=== PATIENT | male | born 1950 | race Caucasian/White ===

== ENCOUNTER → 2016-06-14 | Outpatient (CLI) | payer OTHER ==
[~2016-06-14] MED LIST: no home meds
[2016-06-14 11:06] LABS: ALT/SGPT 51 U/L (12-78); AST/SGOT 19 U/L (15-37); BLOOD UREA NITROGEN 17 mg/dl (7-18); BUN/CREATININE RATIO 18.8 (10-20); CARBON DIOXIDE 28 mmol/L (21-32); CHLORIDE 105 mmol/L (98-107); CREATININE 0.92 mg/dl (0.60-1.40); GLUCOSE 94 mg/dl (70-99); POTASSIUM 4.3 mmol/L (3.5-5.1); SODIUM 139 mmol/L (136-145)
[2016-06-14 11:11] LABS: ALKALINE PHOSPHATASE 100 U/L (45-117); CHOLESTEROL 195 mg/dl (0-200); CHOLESTEROL/HDL RATIO 4.1; HDL CHOLESTEROL 47 mg/dl; LDL CHOLESTEROL CALCULATED 113 mg/dl; PROSTATE SPECIFIC ANTIGEN 0.812 ng/ml (0.000-4.000); TRIGLYCERIDES 173 mg/dl (0-150); VERY LOW DENSITY LIPOPROT CALC 35 mg/dl
== END | disposition home or self-care (01) ==
LOC: C.LABBC 08:55
PROVIDERS: ATTEND Internal Medicine
DX: C43.9 Malignant melanoma of skin, unspecified (principal)

== ENCOUNTER → 2016-08-23 | Outpatient (CLI) | payer OTHER ==
--- NOTE | 2016-08-23 09:39 | DIAGNOSTIC IMAGING REPORT ---
Limited abdominal ultrasound ABDOMEN FOR HERNIA CLINICAL HISTORY: R10.30 Right groin [id number] hernia TECHNIQUE: Pre and post Valsalva ultrasound COMPARISON STUDY: None FINDINGS: Normal study. No evidence for hernia. IMPRESSION: Normal study Electronically signed by: Mariano Poole M.D. 08/23/2016 9:37 AM Dictated Date/Time: 08/23/2016 9:37 AM
== END | disposition home or self-care (01) ==
LOC: C.ULTR 09:10
PROVIDERS: ATTEND Internal Medicine
DX: R10.30 Lower abdominal pain, unspecified (principal)

== ENCOUNTER → 2017-06-21 | Outpatient (CLI) | payer OTHER ==
[2017-06-21 14:44] LABS: ALBUMIN 3.8 gm/dl (3.4-5.0); ALT/SGPT 36 U/L (12-78); AST/SGOT 18 U/L (15-37); BLOOD UREA NITROGEN 15 mg/dl (7-18); CALCIUM 9.1 mg/dl (8.5-10.1); CARBON DIOXIDE 27 mmol/L (21-32); CHOLESTEROL 245 mg/dl (0-200); CREATININE 0.85 mg/dl (0.60-1.40); GLUCOSE 93 mg/dl (70-99); POTASSIUM 4.5 mmol/L (3.5-5.1); SODIUM 136 mmol/L (136-145)
[2017-06-21 14:49] LABS: ALKALINE PHOSPHATASE 101 U/L (45-117); LDL CHOLESTEROL CALCULATED 154 mg/dl; TOTAL PROTEIN 7.7 gm/dl (6.4-8.2)
== END | disposition home or self-care (01) ==
LOC: C.LABBC 10:00
PROVIDERS: ATTEND Internal Medicine
DX: Z11.59 Encounter for screening for other viral diseases (principal); J44.9 Chronic obstructive pulmonary disease, unspecified; E78.5 Hyperlipidemia, unspecified; C43.9 Malignant melanoma of skin, unspecified

== ENCOUNTER → 2017-09-06 | Outpatient (CLI) | payer OTHER ==
--- NOTE | 2017-09-06 11:04 | DIAGNOSTIC IMAGING REPORT ---
CT LUNG SCREENING, LOW DOSE WITH COMPUTER-AIDED DETECTION (CAD) CLINICAL HISTORY: 67 years-old Male presenting with lung cancer screening, nicotine dependence. CT DOSE (mGy.cm): The estimated cumulative dose is 79.39 mGycm. TECHNIQUE: Multidetector CT imaging of the chest was performed without the use of intravenous contrast. IV contrast: None. A dose lowering technique was used consistent with the principles of ALARA (as low as reasonably achievable). Additional postprocessing was performed on a separate [employer] workstation by the radiologist for computer-aided detection and 3-D volumetric segmentation of pulmonary nodules. COMPARISON: None. FINDINGS: [employer] topogram: Unremarkable. On soft tissue windows, normal thyroid and thoracic inlet. No axillary, supraclavicular, or mediastinal lymphadenopathy. Evaluation of the gilberto limited without intravenous contrast. Atherosclerosis of the aorta. Top normal heart size. Moderate three-vessel coronary artery calcification. No pericardial or pleural effusion. Upper abdomen normal. On lung windows, apical predominant paraseptal and centrilobular emphysema. Mild bronchial wall thickening. A suture margin may be present in the lingula. Calcified granuloma noted in the left upper lobe. Overall respiratory motion artifact mildly degrades evaluation of lung parenchyma. On bone windows, normal osseous structures. CAD FINDINGS: Overall Lung RADS Category: 1 Lung RADS Management Recommendation: Continue annual lung cancer screening. Lung RADS Follow Up Date: 2018-09-06 Lung RADS Nodule ID: IMPRESSION: 1. No suspicious nodule or infiltrate. Continue annual lung cancer screening. 2. Emphysema. Electronically signed by: Justin Melchor M.D. 09/06/2017 11:02 AM Dictated Date/Time: 09/06/2017 10:58 AM
== END | disposition home or self-care (01) ==
LOC: C.CTS 10:12
PROVIDERS: ATTEND Physician Assistant Medical
DX: Z87.891 Personal history of nicotine dependence (principal); J43.9 Emphysema, unspecified

== ENCOUNTER 2019-06-19 10:36 | Inpatient (IN) ==
[2019-06-19] MEDS ORDERED: PROPOFOL IV EMULSION 10 MG/ML 100 ML VIAL IV ONE (10:50)
[2019-06-19] MEDS ORDERED: SUCCINYLCHOLINE CHLORIDE 20 MG/ML 10 ML VIAL IV STA (10:53)
[2019-06-19] MEDS ORDERED: KETAMINE HCL INJ 50 MG/ML 10 ML VIAL IV STA (10:53)
[2019-06-19] MEDS ORDERED: SODIUM CHLORIDE 0.9% 1000ML 1,000 ML IV SCH ×2 (11:00→11:30)
[2019-06-19] MEDS ORDERED: propofoL 1,000 MG/100 ML VIAL IV SCH (11:00)
[2019-06-19 11:06] LABS: Hematocrit (blood only) 44.5 % (42-52); Hemoglobin 15.2 g/dL (14.0-18.0); Mean Corpuscular Hemoglobin 31.7 pg (25-34); Mean Corpuscular Hgb Conc 34.2 g/dL (32-36); Mean Corpuscular Volume 92.7 fL (80-100); Mean Platelet Volume 9.8 fL (7.4-10.4); Platelet Count 248 K/uL (130-400); RDW Coefficient of Variation 13.6 % (11.5-14.5); RDW Standard Deviation 46.3 fL (36.4-46.3); White Blood Count 8.07 K/uL (4.8-10.8)
[2019-06-19 11:14] LABS: iSTAT Creatinine 0.9 mg/dl (0.6-1.3); iSTAT Ionized Calcium 1.14 mmol/l (1.12-1.32); iSTAT Potassium 3.8 mmol/L (3.3-5.0)
--- NOTE | 2019-06-19 11:14 | XRay Report ---
XR chest 1V portable CLINICAL HISTORY: Respiratory failure COMPARISON STUDY: 09/10/2015 FINDINGS: The heart is enlarged. There is an endotracheal tube 5.6 cm above the kendell. Postsurgical changes are present within the left hemithorax. There is mild left hilar fullness. There is underlyin g emphysema. There are increasing asymmetric interstitial opacities left greater than right, likely s econdary to asymmetric interstitial edema. An inflammatory processes could appear similar. Clinical a nd radiographic follow-up is recommended.[ IMPRESSION: 1. Endotracheal tube 36 mm above the kendell 2. Asymmetric interstitial opacities, likely secondary to asymmetric edema. Clinical and radiographic follow-up is recommended ACT 112: Negative or not required by law. Electronically signed by: Jose De Jesus Suttno M.D. 06/19/2019 11:12 AM
[2019-06-19 11:15] LABS: Prothrombin Time 10.5 Seconds (9.0-12.0)
[2019-06-19] MEDS ORDERED: MIDAZOLAM HCL 5 MG/ML 1 ML VIAL IV STA ×2 (11:21→11:50)
[2019-06-19] MEDS ORDERED: fentaNYL citrate 100 MCG/2 ML VIAL IV STA ×4 (11:21→12:23)
[2019-06-19 11:24] LABS: Alanine Aminotransferase 90 U/L (12-78); Albumin Level 3.8 gm/dl (3.4-5.0); Aspartate Aminotransferase 74 U/L (15-37); BUN Creatinine Ratio 9.6 (10-20); Blood Urea Nitrogen 12 mg/dl (7-18); Calcium 8.8 mg/dl (8.5-10.1); Carbon Dioxide 18 mmol/L (21-32); Chloride 106 mmol/L (98-107); Est GFR (African American) 66.1; Glucose 207 mg/dl (70-99); Magnesium 2.4 mg/dl (1.8-2.4); Potassium 3.7 mmol/L (3.5-5.1); Sodium 136 mmol/L (136-145)
[2019-06-19 11:28] LABS: Base Excess VBG -12.3 mEq/L; Oxygen Saturation VBG 99.7 %; pH VBG 7.13 (7.36-7.41)
--- NOTE | 2019-06-19 11:31 | Emergency Department Note ---
Entered by Charles Funez acting as a scribe for History of Present Illness General Chief complaint: Cardiac Arrest/CPR Stated complaint: cardiac alert Source: EMS Limitations: altered mental status History of Present Illness Onset (ago): minute(s) (40) Location: head Pain Consistency: + constant Quality: + constant Associated symptoms: + other (seizure) Treatments prior to arrival: none The patient is a 69 year old male who presents to the Emergency Room with complaints of constant altered mental status starting 40 minutes ago. EMS states the patient was cutting trees with his brother when he sat down and then fell backwards. EMS states the patient's brother notes the patient had a seizure for about 3 minutes. EMS states the patient's brother notes once the seizure stopped the brother started CPR on the patient and then called 911. EMS states the police continued performing CPR and shocked the patient once. EMS states the patient has been sticking his tongue straight out. EMS states the patient's brother stated the patient has a high cholesterol but does not note any other medical problems. HPI is limited secondary to altered mental status. Home Medications Home Medications Medication Instructions Recorded Confirmed Type atorvastatin 20 mg PO QAM 06/19/19 06/19/19 History naproxen sodium [Aleve] 220 mg PO Q12H 06/19/19 06/19/19 History Allergies Allergy/AdvReac Type Severity Reaction Status Date / Time procaine [From Novocain] Allergy Unknown Verified 06/19/19 15:36 Past Med/Surg History Medical History Hyperlipidemia Lung collapse Surgical History H/O rotator cuff surgery Left Family History Mother AAA (abdominal aortic aneurysm) Heart disease reported prior to the age of 55 Father Lung cancer Other Dyslipidemia Social History Preferred Language: Samoan Communication Ability: restless Communication Ability Comment: currently restless, agitation Manometer Technician Required: No Beliefs That Will Affect Care: None Current Living Situation: Spouse Current Living Situation Comment: [facility] Other Information That Helps Us Care for You: No Feels Safe at Home: Yes Safety Concerns: Feels Safe At This Time Smoking Status: Current every day smoker Tobacco Type: cigarettes ; Do You Dip or Chew Tobacco: No ; Second Hand Exposure: No ; Tobacco Cessation Education Requested by Patient: No Hx Alcohol Use: Yes Alcohol type: beer Alcohol Intake Frequency: Weekly Hx Substance Use: No (unknown) Review of Systems See HPI for pertinent positives & negatives. and A total of 10 systems reviewed and were otherwise negative Physical Exam Vital Signs Vital Signs - 24 hr 06/19/19 10:40 06/19/19 10:48 06/19/19 10:49 Temperature 36.5 C Temperature [Source #1] Temperature Source Oral Temperature Source [Source #1] Pulse Rate 114 H 107 H Pulse Rate from SpO2 Sensor 107 H Respiratory Rate Respiratory Effort / Characteristics Respiratory Pattern Blood Pressure 162/120 H Blood Pressure Mean 130 Blood Pressure Position [Left Arm] Pulse Oximetry 92 97 Oxygen Delivery Method Nasal Cannula Oxygen Flow Rate Fraction of Inspired Oxygen Sepsis Recent Fever Within 48 Hours No Sepsis New/Unexplained Change in Mental Status Yes Sepsis Action Taken by Nursing No Action Required End-Tidal CO2 06/19/19 10:50 06/19/19 10:52 06/19/19 11:00 Temperature Temperature [Source #1] Temperature Source Temperature Source [Source #1] Pulse Rate 119 H 118 H 120 H Pulse Rate from SpO2 Sensor 119 H 118 H 121 H Respiratory Rate 20 Respiratory Effort / Characteristics Respiratory Pattern Blood Pressure 193/131 H 200/134 H Blood Pressure Mean 144 143 Blood Pressure Position [Left Arm] Pulse Oximetry 97 97 96 Oxygen Delivery Method Ambu-Bag Ambu-Bag Mechanical Vent Oxygen Flow Rate Fraction of Inspired Oxygen 100 Sepsis Recent Fever Within 48 Hours Sepsis New/Unexplained Change in Mental Status Sepsis Action Taken by Nursing End-Tidal CO2 36 06/19/19 11:08 06/19/19 11:10 06/19/19 11:19 Temperature Temperature [Source #1] Temperature Source Temperature Source [Source #1] Pulse Rate 128 H 124 H 106 H Pulse Rate from SpO2 Sensor 128 H 124 H 105 H Respiratory Rate Respiratory Effort / Characteristics Respiratory Pattern Blood Pressure 198/143 H 189/136 H 142/90 H Blood Pressure Mean 159 152 104 Blood Pressure Position [Left Arm] Pulse Oximetry 96 96 96 Oxygen Delivery Method Mechanical Vent Mechanical Vent Mechanical Vent Oxygen Flow Rate 97 Fraction of Inspired Oxygen Sepsis Recent Fever Within 48 Hours Sepsis New/Unexplained Change in Mental Status Sepsis Action Taken by Nursing End-Tidal CO2 40 36 32 01/14/20 11:20 06/19/19 11:25 06/19/19 11:30 Temperature Temperature [Source #1] Temperature Source Temperature Source [Source #1] Pulse Rate 102 H 93 H 93 H Pulse Rate from SpO2 Sensor 99 H 93 H 93 H Respiratory Rate Respiratory Effort / Characteristics Respiratory Pattern Blood Pressure 137/91 99/70 L 106/73 Blood Pressure Mean 101 75 83 Blood Pressure Position [Left Arm] Pulse Oximetry 96 97 98 Oxygen Delivery Method Mechanical Vent Mechanical Vent Oxygen Flow Rate Fraction of Inspired Oxygen Sepsis Recent Fever Within 48 Hours Sepsis New/Unexplained Change in Mental Status Sepsis Action Taken by Nursing End-Tidal CO2 40 40 42 06/19/19 11:35 06/19/19 11:40 06/19/19 12:08 Temperature Temperature [Source #1] Temperature Source Temperature Source [Source #1] Pulse Rate 92 H 95 H 87 Pulse Rate from SpO2 Sensor 92 H 94 H 89 Respiratory Rate Respiratory Effort / Characteristics Respiratory Pattern Blood Pressure 108/73 108/73 93/61 L Blood Pressure Mean 83 83 72 Blood Pressure Position [Left Arm] Pulse Oximetry 99 99 99 Oxygen Delivery Method Oxygen Flow Rate Fraction of Inspired Oxygen Sepsis Recent Fever Within 48 Hours Sepsis New/Unexplained Change in Mental Status Sepsis Action Taken by Nursing End-Tidal CO2 41 42 37 06/19/19 12:10 06/19/19 12:15 06/19/19 12:16 Temperature Temperature [Source #1] Temperature Source Temperature Source [Source #1] Pulse Rate 89 91 H 97 H Pulse Rate from SpO2 Sensor 87 94 H Respiratory Rate 21 Respiratory Effort / Characteristics Respiratory Pattern Blood Pressure 96/69 L 124/77 Blood Pressure Mean 76 90 Blood Pressure Position [Left Arm] Pulse Oximetry 96 100 100 Oxygen Delivery Method Oxygen Flow Rate Fraction of Inspired Oxygen 50 Sepsis Recent Fever Within 48 Hours Sepsis New/Unexplained Change in Mental Status Sepsis Action Taken by Nursing End-Tidal CO2 06/19/19 12:20 06/19/19 12:25 06/19/19 12:30 Temperature Temperature [Source #1] Temperature Source Temperature Source [Source #1] Pulse Rate 89 92 H 83 Pulse Rate from SpO2 Sensor 89 90 83 Respiratory Rate Respiratory Effort / Characteristics Respiratory Pattern Blood Pressure 108/67 107/87 90/61 L Blood Pressure Mean 78 100 72 Blood Pressure Position [Left Arm] Pulse Oximetry 100 100 100 Oxygen Delivery Method Oxygen Flow Rate Fraction of Inspired Oxygen Sepsis Recent Fever Within 48 Hours Sepsis New/Unexplained Change in Mental Status Sepsis Action Taken by Nursing End-Tidal CO2 41 42 06/19/19 12:32 06/19/19 12:35 06/19/19 12:40 Temperature Temperature [Source #1] 35.2 C L Temperature Source Temperature Source [Source #1] Rectal Pulse Rate 83 92 H 83 Pulse Rate from SpO2 Sensor 85 83 Respiratory Rate 21 Respiratory Effort / Characteristics Mechanically Ventilated Respiratory Pattern Blood Pressure 94/62 L 111/75 Blood Pressure Mean 72 82 Blood Pressure Position [Left Arm] Pulse Oximetry 100 100 Oxygen Delivery Method Oxygen Flow Rate Fraction of Inspired Oxygen Sepsis Recent Fever Within 48 Hours Sepsis New/Unexplained Change in Mental Status Sepsis Action Taken by Nursing End-Tidal CO2 45 48 06/19/19 12:45 06/19/19 12:49 06/19/19 12:50 Temperature 35.2 C L Temperature [Source #1] Temperature Source Rectal Temperature Source [Source #1] Pulse Rate 80 84 Pulse Rate from SpO2 Sensor 80 83 Respiratory Rate Respiratory Effort / Characteristics Respiratory Pattern Blood Pressure 104/72 136/90 Blood Pressure Mean 80 103 Blood Pressure Position [Left Arm] Pulse Oximetry 100 100 Oxygen Delivery Method Oxygen Flow Rate Fraction of Inspired Oxygen Sepsis Recent Fever Within 48 Hours Sepsis New/Unexplained Change in Mental Status Sepsis Action Taken by Nursing End-Tidal CO2 47 48 06/19/19 12:55 06/19/19 13:00 06/19/19 13:05 Temperature Temperature [Source #1] Temperature Source Temperature Source [Source #1] Pulse Rate 82 78 Pulse Rate from SpO2 Sensor 82 81 Respiratory Rate Respiratory Effort / Characteristics Respiratory Pattern Blood Pressure 148/98 H 148/96 H 130/85 Blood Pressure Mean 111 113 95 Blood Pressure Position [Left Arm] Pulse Oximetry 100 100 100 Oxygen Delivery Method Mechanical Vent Oxygen Flow Rate Fraction of Inspired Oxygen Sepsis Recent Fever Within 48 Hours Sepsis New/Unexplained Change in Mental Status Sepsis Action Taken by Nursing End-Tidal CO2 50 06/19/19 13:08 06/19/19 13:21 06/19/19 15:00 Temperature 34.9 C L 33.7 C L Temperature [Source #1] 35.2 C L Temperature Source Rectal Core Temperature Source [Source #1] Rectal Pulse Rate 85 Pulse Rate from SpO2 Sensor Respiratory Rate 22 22 Respiratory Effort / Characteristics Non-Labored Mechanically Ventilated Respiratory Pattern Regular Blood Pressure Blood Pressure Mean Blood Pressure Position [Left Arm] Lying Pulse Oximetry 98 Oxygen Delivery Method Mechanical Vent Oxygen Flow Rate Fraction of Inspired Oxygen 50 Sepsis Recent Fever Within 48 Hours Sepsis New/Unexplained Change in Mental Status Sepsis Action Taken by Nursing End-Tidal CO2 45 06/19/19 15:13 Temperature Temperature [Source #1] Temperature Source Temperature Source [Source #1] Pulse Rate 83 Pulse Rate from SpO2 Sensor 83 Respiratory Rate Respiratory Effort / Characteristics Respiratory Pattern Blood Pressure 123/71 Blood Pressure Mean 78 Blood Pressure Position [Left Arm] Pulse Oximetry 97 Oxygen Delivery Method Oxygen Flow Rate Fraction of Inspired Oxygen Sepsis Recent Fever Within 48 Hours Sepsis New/Unexplained Change in Mental Status Sepsis Action Taken by Nursing End-Tidal CO2 GENERAL: Moving all extremities but not following commands. Slurred speech. HENT: Normocephalic, atraumatic. EYES: Normal conjunctiva. Sclera non-icteric. PERRL. NECK: Supple. No nuchal rigidity. RESPIRATORY: Clear to auscultation. Normal respiratory effort. CARDIAC: Tachycardic rate. Normal rhythm. Extremities warm and well perfused. GI: Soft, non-distended. No tenderness to palpation. LOWER EXTREMITIES: Calves are equal size bilaterally and no edema NEURO: Moving all extremities. Slurred speech. Not saying words. Not following commands. Trying to get off of bed/combative. SKIN: Warm and dry. No jaundice noted. Procedures Intubation sedative: Ketamine Mg Given: 200 paralytic: Succinylcholine Mg Given: 150 Laryngoscope: other (Glidescope) ET Tube Size: 7.5 ET Tube Uncuffed: No Tube Secured Depth (cm): 24 Tube Secured Location: lips Tube Placement Confirmation: visualized tube passing through cords, equal breath sounds bilaterally, no breath sounds over epigastrium and confirmation by capnometry Patient Tolerated Procedure: no complications Additional Comments: Performed by myself. Course Course 1040: The patient was evaluated in room B1, and a complete history and physical examination were performed. 1110: I spoke with Dr. Dye - Emergency Medicine. He will come down and see the patient. 0116: I spoke with Dr. Boyd - Cardiology. He benoit to take the patient to the drop crew laborer after the CT. 1141: I updated the patient's family. 1153: I discussed the patient's case with Dr. Da Silva - [facility]. He will evaluate the patient for further management. 1240: Dr. Dye is at bedside. 1257: The patient is going to the drop crew laborer. Administered Medications Fentanyl Citrate (Fentanyl Drip) 1,250 mcg in 250 mls @ 40 mls/hr IV .Q6H15M STA; Protocol Stop: 06/19/19 18:38 Last Titration: 06/19/19 16:41 Dose: 200 mcg/hr, 40 mls/hr Documented by: [id number] Admin: 06/19/19 12:42 Dose: 250 mcg/hr, 50 mls/hr Documented by: [id number] Cosigned by: [id number] Cisatracurium Besylate 40 mg/ (Sodium Chloride) 100 mls @ 10.95 mls/hr IV .Q9H8M STA; Protocol Stop: 06/19/19 19:09 Last Admin: 06/19/19 12:58 Dose: 1 mcg/kg/min, 11 mls/hr Documented by: [id number] Cosigned by: [id number] Midazolam HCl (Versed) 125 mg in 250 mls @ 2 mls/hr IV .Q24H FELICE; Protocol Stop: 07/19/19 15:59 Last Admin: 06/19/19 16:11 Dose: 1 mg/hr, 2 mls/hr Documented by: [id number] Cosigned by: [id number] Miscellaneous (Icu Protocol For Hyperglycemia) 1 ea N/A PRN PRN; Protocol PRN Reason: Hyperglycemia Protocol Stop: 06/21/19 15:31 Last Admin: 06/19/19 16:00 Dose: 1 ea Documented by: [id number] Discontinued Medications Aspirin (Aspirin) 300 mg FL NOW STA Stop: 06/19/19 12:46 Last Admin: 06/19/19 12:55 Dose: 300 mg Documented by: [id number] Fentanyl Citrate (Fentanyl Citrate) 100 mcg IV NOW STA Stop: 06/19/19 11:22 Last Admin: 06/19/19 11:22 Dose: 100 mcg Documented by: [id number] Fentanyl Citrate (Fentanyl Citrate) 100 mcg IV NOW STA Stop: 06/19/19 11:42 Last Admin: 06/19/19 11:41 Dose: 100 mcg Documented by: [id number] Fentanyl Citrate (Fentanyl Citrate) 100 mcg IV NOW STA Stop: 06/19/19 11:51 Last Admin: 06/19/19 13:54 Dose: Not Given Documented by: [id number] Fentanyl Citrate (Fentanyl Citrate) 100 mcg IV NOW STA Stop: 06/19/19 12:24 Last Admin: 06/19/19 12:25 Dose: 100 mcg Documented by: [id number] Heparin Sodium (Porcine) (Heparin Iv Bolus (Chair Mender Use Only)) Confirm Adminis tered Dose 10,000 units .ROUTE .STK-MED ONE Stop: 06/19/19 12:47 Last Admin: 06/19/19 14:54 Dose: 9,000 units Documented by: [id number] Heparin Sodium/Sodium Chloride (Heparin/Nss 1000 Unit/500ml Flush Bag) Confirm Administered Dose 5,000 units IV .STK-MED ONE Stop: 06/19/19 12:47 Last Admin: 06/19/19 13:41 Dose: 5,000 units Documented by: [id number] Sodium Chloride (Nss 1000ml) 1,000 mls @ 999 mls/hr IV .Q1H1M [facility] Stop: 06/19/19 12:00 Last Admin: 06/19/19 10:50 Dose: 999 mls/hr Documented by: [id number] Propofol (Diprivan) 1,000 mg in 100 mls @ 0 mls/hr IV .Q0M FELICE; Protocol Stop: 06/22/19 10:59 Last Titration: 06/19/19 12:40 Dose: 0 mcg/kg/min, 0 mls/hr Documented by: [id number] Titration: 06/19/19 11:14 Dose: 35 mcg/kg/min, 21.3 mls/hr Documented by: [id number] Admin: 06/19/19 11:10 Dose: 25 mcg/kg/min, 15.2 mls/hr Documented by: [id number] Cosigned by: [id number] Ketamine HCl (Ketalar Steri-Vial) 200 mg IV NOW STA Stop: 06/19/19 10:54 Last Admin: 06/19/19 11:01 Dose: 100 mg Documented by: [id number] Midazolam HCl (Versed) 2 mg IV NOW STA Stop: 06/19/19 11:22 Last Admin: 06/19/19 12:09 Dose: 2 mg Documented by: [id number] Midazolam HCl (Versed) 2 mg IV NOW STA Stop: 06/19/19 11:51 Last Admin: 06/19/19 11:46 Dose: 2 mg Documented by: [id number] Nicardipine HCl (Cardene) Confirm Administered Dose 25 mg .ROUTE .STK-MED ONE Stop: 06/19/19 12:47 Last Admin: 06/19/19 13:41 Dose: 25 mg Documented by: [id number] Nitroglycerin/Dextrose (Nitroglycerin/D5w 100 Mcg/Ml 20ml Syringe) Confirm Administered Dose 2,000 mcg .ROUTE .STK-MED ONE Stop: 06/19/19 12:47 Last Admin: 06/19/19 13:40 Dose: 2,000 mcg Documented by: [id number] Propofol (Diprivan) Confirm Administered Dose 1,000 mg IV .STK-MED ONE Stop: 06/19/19 10:51 Last Admin: 06/19/19 10:52 Dose: 1,000 mg Documented by: [id number] Cosigned by: [id number] Succinylcholine Chloride (Quelicin) 150 mg IV NOW STA Stop: 06/19/19 10:54 Last Admin: 06/19/19 11:02 Dose: 150 mg Documented by: [id number] Critical Care Time Critical Care Time: Yes Total Critical Care Time: 75 I have personally spent 75 minutes of critical care time in the direct management of this patient. This includes bedside care, interpretation of diagnostic studies, and testing, discussion with consultants, patient, and family members, and other required patient management activities. This 75 minutes is in excess of all separately billable procedures. Medical Decision Making Differential Diagnosis Differential diagnoses includes but is not limited to toxic, metabolic, infectious, traumatic, cardiac, neurologic, hematologic, psychiatric and inflammatory etiologies. Medical Records Attestation: I reviewed the patient's medical records. Home Medications Current Medication List: was personally reviewed by me Laboratory Data Attestation: I reviewed the patient's lab results. Result diagrams: 06/19/19 10:45 06/19/19 10:45 Lab Results 06/19/19 06/19/19 06/19/19 Range/Units 10:45 10:45 10:45 WBC 8.07 (4.8-10.8) K/uL RBC 4.80 (4.7-6.1) M/uL Hgb 15.2 (14.0-18.0) g/dL POC Hgb (14.0-18.0) g/dl Hct 44.5 (42-52) % POC Hct (42-52) % MCV 92.7 (80-100) fL MCH 31.7 (25-34) pg MCHC 34.2 (32-36) g/dL RDW Std Deviation 46.3 (36.4-46.3) fL RDW Coeff of Elena 13.6 (11.5-14.5) % Plt Count 248 (130-400) K/uL MPV 9.8 (7.4-10.4) fL Neutrophils % (Manual) 58.3 % Lymphocytes % (Manual) 21.7 % Monocytes % (Manual) 4.3 % Basophils % (Manual) 0.9 % Neutrophils # (Manual) 4.70 (1.4-6.5) K/uL Total Absolute Neuts 4.70 (1.4-6.5) K/uL Lymphocytes # (Manual) 1.75 (1.2-3.4) K/uL Total Abs Lymphocytes 2.95 (1.2-3.4) K/uL Monocytes # (Manual) 0.35 (0.11-0.59) K/uL Basophils # (Manual) 0.07 (0-0.2) K/uL Large Granular Lymphs 14.8 % # Lrg Granular Lymphs 1.19 K/uL Echinocytes 1+ PT 10.5 (9.0-12.0) Seconds INR 1.0 (0.9-1.1) VBG pH (7.36-7.41) VBG pCO2 (38-50) mmHg VBG pO2 mmHg VBG HCO3 mmol/L VBG O2 Saturation % VBG Base Excess mEq/L Barometric Pressure mm/Hg POC Sodium (135-144) mmol/L Sodium 136 (136-145) mmol/L POC Potassium (3.3-5.0) mmol/L Potassium 3.7 (3.5-5.1) mmol/L POC Chloride (101-112) mmol/L Chloride 106 (98-107) mmol/L Carbon Dioxide 18 L (21-32) mmol/L POC Total CO2 (24-31) mEq/l Anion Gap 12.0 H (3-11) POC Anion Gap (16-25) mmol/L POC BUN (7-18) mg/dl BUN 12 (7-18) mg/dl Creatinine 1.29 (0.6-1.4) mg/dl POC Creatinine (0.6-1.3) mg/dl Est Cr Clr Drug Dosing Not Reportable Est GFR ( Amer) 66.1 Est GFR (Non-Af Amer) 57.0 BUN/Creatinine Ratio 9.6 L (10-20) Glucose 207 H (70-99) mg/dl POC Glucose (other) (70-99) mg/dl Lactate (0.4-2.0) mmol/L Calcium 8.8 (8.5-10.1) mg/dl POC Ioniz Calcium Marito (1.12-1.32) mmol/l Magnesium 2.4 (1.8-2.4) mg/dl Total Bilirubin 0.6 (0.2-1) mg/dl AST 74 H (15-37) U/L ALT 90 H (12-78) U/L Alkaline Phosphatase 106 (45-117) U/L Troponin I (0-0.045) ng/ml Total Protein 7.6 (6.4-8.2) gm/dl Albumin 3.8 (3.4-5.0) gm/dl Globulin 3.8 (2.5-4.0) gm/dl Albumin/Globulin Ratio 1.0 (0.9-2) TSH 8.790 H (0.300-4.500) uIu/ml Free T4 0.82 (0.8-1.6) ng/dl Urine Color Urine Appearance (Clear) Urine pH (4.5-7.5) Ur Specific [place] (1.000-1.030) Urine Protein (Negative) Urine Glucose (UA) (Negative) Urine Ketones (Negative) Urine Blood (Negative) Urine Nitrite (Negative) Urine Bilirubin (Negative) Urine Urobilinogen (Negative) Ur Leukocyte Esterase (Negative) Urine WBC (Auto) (0-5) /hpf Urine RBC (Auto) (0-4) /hpf U Hyaline Cast (Auto) (0-5) /lpf U Epithel Cells (Auto) (0-5) /lpf Urine Bacteria (Auto) (Negative) Urine Mucus (None Prsent) Urine Opiates Screen (Neg) Ur Methadone, Qual (Neg) Urine Barbiturates (Neg) Ur Phencyclidine (PCP) (Neg) U Amphetamin/Meth Scrn (Neg) MDMA (Ecstasy) Screen (Neg) U Benzodiazepines Scrn (Neg) Ur Cocaine Metabolite (Neg) U Marijuana (THC) Screen (Neg) 06/19/19 06/19/19 06/19/19 Range/Units 10:45 10:58 11:10 WBC (4.8-10.8) K/uL RBC (4.7-6.1) M/uL Hgb (14.0-18.0) g/dL POC Hgb 15.0 (14.0-18.0) g/dl Hct (42-52) % POC Hct 44 (42-52) % MCV (80-100) fL MCH (25-34) pg MCHC (32-36) g/dL RDW Std Deviation (36.4-46.3) fL RDW Coeff of Elena (11.5-14.5) % Plt Count (130-400) K/uL MPV (7.4-10.4) fL Neutrophils % (Manual) % Lymphocytes % (Manual) % Monocytes % (Manual) % Basophils % (Manual) % Neutrophils # (Manual) (1.4-6.5) K/uL Total Absolute Neuts (1.4-6.5) K/uL Lymphocytes # (Manual) (1.2-3.4) K/uL Total Abs Lymphocytes (1.2-3.4) K/uL Monocytes # (Manual) (0.11-0.59) K/uL Basophils # (Manual) (0-0.2) K/uL Large Granular Lymphs % # Lrg Granular Lymphs K/uL Echinocytes PT (9.0-12.0) Seconds INR (0.9-1.1) VBG pH (7.36-7.41) VBG pCO2 (38-50) mmHg VBG pO2 mmHg VBG HCO3 mmol/L VBG O2 Saturation % VBG Base Excess mEq/L Barometric Pressure mm/Hg POC Sodium 136 (135-144) mmol/L Sodium (136-145) mmol/L POC Potassium 3.8 (3.3-5.0) mmol/L Potassium (3.5-5.1) mmol/L POC Chloride 106 (101-112) mmol/L Chloride (98-107) mmol/L Carbon Dioxide (21-32) mmol/L POC Total CO2 18 L (24-31) mEq/l Anion Gap (3-11) POC Anion Gap 17.0 (16-25) mmol/L POC BUN 14 (7-18) mg/dl BUN (7-18) mg/dl Creatinine (0.6-1.4) mg/dl POC Creatinine 0.9 (0.6-1.3) mg/dl Est Cr Clr Drug Dosing Est GFR ( Amer) Est GFR (Non-Af Amer) BUN/Creatinine Ratio (10-20) Glucose (70-99) mg/dl POC Glucose (other) 209 H (70-99) mg/dl Lactate 7.0 H* (0.4-2.0) mmol/L Calcium (8.5-10.1) mg/dl POC Ioniz Calcium Marito 1.14 (1.12-1.32) mmol/l Magnesium (1.8-2.4) mg/dl Total Bilirubin (0.2-1) mg/dl AST (15-37) U/L ALT (12-78) U/L Alkaline Phosphatase (45-117) U/L Troponin I < 0.015 (0-0.045) ng/ml Total Protein (6.4-8.2) gm/dl Albumin (3.4-5.0) gm/dl Globulin (2.5-4.0) gm/dl Albumin/Globulin Ratio (0.9-2) TSH (0.300-4.500) uIu/ml Free T4 (0.8-1.6) ng/dl Urine Color Urine Appearance (Clear) Urine pH (4.5-7.5) Ur Specific [place] (1.000-1.030) Urine Protein (Negative) Urine Glucose (UA) (Negative) Urine Ketones (Negative) Urine Blood (Negative) Urine Nitrite (Negative) Urine Bilirubin (Negative) Urine Urobilinogen (Negative) Ur Leukocyte Esterase (Negative) Urine WBC (Auto) (0-5) /hpf Urine RBC (Auto) (0-4) /hpf U Hyaline Cast (Auto) (0-5) /lpf U Epithel Cells (Auto) (0-5) /lpf Urine Bacteria (Auto) (Negative) Urine Mucus (None Prsent) Urine Opiates Screen (Neg) Ur Methadone, Qual (Neg) Urine Barbiturates (Neg) Ur Phencyclidine (PCP) (Neg) U Amphetamin/Meth Scrn (Neg) MDMA (Ecstasy) Screen (Neg) U Benzodiazepines Scrn (Neg) Ur Cocaine Metabolite (Neg) U Marijuana (THC) Screen (Neg) 06/19/19 06/19/19 06/19/19 Range/Units 11:10 11:30 11:30 WBC (4.8-10.8) K/uL RBC (4.7-6.1) M/uL Hgb (14.0-18.0) g/dL POC Hgb (14.0-18.0) g/dl Hct (42-52) % POC Hct (42-52) % MCV (80-100) fL MCH (25-34) pg MCHC (32-36) g/dL RDW Std Deviation (36.4-46.3) fL RDW Coeff of Elena (11.5-14.5) % Plt Count (130-400) K/uL MPV (7.4-10.4) fL Neutrophils % (Manual) % Lymphocytes % (Manual) % Monocytes % (Manual) % Basophils % (Manual) % Neutrophils # (Manual) (1.4-6.5) K/uL Total Absolute Neuts (1.4-6.5) K/uL Lymphocytes # (Manual) (1.2-3.4) K/uL Total Abs Lymphocytes (1.2-3.4) K/uL Monocytes # (Manual) (0.11-0.59) K/uL Basophils # (Manual) (0-0.2) K/uL Large Granular Lymphs % # Lrg Granular Lymphs K/uL Echinocytes PT (9.0-12.0) Seconds INR (0.9-1.1) VBG pH 7.13 L (7.36-7.41) VBG pCO2 52 H (38-50) mmHg VBG pO2 304 mmHg VBG HCO3 17 mmol/L VBG O2 Saturation 99.7 % VBG Base Excess -12.3 mEq/L Barometric Pressure 735.4 mm/Hg POC Sodium (135-144) mmol/L Sodium (136-145) mmol/L POC Potassium (3.3-5.0) mmol/L Potassium (3.5-5.1) mmol/L POC Chloride (101-112) mmol/L Chloride (98-107) mmol/L Carbon Dioxide (21-32) mmol/L POC Total CO2 (24-31) mEq/l Anion Gap (3-11) POC Anion Gap (16-25) mmol/L POC BUN (7-18) mg/dl BUN (7-18) mg/dl Creatinine (0.6-1.4) mg/dl POC Creatinine (0.6-1.3) mg/dl Est Cr Clr Drug Dosing Est GFR ( Amer) Est GFR (Non-Af Amer) BUN/Creatinine Ratio (10-20) Glucose (70-99) mg/dl POC Glucose (other) (70-99) mg/dl Lactate (0.4-2.0) mmol/L Calcium (8.5-10.1) mg/dl POC Ioniz Calcium Marito (1.12-1.32) mmol/l Magnesium (1.8-2.4) mg/dl Total Bilirubin (0.2-1) mg/dl AST (15-37) U/L ALT (12-78) U/L Alkaline Phosphatase (45-117) U/L Troponin I (0-0.045) ng/ml Total Protein (6.4-8.2) gm/dl Albumin (3.4-5.0) gm/dl Globulin (2.5-4.0) gm/dl Albumin/Globulin Ratio (0.9-2) TSH (0.300-4.500) uIu/ml Free T4 (0.8-1.6) ng/dl Urine Color Yellow Urine Appearance Cloudy A (Clear) Urine pH 5.0 (4.5-7.5) Ur Specific [place] 1.021 (1.000-1.030) Urine Protein 2+ H (Negative) Urine Glucose (UA) 2+ H (Negative) Urine Ketones Negative (Negative) Urine Blood 1+ H (Negative) Urine Nitrite Negative (Negative) Urine Bilirubin Negative (Negative) Urine Urobilinogen Negative (Negative) Ur Leukocyte Esterase Negative (Negative) Urine WBC (Auto) 5-10 H (0-5) /hpf Urine RBC (Auto) 0-4 (0-4) /hpf U Hyaline Cast (Auto) 1-5 (0-5) /lpf U Epithel Cells (Auto) 10-20 H (0-5) /lpf Urine Bacteria (Auto) 1+ H (Negative) Urine Mucus Present A (None Prsent) Urine Opiates Screen Neg (Neg) Ur Methadone, Qual Neg (Neg) Urine Barbiturates Neg (Neg) Ur Phencyclidine (PCP) Neg (Neg) U Amphetamin/Meth Scrn Neg (Neg) MDMA (Ecstasy) Screen Neg (Neg) U Benzodiazepines Scrn Neg (Neg) Ur Cocaine Metabolite Neg (Neg) U Marijuana (THC) Screen Neg (Neg) Imaging Data Radiologist's Impression: Radiology results as stated below per my review and the radiologist's interpretation: XR chest 1V portable CLINICAL HISTORY: Respiratory failure COMPARISON STUDY: 09/10/2015 FINDINGS: The heart is enlarged. There is an endotracheal tube 5.6 cm above the kendell. Postsurgical changes are present within the left hemithorax. There is m ild left hilar fullness. There is underlying emphysema. There are increasing asymmetric interstitial opacities left greater than right, likely secondary to asymmetric interstitial edema. An inflammatory processes could appear similar. Clinical and radiographic follow-up is recommended.[ IMPRESSION: 1. Endotracheal tube 36 mm above the kendell 2. Asymmetric interstitial opacities, likely secondary to asymmetric edema. Clinical and radiographic follow-up is recommended ACT 112: Negative or not required by law. Electronically signed by: Jose De Jesus Sutton M.D. 06/19/2019 11:[address] head/brain wo con CLINICAL HISTORY: post arrest, seizure COMPARISON STUDY: No previous studies for comparison. TECHNIQUE: Axial CT of the brain is performed from the vertex to the skull base. IV contrast was not administered for this examination. A dose lowering technique was utilized adhering to the principles of ALARA. CT DOSE: 887.21 mGycm FINDINGS: No intra or extra-axial mass lesions are visualized. There is no CT evidence of acute cortical infarction. There is no evidence of midline shift. There is no acute hemorrhage. No calvarial fractures are visualized. There are minor white matter hypodensities likely on a small vessel basis. There is no evidence of pathologic ventricular dilatation. There is moderate ethmoid sinus mucosal thickening. There is mild maxillary and frontal sinus mucosal thickening. IMPRESSION: No acute intracranial findings ACT 112: Negative or not required by law. Electronically signed by: Jose De Jesus Sutton M.D. 06/19/2019 12:06 PM ECG Data Attestation: I personally reviewed and interpreted this ECG as follows: Indication: + other (Cardiac Arrest) Rate (beats per minute): 118 Rhythm: + sinus tachycardia ECG ST segments: + ST depression (slight inferior st depression); no ST elevation ECG Findings: no PVCs Blood Pressure Blood Pressure Findings: Elevated blood pressure Blood Pressure Disposition: further management by hospitalist HANY Narrative Patient is a 69-year-old gentleman presenting via EMS with a history of hyperlipidemia after cardiac arrest. Patient was with his brother cutting trees and began to feel unwell sat down. EMS states there was some reports of possible seizure-like activity and the patient went unresponsive. No pulse was felt and brother started CPR. 911 was called. Please first arrived continued CPR and AED was utilized with 1 shock. Patient had return of pulses. EMS arrived. States rapid afib to sinus tach for them with no other meds given. Patient was intermittently moving some and breathing on his own and brought here for further care. Upon arrival patient was confused. Quickly became combative trying to jump off the bed moving all extremities but with slurred and noncoherent speech. No focal deficits grossly appreciated beyond speech issues and not following commands. Patient received ketamine and succinylcholine for intubation for his and staff safety with soft restraints. ET tube was slightly high and repositioned lower after CXR. CBC and i-STAT without significant findings. Lactate elevated. Initial trop negative. EKG with some slight diffuse ST depression but no evidence of STEMI. Discussed with both the ICU and interventional cardiology. Given the seizure and altered mental status a CT of the head was completed to exclude other acute intracranial pathology. This was without acute finding. Respiratory standpoint doing pretty well and lower suspicion is acute PE. No evidence again of STEMI but in light of the shockable arrest after head CT, cardiology plans for cardiac catheterization to evaluate for cardiac disease. Therapeutic hypothermia procedures were initiated. ICU evaluated in ED with hospitalist. [place] aspiring given. Impression & Plan Cardiac arrest, AMS (altered mental status), Elevated lactic acid level, Hypercapnic respiratory failure Discharge Plan Visit Data *Final* Discharge Date/Time: 06/19/19 13:09 Chief Complaint: Cardiac Arrest/CPR Stated Complaint: cardiac alert ED Provider: Jason Clarke Discharge Problem: Cardiac arrest, AMS (altered mental status), Elevated lactic acid level, Hypercapnic respiratory failure Patient Disposition: Still a Patient Discharge Instructions Interventions: ED Discharge Assessment Last Done: 06/19/19 13:09 Discharge Problem: AMS (altered mental status) Qualifiers: Altered mental status type: unspecified Qualified Code(s): R41.82 - Altered mental status, unspecified Hypercapnic respiratory failure Qualifiers: Chronicity: unspecified Qualified Code(s): J96.92 - Respiratory failure, u nspecified with hypercapnia The scribe's documentation has been prepared under my direction and personally reviewed by me in its entirety. I confirm that the note above accurately reflects all work, treatment, procedures, and medical decision making performed by me.
[2019-06-19 11:35] LABS: Alkaline Phosphatase 106 U/L (45-117); Bilirubin,Total 0.6 mg/dl (0.2-1); Globulin 3.8 gm/dl (2.5-4.0); Total Protein 7.6 gm/dl (6.4-8.2)
[2019-06-19 11:48] LABS: T4 Free Thyroxine 0.82 ng/dl (0.8-1.6)
[2019-06-19 11:52] LABS: Appearance Urine Cloudy (Clear); Bilirubin Urine Negative (Negative); Blood Urine 1+ (Negative); Color Urine Yellow; Glucose Urine UA 2+ (Negative); Ketones Urine Negative (Negative); Leukocyte Esterase Urine Negative (Negative); Nitrite Urine Negative (Negative); Protein Urine 2+ (Negative); RBC Urine Automated 0-4 /hpf (0-4); Specific Gravity Urine 1.021 (1.000-1.030); Urobilinogen Urine Negative (Negative)
--- NOTE | 2019-06-19 12:09 | Electrocardiogram Report ---
Test Reason : Blood Pressure : / mmHG Vent. Rate : 118 BPM Atrial Rate : 118 BPM P-R Int : 152 ms QRS Dur : 088 ms QT Int : 342 ms P-R-T Axes : 081 059 036 degrees QTc Int : 479 ms Sinus tachycardia Nonspecific ST abnormality Abnormal ECG When compared with ECG of 10-SEP-2015 10:36, Vent. rate has increased BY [address] now depressed in Lateral leads ST now depressed in Inferior leads Confirmed by Calos Nina ([id number]) on 06/19/2019 12:09:37 PM Referred By: Confirmed By:Calos Nina
--- NOTE | 2019-06-19 12:09 | History & Physical Report ---
Date of Service June 19, 2019 Assessment & Plan (1) Obesity: -Diet and exercise to be encouraged prior to discharge (2) Tobacco use: -We will need to address smoking use, encourage cessation, consider nicotine patch whenever the patient is awake -History of smoking 1 PPD x50 years per family (3) DVT prophylaxis: -Teds for now CODE STATUS: Full code-discussed with patient's , other family at bedside including brother who witnessed the event, son and [id number] Disposition: Patient from home, likely to remain in hospital x1 to 2 days s/p cardiac cath History of Present Illness Primary Care Provider: Justin Bob MD This is a 69 yo M with PMHx of HLD, emphysematous disease as seen on CT scan, obesity with BMI =32, cigarette smoking 1ppd x 50 years and previous heavy etoh use, who had episode of acute cardiac arrest at approximately 10:00am while chopping wood. The event was witnessed by his brother who was also helping. Brother supplies the history as patient is currently ventilated and sedated. Brother notes that he is accustomed to chopping wood, and had just loaded rosa isela ral pieces onto a trailer when he sat down on a stump and said he did not feel well, then fell to the ground. His body became very rigid and face became bright red for about 3 minutes, then pt seemed to relax. Brother attempted to do CPR and gave rescue breaths however was a unable to due to patient "being so stiff" initially, but then proceeded to perform CPR. EMS arrived within 10 to 15 minutes EMS arrived to the scene, AED gave one shock, and attained ROSC and pt started breathing on his own. Patient's family has been updated and plan was discussed with them in the ER waiting room. All their questions and concerns were answered. Here in the ER the patient was administered IV fentanyl push, Versed IV push, then propofol drip due to agitation without adequate effect, patient is now b eing transitioned to fentanyl drip. ASA 325 mg administered in the ER. EKG was reviewed and is show evolving ST wave depressions in the lateral leads since initial EKG, likely infarct of the LAD. Patient is to go to the Procedure Tech within moments. Lactate = 7.0, VBG pH = 7.13, VBG CO2 =52 mmHg, glucose = 207 Last cholesterol panel collected on 06/27/2018, total cholesterol = 170, HDL = 59, LDL = 92, triglycerides = 106 Family Hx: Mother of heart disease including AAA, CA, and congestive HF Father of lung cancer with metastasis to liver and brain Brother (who witnessed event) without any known cardiac/heart issues Sister (currently 63) had CA 15 years ago Social Hx: Previously heavy etoh user, currently drinks 3-4 beers 3x per week which is a significant reduction per his . Smokes cigarettes 1 ppd x 50 years Allergies Allergy/AdvReac Type Severity Reaction Status Date / Time procaine [From Novocain] Allergy Unknown Verified 06/29/19 14:05 Home Medications Home Medications Medication Instructions Recorded Confirmed Type atorvastatin 20 mg PO QAM 06/19/19 06/29/19 History amiodarone 200 mg tablet See Rx Instructions PO BID 06/28/19 06/29/19 History clopidogrel 75 mg tablet 75 mg PO DAILY 06/28/19 06/29/19 History famotidine 20 mg tablet 20 mg PO BID 06/28/19 06/29/19 History furosemide 40 mg tablet See Rx Instructions PO DAILY 06/28/19 06/29/19 History metoprolol tartrate 25 mg tablet 25 mg PO BID 06/28/19 06/29/19 History oxycodone 5 mg tablet 5 mg PO Q4H PRN #120 tab 06/28/19 06/29/19 Rx potassium chloride 10 mEq See Rx Instructions PO DAILY 30 06/28/19 06/29/19 Rx capsule,extended release Days #60 cap warfarin 5 mg tablet See Rx Instructions PO .COMPLEX 06/28/19 06/29/19 History Past Med/Surg History Medical History Hyperlipidemia Lung collapse Surgical History H/O rotator cuff surgery Left Family History Mother AAA (abdominal aortic aneurysm) Heart disease reported prior to the age of 55 Father Lung cancer Other Dyslipidemia Social History Preferred Language: Sami Communication Ability: restless Car Body 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 Required: No Beliefs That Will Affect Care: None Current Living Situation: Spouse Current Living Situation Comment: [facility] Feels Safe at Home: Yes Smoking Status: Current every day smoker Tobacco Type: cigarettes ; Second Hand Exposure: No ; Hx Alcohol Use: Yes Alcohol type: beer Alcohol Intake Frequency: Weekly Hx Substance Use: No (unknown) Review of Systems Review of Systems: Unobtainable due to endotracheal tube Physical Exam Physical Exam: General: awake, does not follow commands, ET tube in place, moving around on bed, being placed in soft restraints due to agitation Head: Normocephalic, atraumatic ENT: PERRL, EOMI, no pharyngeal exudate, mucous membranes moist Chest: ET tube in place, coarse breath sounds in the left base, otherwise no adventitious breath sounds Cardiac: Sinus tach, no murmur, no JVD, normal peripheral pulses, good capillary refill Abdominal: NABS x 4 quadrants, soft, nondistended, nontender to palpation, no rebound, guarding or tenderness Extremities: Normal inspection, no peripheral edema or erythema, calfs nontender to palpation Neuro: Awake, strength intact bilaterally, no gross motor deficits Skin: no rash or erythema Results & Data Vital Signs (Past 12 Hours) Vital Signs Temp Pulse BP Pulse Ox 06/19/19 11:35 92 H 108/73 99 06/19/19 11:30 93 H 106/73 98 06/19/19 11:25 93 H 99/70 L 97 06/19/19 11:20 102 H 137/91 96 06/19/19 11:19 106 H 142/90 H 96 06/19/19 11:10 124 H 189/136 H 96 06/19/19 11:08 128 H 198/143 H 96 06/19/19 11:00 121 H 200/134 H 96 06/19/19 10:52 118 H 97 06/19/19 10:50 119 H 193/131 H 97 06/19/19 10:49 107 H 162/120 H 97 06/19/19 10:48 114 H 06/19/19 10:40 36.5 C 92 Diagnostic Findings XR chest 1V portable CLINICAL HISTORY: Respiratory failure COMPARISON STUDY: 09/10/2015 FINDINGS: The heart is enlarged. There is an endotracheal tube 5.6 cm above the kendell. Postsurgical changes are present within the left hemithorax. There is mild left hilar fullness. There is underlying emphysema. There are increasing asymmetric interstitial opacities left greater than right, likely secondary to asymmetric interstitial edema. An inflammatory processes could appear similar. Clinical and radiographic follow-up is recommended.[ IMPRESSION: 1. Endotracheal tube 36 mm above the kendell 2. Asymmetric interstitial opacities, likely secondary to asymmetric edema. Clinical and radiographic follow-up is recommended ACT 112: Negative or not required by law. CT head/brain wo con CLINICAL HISTORY: post arrest, seizure COMPARISON STUDY: No previous studies for comparison. TECHNIQUE: Axial CT of the brain is performed from the vertex to the skull base. IV contrast was not administered for this examination. A dose lowering technique was utilized adhering to the principles of ALARA. CT DOSE: 887.21 mGycm FINDINGS: No intra or extra-axial mass lesions are visualized. There is no CT evidence of acute cortical infarction. There is no evidence of midline shift. There is no acute hemorrhage. No calvarial fractures are visualized. There are minor white matter hypodensities likely on a small vessel basis. There is no evidence of pathologic ventricular dilatation. There is moderate ethmoid sinus mucosal thickening. There is mild maxillary and frontal sinus mucosal thickening. IMPRESSION: No acute intracranial findings ACT 112: Negative or not required by law. Electronically signed by: Jose De Jesus Sutton M.D. 06/19/2019 12:06 PM ECG Additional Comments: 19-JUN-2019 10:52:24 [facility]-EDSTAT ROUTINE RETRIEVAL Sinus tachycardia Nonspecific ST abnormality Abnormal ECG When compared with ECG of 10-SEP-2015 10:36, Vent. rate has increased BY [address] now depressed in Lateral leads ST now depressed in Inferior leads Confirmed by Calos Nina ([id number]) on 06/19/2019 12:09:37 PM 25mm/s 10mm/mV 150Hz 9.0.9 12SL 241 VERONICA: 3 Confirmed By: Calos Nina Vent. rate 118 BPM ME interval 152 ms QRS duration 88 ms QT/QTc 342/479 ms P-R-T axes 81 59 36 Code Status & VTE Plan Code Status Full code-discussed with patient's family at bedside Supervising Physician Co-Signing Physician Notes I personally saw and examined the patient. I verified all segovia points and agree with YEIMY Franz with the following exceptions and/or additions: 69 yo male admission for s/p witnessed cardiac arrest with down time of estimated 15 minutes. 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 History confirmed with family as above. O/E Patient sedated and intubated. Coarse breath sounds b/l, RRR, no murmurs EKG ST depression in lateral leads Suspected NSTEMI - Added ASA 300mg ME to be given since this was not given on route to ER by EMS, planning for emergent cardiac cath Cardiac arrest - ICU admission following cardiac cath, discussed care with Dr Dye in ER, Code Arctic initiated. PG Care Time/CCT Total # of Minutes Spent Total Time Spent with Patient: Total time spent is greater than 50% in coordination of care (as documented) at patient's floor/unit and/or counseling patient: Coding Level of Care Code 64942 Initial Inpt Care Lvl 3 Diagnoses Obesity E66.9 Tobacco use Z72.0 DVT prophylaxis Z29.9
[2019-06-19 12:11] LABS: ALC (manual) 2.95 K/uL (1.2-3.4); Basophils # (manual) 0.07 K/uL (0-0.2); Basophils % (manual) 0.9 %; Echinocytes 1+; Large Granular Lymph # (manua 1.19 K/uL; Large Granular Lymph % (manual) 14.8 %; Lymphocytes # (manual) 1.75 K/uL (1.2-3.4); Lymphocytes % (manual) 21.7 %; Monocytes # (manual) 0.35 K/uL (0.11-0.59); Monocytes % (manual) 4.3 %; Neutrophils % (manual) 58.3 %
[2019-06-19] MEDS ORDERED: fentaNYL citrate 100 MCG/2 ML VIAL IV PRN (12:24)
[2019-06-19] MEDS ORDERED: fentaNYL DRIP 1,250 MCG/250 ML BAG IV STA (12:24)
[2019-06-19] MEDS ORDERED: CISATRACURIUM BESYLATE 40 MG in 0.9 % SODIUM CHLORIDE 80 ML IV STA (12:34)
[2019-06-19 12:37] LABS: Mucus Urine Present (None Prsent)
[2019-06-19 12:38] LABS: Bacteria Urine Automated 1+ (Negative)
[2019-06-19] MEDS ORDERED: PNEUMOCOCCAL ADMINISTRATION CHARGE ONE (12:41)
[2019-06-19] MEDS ORDERED: PNEUMOCOCCAL POLYSACCHARIDES 25 MCG/0.5 ML VIAL/SYR IM ONE (12:41)
[2019-06-19] MEDS ORDERED: ASPIRIN 300 MG SUPP PR STA (12:45)
[2019-06-19] MEDS ORDERED: NITROGLYCERIN/D5W 100MCG/ML 20ML SYR ONE (12:46)
[2019-06-19] MEDS ORDERED: HEPARIN (PORCINE) 1000 UNIT/ML 10 ML (CATH LAB USE ONLY) ONE (12:46)
[2019-06-19] MEDS ORDERED: NiCARDipine HCL INJ 2.5 MG/ML 10 ML AMP ONE (12:46)
[2019-06-19 14:50] LABS: Amphetamines+Metham, Urine Neg (Neg); Barbiturates, Urine Neg (Neg); Benzodiazepine, Urine Neg (Neg); Cocaine, Urine Neg (Neg); MDMA (Ecstacy), Urine Neg (Neg); Methadone, Urine Neg (Neg); Opiate, Urine Neg (Neg); Phencyclidine, Urine Neg (Neg)
--- NOTE | 2019-06-19 15:14 | Cardiac Catheterization ---
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 Cardiac Status Clinical evaluation leading to the procedure CAD Presenation: Non STEMI Anginal Classification: CCS IV Heart Failure: No Cardiogenic Shock within 24 Hours: No Cardiac Arrest within 24 Hours: Yes Imaging Studies Past 6 Months: No Stress Studies Past 6 Months: No Diagnostic Physicians Name: Francisco Boyd MD Status: Urgent Closure Device Recommendations: Medical Therapy and/or Counseling and CABG Intraprocedure Events Significant Disection: No Perforation: No Cardiac Cath Procedure Full Procedure Date June 19, 2019 Pre-Procedure Diagnosis Pre-Procedure Diagnosis: Cardiothoracic Symptom (Cardiac arrest) AUC Score AUC Score: 8 Post-Procedure Diagnosis Post-Procedure Diagnosis: Severe CAD and Elevated Intracardiac Pressures Procedure(s) Performed Procedure(s) Performed: Coronary Angiography, Left Heart Cath and Procedure (Cooling catheter insertion) Sagger Filler Francisco Boyd MD Brush Painter(s) Giancarlo Estimated Blood Loss Estimated Blood Loss: 15 Medication(s) Medication(s): Fentanyl, Heparin, Lidocaine 1%, Nicardipine, Nitroglycerin and Versed Summary of Findings Indication: Cardiac arrest 69-year-old man tobacco abuse, dyslipidemia, mild COPD, family history of coronary artery disease who had a bystander witnessed out of hospital cardiac arrest while chopping wood this morning. ROSC after 10 to 15minutes CPR and first advised AED shock upon arrival of EMS. Intubated/sedated for confusion/combativeness in ED. Hemodynamically stable. ECG showing anterolateral ST depressions. Access: 6 Fr slender right radial artery Catheters: Notus, EBU 3.5 guide Findings: LM -no significant disease LAD -medium caliber vessel, 100% chronic occlusion earlymid after takeoff of first diagonal. Mid LAD reconstitutes via retrograde flow through second diagonal. HA II flow in medium caliber mid to distal LAD which wraps around the apex. Hazy severe, 90+% ostial stenosis of second diagonal prior to LAD. Circumflex -large caliber vessel, mid segment luminal irregularities. Provides left to right collaterals to right PLB's. Large OM 2 with luminal irregularities provides collaterals to large second diagonal. RCA -dominant, moderate caliber, heavily calcified proximally with moderate to severe diffuse disease prior to 100% chronic occlusion at takeoff of RV branch. Distal vessel fills via [id number] collaterals. LVEDP -40 Attempted to pass wire across earlymid LAD occlusion but unable to navigate whisper, fire pilot 50 wire across chronic occlusion. Wires removed and no apparent cardiac complications. Cooling catheter placed to right common femoral vein under ultrasound guidance. Arterial Closure: TR band Summary: 1. Severe multivessel coronary artery disease -100% chronic earlymid LAD occlusion. Mid to distal LAD fills via left to left collaterals primarily via circumflex to second diagonal. Hazy, 90+% ostial second diagonal stenosis (possible acute culprit). 100% chronic mid RCA occlusion 2. Elevated intracardiac filling pressure Recommendations: Transfer to tertiary center for continued post cardiac arrest management and evaluation for CABG versus BIOSTATISTICS DIRECTOR PCI of LAD/diagonal Hemodynamics Rest Ao:: 154/78/120 Final Ao: 186/93/134 LV: 183/40 Recommendations Recommendations: Medical Therapy and/or Counseling and CABG Specimens Specimens: None Radiation Exposure (mGy) 4429 Contrast (mls) 190 Fluids (cc crystalloids) Fluids (cc crystalloids): 150 Drains Drains: none Anesthesia moderate Procedural Complication(s) None Disposition PCU I attest to the content of the Intraoperative Record and any orders documented therein. Any exceptions are noted below. [facility] Card Cath Procedure Codes Cardiac Catheterization Procedure 1: Cardiovascular Cath Procedures: 41716 Coronaries and LHC (+/-LV) Therapeutic Services & Ancillary Proc Procedure 1: Cardiovascular Tx and Anc Procedures: 25112 Ultrasonic Guidance Vascular Access Procedure 2: Cardiovascular Tx and Anc Procedures: 97146 Insertion Central Venous Catheter PG Care Time/CCT Total # of Minutes Spent Total Time Spent with Patient: Total time spent is greater than 50% in coordination of care (as documented) at patient's floor/unit and/or counseling p atient:
[2019-06-19] MEDS ORDERED: ONDANSETRON INJ 2 MG/ML 2 ML VIAL IV PRN (15:32)
[2019-06-19] MEDS ORDERED: ICU PROTOCOL FOR HYPERGLYCEMIA PRN (15:32)
[2019-06-19] MEDS ORDERED: CISATRACURIUM BESYLATE IV SOLN 2 MG/ML 10 ML VIAL IV STA (15:33)
[2019-06-19] MEDS ORDERED: MIDAZOLAM HCL 1 MG/ML 2ML VIAL IV PRN (15:44)
--- NOTE | 2019-06-19 15:44 | Cardiology Consultation ---
Date of Consultation June 19, 2019 Assessment & Plan (1) Cardiac arrest: Presentation concerning for ACS triggered arrhythmia/cardiac arrest and recommend proceeding with urgent cardiac catheterization and possible PCI. Discussed risks, benefits, alternatives of procedure with family. Plan to place cooling catheter to begin targeted temperature management. Further recommendations pending findings of coronary angiography. History of Present Illness Attending Physician: Mo Da Silva MD History of Present Illness 69-year-old man tobacco abuse, dyslipidemia, mild COPD, family history of coronary artery disease who had a bystander witnessed out of hospital cardiac arrest while chopping wood this morning. ROSC after 10 to 15 minutes CPR and first advised AED shock upon arrival of EMS. Intubated/sedated for confusion/combativeness in ED. Hemodynamically stable. ECG showing anterolateral ST depressions. Allergies Allergy/AdvReac Type Severity Reaction Status Date / Time procaine [From Novocain] Allergy Unknown Verified 06/19/19 15:36 Home Medications Home Medications Medication Instructions Recorded Confirmed Type atorvastatin 20 mg PO QAM 06/19/19 06/19/19 History naproxen sodium [Aleve] 220 mg PO Q12H 06/19/19 06/19/19 History Patient History Medical History (Updated 06/19/19 @ 13:08 by Charles Funez) Hyperlipidemia Lung collapse Surgical History (Updated 06/19/19 @ 13:05 by Lilian Franz PA-C) H/O rotator cuff surgery Left Family History (Updated 06/19/19 @ 13:05 by Lilian Franz PA-C) Mother Heart disease AAA (abdominal aortic aneurysm) Father Lung cancer Other Dyslipidemia Social History (Updated 06/19/19 @ 13:10 by Lilina Franz PA-C) Preferred Language: Ukrainian Communication Ability: restless Communication Ability Comment: currently restless, agitation 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 Required: No Beliefs That Will Affect Care: None Current Living Situation: Spouse Current Living Situation Comment: [facility] Other Information That Helps Us Care for You: No Feels Safe at Home: Yes Safety Concerns: Feels Safe At This Time Smoking Status: Current every day smoker Tobacco Type: cigarettes ; Do You Dip or Chew Tobacco: No ; Second Hand Exposure: No ; Tobacco Cessation Education Requested by Patient: No Hx Alcohol Use: Yes Alcohol type: beer Alcohol Intake Frequency: Weekly Hx Substance Use: No (unknown) Review of Systems Review of Systems: Unobtainable due to endotracheal tube Physical Exam Physical Exam: General: Intubated, sedated HEENT: Sclerae anicteric Lungs: Clear to auscultation bilaterally Cardiac: Regular rate and rhythm, no murmurs Abdomen: Soft Extremities: Warm, well perfused, no edema. 2+ radial pulses Skin: No rashes or lesions. Psych: Intubated, sedated Results & Data Vital Signs (Past 12 Hours) Vital Signs Temp Temp Pulse Resp BP Pulse Ox 06/19/19 15:20 85 22 98 06/19/19 13:21 22 06/19/19 13:08 94.8 F L 06/19/19 13:05 78 130/85 100 06/19/19 13:00 148/96 H 100 06/19/19 12:55 82 148/98 H 100 06/19/19 12:50 84 136/90 100 06/19/19 12:49 95.4 F L 06/19/19 12:45 80 104/72 100 06/19/19 12:40 83 111/75 100 06/19/19 12:35 92 H 94/62 L 100 06/19/19 12:32 95.4 F L 83 21 06/19/19 12:30 83 90/61 L 100 06/19/19 12:25 92 H 107/87 100 06/19/19 12:20 89 108/67 100 06/19/19 12:16 97 H 124/77 100 06/19/19 12:15 91 H 21 100 06/19/19 12:10 89 96/69 L 96 06/19/19 12:08 87 93/61 L 99 06/19/19 11:40 95 H 108/73 99 06/19/19 11:35 92 H 108/73 99 06/19/19 11:30 93 H 106/73 98 06/19/19 11:25 93 H 99/70 L 97 06/19/19 11:20 102 H 137/91 96 06/19/19 11:19 106 H 142/90 H 96 06/19/19 11:10 124 H 189/136 H 96 06/19/19 11:08 128 H 198/143 H 96 06/19/19 11:00 120 H 20 200/134 H 96 06/19/19 10:52 118 H 97 06/19/19 10:50 119 H 193/131 H 97 06/19/19 10:49 107 H 162/120 H 97 06/19/19 10:48 114 H 06/19/19 10:40 97.7 F 92 PG Care Time/CCT Total # of Minutes Spent Total Time Spent with Patient: Total time spent is greater than 50% in coordination of care (as documented) at patient's floor/unit and/or counseling patient:
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
[2019-06-19] MEDS ORDERED: MIDAZOLAM HCL 125 MG/250 ML BAG IV SCH (16:00)
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
[2019-06-20] MEDS ORDERED: ATORVASTATIN 20 MG TAB PO SCH (09:00)
--- NOTE | 2019-06-22 09:01 | Coding Query ---
CODING QUERY To promote full compliance with coding requirements relating to patient care, provider participation is requested in all cases of concrete buildings assembler uncertainty. Please assist us with the question(s) below: Coding Question(s): Dr. Da Silva, Dr. Francisco Boyd reported an NSTEMI in the cardiac catheterization report. As attending physician, please clarify if you agree with this diagnosis. (X) Yes, the patient had an NSTEMI - suspected on admission ( ) No, NSTEMI ruled out ( ) Other, please explain ( ) Unable to determine Physician's Response(s): Thank you for your time, ZULLY Muñoz, [facility] Principal Diagnosis: "that condition established after study, to be chiefly responsible for occasioning the admission of the patient to the hospital for care." Co-Existing Principal Diagnosis: "when two or more diagnoses equally meet the criteria for principal diagnosis as determined by the circumstances of admission, diagnostic work up, and/or therapy provided, and the Alphabetic Index, Tabular List, or another coding guideline does not provide sequencing direction, any one of the diagnoses may be sequenced first." "When the physician has documented what appears to be a current diagnosis in the body of the record, but has not included the diagnosis in the final diagnostic statement, the physician should be asked whether the diagnosis should be added." (Source Coding Clinic 2 QTR90. p3-4) GLENNY
== END 2019-06-19 18:37 | disposition short-term general hospital (02) | DRG 280 ==
LOC: ED 10:36 → CC 13:09 → 1E 15:15

== ENCOUNTER 2020-09-11 18:19 | Inpatient (IN) ==
[2020-09-11] MEDS ORDERED: FAMOTIDINE 20MG IV PUSH 20 MG/5 ML SYR IV STA (20:02)
[2020-09-11] MEDS ORDERED: PANTOprazole 40 MG TAB PO STA (20:02)
--- NOTE | 2020-09-11 20:08 | Emergency Department Note ---
Impression & Plan Acute upper gastrointestinal bleeding, Dizziness ED Provider Note NAME: MAKAYLA KING AGE: 70 SEX: M : 1950 ARRIVES VIA: Walk-In INFORMANT: Patient, ED PROVIDER(S): Kian Hinojosa DO CHIEF COMPLAINT: Dizziness HPI: The patient is a 70-year-old male who does have a cardiac history who is taking aspirin and also Plavix up until recently who started having black stool over the course of the last few days. The patient has been experiencing dizziness and lightheadedness. Initially he thought this could be secondary to his cardiac disease and he went to see his primary care physician. He has a history of atrial fibrillation. The patient was seen by his primary care physician for the symptoms and had laboratory studies drawn. When the results were returned he was called by his primary care physician and told to go to the emergency department immediately for further evaluation and possible admission. The patient himself says that his symptoms are continuing especially with any ambulation or going from sitting to standing. The patient denies having any chest pain at this time. He does have some dyspnea on exertion. He denies having any history of upper endoscopy in the past or peptic ulcer disease. The patient did not have a rectal exam at his primary care physician's office. ROS: See above HPI for pertinent positives & negatives. A total of 10 systems reviewed and were otherwise negative. PAST MEDICAL HISTORY: See Below PAST SURGICAL HISTORY: See Below FAMILY HISTORY: See Below SOCIAL HISTORY: See Below HOME MEDICATIONS: See Below ALLERGIES: See Below VITALS: See Below PHYSICAL EXAMINATION: GENERAL: The patient is awake and alert. He is comfortable appearing. EYES: The conjunctivae are clear. The pupils are round and reactive. EARS, NOSE, MOUTH AND THROAT: The nose is without any evidence of any deformity. NECK: The neck is nontender and supple. RESPIRATORY: Normal respiratory effort is noted there is no evidence of wheezing rhonchi or rales CARDIOVASCULAR: Regular rate and rhythm noted there no murmurs rubs or gallops normal S1 normal S2. GASTROINTESTINAL: The abdomen was soft and nondistended. There is mild tenderness in the right upper quadrant. Rectal exam revealed black stool which was heme positive. MUSCULOSKELETAL/EXTREMITIES: There is no evidence of gross deformity full range of motion is noted in the hips and shoulders. SKIN: There is no obvious evidence of any rash. There are no petechiae, pallor or cyanosis noted. NEUROLOGIC: Patient is awake alert and oriented x3. MEDICAL DECISION MAKING: The patient is a 70-year-old male who presented to the emergency department for an evaluation of lower GI bleeding and dizziness upon standing. The patient was having symptomatic anemia. He does have a strong cardiac history. He was taking Plavix and aspirin together. The patient started developing dark stools. He had laboratory studies done as an outpatient and was told to go to the e mergency department because of anemia. The patient was reevaluated multiple times. I discussed the patient's laboratory and radiographic studies with him. Ultimately I discussed his case with the on-call [facility] hospitalist. They have agreed to evaluate the patient in the emergency department for further management and disposition. The patient's condition remained stable head and he did not require emergent transfusion in the emergency department. He was treated with proton pump inhibitor and H2 elizabeth. Triage Nursing notes reviewed. Prior medical records reviewed Vital Signs: reviewed and remarkable for no significant abnormalities Differential diagnosis: Infection, dehydration, metabolic abnormality, hypo/hyperglycemia, electrolyte disturbance, anemia, hypoxia, cardiac sources, intracerebral event, toxicologic, neurologic, as well as other pathologies. ER treatment provided: See below Diagnostics interpreted by me: ECG: EKG was obtained in the emergency department. My interpretation is normal sinus rhythm at 66 bpm. Anterior T wave inversions were noted. There was no PVCs. This was compared to a tracing from June 192019. The anterior T wave abnormalities are new compared to the previous tracing. Cardiac Monitoring: An order was placed for continuous cardiac monitoring. The monitor shows a rate of 70 bpm with sinus rhythm. Laboratory studies: As stated above and show below. Imaging studies: See below Consultation(s): I discussed this case with Dr. Romero [facility] Past Med/Surg History Medical History COPD (chronic obstructive pulmonary disease) Coronary artery disease History of cardiac arrest Hx of pneumothorax Hypercapnic respiratory failure Hyperlipidemia Lung collapse Malignant melanoma of skin Obesity Paroxysmal atrial fibrillation Superficial thrombophlebitis of both upper extremities Tobacco use Transaminitis Surgical History H/O rotator cuff surgery Left History of colonoscopy History of coronary artery bypass graft Cardiac arrest; MVD s/p CABG x 3 ([place] to LAD; SVG to RPL and SVG to PAD on 06/22/2019; POST-OP blood loss AFIB (Amio & coumadin) poss. VTACH tx w/ lidocaine and MAG and acute cardio-pulm edema sec. volume overload 06/17: DUAL-CHAMBER PACEMAKER DEFIB History of inguinal hernia repair History of open heart surgery History of thoracotomy S/P CABG x 3 S/P ICD (internal cardiac defibrillator) procedure Family History Mother AAA (abdominal aortic aneurysm) Heart disease reported prior to the age of 55 Myocardial infarction Diabetes Kidney disease Hypertension Father , age 74 Lung cancer Diabetes Unknown No problems noted. Other Dyslipidemia Denies family history of Ovarian cancer Prostate cancer Breast cancer Colorectal cancer Social History Smoking Status: Never smoker Cigarettes Per Day: 20; Second Hand Exposure: Yes; Hx Alcohol Use: Yes Alcohol type: beer Alcohol Intake Frequency: 2-3 x/Week Hx Substance Use: No Preferred Language: Barbadian Communication Ability: restless Visual Impairment: No Limitations Hearing Ability: Normal Production Control Analyst Required: No Beliefs That Will Affect Care: None marital status: Current Living Situation: Spouse Current Living Situation Comment: Rosette King current occupational status: retired 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[employer]; [employer]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 How many Children do You have: 3 Feels Safe at Home: Yes Childhood Exposure to Second-Hand Smoke: Yes caffeine: Yes Dental Care, Regularly: Yes Physical Activity Frequency: 1-2 Times per Week Seatbelt Use: always Sunscreen Use: No Assistive Devices: Denture - Upper and Denture - Lower Allergies Allergies Allergy/AdvReac Type Severity Reaction Status Date / Time procaine [From Novocain] Allergy Unknown Verified 09/11/20 20:03 Home Meds Home Medications Medication Instructions Recorded Confirmed metoprolol tartrate 25 mg tablet 25 mg PO BID 06/28/19 09/11/20 sildenafil (pulm.hypertension) 20 20 mg PO DAILY tab 09/19/19 09/11/20 mg tablet atorvastatin 40 mg tablet 40 mg PO DAILY 10/15/19 09/11/20 aspirin 81 mg tablet,delayed 81 mg PO DAILY 04/08/20 09/11/20 release Previous Rx's Medication Instructions Recorded pantoprazole 40 mg tablet,delayed 40 mg PO DAILY #30 tab 09/11/20 release sulfamethoxazole 800 1 tab PO BID #20 tab 09/11/20 mg-trimethoprim 160 mg tablet Results & Data (ED) Vital Signs Vital Signs - 24 hr 09/11/20 18:22 09/11/20 20:14 09/11/20 20:18 Temperature 37.0 C Temperature Source Oral Pulse Rate 82 82 Pulse Rate [Apical] 67 Pulse Rate from SpO2 Sensor Pulse Rhythm Regular Pulse Rhythm [Apical] Regular Pulse Strength [Apical] Normal Respiratory Rate 18 18 18 Respiratory Effort / Characteristics Non-Labored Spontaneous Non-Labored Spontaneous Respiratory Depth Normal Normal Respiratory Pattern Regular Blood Pressure 137/83 Blood Pressure [Left Arm] 121/75 Blood Pressure Mean 101 Blood Pressure Mean [Left Arm] 90 Pulse Oximetry 100 100 100 Oxygen Delivery Method Room Air Room Air Room Air Sepsis Recent Fever Within 48 Hours No Sepsis New/Unexplained Change in Mental Status No Sepsis Action Taken by Nursing No Action Required 09/11/20 21:00 09/11/20 21:30 09/11/20 22:00 Temperature Temperature Source Pulse Rate 66 67 68 Pulse Rate [Apical] Pulse Rate from SpO2 Sensor 66 67 68 Pulse Rhythm Pulse Rhythm [Apical] Pulse Strength [Apical] Respiratory Rate 15 18 18 Respiratory Effort / Characteristics Respiratory Depth Respiratory Pattern Blood Pressure 94/64 L 123/70 115/65 Blood Pressure [Left Arm] Blood Pressure Mean 74 87 81 Blood Pressure Mean [Left Arm] Pulse Oximetry 100 100 99 Oxygen Delivery Method Sepsis Recent Fever Within 48 Hours Sepsis New/Unexplained Change in Mental Status Sepsis Action Taken by Nursing 09/11/20 22:30 09/11/20 23:00 Temperature Temperature Source Pulse Rate 66 63 Pulse Rate [Apical] Pulse Rate from SpO2 Sensor 67 63 Pulse Rhythm Pulse Rhythm [Apical] Pulse Strength [Apical] Respiratory Rate 21 19 Respiratory Effort / Characteristics Respiratory Depth Respiratory Pattern Blood Pressure 126/76 107/67 Blood Pressure [Left Arm] Blood Pressure Mean 92 80 Blood Pressure Mean [Left Arm] Pulse Oximetry 99 95 Oxygen Delivery Method Sepsis Recent Fever Within 48 Hours Sepsis New/Unexplained Change in Mental Status Sepsis Action Taken by [facility] Medications Current Medication List: was personally reviewed by me Laboratory Data Attestation: I reviewed the patient's lab results. Result diagrams: 09/11/20 20:06 09/11/20 20:06 Lab Results 09/11/20 09/11/20 09/11/20 Range/Units 20:06 20:06 20:06 WBC 5.96 (4.8-10.8) K/uL RBC 3.90 L (4.7-6.1) M/uL Hgb 10.2 L (14.0-18.0) g/dL Hct 31.6 L (42-52) % MCV 81.0 (80-100) fL MCH 26.2 (25-34) pg MCHC 32.3 (32-36) g/dL RDW Std Deviation 49.8 H (36.4-46.3) fL RDW Coeff of Elena 16.8 H (11.5-14.5) % Plt Count 270 (130-400) K/uL MPV 8.6 (7.4-10.4) fL Immature Gran % (Auto) 0.2 % Neut % (Auto) 62.0 % Lymph % (Auto) 29.9 % [place] % (Auto) 6.9 % Eos % (Auto) 0.3 % Baso % (Auto) 0.7 % Reticulocyte % (Auto) 1.7 (0.5-2.0) % Neut # (Auto) 3.70 (1.4-6.5) K/uL Lymph # (Auto) 1.78 (1.2-3.4) K/uL [place] # (Auto) 0.41 (0.11-0.59) K/uL Eos # (Auto) 0.02 (0-0.5) K/uL Baso # (Auto) 0.04 (0-0.2) K/uL Reticulocyte # 0.07 (0.02-0.10) 10^6/uL Immature Gran # (Auto) 0.01 (0.00-0.02) K/uL Ovalocytes 1+ PT 10.0 (9.0-12.0) Seconds INR 1.0 (0.9-1.1) APTT 22.4 (21.0-31.0) Seconds PTT Ratio 0.9 Sodium (136-145) mmol/L Potassium (3.5-5.1) mmol/L Chloride (98-107) mmol/L Carbon Dioxide (21-32) mmol/L Anion Gap (3-11) BUN (7-18) mg/dl Creatinine (0.6-1.4) mg/dl Est Cr Clr Drug Dosing Est GFR ( Amer) Est GFR (Non-Af Amer) BUN/Creatinine Ratio (10-20) Glucose (70-99) mg/dl Calcium (8.5-10.1) mg/dl Total Bilirubin (0.2-1) mg/dl AST (15-37) U/L ALT (12-78) U/L Alkaline Phosphatase (45-117) U/L Troponin I (0-0.045) ng/ml Total Protein (6.4-8.2) gm/dl Albumin (3.4-5.0) gm/dl Globulin (2.5-4.0) gm/dl Albumin/Globulin Ratio (0.9-2) Lipase (73-393) U/L COVID-19 Eval Order SARS-CoV-2 (PCR) (Negative) Influenza Type A (PCR) (Neg) Influenza Type B (PCR) (Neg) RSV (RT-PCR) (Neg) Blood Type A Negative Antibody Screen NEGATIVE 09/11/20 09/11/20 09/11/20 Range/Units 20:06 20:19 20:19 WBC (4.8-10.8) K/uL RBC (4.7-6.1) M/uL Hgb (14.0-18.0) g/dL Hct (42-52) % MCV (80-100) fL MCH (25-34) pg MCHC (32-36) g/dL RDW Std Deviation (36.4-46.3) fL RDW Coeff of Elena (11.5-14.5) % Plt Count (130-400) K/uL MPV (7.4-10.4) fL Immature Gran % (Auto) % Neut % (Auto) % Lymph % (Auto) % [place] % (Auto) % Eos % (Auto) % Baso % (Auto) % Reticulocyte % (Auto) (0.5-2.0) % Neut # (Auto) (1.4-6.5) K/uL Lymph # (Auto) (1.2-3.4) K/uL [place] # (Auto) (0.11-0.59) K/uL Eos # (Auto) (0-0.5) K/uL Baso # (Auto) (0-0.2) K/uL Reticulocyte # (0.02-0.10) 10^6/uL Immature Gran # (Auto) (0.00-0.02) K/uL Ovalocytes PT (9.0-12.0) Seconds INR (0.9-1.1) APTT (21.0-31.0) Seconds PTT Ratio Sodium 140 (136-145) mmol/L Potassium 3.9 (3.5-5.1) mmol/L Chloride 113 H (98-107) mmol/L Carbon Dioxide 24 (21-32) mmol/L Anion Gap 3.0 (3-11) BUN 11 (7-18) mg/dl Creatinine 0.78 (0.6-1.4) mg/dl Est Cr Clr Drug Dosing Not Reportable Est GFR ( Amer) 107.5 Est GFR (Non-Af Amer) 92.8 BUN/Creatinine Ratio 14.7 (10-20) Glucose 92 (70-99) mg/dl Calcium 8.8 (8.5-10.1) mg/dl Total Bilirubin 0.5 (0.2-1) mg/dl AST 19 (15-37) U/L ALT 35 (12-78) U/L Alkaline Phosphatase 112 (45-117) U/L Troponin I < 0.015 (0-0.045) ng/ml Total Protein 8.2 (6.4-8.2) gm/dl Albumin 3.7 (3.4-5.0) gm/dl Globulin 4.5 H (2.5-4.0) gm/dl Albumin/Globulin Ratio 0.8 L (0.9-2) Lipase 121 (73-393) U/L COVID-19 Eval Order CovFluRsv at [facility] SARS-CoV-2 (PCR) NEGATIVE (Negative) Influenza Type A (PCR) Negative (Neg) Influenza Type B (PCR) Negative (Neg) RSV (RT-PCR) Negative (Neg) Blood Type Antibody Screen Administered Medications Discontinued Medications Famotidine (Pepcid 20mg Iv Push) 20 mg in 5 mls @ 2.5 mls/min IV NOW STA Stop: 09/11/20 20:03 Last Admin: 09/11/20 20:49 Dose: 2.5 mls/min Documented by: [id number] Pantoprazole Sodium (Pantoprazole 40 Mg Tab) 40 mg PO NOW STA Stop: 09/11/20 20:03 Last Admin: 09/11/20 20:49 Dose: 40 mg Documented by: [id number] Imaging Data Radiologist's Impression: Chest X-Ray 09/11/20 19:54 XR chest 1V portable CLINICAL HISTORY: dizzy COMPARISON STUDY: 06/19/2019 FINDINGS: The heart is enlarged. There are postsurgical changes of a midline sternotomy. There is a left subclavian dual-chamber central venous pacemaker. The endotracheal tube has been removed. There is suspected underlying pulmonary emphysema. There is diffuse elevation of interstitium. Pulmonary vascular congestion is suspected. An interstitial infectious/inflammatory processes could appear similar[ IMPRESSION: 1. Cardiomegaly 2. Elevation of the interstitium. While likely representing pulmonary vascular congestion, an interstitial infectious/inflammatory process could appear similar ACT 112: Negative or not required by law. Electronically signed by: Jose De Jesus Sutton M.D. 09/11/2020 8:41 PM Discharge Plan Visit Data Chief Complaint: Abnormal Labs/Diagnostic Testing Stated Complaint: ABNORMAL LABS, LOW HEMOGLOBIN ED Provider: Kian Hinojosa Discharge Problem: Acute upper gastrointestinal bleeding, Dizziness Patient Disposition: Being Evaluated by Hospitalist Condition: Good Forms Stand Alone Forms: My [facility] Prescriptions Prescriptions: No Action metoprolol tartrate 25 mg tablet 25 mg PO BID RF: 0 sildenafil (pulm.hypertension) 20 mg tablet 20 mg PO DAILY RF: 0 atorvastatin 40 mg tablet 40 mg PO DAILY RF: 0 aspirin [Adult Low Dose Aspirin] 81 mg tablet,delayed release (DR/EC) 81 mg PO DAILY RF: 0 pantoprazole [Protonix] 40 mg tablet,delayed release (DR/EC) 40 mg PO DAILY Qty: 30 RF: 2 sulfamethoxazole-trimethoprim [Bactrim DS] 800-160 mg tablet 1 tab PO BID Qty: 20 RF: 0 Referrals Referrals: Justin Bob MD [Primary Care Provider] -
[2020-09-11 20:22] LABS: Basophils # (auto) 0.04 K/uL (0-0.2); Basophils % (auto) 0.7 %; Eosinophils # (auto) 0.02 K/uL (0-0.5); Eosinophils % (auto) 0.3 %; Hematocrit (blood only) 31.6 % (42-52); Hemoglobin 10.2 g/dL (14.0-18.0); Immature Granulocytes # (auto) 0.01 K/uL (0.00-0.02); Immature Granulocytes % (auto) 0.2 %; Lymphocytes # (auto) 1.78 K/uL (1.2-3.4); Lymphocytes % (auto) 29.9 %; Mean Corpuscular Hemoglobin 26.2 pg (25-34); Mean Corpuscular Hgb Conc 32.3 g/dL (32-36); Mean Platelet Volume 8.6 fL (7.4-10.4); Monocytes # (auto) 0.41 K/uL (0.11-0.59); Monocytes % (auto) 6.9 %; Platelet Count 270 K/uL (130-400); RDW Coefficient of Variation 16.8 % (11.5-14.5); RDW Standard Deviation 49.8 fL (36.4-46.3); Reticulocyte % 1.7 % (0.5-2.0); Reticulocytes # 0.07 10^6/uL (0.02-0.10); White Blood Count 5.96 K/uL (4.8-10.8)
[2020-09-11 20:36] LABS: Partial Thromboplastin Ratio 0.9; Partial Thromboplastin Time 22.4 Seconds (21.0-31.0)
[2020-09-11 20:40] LABS: Alanine Aminotransferase 35 U/L (12-78); Albumin Level 3.7 gm/dl (3.4-5.0); Aspartate Aminotransferase 19 U/L (15-37); BUN Creatinine Ratio 14.7 (10-20); Blood Urea Nitrogen 11 mg/dl (7-18); Calcium 8.8 mg/dl (8.5-10.1); Carbon Dioxide 24 mmol/L (21-32); Chloride 113 mmol/L (98-107); Est GFR (African American) 107.5; Est GFR (Non-African American) 92.8; Glucose 92 mg/dl (70-99); Lipase 121 U/L (73-393); Potassium 3.9 mmol/L (3.5-5.1); Sodium 140 mmol/L (136-145)
--- NOTE | 2020-09-11 20:43 | XRay Report ---
XR chest 1V portable CLINICAL HISTORY: dizzy COMPARISON STUDY: 06/19/2019 FINDINGS: The heart is enlarged. There are postsurgical changes of a midline sternotomy. There is a l eft subclavian dual-chamber central venous pacemaker. The endotracheal tube has been removed. There i s suspected underlying pulmonary emphysema. There is diffuse elevation of interstitium. Pulmonary vas cular congestion is suspected. An interstitial infectious/inflammatory processes could appear similar [ IMPRESSION: 1. Cardiomegaly 2. Elevation of the interstitium. While likely representing pulmonary vascular congestion, an interst itial infectious/inflammatory process could appear similar ACT 112: Negative or not required by law. Electronically signed by: Jose De Jesus Sutton M.D. 09/11/2020 8:41 PM
[2020-09-11 20:45] LABS: Albumin Globulin Ratio 0.8 (0.9-2); Alkaline Phosphatase 112 U/L (45-117); Bilirubin,Total 0.5 mg/dl (0.2-1); Globulin 4.5 gm/dl (2.5-4.0); Total Protein 8.2 gm/dl (6.4-8.2); Troponin I < 0.015 ng/ml (0-0.045)
[2020-09-11 20:46] LABS: Ovalocytes 1+
[2020-09-11 21:37] LABS: Influenza A virus by PCR Negative (Neg); Influenza B virus by PCR Negative (Neg); RSV by PCR Negative (Neg); SARS CoV2 RNA(COVID-19) InHosp NEGATIVE (Negative)
--- NOTE | 2020-09-11 21:45 | History & Physical Report ---
Date of Service September 11, 2020 Assessment & Plan (1) Dizziness: 70yo C male with history of CAD s/p CABG x 3V, AICD in place for history of cardiac arrest presenting with dizziness, mostly with positional changes but sometimes at rest. He reports black stools over the last several days - heme positive in ER. He is afebrile, HD stable, non-toxic in appearance. Hgb=10.2 and Hct=31.6 (from 14 and 42.5, respectively, on 04/08/20). Patient had been on ASA and Plavix since his CABG in June 2019. 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 He continues to take ASA 81mg po daily. -Admit to medical with telemetry -Check orthostatic VS -Check pacer interrogation - patient reportedly had a very brief run of atrial fibrillation in the past. Symptoms could possibly be caused by atrial arrhythmia. No AICD discharges -CBC q 12 hours -GI consultation appreciated Present on Admission?: Yes (2) GI bleed: Unknown source. HD stable -Protonix 40 BID -GI consultation appreciated -Maintain 2 large PIVs -CBC q 12 hours Present on Admission?: Yes (3) Coronary artery disease: Chronic. Stable. No EKG evidence of ischemia -Hold ASA for now in setting of possible bleed -Hold Metoprolol for now -Continue Atorvastatin Present on Admission?: Yes (4) Hyperlipidemia: Chronic. Stable -Continue Atorvastatin Present on Admission?: Yes (5) Epididymitis: Newly diagnosed by PCP today -Testicular US -Bactrim as prescribed Present on Admission?: Yes History of Present Illness Chief Complaint: dizziness Primary Care Provider: Justin Bob MD Link Sanford is a 70yo male with history of CAD s/p cardiac arrest on 06/19/19, CABG x 3V performed at [facility] with AICD placement. Patient presents with complaint of episodic dizziness over the last several days. Dizziness occurs mostly with positional changes but occasionally when patient is at rest sitting as well. He describes feeling lightheaded and near passing out on several occasions. He had an episode two days ago while in the restroom with severe lightheadedness associated with SOB, chest discomfort and feeling hot and sweaty - possible syncope or near syncope during that event - states that he crawled out of the bathroom on his hands and knees. Aside from the episode 2 days ago, patient denies chest discomfort, SOB. Denies palpitations, abdominal pain, nausea, vomiting, diarrhea or constipation. No AICD discharges. Patient has had black stools over the last several days as well. No prior history of GERD, PUD or previous GIB. He has had screening colonoscopies in the past. No prior EGD. Patient was seen by PCP today with the above complaints - had blood work performed and found to be slightly anemic with Hgb=9.4 therefore he was instructed to come to the ER. In addition he has been having pain and swelling of his right testicle. He was diagnosed with subacute epididymitis by PCP today. He was ordered a testicular ultrasound which is to be completed on Tuesday. He was also given a prescription for Bactrim which was not yet filled. ER Course: Strongly Heme + stools, Pepcid, Protonix Allergies Allergy/AdvReac Type Severity Reaction Status Date / Time procaine [From Novocain] Allergy Unknown Verified 09/11/20 20:03 Home Medications Medication Instructions Recorded Confirmed Type metoprolol tartrate 25 mg tablet 25 mg PO BID 06/28/19 09/11/20 History sildenafil (pulm.hypertension) 20 20 mg PO DAILY tab 09/19/19 09/11/20 History mg tablet atorvastatin 40 mg tablet 40 mg PO DAILY 10/15/19 09/11/20 History aspirin 81 mg tablet,delayed 81 mg PO DAILY 04/08/20 09/11/20 History release pantoprazole 40 mg tablet,delayed 40 mg PO DAILY #30 tab 09/11/20 09/11/20 Rx release sulfamethoxazole 800 1 tab PO BID #20 tab 09/11/20 09/11/20 Rx mg-trimethoprim 160 mg tablet Past Med/Surg History Medical History COPD (chronic obstructive pulmonary disease) Coronary artery disease History of cardiac arrest Hx of pneumothorax Hypercapnic respiratory failure Hyperlipidemia Lung collapse Malignant melanoma of skin Obesity Paroxysmal atrial fibrillation Superficial thrombophlebitis of both upper extremities Tobacco use Transaminitis Surgical History H/O rotator cuff surgery Left History of colonoscopy History of coronary artery bypass graft Cardiac arrest; MVD s/p CABG x 3 ([place] to LAD; SVG to RPL and SVG to PAD on 06/22/2019; POST-OP blood loss AFIB (Amio & coumadin) poss. VTACH tx w/ lidocaine and MAG and acute cardio-pulm edema sec. volume overload 06/17: DUAL-CHAMBER PACEMAKER DEFIB History of inguinal hernia repair History of open heart surgery History of thoracotomy S/P CABG x 3 S/P ICD (internal cardiac defibrillator) procedure Family History Mother AAA (abdominal aortic aneurysm) Heart disease reported prior to the age of 55 Myocardial infarction Diabetes Kidney disease Hypertension Father , age 74 Lung cancer Diabetes Unknown No problems noted. Other Dyslipidemia Denies family history of Ovarian cancer Prostate cancer Breast cancer Colorectal cancer Social History Smoking Status: Never smoker Cigarettes Per Day: 20; Second Hand Exposure: Yes; Hx Alcohol Use: Yes Alcohol type: beer Alcohol Intake Frequency: 2-3 x/Week Hx Substance Use: No Preferred Language: Ivorian Communication Ability: restless Visual Impairment: No Limitations Hearing Ability: Normal Physics Tutor Required: No Beliefs That Will Affect Care: None marital status: Current Living Situation: Spouse Current Living Situation Comment: Rosette Sanford current occupational status: retired 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[employer]; [employer]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 How many Children do You have: 3 Feels Safe at Home: Yes Childhood Exposure to Second-Hand Smoke: Yes caffeine: Yes Dental Care, Regularly: Yes Physical Activity Frequency: 1-2 Times per Week Seatbelt Use: always Sunscreen Use: No Assistive Devices: Denture - Upper and Denture - Lower Review of Systems Review of Systems: All systems reviewed & are unremarkable except as noted in HPI & below Physical Exam Physical Exam: General: patient resting comfortably, NAD, non-toxic in appearance, AA&O x 4 Skin: warm, dry, intact, no rashes or lesions HEENT: NC/AT, PERRL, EOMI, anicteric sclera, conjunctiva without injection, external ear normal to inspection and nontender, nares patent, moist mucus membranes, dentition intact, no oropharyngeal lesions, neck supple, trachea midline, no LAD, no thyromegaly, no JVD Heart: +S1/S2, regular, no m/r/g Lungs: equal air entry bilaterally, no rales/rhonchi/wheezes Abd: +BS, soft, NT/ND, no masses/organomegaly/ascites Ext: warm, 2+ pulses in UE/LE bilaterally, no clubbing/cyanosis or edema Neuro: nonfocal, patient AA&O x 4, speech intact, no facial droop, moving all extremities on command with equal strength 5/5 Results & Data Results & Data ([facility]) Vital Signs (Past 12 Hours) Vital Signs Temp Pulse Pulse Resp BP BP Pulse Ox 09/11/20 20:18 67 18 121/75 100 09/11/20 20:14 82 18 100 09/11/20 18:22 37.0 C 82 18 137/83 100 Laboratory Results Lab Results 09/11/20 09/11/20 09/11/20 Range/Units 20:06 20:06 20:06 WBC 5.96 (4.8-10.8) K/uL RBC 3.90 L (4.7-6.1) M/uL Hgb 10.2 L (14.0-18.0) g/dL Hct 31.6 L (42-52) % MCV 81.0 (80-100) fL MCH 26.2 (25-34) pg MCHC 32.3 (32-36) g/dL RDW Std Deviation 49.8 H (36.4-46.3) fL RDW Coeff of Elena 16.8 H (11.5-14.5) % Plt Count 270 (130-400) K/uL MPV 8.6 (7.4-10.4) fL Immature Gran % (Auto) 0.2 % Neut % (Auto) 62.0 % Lymph % (Auto) 29.9 % Heard % (Auto) 6.9 % Eos % (Auto) 0.3 % Baso % (Auto) 0.7 % Reticulocyte % (Auto) 1.7 (0.5-2.0) % Neut # (Auto) 3.70 (1.4-6.5) K/uL Lymph # (Auto) 1.78 (1.2-3.4) K/uL Heard # (Auto) 0.41 (0.11-0.59) K/uL Eos # (Auto) 0.02 (0-0.5) K/uL Baso # (Auto) 0.04 (0-0.2) K/uL Reticulocyte # 0.07 (0.02-0.10) 10^6/uL Immature Gran # (Auto) 0.01 (0.00-0.02) K/uL Ovalocytes 1+ PT 10.0 (9.0-12.0) Seconds INR 1.0 (0.9-1.1) APTT 22.4 (21.0-31.0) Seconds PTT Ratio 0.9 Sodium (136-145) mmol/L Potassium (3.5-5.1) mmol/L Chloride (98-107) mmol/L Carbon Dioxide (21-32) mmol/L Anion Gap (3-11) BUN (7-18) mg/dl Creatinine (0.6-1.4) mg/dl Est Cr Clr Drug Dosing Est GFR ( Amer) Est GFR (Non-Af Amer) BUN/Creatinine Ratio (10-20) Glucose (70-99) mg/dl Calcium (8.5-10.1) mg/dl Total Bilirubin (0.2-1) mg/dl AST (15-37) U/L ALT (12-78) U/L Alkaline Phosphatase (45-117) U/L Troponin I (0-0.045) ng/ml Total Protein (6.4-8.2) gm/dl Albumin (3.4-5.0) gm/dl Globulin (2.5-4.0) gm/dl Albumin/Globulin Ratio (0.9-2) Lipase (73-393) U/L COVID-19 Eval Order SARS-CoV-2 (PCR) (Negative) Influenza Type A (PCR) (Neg) Influenza Type B (PCR) (Neg) RSV (RT-PCR) (Neg) Blood Type A Negative Antibody Screen NEGATIVE 09/11/20 09/11/20 09/11/20 Range/Units 20:06 20:19 20:19 WBC (4.8-10.8) K/uL RBC (4.7-6.1) M/uL Hgb (14.0-18.0) g/dL Hct (42-52) % MCV (80-100) fL MCH (25-34) pg MCHC (32-36) g/dL RDW Std Deviation (36.4-46.3) fL RDW Coeff of Elena (11.5-14.5) % Plt Count (130-400) K/uL MPV (7.4-10.4) fL Immature Gran % (Auto) % Neut % (Auto) % Lymph % (Auto) % Heard % (Auto) % Eos % (Auto) % Baso % (Auto) % Reticulocyte % (Auto) (0.5-2.0) % Neut # (Auto) (1.4-6.5) K/uL Lymph # (Auto) (1.2-3.4) K/uL Heard # (Auto) (0.11-0.59) K/uL Eos # (Auto) (0-0.5) K/uL Baso # (Auto) (0-0.2) K/uL Reticulocyte # (0.02-0.10) 10^6/uL Immature Gran # (Auto) (0.00-0.02) K/uL Ovalocytes PT (9.0-12.0) Seconds INR (0.9-1.1) APTT (21.0-31.0) Seconds PTT Ratio Sodium 140 (136-145) mmol/L Potassium 3.9 (3.5-5.1) mmol/L Chloride 113 H (98-107) mmol/L Carbon Dioxide 24 (21-32) mmol/L Anion Gap 3.0 (3-11) BUN 11 (7-18) mg/dl Creatinine 0.78 (0.6-1.4) mg/dl Est Cr Clr Drug Dosing Not Reportable Est GFR ( Amer) 107.5 Est GFR (Non-Af Amer) 92.8 BUN/Creatinine Ratio 14.7 (10-20) Glucose 92 (70-99) mg/dl Calcium 8.8 (8.5-10.1) mg/dl Total Bilirubin 0.5 (0.2-1) mg/dl AST 19 (15-37) U/L ALT 35 (12-78) U/L Alkaline Phosphatase 112 (45-117) U/L Troponin I < 0.015 (0-0.045) ng/ml Total Protein 8.2 (6.4-8.2) gm/dl Albumin 3.7 (3.4-5.0) gm/dl Globulin 4.5 H (2.5-4.0) gm/dl Albumin/Globulin Ratio 0.8 L (0.9-2) Lipase 121 (73-393) U/L COVID-19 Eval Order CovFluRsv at [facility] SARS-CoV-2 (PCR) NEGATIVE (Negative) Influenza Type A (PCR) Negative (Neg) Influenza Type B (PCR) Negative (Neg) RSV (RT-PCR) Negative (Neg) Blood Type Antibody Screen Diagnostic Findings XR chest 1V portable CLINICAL HISTORY: dizzy COMPARISON STUDY: 06/19/2019 FINDINGS: The heart is enlarged. There are postsurgical changes of a midline sternotomy. There is a left subclavian dual-chamber central venous pacemaker. The endotracheal tube has been removed. There is suspected underlying pulmonary emphysema. There is diffuse elevation of interstitium. Pulmonary vascular congestion is suspected. An interstitial infectious/inflammatory processes could appear similar[ IMPRESSION: 1. Cardiomegaly 2. Elevation of the interstitium. While likely representing pulmonary vascular congestion, an interstitial infectious/inflammatory process could appear similar ACT 112: Negative or not required by law. Electronically signed by: Jose De Jesus Sutton M.D. 09/11/2020 8:41 PM Dictated: 09/11/202039Transcribed: 09/11/202039 ECG Additional Comments: EKG wtih NSR at 66, normal axis and intervals, no acute ischemic changes PG Care Time/CCT Total # of Minutes Spent Total Time Spent with Patient: Total time spent is greater than 50% in coordination of care (as documented) at patient's floor/unit and/or counseling patient: Coding Level of Care Code 01246 Initial Inpt Care Lvl 3 Diagnoses Dizziness R42 GI bleed K92.1 GI bleed type/associated pathology: melena Coronary artery disease I25.10 Coronary Disease-Associated Artery/Lesion type: [place] artery [place] vs. transplanted heart: [place] heart Associated angina: without angina Hyperlipidemia E78.5 Hyperlipidemia type: unspecified Epididymitis N45.1 (1) Coronary artery disease Coronary Disease-Associated Artery/Lesion type: [place] artery [place] vs. transplanted heart: [place] heart Associated angina: without angina Qualified Code(s): I25.10 - Atherosclerotic heart disease of [place] coronary artery without angina pectoris (2) Hyperlipidemia Hyperlipidemia type: unspecified Qualified Code(s): E78.5 - Hyperlipidemia, unspecified (3) GI bleed GI bleed type/associated pathology: melena Qualified Code(s): K92.1 - Melena
[2020-09-12] MEDS ORDERED: ONDANSETRON INJ 2 MG/ML 2 ML VIAL IV PRN ×2 (01:06→15:28)
[2020-09-12 01:45] LABS: Magnesium 2.3 mg/dl (1.8-2.4)
[2020-09-12 06:36] LABS: Basophils # (auto) 0.02 K/uL (0-0.2); Basophils % (auto) 0.4 %; Eosinophils # (auto) 0.03 K/uL (0-0.5); Eosinophils % (auto) 0.6 %; Hematocrit (blood only) 28.4 % (42-52); Hemoglobin 8.8 g/dL (14.0-18.0); Lymphocytes # (auto) 1.44 K/uL (1.2-3.4); Lymphocytes % (auto) 27.6 %; Mean Corpuscular Hemoglobin 25.5 pg (25-34); Mean Corpuscular Volume 82.3 fL (80-100); Mean Platelet Volume 8.6 fL (7.4-10.4); Monocytes # (auto) 0.41 K/uL (0.11-0.59); Monocytes % (auto) 7.9 %; Neutrophils # (auto) 3.31 K/uL (1.4-6.5); Neutrophils % (auto) 63.5 %; Platelet Count 226 K/uL (130-400); RDW Standard Deviation 50.8 fL (36.4-46.3); Red Blood Count 3.45 M/uL (4.7-6.1); White Blood Count 5.21 K/uL (4.8-10.8)
[2020-09-12 07:04] LABS: BUN Creatinine Ratio 13.5 (10-20); Calcium 8.5 mg/dl (8.5-10.1); Creatinine Clr Calc Pharmacy 97.5 ml/min; Est GFR (African American) 105.3; Est GFR (Non-African American) 90.9; Potassium 3.9 mmol/L (3.5-5.1)
[2020-09-12] MEDS: PANTOprazole 40 MG in SYRINGE 0 ML IV SCH ×2 (09:33→20:42)
--- NOTE | 2020-09-12 10:53 | Ultrasound Report ---
US scrotum/testicle CLINICAL HISTORY: 70 years-old Male with ?subacute epididymitis right testicle. Acute pain of the ri ght scrotum COMPARISON STUDY: Testicular ultrasound 04/26/2012 TECHNIQUE: Real-time, grayscale, and color Doppler sonography of the testes and scrotum is performed. Images are reviewed in the transverse and longitudinal planes. FINDINGS: RIGHT HEMISCROTUM: The right testis measures 4.8 x 2.7 x 3.6 cm. Testicular microlithiasis. No intrat esticular mass is seen. Normal-appearing arterial inflow is present within the right testicle. The ri ght epididymis is enlarged, hypervascular and heterogeneous. No varicocele. Small mildly complex hydr ocele. LEFT HEMISCROTUM: The left testis measures 4.8 x 2.4 x 4.1 cm. Testicular microlithiasis. No intrates ticular mass is seen. Normal-appearing arterial inflow is present within the left testicle. Cyst of t he left epididymal body, 4 mm.. There is a mildly complex hypoechoic lesion involving the tunica vagi nalis measuring 5 x 3 x 4 mm. No definite vascular flow. No varicocele. Small mildly complex hydrocel e. IMPRESSION: 1. Findings suggestive of acute right-sided epididymitis. 2. Small bilateral hydroceles. 3. Testicular microlithiasis. 4. 5 mm hypoechoic lesion of the left tunica vaginalis is suggestive of a complex cyst. ACT 112: Negative or not required by law. The above report was generated using voice recognition software. It may contain grammatical, syntax o r spelling errors. Electronically signed by: Gurvinder Wahl M.D. 09/12/2020 10:52 AM
--- NOTE | 2020-09-12 11:51 | Gastrointestinal Consultation ---
Date of Consultation September 12, 2020 Assessment & Plan (1) Dizziness: (2) GI bleed: Pt is a 70 yo male presented w dizziness, noted to be anemic and reports nausea w/o vomiting, black stools in last few days which were heme positive. He is on ASA, Plavix, for hx of CAD, CABG, Afib, also s/p AICD placement - Keep NPO - PPI gtt - EGD w Dr. Hardy today - Monitor blood ct and transfuse prn Supervising Physician Co-Signing Physician Notes I performed a history and physical examination of the patient today, including specifically on physical exam - soft abdomen. I have discussed the patient's management with the advanced practitioner. Please refer to the nurse practitioner's note for the documented findings and plan of care. EGD today History of Present Illness Reason for Consultation: GI bleed Requesting Physician: Dr. Leann Griffin Attending Physician: Dr. Osvaldo Hardy History of Present Illness Pt is a 70 y/o male w hx of CABG, Afib, s/p ICD placement, on Plavix and ASA who presented w dizziness w possible syncope/near syncope. On eval noted to be anemic w H/H of 8/24, Hgb normal on baseline. He reports nausea and also black stools in last few days which tested heme positive in ED. No vomiting. He had prior colonoscopies in 2007, 2012, 2017 w findings of adenomatous polyp, diverticulosis, hemorrhoids. Denies EGD in the past. Denies NSAIDs, tobacco, steroids. Drinks 2 beers a day Allergies Allergy/AdvReac Type Severity Reaction Status Date / Time procaine [From Novocain] Allergy Unknown Verified 09/11/20 20:03 Home Medications Medication Instructions Recorded Confirmed Type metoprolol tartrate 25 mg tablet 25 mg PO BID 06/28/19 09/11/20 History sildenafil (pulm.hypertension) 20 20 mg PO DAILY tab 09/19/19 09/11/20 History mg tablet atorvastatin 40 mg tablet 40 mg PO DAILY 10/15/19 09/11/20 History aspirin 81 mg tablet,delayed 81 mg PO DAILY 04/08/20 09/11/20 History release pantoprazole 40 mg tablet,delayed 40 mg PO DAILY #30 tab 09/11/20 09/11/20 Rx release sulfamethoxazole 800 1 tab PO BID #20 tab 09/11/20 09/11/20 Rx mg-trimethoprim 160 mg tablet Patient History Medical History COPD (chronic obstructive pulmonary disease) Coronary artery disease History of cardiac arrest Hx of pneumothorax Hypercapnic respiratory failure Hyperlipidemia Lung collapse Malignant melanoma of skin Obesity Paroxysmal atrial fibrillation Superficial thrombophlebitis of both upper extremities Tobacco use Transaminitis Surgical History H/O rotator cuff surgery Left History of colonoscopy History of coronary artery bypass graft Cardiac arrest; MVD s/p CABG x 3 ([place] to LAD; SVG to RPL and SVG to PAD on 06/22/2019; POST-OP blood loss AFIB (Amio & coumadin) poss. VTACH tx w/ lidocaine and MAG and acute cardio-pulm edema sec. volume overload 06/17: DUAL-CHAMBER PACEMAKER DEFIB History of inguinal hernia repair History of open heart surgery History of thoracotomy S/P CABG x 3 S/P ICD (internal cardiac defibrillator) procedure Family History Mother AAA (abdominal aortic aneurysm) Heart disease reported prior to the age of 55 Myocardial infarction Diabetes Kidney disease Hypertension Father , age 74 Lung cancer Diabetes Unknown No problems noted. 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[employer]; [employer]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 Children do You have: 3 Feels Safe at Home: Yes Childhood Exposure to Second-Hand Smoke: Yes caffeine: Yes Dental Care, Regularly: Yes Physical Activity Frequency: 1-2 Times per Week Seatbelt Use: always Sunscreen Use: No Assistive Devices: Denture - Upper and Denture - Lower Review of Systems Review of Systems: All systems reviewed & are unremarkable except as noted in HPI & below Physical Exam Constitutional: WD/WN, vitals as above well groomed, cooperative and comfortable Eyes: PERRL, conjunctivae normal, anicteric sclerae ENMT: external ear and nose normal, oropharynx normal Respiratory: normal respiratory effort, lungs clear to auscultation Cardiovascular: RRR, no murmur, no edema Gastrointestinal (Abdomen): normal bowel sounds, soft, nontender, no hepatosplenomegaly Skin: no rashes, warm and dry no jaundice Psychiatric: A+Ox3, euthymic affect Lymphatic: no lymphedema Results & Data ([facility]) Vital Signs (Past 12 Hours) Vital Signs Temp Pulse Pulse Pulse Resp BP BP 09/12/20 11:14 36.7 C 71 18 09/12/20 08:09 110/74 09/12/20 08:05 119/78 09/12/20 08:00 36.4 C L 60 18 108/69 09/12/20 07:36 66 09/12/20 04:41 74 09/12/20 04:05 36.9 C 82 16 131/77 09/12/20 01:06 36.4 C L 64 20 119/74 09/12/20 00:30 64 22 113/76 09/12/20 00:00 66 19 90/51 L BP Pulse Ox 09/12/20 11:14 103/59 L 96 09/12/20 08:09 09/12/20 08:05 09/12/20 08:00 97 09/12/20 07:36 09/12/20 04:41 09/12/20 04:05 96 09/12/20 01:06 98 09/12/20 00:30 95 09/12/20 00:00 95 (1) GI bleed GI bleed type/associated pathology: melena Qualified Code(s): K92.1 - Melena
[2020-09-12 11:57] LABS: Hematocrit (blood only) 28.1 % (42-52); Mean Corpuscular Hemoglobin 26.2 pg (25-34); Mean Corpuscular Volume 81.7 fL (80-100); Mean Platelet Volume 8.2 fL (7.4-10.4); Platelet Count 225 K/uL (130-400); RDW Coefficient of Variation 16.9 % (11.5-14.5); RDW Standard Deviation 50.7 fL (36.4-46.3); Red Blood Count 3.44 M/uL (4.7-6.1); White Blood Count 4.47 K/uL (4.8-10.8)
--- NOTE | 2020-09-12 12:40 | Anesthesiology Consultation ---
Date of Service September 12, 2020 Assessment & Plan Chart Review Chart Review: Acceptable Risk for Surgery and Patient NOT seen in Pre Admission Testing Consults Requested none ASA ASA4 Proposed Anesthesia Anesthesia Type: MAC Additional Comments: covid test negative History Surgery Operation Date: 09/12/20 16:00 Proposed Procedures p Esophagogastroduodenoscopy Dr Hardy - Osvaldo Hardy MD Height/Weight Height: 5 ft 10 in Weight: 90.3 kg Allergies Allergy/AdvReac Type Severity Reaction Status Date / Time procaine [From Novocain] Allergy Unknown Verified 09/11/20 20:03 Medications Home Medications Medication Instructions Recorded Confirmed Last Taken metoprolol tartrate 25 mg tablet 25 mg PO BID 06/28/19 09/11/20 Unknown sildenafil (pulm.hypertension) 20 20 mg PO DAILY tab 09/19/19 09/11/20 Unknown mg tablet atorvastatin 40 mg tablet 40 mg PO DAILY 10/15/19 09/11/20 Unknown aspirin 81 mg tablet,delayed 81 mg PO DAILY 04/08/20 09/11/20 Unknown release pantoprazole 40 mg tablet,delayed 40 mg PO DAILY #30 tab 09/11/20 09/11/20 Unknown release sulfamethoxazole 800 1 tab PO BID #20 tab 09/11/20 09/11/20 Unknown mg-trimethoprim 160 mg tablet Active Medications Generic Name Dose Route Start Last Admin Trade Name Freq PRN Reason Stop Dose Admin Pantoprazole Sodium 40 mg/ 10 mls @ 5 mls/min 09/12/20 09:00 09/12/20 09:33 Syringe IV 10/12/20 08:59 5 mls/min BID FELICE Administration Past Medical History Medical History COPD (chronic obstructive pulmonary disease) Coronary artery disease History of cardiac arrest Hx of pneumothorax Hypercapnic respiratory failure Hyperlipidemia Lung collapse Malignant melanoma of skin Obesity Paroxysmal atrial fibrillation Superficial thrombophlebitis of both upper extremities Tobacco use Transaminitis Exercise / Class Metabolic Activity III < 4 Walking/Shop/Light housework Past Family History Family History Mother AAA (abdominal aortic aneurysm) Heart disease reported prior to the age of 55 Myocardial infarction Diabetes Kidney disease Hypertension Father , age 74 Lung cancer Diabetes Unknown No problems noted. Other Dyslipidemia Denies family history of Ovarian cancer Prostate cancer Breast cancer Colorectal cancer Past Surgical History Surgical History H/O rotator cuff surgery Left History of colonoscopy History of coronary artery bypass graft Cardiac arrest; MVD s/p CABG x 3 ([place] to LAD; SVG to RPL and SVG to PAD on 06/22/2019; POST-OP blood loss AFIB (Amio & coumadin) poss. VTACH tx w/ lidocaine and MAG and acute cardio-pulm edema sec. volume overload 06/17: DUAL-CHAMBER PACEMAKER DEFIB History of inguinal hernia repair History of open heart surgery History of thoracotomy S/P CABG x 3 S/P ICD (internal cardiac defibrillator) procedure Past Anesthesia History No Hx of Anesthesia Complications and No Family Hx of Anesthesia Complications History of PONV No Hx of PONV and No Hx of Motion Sickness Social History Smoking Status: Former smoker tobacco type: cigarettes Smoking cigarettes per day: 20 Hx Alcohol Use: No Alcohol type: beer alcohol intake frequency: 0-2 drinks per day Hx Substance Use: No substance use type: does not use Physical Exam Vital Signs Last Vital Signs Temp 36.7 C 09/12/20 11:14 Pulse 71 09/12/20 11:14 Resp 18 09/12/20 11:14 BP 103/59 L 09/12/20 11:14 Pulse Ox 96 09/12/20 11:14 Testing Laboratory Results 09/12/20 11:47 09/12/20 06:20 PT 10.0 Seconds (9.0-12.0) 09/11/20 20:06 INR 1.0 (0.9-1.1) 09/11/20 20:06 APTT 22.4 Seconds (21.0-31.0) 09/11/20 20:06 Blood Type A Negative 09/11/20 20:06 Antibody Screen NEGATIVE 09/11/20 20:06 Electrocardiogram Date: 09/11/20 Findings: + NSR @ (at 68 w/ sinus arrhythmia;low voltage QRS) Chest X-Ray Date: 09/11/20 Findings: + cardiomegaly, + pulmonary vascular congestion and + other (emphysema;left subclavian AICD) Cardiac Catheterization Date: 06/19/19 Findings: + pertinent finding (severe multivessel disease; Pt. had CABG at [facility]); no normal Intervention: + none
--- NOTE | 2020-09-12 13:31 | Hospitalist Progress Note ---
Date of Service September 12, 2020 Assessment & Plan (1) Dizziness: 70yo C male with history of CAD s/p CABG x 3V, AICD in place for history of cardiac arrest presenting with dizziness, mostly with positional changes but sometimes at rest. He reports black stools over the last several days - heme positive in ER. He is afebrile, HD stable, non-toxic in appearance. On arrival Hgb=10.2 and Hct=31.6 (from 14 and 42.5, respectively, on 04/08/20). Patient had been on ASA and Plavix since his CABG in June 2019. He just stopped his daily Plavix the day before admission as directed by his Professor Of Musicology as it had been one year since his CABG. He continues to take ASA 81mg po daily. Hgb dropped further today to 8.8 but on repeat at noon, up to 9.0 No further melena since admission Likely UGI bleed -Check orthostatic VS -Check pacer interrogation - patient reportedly had a very brief run of atrial fibrillation in the past. Symptoms could possibly be caused by atrial arrhythmia. No AICD discharges. Did have 15 beats of VT here asymptomatic -cosult Cardiology although most likely presyncope from acute GI blood loss -serial CBC -GI consultation appreciated-plan for EGD today (2) GI bleed: as above, with melena, on ASA/Plavix -continue Protonix 40mg IV BID -GI consultation appreciated-for EGD today -Maintain 2 large PIVs -serial CBC (3) Acute blood loss anemia: as above (4) Coronary artery disease: With h/o cardiac arrest and CABG 06/2019 No chest pain, ECG without ischemia here Chronic. Stable. -Hold ASA for now in setting of possible bleed -consider only Plavix if turns out to have PUD -consult his Professor Of Musicology for further management given presynope, NSVT, and discussion of antiplatelet moving forward -restart Metoprolol with hold parameters given VT -Continue Atorvastatin (5) Hyperlipidemia: Chronic. Stable -Continue Atorvastatin (6) Epididymitis: Newly diagnosed by PCP the day of amdission Tenderness on exam here is improved Scrotal US confirms Right epididymitis, otherwise normal -continue Bactrim as prescribed (7) COPD (chronic obstructive pulmonary disease): mild wheezing here quit smoking 3 years ago nebs prn not hypoxic (8) Paroxysmal atrial fibrillation: h/o such after CABG, has since stopped anticoagulation and no recurrence pacer interrogation performed here as above (9) S/P ICD (internal cardiac defibrillator) procedure: as above (10) Ventricular tachycardia: as above restart beta elizabeth consult Cardiology (11) DVT prophylaxis: SCDs only Dispo-continued stay Admission and Anticipated Discharge Date Admission Date: September 11, 2020 Subjective Pt feels well, no further lightheadedness, denies CP or SOB. No abd pain, no N/V. Last BM was yesterday AM. Denies any current scrotal/testicular pain, no dysuria. Tele with NSR, rates 50-60s, had 15 beats of VT Review of Systems Review of Systems: All systems reviewed & are unremarkable except as noted in HPI & below Physical Exam Constitutional: WD/WN, vitals as above Eyes: + anicteric sclerae Neck: trachea midline, no thyromegaly Respiratory: normal respiratory effort; not tachypneic Auscultation: + wheezes (a few bilat exp wheezes); no crackles and no rhonchi Cardiovascular: Rate/Rhythm: regular rate and regular rhythm Heart Sounds: no murmur Extremities: + edema (very trace pitting edema legs bilat) Gastrointestinal (Abdomen): normal bowel sounds, soft, nontender, no hepatosplenomegaly Musculoskeletal: Extremities: extremities normal to inspection; no cyanosis and no clubbing Skin: no rashes, warm and dry Neurologic: moves all extremities and awake; no focal motor deficits Psychiatric: A+Ox3, euthymic affect Genitourinary: + testicular mass (small tender nodule right testicle); no penis abnormality and no scrotum abnormality Lymphatic: no lymphedema Results & Data Results & Data ([facility]) Vital Signs (Past 12 Hours) Vital Signs Temp Pulse Pulse Pulse Resp BP BP 09/12/20 11:14 36.7 C 71 18 103/59 L 09/12/20 08:09 110/74 09/12/20 08:05 119/78 09/12/20 08:00 36.4 C L 60 18 108/69 09/12/20 07:36 66 09/12/20 04:41 74 09/12/20 04:05 36.9 C 82 16 131/77 Pulse Ox 09/12/20 11:14 96 09/12/20 08:09 09/12/20 08:05 09/12/20 08:00 97 09/12/20 07:36 09/12/20 04:41 09/12/20 04:05 96 Laboratory Results 09/12/20 09/12/20 09/12/20 Range/Units 11:47 06:20 06:20 WBC 4.47 L 5.21 (4.8-10.8) K/uL RBC 3.44 L 3.45 L (4.7-6.1) M/uL Hgb 9.0 L 8.8 L (14.0-18.0) g/dL Hct 28.1 L 28.4 L (42-52) % MCV 81.7 82.3 (80-100) fL MCH 26.2 25.5 (25-34) pg MCHC 32.0 31.0 L (32-36) g/dL RDW Std Deviation 50.7 H 50.8 H (36.4-46.3) fL RDW Coeff of Elena 16.9 H 17.0 H (11.5-14.5) % Plt Count 225 226 (130-400) K/uL MPV 8.2 8.6 (7.4-10.4) fL Immature Gran % (Auto) 0.0 % Neut % (Auto) 63.5 % Lymph % (Auto) 27.6 % [place] % (Auto) 7.9 % Eos % (Auto) 0.6 % Baso % (Auto) 0.4 % Reticulocyte % (Auto) (0.5-2.0) % Neut # (Auto) 3.31 (1.4-6.5) K/uL Lymph # (Auto) 1.44 (1.2-3.4) K/uL [place] # (Auto) 0.41 (0.11-0.59) K/uL Eos # (Auto) 0.03 (0-0.5) K/uL Baso # (Auto) 0.02 (0-0.2) K/uL Reticulocyte # (0.02-0.10) 10^6/uL Immature Gran # (Auto) 0.00 (0.00-0.02) K/uL Ovalocytes PT (9.0-12.0) Seconds INR (0.9-1.1) APTT (21.0-31.0) Seconds PTT Ratio Sodium 140 (136-145) mmol/L Potassium 3.9 (3.5-5.1) mmol/L Chloride 113 H (98-107) mmol/L Carbon Dioxide 24 (21-32) mmol/L Anion Gap 3.0 (3-11) BUN 11 (7-18) mg/dl Creatinine 0.82 (0.6-1.4) mg/dl Est Cr Clr Drug Dosing 97.5 Est GFR ( Amer) 105.3 Est GFR (Non-Af Amer) 90.9 BUN/Creatinine Ratio 13.5 (10-20) Glucose 91 (70-99) mg/dl Calcium 8.5 (8.5-10.1) mg/dl Magnesium (1.8-2.4) mg/dl Total Bilirubin (0.2-1) mg/dl AST (15-37) U/L ALT (12-78) U/L Alkaline Phosphatase (45-117) U/L Troponin I (0-0.045) ng/ml Total Protein (6.4-8.2) gm/dl Albumin (3.4-5.0) gm/dl Globulin (2.5-4.0) gm/dl Albumin/Globulin Ratio (0.9-2) Lipase (73-393) U/L COVID-19 Eval Order SARS-CoV-2 (PCR) (Negative) Influenza Type A (PCR) (Neg) Influenza Type B (PCR) (Neg) RSV (RT-PCR) (Neg) Blood Type Antibody Screen 09/11/20 09/11/20 09/11/20 Range/Units 20:19 20:19 20:06 WBC (4.8-10.8) K/uL RBC (4.7-6.1) M/uL Hgb (14.0-18.0) g/dL Hct (42-52) % MCV (80-100) fL MCH (25-34) pg MCHC (32-36) g/dL RDW Std Deviation (36.4-46.3) fL RDW Coeff of Elena (11.5-14.5) % Plt Count (130-400) K/uL MPV (7.4-10.4) fL Immature Gran % (Auto) % Neut % (Auto) % Lymph % (Auto) % [place] % (Auto) % Eos % (Auto) % Baso % (Auto) % Reticulocyte % (Auto) (0.5-2.0) % Neut # (Auto) (1.4-6.5) K/uL Lymph # (Auto) (1.2-3.4) K/uL [place] # (Auto) (0.11-0.59) K/uL Eos # (Auto) (0-0.5) K/uL Baso # (Auto) (0-0.2) K/uL Reticulocyte # (0.02-0.10) 10^6/uL Immature Gran # (Auto) (0.00-0.02) K/uL Ovalocytes PT (9.0-12.0) Seconds INR (0.9-1.1) APTT (21.0-31.0) Seconds PTT Ratio Sodium 140 (136-145) mmol/L Potassium 3.9 (3.5-5.1) mmol/L Chloride 113 H (98-107) mmol/L Carbon Dioxide 24 (21-32) mmol/L Anion Gap 3.0 (3-11) BUN 11 (7-18) mg/dl Creatinine 0.78 (0.6-1.4) mg/dl Est Cr Clr Drug Dosing Not Reportable Est GFR ( Amer) 107.5 Est GFR (Non-Af Amer) 92.8 BUN/Creatinine Ratio 14.7 (10-20) Glucose 92 (70-99) mg/dl Calcium 8.8 (8.5-10.1) mg/dl Magnesium 2.3 (1.8-2.4) mg/dl Total Bilirubin 0.5 (0.2-1) mg/dl AST 19 (15-37) U/L ALT 35 (12-78) U/L Alkaline Phosphatase 112 (45-117) U/L Troponin I < 0.015 (0-0.045) ng/ml Total Protein 8.2 (6.4-8.2) gm/dl Albumin 3.7 (3.4-5.0) gm/dl Globulin 4.5 H (2.5-4.0) gm/dl Albumin/Globulin Ratio 0.8 L (0.9-2) Lipase 121 (73-393) U/L COVID-19 Eval Order CovFluRsv at [facility] SARS-CoV-2 (PCR) NEGATIVE (Negative) Influenza Type A (PCR) Negative (Neg) Influenza Type B (PCR) Negative (Neg) RSV (RT-PCR) Negative (Neg) Blood Type Antibody Screen 09/11/20 09/11/20 09/11/20 Range/Units 20:06 20:06 20:06 WBC 5.96 (4.8-10.8) K/uL RBC 3.90 L (4.7-6.1) M/uL Hgb 10.2 L (14.0-18.0) g/dL Hct 31.6 L (42-52) % MCV 81.0 (80-100) fL MCH 26.2 (25-34) pg MCHC 32.3 (32-36) g/dL RDW Std Deviation 49.8 H (36.4-46.3) fL RDW Coeff of Elena 16.8 H (11.5-14.5) % Plt Count 270 (130-400) K/uL MPV 8.6 (7.4-10.4) fL Immature Gran % (Auto) 0.2 % Neut % (Auto) 62.0 % Lymph % (Auto) 29.9 % [place] % (Auto) 6.9 % Eos % (Auto) 0.3 % Baso % (Auto) 0.7 % Reticulocyte % (Auto) 1.7 (0.5-2.0) % Neut # (Auto) 3.70 (1.4-6.5) K/uL Lymph # (Auto) 1.78 (1.2-3.4) K/uL [place] # (Auto) 0.41 (0.11-0.59) K/uL Eos # (Auto) 0.02 (0-0.5) K/uL Baso # (Auto) 0.04 (0-0.2) K/uL Reticulocyte # 0.07 (0.02-0.10) 10^6/uL Immature Gran # (Auto) 0.01 (0.00-0.02) K/uL Ovalocytes 1+ PT 10.0 (9.0-12.0) Seconds INR 1.0 (0.9-1.1) APTT 22.4 (21.0-31.0) Seconds PTT Ratio 0.9 Sodium (136-145) mmol/L Potassium (3.5-5.1) mmol/L Chloride (98-107) mmol/L Carbon Dioxide (21-32) mmol/L Anion Gap (3-11) BUN (7-18) mg/dl Creatinine (0.6-1.4) mg/dl Est Cr Clr Drug Dosing Est GFR ( Amer) Est GFR (Non-Af Amer) BUN/Creatinine Ratio (10-20) Glucose (70-99) mg/dl Calcium (8.5-10.1) mg/dl Magnesium (1.8-2.4) mg/dl Total Bilirubin (0.2-1) mg/dl AST (15-37) U/L ALT (12-78) U/L Alkaline Phosphatase (45-117) U/L Troponin I (0-0.045) ng/ml Total Protein (6.4-8.2) gm/dl Albumin (3.4-5.0) gm/dl Globulin (2.5-4.0) gm/dl Albumin/Globulin Ratio (0.9-2) Lipase (73-393) U/L COVID-19 Eval Order SARS-CoV-2 (PCR) (Negative) Influenza Type A (PCR) (Neg) Influenza Type B (PCR) (Neg) RSV (RT-PCR) (Neg) Blood Type A Negative Antibody Screen NEGATIVE PG Care Time/CCT Total # of Minutes Spent Total Time Spent with Patient: Total time spent is greater than 50% in coordination of care (as documented) at patient's floor/unit and/or counseling patient: Coding Level of Care Code 25353 Subseq Hosp Care Lvl 3 Diagnoses Dizziness R42 GI bleed K92.1 GI bleed type/associated pathology: melena Acute blood loss anemia D62 Coronary artery disease I25.10 Coronary Disease-Associated Artery/Lesion type: [place] artery [place] vs. transplanted heart: [place] heart Associated angina: without angina Hyperlipidemia E78.5 Hyperlipidemia type: unspecified Epididymitis N45.1 COPD (chronic obstructive pulmonary disease) J44.9 COPD type: unspecified COPD Paroxysmal atrial fibrillation I48.0 S/P ICD (internal cardiac defibrillator) procedure Z95.810 Ventricular tachycardia I47.2 DVT prophylaxis Z29.9 (1) GI bleed GI bleed type/associated pathology: melena Qualified Code(s): K92.1 - Melena (2) Coronary artery disease Coronary Disease-Associated Artery/Lesion type: [place] artery [place] vs. transplanted heart: [place] heart Associated angina: without angina Qualified Code(s): I25.10 - Atherosclerotic heart disease of [place] coronary artery without angina pectoris (3) Hyperlipidemia Hyperlipidemia type: unspecified Qualified Code(s): E78.5 - Hyperlipidemia, unspecified (4) COPD (chronic obstructive pulmonary disease) COPD type: unspecified COPD Qualified Code(s): J44.9 - Chronic obstructive pulmonary disease, unspecified
[2020-09-12] MEDS ORDERED: PROPOFOL IV EMULSION 10 MG/ML 20 ML VIAL IV ONE (14:48)
[2020-09-12] MEDS ORDERED: LIDOCAINE HCL 2% 2 ML VIAL/AMP(20MG/ML) INFIL ONE (14:48)
--- NOTE | 2020-09-12 14:53 | Electrocardiogram Report ---
Test Reason : Blood Pressure : / mmHG Vent. Rate : 066 BPM Atrial Rate : 066 BPM P-R Int : 142 ms QRS Dur : 080 ms QT Int : 398 ms P-R-T Axes : 068 048 030 degrees QTc Int : 417 ms Normal sinus rhythm with sinus arrhythmia Low voltage QRS Borderline ECG When compared with ECG of 19-JUN-2019 10:52, Vent. rate has decreased BY [address] no longer depressed in Lateral leads Nonspecific T wave abnormality now evident in Anterior leads Confirmed by Calos Nina ([id number]) on 09/12/2020 2:52:38 PM Referred By: Les Menjivar Confirmed By:Calos Nina
[2020-09-12] MEDS ORDERED: ATROPINE SULFATE 0.1 MG/ML 10ML SYR IV PRN (15:28)
[2020-09-12] MEDS ORDERED: ePHEDrine sulfate 50 MG/ML AMP IV PRN (15:28)
--- NOTE | 2020-09-12 15:32 | GI REPORT ---
Patient Name: Link Sanford Procedure Date: 09/12/2020 3:02 PM Date of : 1950 Admit Type: Inpatient Age: 70 Gender: Male Attending MD: Osvaldo Hardy MD Procedure: Upper GI endoscopy Providers: Osvaldo Hardy MD Referring MD: Les Menjivar Md Indications: Melena Medicines: Propofol per Anesthesia Complications: No immediate complications. Estimated Blood Loss: Estimated blood loss: none. Procedure: Pre-Anesthesia Assessment: - Prior to the procedure, a History and Physical was performed, and patient medications, allergies and sensitivities were reviewed. The patient's tolerance of previous anesthesia was reviewed. - The risks and benefits of the procedure and the sedation options and risks were discussed with the patient. All questions were answered and informed consent was obtained. - Patient identification and proposed procedure were verified prior to the procedure by the physician and the nurse. The procedure was verified in the procedure room. - Pre-procedure physical examination revealed no contraindications to sedation. After obtaining informed consent, the endoscope was passed under direct vision. Throughout the procedure, the patient's blood pressure, pulse, and oxygen saturations were monitored continuously. The Endoscope was introduced through the mouth, and advanced to the second part of duodenum. The upper GI endoscopy was accomplished without difficulty. The patient tolerated the procedure well. Findings: The examined esophagus was normal. One oozing linear and superficial gastric ulcer with adherent clot was found in the gastric antrum. The lesion was 10 mm in largest dimension. Area was successfully injected with 4 mL of a 1:10,000 solution of epinephrine for hemostasis. For hemostasis, three hemostatic clips were successfully placed (MR conditional). A scar was found in the gastric antrum. Localized mild inflammation characterized by erythema was found in the duodenal bulb. The second portion of the duodenum was normal. Impression: - Normal esophagus. - Oozing small gastric ulcer. Injected with Epi. Clips (MR conditional) were placed. - Scar in the gastric antrum. - Duodenitis. - Normal second portion of the duodenum. - No specimens collected. Recommendation: - [facility] to [facility] for [facility] care. - Clear liquid diet today. - Use a proton pump inhibitor IV for 2 days then PO BID. - Repeat upper endoscopy in 3 months to check healing. - Hold Plavix for at least 3 days. - Recall GI if needed. Osvaldo Hardy MD 09/12/2020 3:31:49 PM This report has been signed electronically. Note Initiated On: 09/12/2020 3:02 PM Number of Addenda: 0 I attest to the content of the Intraoperative Record and orders documented therein, exceptions below {[id number]}
--- NOTE | 2020-09-12 15:39 | Anesthesiology Progress Note ---
Date of Service September 12, 2020 Anesthesia Post Procedure Vital Signs Vital Signs: Temp Pulse Pulse Pulse Resp BP BP 09/12/20 13:58 36.7 C 64 18 126/78 09/12/20 11:14 36.7 C 71 18 09/12/20 08:09 110/74 09/12/20 08:05 119/78 09/12/20 08:00 36.4 C L 60 18 108/69 09/12/20 07:36 66 09/12/20 04:41 74 09/12/20 04:05 36.9 C 82 16 131/77 09/12/20 01:06 36.4 C L 64 20 119/74 09/12/20 00:30 64 22 113/76 09/12/20 00:00 66 19 90/51 L 09/11/20 23:30 68 17 107/63 09/11/20 23:00 63 19 107/67 09/11/20 22:30 66 21 126/76 09/11/20 22:00 68 18 115/65 09/11/20 21:30 67 18 123/70 09/11/20 21:00 66 15 94/64 L 09/11/20 20:18 67 18 121/75 09/11/20 20:14 82 18 09/11/20 18:22 37.0 C 82 18 137/83 BP Pulse Ox 09/12/20 13:58 99 09/12/20 11:14 103/59 L 96 09/12/20 08:09 09/12/20 08:05 09/12/20 08:00 97 09/12/20 07:36 09/12/20 04:41 09/12/20 04:05 96 09/12/20 01:06 98 09/12/20 00:30 95 09/12/20 00:00 95 09/11/20 23:30 97 09/11/20 23:00 95 09/11/20 22:30 99 09/11/20 22:00 99 09/11/20 21:30 100 09/11/20 21:00 100 09/11/20 20:18 100 09/11/20 20:14 100 09/11/20 18:22 100 Transfer of Care Handoff Completed per policy Notes Mental Status: alert / awake / arousable and participated in evaluation Patient Amnestic to Procedure: Yes Nausea / Vomiting: adequately controlled Pain: adequately controlled Airway Patency, RR, SpO2: stable & adequate BP & HR: stable & adequate Hydration State: stable & adequate Anesthetic Complications: no major complications apparent and Pt Satisfied with anesthetic care
[2020-09-12] MEDS ORDERED: MoRPHine SULFATE 2 MG/ML CARP IV PRN (16:04)
[2020-09-12] MEDS ORDERED: ACETAMINOPHEN 325 MG TAB PO PRN (16:04)
[2020-09-12] MEDS: ATORVASTATIN 40 MG TAB PO SCH (16:40)
[2020-09-12] MEDS: SULFAMETHOXAZOLE/TRIMETHOPRIM DS 800/160MG TAB PO SCH ×2 (16:40→20:44)
--- NOTE | 2020-09-12 17:47 | Cardiology Progress Note ---
Date of Service September 12, 2020 Assessment & Plan (1) Acute upper gastrointestinal bleeding: Status post EGD, with epinephrine injection, hemostatic clips, 09/11/2020. Had recently completed a course of dual antiplatelet therapy 09/10/2020 15 months post non-STEMI, cardiac arrest event. -Remain off of antiplatelet therapy for now. -Agree with resuming antiplatelet monotherapy, with clopidogrel, rather than aspirin, as clopidogrel has less risk of inducing additional gastric ulcers. -Agree with proton pump inhibitor therapy. (2) Dizziness: Was likely due to GI blood loss. But arrhythmia certainly consideration in a patient with past ventricular fibrillation arrest. Refer to below. (3) Ventricular tachycardia: 16 beat run of nonsustained ventricular tachycardia, 142 bpm, 09/12/2020 at 6:45 AM. Electrolytes within normal limits. He is back on his metoprolol. His ICD was interrogated. No recent arrhythmia events or therapies observed. His ventricular tachycardia observation parameters were for heart rate greater than 150, these were widened to a rate of 130 and above. If he was to have slow VT, would therefore be detected in future. Ventricular sensing settings changed to reduce risk of T wave oversensing as well. (4) Coronary artery disease: Resume clopidogrel monotherapy in 3 days. Continue metoprolol. Continue atorvastatin. Continue Bactrim for epididymitis. SCDs for DVT prophylaxis. Admission and Anticipated Discharge Date Admission Date: September 11, 2020 Subjective 7. Mr Sanford is a 70 year old male seen in cardiology consultation per the request of Dr Griffin for the evaluation of syncope and GI bleed. The patient describes that 3 days ago he was feeling well in the morning. At around noontime he felt the urge to have a bowel movement. While on the commode, he felt onset of heavy perspiration, vomited, and then felt dizzy falling forward without any manuel loss of consciousness per his recollection. He did not feel his ICD discharge. This morning while monitored on telemetry, he was observed to have a 16 beat run of monomorphic ventricular tachycardia at 6:45 AM with rate of 142 bpm. Of note, this event took place with his metoprolol having been held. On presentation to the hospital, his hemoglobin was 10.2 compared to 14 in April,. He underwent EGD today with findings of oozing linear and superficial gastric ulcer. This was injected with epinephrine and 3 hemostatic clips were placed. At the time of my visit with the patient, he was feeling well, and ready to eat his clear liquid diet for dinner. Cardiac History: 1. Witnessed cardiac arrest June 19, 2019 while chopping wood with his brother who performed bystander CPR. Received 1 shock via police AED with spontaneous return of circulation 2. Emergent cardiac catheterization performed for evolving ST depression revealed severe multivessel disease. 3. Treated with therapeutic hypothermia and transferred to [facility] 4. 06/22/2019 CABG x3 with [place] to LAD, SVG to RPL, SVG to PDA 5. Perioperative atrial fibrillation 6. 06/26/2019, implantation of dual-chamber Medtronic ICD 7. Most recent echocardiogram June,, [id number] [id number], large sized apical, septal, and inferior wall motion abnormality with hypokinesis to akinesis of the segments. Mild to moderate TR. Borderline aortic root enlargement. Estimated pulmonary systolic pressure 37 mmHg. Review of Systems Review of Systems: All systems reviewed & are unremarkable except as noted in HPI & below Physical Exam Physical Exam: Temp Pulse Resp BP Pulse Ox 36.3 C L 59 L 16 126/75 98 09/12/20 17:30 09/12/20 17:30 09/12/20 17:30 09/12/20 17:30 09/12/20 17:30 Constitutional: WD/WN, vitals as above Respiratory: normal respiratory effort, lungs clear to auscultation Cardiovascular: RRR, no murmur, no edema Chest (Breasts): Additional Comments: Well-healed midline sternotomy incision Gastrointestinal (Abdomen): normal bowel sounds, soft, nontender, no hepatosplenomegaly Neurologic: PERRL, EOMI, accommodation nl, no face palsy, no dysarthria Results & Data ([facility]) Vital Signs (Past 12 Hours) Vital Signs Temp Pulse Pulse Resp BP BP Pulse Ox 09/12/20 17:30 36.3 C L 59 L 16 126/75 98 09/12/20 17:00 36.3 C L 68 16 148/91 H 100 09/12/20 16:31 36.5 C 61 16 130/79 99 09/12/20 16:15 36.3 C L 60 16 143/78 H 99 09/12/20 15:36 60 16 129/76 98 09/12/20 15:21 78 16 122/66 98 09/12/20 13:58 36.7 C 64 18 126/78 99 09/12/20 11:14 36.7 C 71 18 103/59 L 96 09/12/20 08:09 110/74 09/12/20 08:05 119/78 09/12/20 08:00 36.4 C L 60 18 108/69 97 09/12/20 07:36 66 Laboratory Results Cardiac Enzymes 09/11/20 Range/Units 20:06 AST 19 (15-37) U/L Troponin I < 0.015 (0-0.045) ng/ml Coagulation 09/11/20 Range/Units 20:06 PT 10.0 (9.0-12.0) Seconds APTT 22.4 (21.0-31.0) Seconds CBC 09/11/20 09/12/20 09/12/20 Range/Units 20:06 06:20 11:47 WBC 5.96 5.21 4.47 L (4.8-10.8) K/uL RBC 3.90 L 3.45 L 3.44 L (4.7-6.1) M/uL Hgb 10.2 L 8.8 L 9.0 L (14.0-18.0) g/dL Hct 31.6 L 28.4 L 28.1 L (42-52) % Plt Count 270 226 225 (130-400) K/uL Neut # (Auto) 3.70 3.31 (1.4-6.5) K/uL Lymph # (Auto) 1.78 1.44 (1.2-3.4) K/uL [place] # (Auto) 0.41 0.41 (0.11-0.59) K/uL Eos # (Auto) 0.02 0.03 (0-0.5) K/uL Baso # (Auto) 0.04 0.02 (0-0.2) K/uL Comprehensive Metabolic Panel 09/11/20 09/12/20 Range/Units 20:06 06:20 Sodium 140 140 (136-145) mmol/L Potassium 3.9 3.9 (3.5-5.1) mmol/L Chloride 113 H 113 H (98-107) mmol/L Carbon Dioxide 24 24 (21-32) mmol/L BUN 11 11 (7-18) mg/dl Creatinine 0.78 0.82 (0.6-1.4) mg/dl Glucose 92 91 (70-99) mg/dl Calcium 8.8 8.5 (8.5-10.1) mg/dl AST 19 (15-37) U/L ALT 35 (12-78) U/L Alkaline Phosphatase 112 (45-117) U/L Total Protein 8.2 (6.4-8.2) gm/dl Albumin 3.7 (3.4-5.0) gm/dl Intake and Output 09/12/20 09/12/20 09/12/20 06:59 14:59 22:59 Other: Other Intake Source NPO Weight 90.3 kg 90.3 kg Weight Measurement Method Standing Scale Patient Weight 09/13/20 06:59 Weight 90.3 kg Diagnostic Findings EKG performed today 09/11/2020 reveals normal sinus rhythm at 66 bpm. Age undetermined inferior infarct pattern noted in lead III. Stable findings.. (1) Coronary artery disease Coronary Disease-Associated Artery/Lesion type: [place] artery [place] vs. transplanted heart: [place] heart Associated angina: without angina Qualified Code(s): I25.10 - Atherosclerotic heart disease of [place] coronary artery without angina pectoris
[2020-09-12] MEDS: METOPROLOL TARTRATE 25 MG TAB PO SCH (20:44)
[2020-09-13 07:04] LABS: Basophils # (auto) 0.02 K/uL (0-0.2); Basophils % (auto) 0.4 %; Eosinophils # (auto) 0.02 K/uL (0-0.5); Eosinophils % (auto) 0.4 %; Hematocrit (blood only) 26.7 % (42-52); Hemoglobin 8.4 g/dL (14.0-18.0); Lymphocytes # (auto) 1.58 K/uL (1.2-3.4); Mean Corpuscular Hemoglobin 25.6 pg (25-34); Mean Corpuscular Hgb Conc 31.5 g/dL (32-36); Mean Corpuscular Volume 81.4 fL (80-100); Monocytes # (auto) 0.31 K/uL (0.11-0.59); Monocytes % (auto) 6.7 %; Neutrophils # (auto) 2.72 K/uL (1.4-6.5); Neutrophils % (auto) 58.5 %; Platelet Count 242 K/uL (130-400); RDW Coefficient of Variation 16.9 % (11.5-14.5); RDW Standard Deviation 50.9 fL (36.4-46.3); Red Blood Count 3.28 M/uL (4.7-6.1); White Blood Count 4.65 K/uL (4.8-10.8)
[2020-09-13 07:24] LABS: BUN Creatinine Ratio 14.1 (10-20); Calcium 8.4 mg/dl (8.5-10.1); Creatinine Clr Calc Pharmacy 94.1 ml/min; Est GFR (African American) 103.8; Est GFR (Non-African American) 89.5; Magnesium 2.1 mg/dl (1.8-2.4); Potassium 3.7 mmol/L (3.5-5.1)
[2020-09-13] MEDS: PANTOprazole 40 MG in SYRINGE 0 ML IV SCH (08:09)
[2020-09-13] MEDS: ATORVASTATIN 40 MG TAB PO SCH (08:42)
[2020-09-13] MEDS: SULFAMETHOXAZOLE/TRIMETHOPRIM DS 800/160MG TAB PO SCH (08:42)
[2020-09-13] MEDS: METOPROLOL TARTRATE 25 MG TAB PO SCH (08:42)
--- NOTE | 2020-09-13 15:22 | Cardiology Progress Note ---
Date of Service September 13, 2020 Assessment & Plan (1) Acute upper gastrointestinal bleeding: Status post EGD, with epinephrine injection, hemostatic clips, 09/11/2020. Had recently completed a course of dual antiplatelet therapy 09/10/2020 15 months post non-STEMI, cardiac arrest event. Hold antiplatelet therapy today. Resume antiplatelet monotherapy with clopidogrel in 2 days. Continue proton pump inhibitor. (2) Ventricular tachycardia: 16 beat run of nonsustained ventricular tachycardia, 142 bpm, 09/12/2020 at 6:45 AM. Electrolytes within normal limits. No recurrence over the past 24 hours. Repeat electrolytes within normal limits today. ICD reprogramming with ventricular tachycardia observation parameters adjusted for heart rate greater than 130bpm. Ventricular sensing settings changed to reduce risk of T wave oversensing. (3) Coronary artery disease: Resume clopidogrel monotherapy in 2 days. Continue metoprolol and atorvastatin. (4) Left carotid bruit: Mild carotid stenosis per vascular duplex 06/17/2020. Admission and Anticipated Discharge Date Admission Date: September 11, 2020 Subjective Patient seen and examined at the bedside. Denies signs/symptoms of GI blood loss. No chest pain or unusual shortness of breath. Telemetry reveals sinus rhythm with intermittent paced rhythm. No sustained dysrhythmias. No recurrent ventricular tachycardia. ICD ventricular tachycardia monitor zone adjusted during hospitalization. Patient offers no concerns at this time. Review of Systems Review of Systems: All systems reviewed & are unremarkable except as noted in Subjective Physical Exam Constitutional: well developed and well nourished; no acute distress Respiratory: normal respiratory effort; no respiratory distress and no labored breathing Auscultation: lungs clear to auscultation bilaterally; no crackles, no rales, no rhonchi and no wheezes Cardiovascular: Rate/Rhythm: regular rate and regular rhythm Heart Sounds: normal S1, normal S2 and + murmur (2/6 low pitched mid peaking systolic ejection murmur ) Vessels: + carotid bruit (2/4 left side carotid bruit); no JVD Extremities: no edema Gastrointestinal (Abdomen): Inspection/Auscultation: normal bowel sounds; abdo men not distended Percussion/Palpation: abdomen soft; abdomen nontender, no guarding and abdomen not rigid Skin: no rashes, warm and dry Neurologic: CN's II-XI intact bilaterally and moves all extremities; no focal motor deficits Motor/Sensory: no tremor Psychiatric: A+Ox3, euthymic affect Results & Data ([facility]) Vital Signs (Past 12 Hours) Vital Signs Temp Pulse Pulse Resp BP Pulse Ox 09/13/20 11:42 36.6 C 62 20 101/64 96 09/13/20 07:08 36.4 C L 64 18 104/65 96 09/13/20 07:00 58 L 09/13/20 04:32 36.7 C 71 18 107/70 93 09/13/20 03:25 59 L (1) Coronary artery disease Associated angina: without angina Coronary Disease-Associated Artery/Lesion type: [place] artery [place] vs. transplanted heart: [place] heart Qualified Code(s): I25.10 - Atherosclerotic heart disease of [place] coronary artery without angina pectoris
--- NOTE | 2020-09-13 16:05 | Discharge Summary ---
Date of Service September 13, 2020 Admission HPI Per Admitting Provider Link Sanford is a 70yo male with history of CAD s/p cardiac arrest on 06/19/19, CABG x 3V performed at [facility] with AICD placement. Patient presents with complaint of episodic dizziness over the last several days. Dizziness occurs mostly with positional changes but occasionally when patient is at rest sitting as well. He describes feeling lightheaded and near passing out on several occasions. He had an episode two days ago while in the restroom with severe lightheadedness associated with SOB, chest discomfort and feeling hot and sweaty - possible syncope or near syncope during that event - states that he crawled out of the bathroom on his hands and knees. Aside from the episode 2 days ago, patient denies chest discomfort, SOB. Denies palpitations, abdominal pain, nausea, vomiting, diarrhea or constipation. No AICD discharges. Patient has had black stools over the last several days as well. No prior history of GERD, PUD or previous GIB. He has had screening colonoscopies in the past. No prior EGD. Patient was seen by PCP today with the above complaints - had blood work performed and found to be slightly anemic with Hgb=9.4 therefore he was instructed to come to the ER. In addition he has been having pain and swelling of his right testicle. He was diagnosed with subacute epididymitis by PCP today. He was ordered a testicular ultrasound which is to be completed on Tuesday. He was also given a prescription for Bactrim which was not yet filled. ER Course: Strongly Heme + stools, Pepcid, Protonix Principal Diagnosis Acute blood loss anemia in the setting of gastrointestinal bleeding, gastric ulcer Discharge Exam Constitutional WD/WN, vitals as above Eyes + anicteric sclerae Neck trachea midline, no thyromegaly Respiratory normal respiratory effort, lungs clear to auscultation Cardiovascular Rate/Rhythm: regular rate and regular rhythm Heart Sounds: no murmur Extremities: no calf tenderness and no edema Gastrointestinal (Abdomen) normal bowel sounds, soft, nontender, no hepatosplenomegaly Musculoskeletal Extremities: extremities normal to inspection; no cyanosis and no clubbing Skin no rashes, warm and dry Neurologic moves all extremities and awake; no focal motor deficits Psychiatric A+Ox3, euthymic affect Lymphatic no lymphedema Discharge Data Allergies Allergy/AdvReac Type Severity Reaction Status Date / Time procaine [From Novocain] Allergy Unknown Verified 09/11/20 20:03 Consultations 09/11/20 20:02 ED Decision to Admit Stat 09/12/20 01:06 Consult Gastroenterology Routine 09/12/20 11:57 Consult Cardiology Routine Procedures Performed Operation Date: 09/12/20 16:00 Actual Procedures p Esophagogastroduodenoscopy - Osvaldo Hardy MD Ordered Studies 09/12/20 01:06 US scrotum/testicle Routine Chest x-ray Hospital Course (1) Dizziness: 70yo C male with history of CAD s/p CABG x 3V, AICD in place for history of cardiac arrest presenting with dizziness, mostly with positional changes but sometimes at rest. He reports black stools over the last several days - heme positive in ER. He is afebrile, HD stable, non-toxic in appearance. On arrival Hgb=10.2 and Hct=31.6 (from 14 and 42.5, respectively, on 04/08/20). Patient had been on ASA and Plavix since his CABG in June 2019. He just stopped his daily Plavix the day before admission as directed by his Protozoology Teacher as it had been one year since his CABG. He continues to take ASA 81mg po daily. Hgb dropped down to 8.4, but he remained hemodynamically stable, orthostatics negative on the day of discharge. Most likely dizziness caused by acute blood loss on the day of admission No further melena since admission -Checked pacer interrogation -no significant abnormalities Did have 15 beats and 6 beats of VT here asymptomatic and was in the setting of missing a dose of metoprolol for mildly low blood pressure -consulted Cardiology-appreciated, agrees that presyncope was from acute GI blood loss -Made adjustments to his pacemaker to lower the threshold for therapeutic shock for V. tach as it was set too high at 150 bpm Follow-up with cardiology routinely as an outpatient. (2) GI bleed: as above, with melena, on ASA/Plavix -Received Protonix 40mg IV BID x48 hours and will transition to Protonix 40 mg p.o. twice daily x3 months -GI consultation appreciated-had EGD on 09/12 which confirmed gastric ulcer which was oozing blood-injected with epinephrine and 3 clips were placed and bleeding stopped. He also had duodenitis Hemoglobin dropped to 8.4 and remained fairly stable on the day of discharge from previous Orthostatics were negative on the day of discharge He had no further melena since admission Plan is to permanently discontinue aspirin and restart Plavix only for his history of CAD-we will start Plavix on 09/15 Follow-up CBC in 1 to 2 weeks with PCP Needs follow-up EGD in 3 months with Hortencia MUHAMMAD (3) Acute blood loss anemia: as above (4) Coronary artery disease: With h/o cardiac arrest and CABG 06/2019 No chest pain, ECG without ischemia here Chronic. Stable. -Discontinue aspirin due to PUD -Start Plavix to replace aspirin -consulted his Protozoology Teacher for further management given presynope, NSVT, and discussion of antiplatelet moving forward-appreciate consult Continue metoprolol -Continue Atorvastatin (5) Hyperlipidemia: Chronic. Stable -Continue Atorvastatin (6) Epididymitis: Newly diagnosed by PCP the day of amdission Tenderness on exam here is improved Scrotal US confirms Right epididymitis, otherwise normal -continue Bactrim as prescribed (7) COPD (chronic obstructive pulmonary disease): mild wheezing here which is now improved quit smoking 3 years ago nebs prn not hypoxic (8) Paroxysmal atrial fibrillation: h/o such after CABG, has since stopped anticoagulation and no recurrence pacer interrogation performed here as above (9) S/P ICD (internal cardiac defibrillator) procedure: as above (10) Ventricular tachycardia: as above in the setting of beta-elizabeth being held for mildly low blood pressure restarted beta elizabeth and only had 1 other 6 beat run which was asymptomatic consult Cardiology appreciated Pacemaker settings redone as above (11) DVT prophylaxis: SCDs only Dispo-stable for discharge to home Total Time Total Time Spent Total Time Spent (In Minutes): 35 minutes Total Time Includes: Examination of the Patient, Discharge Planning, Medication Reconciliation and Communication With Other Providers (Cardiology) Discharge Plan Discharge Items Patient Disposition: Home - Self-Care Reason For Visit: ?GIB Discharge Diagnosis: Gastric ulcer, acute blood loss anemia, GI bleed Condition on Discharge: Good Activity: As commented below Lifting: Gradually increase as tolerated Bathing: No limitations Exercise/Sports: Gradually increase as tolerated Weightbearing: Full weightbearing Non-emergency contact: Primary Care Provider, Protozoology Teacher and Patient Transportation Driver Call non-emergency contact if: you have any medication questions and your symptoms worsen Follow-up/Referrals: Justin Bob MD [Primary Care Provider] - (Follow-up within 1 to 2 weeks.) Osvaldo Hardy MD [Hospitalist] - (Follow-up for repeat EGD in 3 months.) Diet: Heart Healthy Addtl Attending Provider Instructions: You are admitted with gastrointestinal bleeding from an ulcer in your stomach. Please continue on the Protonix 40 mg twice a day for 3 months and the race steward is recommending a repeat EGD at that time to ensure the ulcer has healed. You are anemic from your blood loss but did not require blood transfusion. Please start taking iron tablets twice daily and follow-up with your primary care physician for repeat blood work in 1 to 2 weeks. You can gradually increase your activity as tolerated. The iron tablets as we discussed can turn your stools dark and make you constipated as well as nauseated. Please take them with food along with the stool softener. If you start having black tarry stools or feel lightheaded, this could be a sign of a recurrent GI bleed. Please come back to the hospital soon as possible if that happens. Because aspirin can cause ulcers, your aspirin was stopped permanently. You should only continue on Plavix as your blood thinner for your heart. Please wait until Tuesday, 09/15, to start this medication. Follow-up with your primary care physician in 1 to 2 weeks. Pending Studies at Discharge: No Stand-Alone Forms: My [facility] Medications and DC Order Prescriptions: New clopidogrel [Plavix] 75 mg tablet 75 mg PO DAILY Qty: 30 RF: 0 ferrous sulfate 325 mg (65 mg iron) tablet 325 mg PO BID Qty: 60 RF: 0 docusate sodium 100 mg capsule 100 mg PO BID Qty: 60 RF: 0 Continued metoprolol tartrate 25 mg tablet 25 mg PO BID RF: 0 sildenafil (pulm.hypertension) 20 mg tablet 20 mg PO DAILY RF: 0 atorvastatin 40 mg tablet 40 mg PO DAILY RF: 0 sulfamethoxazole-trimethoprim [Bactrim DS] 800-160 mg tablet 1 tab PO BID Qty: 20 RF: 0 Changed pantoprazole [Protonix] 40 mg tablet,delayed release (DR/EC) 40 mg PO BID Qty: 60 RF: 2 Discontinued aspirin [Adult Low Dose Aspirin] 81 mg tablet,delayed release (DR/EC) 81 mg PO DAILY RF: 0 Discharge Orders: Discharge Order (Routine); Ordered 09/13/20 Ordered By: Leann Manuel/Other Patient Handouts: Clopidogrel tablets Admission Data Admit Date/Time: 09/11/20 21:42 Attending Provider: Leann Griffin Admit Provider: Marielos Romero Primary Care Provider: Justin Bob Other Providers: Marielos Romero ; Alan Ramsey ; Amish Abarca Other Interventions: Discharge Summary Assessment (RN) Last Done: 09/12/20 15:51 Coding Level of Care Code D/C Day Management >30 mins Diagnoses Dizziness R42 GI bleed K92.1 GI bleed type/associated pathology: melena Acute blood loss anemia D62 Coronary artery disease I25.10 Coronary Disease-Associated Artery/Lesion type: [place] artery [place] vs. transplanted heart: [place] heart Associated angina: without angina Hyperlipidemia E78.5 Hyperlipidemia type: unspecified Epididymitis N45.1 COPD (chronic obstructive pulmonary disease) J44.9 COPD type: unspecified COPD Paroxysmal atrial fibrillation I48.0 S/P ICD (internal cardiac defibrillator) procedure Z95.810 Ventricular tachycardia I47.2 DVT prophylaxis Z29.9
== END 2020-09-13 16:37 | disposition home or self-care (01) | DRG 378 ==
LOC: ED 18:19 → SUATTDRO 21:42 → 2N 21:42

== ENCOUNTER 2023-07-04 16:21 | Observation (INO) ==
--- NOTE | 2023-07-04 16:54 | Emergency Department Note ---
Impression & Plan Nausea and vomiting ADMIT ED Provider Note HPI: History obtained from patient. The patient is a 73-year-old gentleman with history of gastric adenocarcinoma, status post partial gastrectomy on 06/[address] [facility] in [place], presents emergency department today with chief complaint of hematemesis. Patient states his symptoms began about 3 hours prior to arrival to the ED. Patient states he had 2 episodes of "black" emesis. Patient states he does also have some moderate abdominal pain near his midline incision of the abdomen. On arrival here to the ED, the patient is hemodynamically stable, he appears to be in no acute distress on my initial assessment. ROS: - Per HPI Differential Diagnosis: Perforated viscus, gastrointestinal hemorrhage from surgical site, viral gastroenteritis, postoperative ileus, gastric outlet obstruction, small bowel obstruction, amongst other potential pathologies. *Outpatient medications and allergy history reviewed. PE: General: Alert, no acute distress HEENT: Normocephalic, trachea midline Eyes: Extraocular eye movement is intact, no scleral erythema Pulmonary: Clear to auscultation bilaterally, no wheezing Cardio: Regular rate and rhythm GI: Abdomen is tender to palpation diffusely without guarding or rigidity, midline surgical wound to the abdomen shows gillian in place without surrounding erythema or purulent drainage, abdomen is nondistended : No suprapubic tenderness MSK: No evidence of trauma or malformation of the extremities, no edema Skin: No evidence of rash Neuro: Alert, no focal deficits Psychiatric: Cooperative INDEPENDENT INTERPRETATIONS: site monitor: (As interpreted by myself): - An order was placed for continuous cardiac monitoring - Patient was noted to be in sinus rhythm with a rate of 72 Interventions provided in ED: -IV fluid bolus, IV morphine, IV Zofran Medical Decision Making: IV was established and lab work obtained, patient was placed on quality assurance monitor. Patient was given IV fluids as well as IV morphine and IV Zofran for his symptoms. Lab work shows no leukocytosis, hemoglobin is 10.7, platelet count is within normal limits, CMP shows a mild metabolic acidosis with serum bicarbonate level at 19, there is a nonspecific transaminitis with AST of 71, ALT of 64, alk phos of 205, bilirubin is normal. Patient does not have any focal tenderness in the right upper quadrant on my exam. Lipase is low at 4. CT imaging of the abdomen pelvis was obtained that shows evidence of distended proximal stomach that extends to the suture line from the patient's previous gastrectomy per the interpreting radiologist. Correlation for partial gastric obstruction is recommended per the interpreting radiologist. On my reassessment the patient states he is feeling improved following IV fluids and IV pain medication as well as IV antiemetics. I discussed the patient's presentation with on-call general surgery at [facility] in [place], Dr. Yadav, who stated that the patient could be admitted at this facility and did not feel that the patient needed to be emergently transferred to [facility] in [place]. The patient has not had any episodes of hematemesis since being here in the ED, he has had some hypotension in the 90s systolic however responded well to IV fluids with blood pressure improving over 100 on my reassessment. Type and screen was sent. Given stability of hemoglobin we will hold off on any potential transfusion as the patient has not had any episodes of hematemesis while here in the ED and no occult testing was performed. Dr. Yadav recommended admission for symptom control and repeat hemoglobin in the morning and to readdress with [facility] general surgery in [place] if the patient has any acute change in his clinical status. He does note that the patient's discharge hemoglobin on Tuesday was 11.7. I discussed the option of admission here at this facility with the patient and he is in agreement. Family at the bedside is also in agreement. Case was discussed with the on-call hospitalist, Dr. Romero, and the patient was accepted for inpatient management. Consultants/Discussions held with other healthcare providers: -General Surgery, Dr. Yadav ([facility]) -Hospitalist, Dr. Romero Disposition discussion held by myself with: -Patient Diagnosis: 1. Postoperative nausea and vomiting, acute 2. Anemia, acute, postoperative 3. Transaminitis, acute, nonspecific, postoperative Disposition: Admission Victorino Covington DO Emergency Medicine Past Med/Surg History Medical History (Updated 07/04/23 @ 21:54 by Emory Marlow PA-C) Pacemaker IMPLANTED 2019>GETS CHECKED EVERY 90 DAY (FOLLOWED BY DR. PATRICIO) History of bleeding ulcers History of COVID-19 2020>RESOLVED History of melanoma left forearm On anticoagulant therapy plavix daily Coronary artery disease Malignant melanoma of skin COPD (chronic obstructive pulmonary disease) Paroxysmal atrial fibrillation hx of, reason for ICD, not in now History of cardiac arrest (~06/22/19) Cardiac arrest; MVD s/p CABG x 3 (GOLDSTEIN to LAD; SVG to RPL and SVG to PAD on 06/22/2019; POST-OP blood loss AFIB (Amio & coumadin) poss. VTACH tx w/ lidocaine and MAG and acute cardio-pulm edema sec. volume overload 06/17: DUAL-CHAMBER PACEMAKER DEFIB Hx of pneumothorax (~1973) REQUIRED CHEST TUBE Tobacco use Obesity Hyperlipidemia Surgical History (Updated 07/04/23 @ 20:50 by Emory Marlow PA-C) S/P partial gastrectomy Hx of vasectomy History of esophagogastroduodenoscopy (EGD) History of melanoma excision History of tooth extraction all teeth History of coronary artery bypass graft Cardiac arrest; MVD s/p CABG x 3 (GOLDSTEIN to LAD; SVG to RPL and SVG to PAD on 06/22/2019; POST-OP blood loss AFIB (Amio & coumadin) poss. VTACH tx w/ lidocaine and MAG and acute cardio-pulm edema sec. volume overload 06/17: DUAL-CHAMBER PACEMAKER DEFIB History of thoracotomy "SCRAPED LUNG AND REMOVED PART OF IT" 1974 History of inguinal hernia repair (~1973) History of colonoscopy S/P ICD (internal cardiac defibrillator) procedure MEDTRONIC DEVICE>IMPLANTED 2019 (ROCIO/VICTORINO PATRICIO) H/O rotator cuff surgery right Family History Mother Diabetes AAA (abdominal aortic aneurysm) Heart disease Kidney disease Myocardial infarction Hypertension Father Diabetes Lung cancer Unknown No problems noted. Other Dyslipidemia No family history of adverse response to anesthesia Denies family history of Ovarian cancer Prostate cancer Breast cancer Colorectal cancer Social History (Updated 05/10/23 @ 09:20 by Marcie Sarkar LPN) Smoking Status: Never smoker Tobacco Type: Cigars Cigarettes Per Day: 1 CIGAR DAILY/QUIT SMOKING CIG 3-4 YEARS AGO (ADVISED); Second Hand Exposure: No; Do You Dip or Chew Tobacco: No; Hx Alcohol Use: No Hx Substance Use: No Preferred Language: Kazakh Communication Ability: Effective Communication Ability Comment: currently restless, agitation Visual Impairment: Diminished Hearing Ability: Normal Cruise Director Required: No Beliefs That Will Affect Care: None marital status: Current Living Situation: Spouse Current Living Situation Comment: Rosette Sanford current occupational status: retired 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hypertension) 20 20 mg PO DAILY PRN Sexual Activity 10/08/20 07/04/23 mg tablet rosuvastatin 40 mg tablet 40 mg PO QAM 10/12/22 07/04/23 metoprolol succinate 50 mg 50 mg PO QAM 10/25/22 07/04/23 tablet,extended release 24 hr ondansetron HCl 8 mg tablet 8 mg PO Q8H PRN Nausea 05/10/23 07/04/23 prochlorperazine maleate 10 mg 10 mg PO Q6 PRN Nausea 05/10/23 07/04/23 tablet acetaminophen 325 mg tablet 975 mg PO Q6 PRN mild or mod 07/04/23 07/04/23 incisional pain docusate sodium 100 mg capsule 100 mg PO BID 07/04/23 07/04/23 enoxaparin 40 mg/0.4 mL 40 mg subcut QAM 07/04/23 07/04/23 subcutaneous syringe oxycodone 5 mg tablet 5 mg PO Q6H PRN severe incisional 07/04/23 07/04/23 pain sennosides 8.6 mg tablet (senna) 17.2 mg PO DAILY PRN Constipation 07/04/23 07/04/23 Previous Rx's Medication Instructions Recorded clopidogrel 75 mg tablet (Plavix) 75 mg PO QAM #90 tabs 10/12/21 pantoprazole 40 mg tablet,delayed 40 mg PO QAM #90 tabs 06/17/22 release (Protonix) Results & Data (ED) Vital Signs Vital Signs - 24 hr 07/04/23 16:25 07/04/23 16:25 07/04/23 17:07 Temperature 36.4 C L Temperature Source Axillary Pulse Rate 77 72 76 Pulse Rate [Apical] Pulse Rate from SpO2 Sensor Pulse Rhythm Regular Pulse Rhythm [Apical] Pulse Strength [Apical] Respiratory Rate 20 Respiratory Effort / Characteristics Respiratory Depth Respiratory Pattern Blood Pressure 98/75 L Blood Pressure [Right Arm] Blood Pressure Mean 82 Blood Pressure Mean [Right Arm] Blood Pressure Position [Right Arm] Pulse Oximetry 95 95 Oxygen Delivery Method Room Air Room Air Sepsis Recent Fever Within 48 Hours No Sepsis New/Unexplained Change in Mental Status No Sepsis Action Taken by Nursing No Action Required 07/04/23 18:42 07/04/23 19:25 07/04/23 20:30 Temperature Temperature Source Pulse Rate 73 Pulse Rate [Apical] 78 79 Pulse Rate from SpO2 Sensor 73 Pulse Rhythm Pulse Rhythm [Apical] Regular Pulse Strength [Apical] Normal Respiratory Rate 18 18 13 Respiratory Effort / Characteristics Non-Labored Spontaneous Respiratory Depth Normal Respiratory Pattern Regular Blood Pressure 88/61 L Blood Pressure [Right Arm] 102/70 90/64 L Blood Pressure Mean 70 Blood Pressure Mean [Right Arm] 80 72 Blood Pressure Position [Right Arm] Lying Pulse Oximetry 96 94 95 Oxygen Delivery Method Room Air Room Air Sepsis Recent Fever Within 48 Hours Sepsis New/Unexplained Change in Mental Status Sepsis Action Taken by Nursing 07/04/23 20:34 07/04/23 21:00 Temperature Temperature Source Pulse Rate 75 65 Pulse Rate [Apical] Pulse Rate from SpO2 Sensor 74 Pulse Rhythm Pulse Rhythm [Apical] Pulse Strength [Apical] Respiratory Rate 16 17 Respiratory Effort / Characteristics Respiratory Depth Respiratory Pattern Blood Pressure 93/63 L 105/61 Blood Pressure [Right Arm] Blood Pressure Mean 73 75 Blood Pressure Mean [Right Arm] Blood Pressure Position [Right Arm] Pulse Oximetry 93 94 Oxygen Delivery Method Room Air Room Air Sepsis Recent Fever Within 48 Hours Sepsis New/Unexplained Change in Mental Status Sepsis Action Taken by Nursing Laboratory Data 07/04/23 16:50 07/04/23 16:50 Lab Results 07/04/23 07/04/23 Range/Units 16:50 17:20 WBC 6.24 (4.8-10.8) K/ul RBC 3.48 L (4.70-6.10) M/uL Hgb 10.7 L (14.0-18.0) g/dl Hct 32.7 L (42.0-52.0) % MCV 94.0 (80.0-100.0) fL MCH 30.7 (25.0-34.0) pg MCHC 32.7 (32.0-36.0) g/dL RDW Std Deviation 54.1 H (36.4-46.3) fL RDW Coeff of Elena 15.7 H (11.5-14.5) % Plt Count 186 (130-400) K/uL MPV 9.7 (9.4-12.4) fL Immature Gran % (Auto) 0.3 % Neut % (Auto) 71.3 % Lymph % (Auto) 21.0 % Mobile % (Auto) 6.4 % Eos % (Auto) 0.5 % Baso % (Auto) 0.5 % Neut # (Auto) 4.45 (1.40-6.50) K/uL Lymph # (Auto) 1.31 (1.20-3.40) K/uL Mobile # (Auto) 0.40 (0.11-0.59) K/uL Eos # (Auto) 0.03 (0.00-0.50) K/uL Baso # (Auto) 0.03 (0.00-0.20) K/uL Immature Gran # (Auto) 0.02 (0.01-0.20) K/uL PT 11.9 (9.0-12.0) Seconds INR 1.1 (0.9-1.1) Sodium 140 (136-145) mmol/L Potassium 4.0 (3.5-5.1) mmol/L Chloride 111 H (98-107) mmol/L Carbon Dioxide 19 L (21-32) mmol/L Anion Gap 10 (3-11) BUN 21 (6-23) mg/dl Creatinine 0.75 (0.6-1.4) mg/dl Est Cr Clr Drug Dosing 103.9 ml/min Est GFR ( Amer) 107.0 ml/min Est GFR (Non-Af Amer) 92.3 ml/min BUN/Creatinine Ratio 28.0 H (10-20) Glucose 105 H (70-99(Fasting)) mg/dl Calcium 8.5 L (8.6-10.3) mg/dl Total Bilirubin 0.5 (0.2-1.0) mg/dl AST 71 H (13-39) U/L ALT 64 H (7-52) U/L Alkaline Phosphatase 205 H (34-104) U/L Total Protein 6.4 (6.0-8.3) gm/dl Albumin 3.4 (3.4-5.0) gm/dl Globulin 3.0 (2.5-4.0) gm/dl Albumin/Globulin Ratio 1.1 (0.9-2) Lipase 4 L (11-82) U/L Blood Type A Negative Antibody Screen NEGATIVE Administered Medications Pantoprazole Sodium 40 mg/ (Syringe) 10 mls @ 5 mls/min IV BID FELICE Stop: 08/03/23 21:29 Last Admin: 07/04/23 21:50 Dose: 5 mls/min Documented By: KRISSY Discontinued Medications Sodium Chloride (Nss) 1,000 mls @ 999 mls/hr IV .Q1H1M ONE Stop: 07/04/23 17:52 Last Infusion: 07/04/23 18:00 Dose: Infused Documented By: Admin: 07/04/23 17:03 Dose: 999 mls/hr Documented By: NGA Sodium Chloride (Nss) 1,000 mls @ 999 mls/hr IV .Q1H1M ONE Stop: 07/04/23 21:33 Last Infusion: 07/04/23 21:45 Dose: Infused Documented By: Admin: 07/04/23 20:39 Dose: 999 mls/hr Documented By: SAMMI Ioversol (Optiray 320 500ml) 89 ml IV ONCE ONE Stop: 07/04/23 18:54 Last Admin: 07/04/23 18:54 Dose: 89 ml Documented By: AN Morphine Sulfate (Morphine Sulfate 4 Mg/Ml 1 Ml Carp\\Vial) 4 mg IV NOW STA Stop: 07/04/23 16:54 Last Admin: 07/04/23 17:02 Dose: 4 mg Documented By: GNA Ondansetron HCl (Ondansetron Inj 2 Mg/Ml 2 Ml Vial) 4 mg IV NOW STA Stop: 07/04/23 16:54 Last Admin: 07/04/23 17:02 Dose: 4 mg Documented By: NGA Imaging Data Radiologist's Impression: Abdomen/Pelvis CT 07/04/23 16:52 Exam(s): CT ABDOMEN + PELVIS With Contrast IV Amt: 89ml optiray 320 EXAM: CT Abdomen and Pelvis With Intravenous Contrast CLINICAL HISTORY: Reason for exam: Hematemesis, recent partial gastrectomy. TECHNIQUE: Axial computed tomography images of the abdomen and pelvis with intravenous contrast. CTDI is 24.79 mGy and DLP is 1246.96 mGy-cm. Automated exposure control was utilized for the study. A dose lowering technique was utilized adhering to the principles of ALARA. CONTRAST: Patient received 89ml optiray 320 of IV contrast COMPARISON: No relevant prior studies available. FINDINGS: Lung bases: Unremarkable. No mass. No consolidation. ABDOMEN: Liver: Hepatic low-attenuation lesion measures up to 8 mm, too small to characterize. Gallbladder and bile ducts: Unremarkable. No calcified stones. No ductal dilation. Pancreas: Unremarkable. No mass. No ductal dilation. Spleen: Unremarkable. No splenomegaly. Adrenals: Unremarkable. No mass. Kidneys and ureters: Renal cysts. No hydronephrosis. Stomach and bowel: Recent partial gastrectomy. Distended proximal stomach, which extends to the suture line. Correlate for partial gastric obstruction. Diverticulosis, without acute diverticulitis. No small bowel obstruction. No free intraperitoneal air. PELVIS: Appendix: No findings to suggest acute appendicitis. Bladder: Unremarkable. No mass. Reproductive: Unremarkable as visualized. ABDOMEN and PELVIS: Intraperitoneal space: Unremarkable. No free air. No significant fluid collection. Bones/joints: Degenerative changes of the spine. No acute fracture. No dislocation. Soft tissues: Unremarkable. Vasculature: Atherosclerotic changes of the aorta. No abdominal aortic aneurysm. Lymph nodes: Unremarkable. No enlarged lymph nodes. Tubes, lines and devices: Pacemaker leads. Other findings: Midline laparotomy. IMPRESSION: 1. Recent partial gastrectomy. Distended proximal stomach, which extends to the suture line. Correlate for partial gastric obstruction. 2. Diverticulosis, without acute diverticulitis. No small bowel obstruction. No free intraperitoneal air. Electronically signed by: Jerome Brasher MD 07/04/23 19:53 PM Discharge Plan Visit Data Chief Complaint: Vomiting Stated Complaint: S/P STOMACH SURGERY - NOW COFFEE GROUND EMESIS ED Provider: Victorino Covington Discharge Problem: Nausea and vomiting Forms Stand Alone Forms: [employer] Prescriptions Prescriptions: No Action clopidogrel [Plavix] 75 mg tablet 75 mg PO QAM Qty: 90 3RF pantoprazole [Protonix] 40 mg tablet,delayed release (DR/EC) 40 mg PO QAM Qty: 90 3RF prochlorperazine maleate 10 mg tablet 10 mg PO Q6 PRN (Reason: Nausea) ondansetron HCl 8 mg tablet 8 mg PO Q8H PRN (Reason: Nausea) rosuvastatin 40 mg tablet 40 mg PO QAM sildenafil (pulm.hypertension) 20 mg tablet 20 mg PO DAILY PRN (Reason: Sexual Activity) metoprolol succinate 50 mg Tablet Extended Release 24 Hr 50 mg PO QAM enoxaparin 40 mg/0.4 mL Syringe 40 mg SUBCUT QAM Rx Instructions: start 07/02/23 am take for 24 days docusate sodium 100 mg Capsule 100 mg PO BID acetaminophen 325 mg Tablet 975 mg PO Q6 PRN (Reason: mild or mod incisional pain) oxycodone 5 mg Tablet 5 mg PO Q6H PRN (Reason: severe incisional pain) sennosides [senna] 8.6 mg Tablet 17.2 mg PO DAILY PRN (Reason: Constipation) Referrals Referrals: Sebastian Do DO [Primary Care Provider] -
[2023-07-04] MEDS: MoRPHine SULFATE 4 MG/ML 1 ML CARP\\VIAL IV STA (17:02)
[2023-07-04] MEDS: ONDANSETRON INJ 2 MG/ML 2 ML VIAL IV STA (17:02)
[2023-07-04] MEDS: SODIUM CHLORIDE 0.9% 1,000 ML IV ONE ×2 (17:03→20:39)
[2023-07-04 17:15] LABS: Basophils # (auto) 0.03 K/uL (0.00-0.20); Basophils % (auto) 0.5 %; Eosinophils # (auto) 0.03 K/uL (0.00-0.50); Eosinophils % (auto) 0.5 %; Hematocrit (blood only) 32.7 % (42.0-52.0); Hemoglobin 10.7 g/dl (14.0-18.0); Immature Granulocytes # (auto) 0.02 K/uL (0.01-0.20); Immature Granulocytes % (auto) 0.3 %; Lymphocytes # (auto) 1.31 K/uL (1.20-3.40); Mean Corpuscular Hemoglobin 30.7 pg (25.0-34.0); Mean Corpuscular Hgb Conc 32.7 g/dL (32.0-36.0); Mean Platelet Volume 9.7 fL (9.4-12.4); Monocytes % (auto) 6.4 %; Neutrophils # (auto) 4.45 K/uL (1.40-6.50); Neutrophils % (auto) 71.3 %; Platelet Count 186 K/uL (130-400); RDW Coefficient of Variation 15.7 % (11.5-14.5); RDW Standard Deviation 54.1 fL (36.4-46.3); Red Blood Count 3.48 M/uL (4.70-6.10); White Blood Count 6.24 K/ul (4.8-10.8)
[2023-07-04 17:32] LABS: Albumin Globulin Ratio 1.1 (0.9-2); Albumin Level 3.4 gm/dl (3.4-5.0); Bilirubin,Total 0.5 mg/dl (0.2-1.0); Calcium 8.5 mg/dl (8.6-10.3); Creatinine Clr Calc Pharmacy 103.9 ml/min; Est GFR (Non-African American) 92.3 ml/min; Total Protein 6.4 gm/dl (6.0-8.3)
[2023-07-04 17:41] LABS: INR 1.1 (0.9-1.1); Prothrombin Time 11.9 Seconds (9.0-12.0)
[2023-07-04] MEDS: OPTIRAY 320 500ml IV ONE (18:54)
--- NOTE | 2023-07-04 19:54 | CT Scan Report ---
Exam(s): CT ABDOMEN + PELVIS With Contrast IV Amt: 89ml optiray 320 EXAM: CT Abdomen and Pelvis With Intravenous Contrast CLINICAL HISTORY: Reason for exam: Hematemesis, recent partial gastrectomy. TECHNIQUE: Axial computed tomography images of the abdomen and pelvis with intravenous contrast. CTDI is 24.79 mGy and DLP is 1246.96 mGy-cm. Automated exposure control was utilized for the study. A dose lowering technique was utilized adhering to the principles of ALARA. CONTRAST: Patient received 89ml optiray 320 of IV contrast COMPARISON: No relevant prior studies available. FINDINGS: Lung bases: Unremarkable. No mass. No consolidation. ABDOMEN: Liver: Hepatic low-attenuation lesion measures up to 8 mm, too small to characterize. Gallbladder and bile ducts: Unremarkable. No calcified stones. No ductal dilation. Pancreas: Unremarkable. No mass. No ductal dilation. Spleen: Unremarkable. No splenomegaly. Adrenals: Unremarkable. No mass. Kidneys and ureters: Renal cysts. No hydronephrosis. Stomach and bowel: Recent partial gastrectomy. Distended proximal stomach, which extends to the suture line. Correlate for partial gastric obstruction. Diverticulosis, without acute diverticulitis. No small bowel obstruction. No free intraperitoneal air. PELVIS: Appendix: No findings to suggest acute appendicitis. Bladder: Unremarkable. No mass. Reproductive: Unremarkable as visualized. ABDOMEN and PELVIS: Intraperitoneal space: Unremarkable. No free air. No significant fluid collection. Bones/joints: Degenerative changes of the spine. No acute fracture. No dislocation. Soft tissues: Unremarkable. Vasculature: Atherosclerotic changes of the aorta. No abdominal aortic aneurysm. Lymph nodes: Unremarkable. No enlarged lymph nodes. Tubes, lines and devices: Pacemaker leads. Other findings: Midline laparotomy. IMPRESSION: 1. Recent partial gastrectomy. Distended proximal stomach, which extends to the suture line. Correlate for partial gastric obstruction. 2. Diverticulosis, without acute diverticulitis. No small bowel obstruction. No free intraperitoneal air. Electronically signed by: Jerome Brasher MD 07/04/23 19:53 PM
--- NOTE | 2023-07-04 20:48 | History & Physical Report ---
Date of Service July 04, 2023 Assessment & Plan (1) Hematemesis: Plan: 2 episodes of coffee-ground hematemesis on 07/04 In the setting of recent partial gastrectomy for gastric adenocarcinoma on 06/27 Hgb 10.7 and HCT 32.7 PT/INR WNL BUN/Cr elevated at 28.0 Abdomen/pelvic CT revealed no SBO, or free intra-peritoneal air; recent partial gastrectomy noted; distended proximal stomach, which may correlate with partial gastric obstruction Unclear etiology; ?Postop ileus Hemoglobin was noted as 11.2 and HCT 13.4 on discharge from [facility] on 07/01 H&H q8h x 1 Keep n.p.o. for now; p.o. meds converted to IV Blood consent form obtained if needed Protonix 40 mg IV BID Zofran as needed for nausea/vomiting; QTc 415 Reglan 5 mg IV TID to promote gastric emptying in the setting of partial gastric obstruction Hold acetaminophen pending repeat LFTs/acetaminophen level Dilaudid 0.5 mg IV q4h as needed for incision site pain 4-6 Dilaudid 1.0 mg IV q4h as needed for incision site pain 7-10 A.m. CBC, BMP, LFTs (2) S/P partial gastrectomy: Plan: At [facility] on 06/27 for gastric adenocarcinoma Patient discharged on 07/01 Patient has been taking Lovenox 40 mg SQ QAM to prevent blood clot formation since discharge (3) Hypotension: Plan: Hypotensive in the ED on arrival; 92/63 at time of admission Hold metoprolol for now (4) Paroxysmal atrial fibrillation: Plan: EKG on arrival revealed NSR at 75 bpm; QTc 415 S/p ICD placement; rate controlled Hold metoprolol (as above) (5) S/P CABG x 3: Plan: Hold Plavix for now (6) Elevated transaminase level: Plan: AST 71, ALT 64, alk phos 205 on arrival On 06/22: AST 27, ALT 24, alk phos 120 May be secondary to recent acetaminophen use; patient reports he was taking acetaminophen 925 mg p.o. tablets x 3 BID Acetaminophen level ordered, pending Recheck a.m. LFTs Plan Disposition: Obs - Admit to PCU telemetry Full code Keep n.p.o. for now and advance diet as tolerated VTE PPx: SCDs (hold chemical DVT PPx in setting of hematemesis) History of Present Illness Chief Complaint: Hematemesis Primary Care Provider: Sebastian Do DO Maza is a 73-year-old male with PMH of HLD, paroxysmal A-fib, COPD, CAD, s/p ICD, s/p CABG x 3, peptic ulcer disease, and gastric adenocarcinoma. Patient presented for 2 episodes of coffee-ground emesis with acute onset around 1530 on 07/04. Of note, patient had partial gastrectomy on 06/27/2023 at [facility] and was discharged on 07/01. He reports that he has not had anything to eat today. He did not feel good upon waking on 07/04, and was having nausea and pain at his abdominal incision site. Last BM was yesterday on 07/03. Patient took all of his regular morning medications, including Plavix and Lovenox 40 mg SQ, which she has been taking to prevent blood clots following his surgery. He reports no recent changes in medication. No sick contacts. No prior history of appendectomy or cholecystectomy. Patient endorses smoking 1 cigar daily; no other tobacco or alcohol use. No at home supplemental oxygen use. Patient endorses mild incision site pain with movement; he rates this 2/10 at present; no radiation. Patient has been hypotensive in the ED at 90/64 at time of admission. 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 Patient denies fever, chills, sweating, headache, rashes, cough, chest pain, SOB, pleuritic CP, abdominal pain, diarrhea, abdominal cramping, dysuria, blood in urine/stool, or burning with urination. Allergies Allergy/AdvReac Type Severity Reaction Status Date / Time procaine [From Novocain] Allergy Intermediate light Verified 05/10/23 09:12 headed and dizzy Home Medications Medication Instructions Recorded Confirmed Type sildenafil (pulm.hypertension) 20 20 mg PO DAILY PRN Sexual Activity 10/08/20 07/04/23 History mg tablet clopidogrel 75 mg tablet (Plavix) 75 mg PO QAM #90 tabs 10/12/21 07/04/23 Rx pantoprazole 40 mg tablet,delayed 40 mg PO QAM #90 tabs 06/17/22 07/04/23 Rx release (Protonix) rosuvastatin 40 mg tablet 40 mg PO QAM 10/12/22 07/04/23 History metoprolol succinate 50 mg 50 mg PO QAM 10/25/22 07/04/23 History tablet,extended release 24 hr ondansetron HCl 8 mg tablet 8 mg PO Q8H PRN Nausea 05/10/23 07/04/23 History prochlorperazine maleate 10 mg 10 mg PO Q6 PRN Nausea 05/10/23 07/04/23 History tablet acetaminophen 325 mg tablet 975 mg PO Q6 PRN mild or mod 07/04/23 07/04/23 History incisional pain docusate sodium 100 mg capsule 100 mg PO BID 07/04/23 07/04/23 History enoxaparin 40 mg/0.4 mL 40 mg subcut QAM 07/04/23 07/04/23 History subcutaneous syringe oxycodone 5 mg tablet 5 mg PO Q6H PRN severe incisional 07/04/23 07/04/23 History pain sennosides 8.6 mg tablet (senna) 17.2 mg PO DAILY PRN Constipation 07/04/23 07/04/23 History Past Med/Surg History Medical History (Updated 07/04/23 @ 21:54 by Emory Marlow PA-C) Pacemaker IMPLANTED 2019>GETS CHECKED EVERY 90 DAY (FOLLOWED BY DR. PATRICIO) History of bleeding ulcers History of COVID-19 2020>RESOLVED History of melanoma left forearm On anticoagulant therapy plavix daily Coronary artery disease Malignant melanoma of skin COPD (chronic obstructive pulmonary disease) Paroxysmal atrial fibrillation hx of, reason for ICD, not in now History of cardiac arrest (~06/22/19) Cardiac arrest; MVD s/p CABG x 3 (GOLDSTEIN to LAD; SVG to RPL and SVG to PAD on 06/22/2019; POST-OP blood loss AFIB (Amio & coumadin) poss. VTACH tx w/ lidocaine and MAG and acute cardio-pulm edema sec. volume overload 06/17: DUAL-CHAMBER PACEMAKER DEFIB Hx of pneumothorax (~1973) REQUIRED CHEST TUBE Tobacco use Obesity Hyperlipidemia Surgical History (Updated 01/29/24 @ 20:50 by Emory Marlow PA-C) S/P partial gastrectomy Hx of vasectomy History of esophagogastroduodenoscopy (EGD) History of melanoma excision History of tooth extraction all teeth History of coronary artery bypass graft Cardiac arrest; MVD s/p CABG x 3 (GOLDSTEIN to LAD; SVG to RPL and SVG to PAD on 06/22/2019; POST-OP blood loss AFIB (Amio & coumadin) poss. VTACH tx w/ lidocaine and MAG and acute cardio-pulm edema sec. volume overload 06/17: DUAL-CH[employer]BER PACEMAKER DEFIB History of thoracotomy "SCRAPED LUNG AND REMOVED PART OF IT" 1973 History of inguinal hernia repair (~1973) History of colonoscopy S/P ICD (internal cardiac defibrillator) procedure [employer]TR[employer] DEVICE>IMPLANTED 2019 (ROCIO/VICTORINO PATRICIO) H/O rotator cuff surgery right Family History Mother Diabetes AAA (abdominal aortic aneurysm) Heart disease Kidney disease Myocardial infarction Hypertension Father Diabetes Lung cancer Unknown No problems noted. Other Dyslipidemia No family history of adverse response to anesthesia Denies family history of Ovarian cancer Prostate cancer Breast cancer Colorectal cancer Social History (Updated 05/10/23 @ 09:20 by Marcie Sarkar LPN) Smoking Status: Never smoker Tobacco Type: Cigars Cigarettes Per Day: 1 CIGAR DAILY/QUIT SMOKING CIG 3-4 YEARS AGO (ADVISED); Second Hand Exposure: No; Do You Dip or Chew Tobacco: No; Hx Alcohol Use: No Hx Substance Use: No Preferred Language: Cypriot Communication Ability: Effective Communication Ability Comment: currently restless, agitation Visual Impairment: Diminished Hearing Ability: Normal [employer] Supervisor Required: No Beliefs That Will Affect Care: None marital status: Current Living Situation: Spouse Current Living Situation Comment: Rosette Sanford current occupational status: retired 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; [employer]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 How many Children do You have: 3 Feels Safe at Home: Yes Childhood Exposure to Second-Hand Smoke: Yes Diet: regular caffeine: Yes Dental Care, Regularly: Yes Physical Activity Frequency: 1-2 Times per Week Seatbelt Use: always Sunscreen Use: No Assistive Devices: Denture - Upper, Denture - Lower and Glasses Review of Systems Review of Systems: See HPI above Physical Exam Physical Exam: General: no acute distress; non-toxic appearing; well-nourished; cooperative HEENT: normocephalic, atraumatic; no scleral icterus; PERRLA w/ EOMs intact; moist mucus membrane; vision and hearing grossly intact Neck: supple; no JVD; no lymphadenopathy; trachea midline Skin: warm, dry without signs of tenting; no cyanosis; no rashes, bruising, lesions, or erythema noted CV: chest wall NTP; RRR; S1/S2 normal; no murmurs/rubs/gallops; pulses intact and symmetric at radial, DP, and PT Lungs: no acute respiratory distress; symmetrical chest wall expansion; dimin ished breath sounds across all lung stephen with mild wheezing on the left lower lung field ABD: Soft, NTP; BS present; surgical incision site on without signs of infection, drainage, or erythema; no rebound/guarding; no ascites; no distention; negative CVA tenderness MSK: no tics or fasciculations; no edema noted in the LEs b/l, nonerythematous Neuro: A&Ox3; normal mood and affect; fluent speech; no focal deficits; sensation grossly intact in the LEs b/l Results & Data Results & Data Vital Signs (Past 12 Hours) Vital Signs Temp Pulse Pulse Resp BP BP Pulse Ox 07/04/23 19:25 79 18 90/64 L 94 07/04/23 18:42 78 18 102/70 96 07/04/23 17:07 76 95 07/04/23 16:25 72 07/04/23 16:25 36.4 C L 77 20 98/75 L 95 O2 Del Method 07/04/23 19:25 Room Air 07/04/23 18:42 07/04/23 17:07 Room Air 07/04/23 16:25 07/04/23 16:25 Room Air Laboratory Results Abnormal lab results 07/04/23 Range/Units 16:50 RBC 3.48 L (4.70-6.10) M/uL Hgb 10.7 L (14.0-18.0) g/dl Hct 32.7 L (42.0-52.0) % RDW Std Deviation 54.1 H (36.4-46.3) fL RDW Coeff of Elena 15.7 H (11.5-14.5) % Chloride 111 H (98-107) mmol/L Carbon Dioxide 19 L (21-32) mmol/L BUN/Creatinine Ratio 28.0 H (10-20) Glucose 105 H (70-99(Fasting)) mg/dl Calcium 8.5 L (8.6-10.3) mg/dl AST 71 H (13-39) U/L ALT 64 H (7-52) U/L Alkaline Phosphatase 205 H (34-104) U/L Lipase 4 L (11-82) U/L Diagnostic Findings Abdomen/Pelvis CT 07/04/23 16:52 Exam(s): CT ABDOMEN + PELVIS With Contrast IV Amt: 89ml optiray 320 EXAM: CT Abdomen and Pelvis With Intravenous Contrast CLINICAL HISTORY: Reason for exam: Hematemesis, recent partial gastrectomy. TECHNIQUE: Axial computed tomography images of the abdomen and pelvis with intravenous contrast. CTDI is 24.79 mGy and DLP is 1246.96 mGy-cm. Automated exposure control was utilized for the study. A dose lowering technique was utilized adhering to the principles of ALARA. CONTRAST: Patient received 89ml optiray 320 of IV contrast COMPARISON: No relevant prior studies available. FINDINGS: Lung bases: Unremarkable. No mass. No consolidation. ABDOMEN: Liver: Hepatic low-attenuation lesion measures up to 8 mm, too small to characterize. Gallbladder and bile ducts: Unremarkable. No calcified stones. No ductal dilation. Pancreas: Unremarkable. No mass. No ductal dilation. Spleen: Unremarkable. No splenomegaly. Adrenals: Unremarkable. No mass. Kidneys and ureters: Renal cysts. No hydronephrosis. Stomach and bowel: Recent partial gastrectomy. Distended proximal stomach, which extends to the suture line. Correlate for partial gastric obstruction. Diverticulosis, without acute diverticulitis. No small bowel obstruction. No free intraperitoneal air. PELVIS: Appendix: No findings to suggest acute appendicitis. Bladder: Unremarkable. No mass. Reproductive: Unremarkable as visualized. ABDOMEN and PELVIS: Intraperitoneal space: Unremarkable. No free air. No significant fluid collection. Bones/joints: Degenerative changes of the spine. No acute fracture. No dislocation. Soft tissues: Unremarkable. Vasculature: Atherosclerotic changes of the aorta. No abdominal aortic aneurysm. Lymph nodes: Unremarkable. No enlarged lymph nodes. Tubes, lines and devices: Pacemaker leads. Other findings: Midline laparotomy. IMPRESSION: 1. Recent partial gastrectomy. Distended proximal stomach, which extends to the suture line. Correlate for partial gastric obstruction. 2. Diverticulosis, without acute diverticulitis. No small bowel obstruction. No free intraperitoneal air. Electronically signed by: Jerome Brasher MD 07/04/23 19:53 PM Code Status & VTE Plan Code Status Full code VTE Prophylaxis Plan VTE Prophylaxis will be ordered: Yes Supervising Physician Co-Signing Physician Notes Patient seen and examined, chart reviewed, case discussed with MICHEAL Marlow and I agree with the assessment and plan as above. In brief, patient is a 73yo male with history of gastric adenocarcinoma s/p partial gastrectomy performed at [facility] on 06/27/23. Patient presents today with two episodes of coffee ground emesis and incisional pain. On exam he is afebrile, borderline low BP - stable, NAD Skin- midline abdominal incision with gillian in place, no bleeding/drainage/erythema HEENT - NC/AT, PERRL, MMM Heart - +S1/S2, regular Lungs - CTA Abd - +BS, soft, NT/ND Ext -warm, well perfused Labs and images reviewed. CT Abdomen with distended proximal stomach which extends to the suture line -concern for partial gastric obstruction ER Course: Morphine, Zofran NSS x 2L Assessment/Plan 73yo male with gastric adenocarcinoma s/p partial gastrectomy performed at [facility] on 06/27/23 presenting with abdominal pain, two episodes concerning for coffee ground emesis. Concern for possible post-operative bleed, possible partial gastric obstruction vs ileus Case was discussed with [facility] Surgery team hospital admissions officer - recommend monitoring patient overnight, repeat CBC to assess for bleed. They do not recommend transfer to [facility] now. -Observation to PCU -Monitor CBC - transfuse for bleed, symptomatic anemia or Hgb < 7 -Protonix 40mg IV BID -Reglan for pro-motility -Consider General Surgery consultation -Remainder as above PG Care Time/CCT Total # of Minutes Spent Total Time Spent with Patient: Total time spent is greater than 50% in coordination of care (as documented) at patient's floor/unit and/or counseling patient: [place] [address] INT INP/OBS CARE 2/55MIN Patient Type Established Medical Decision Making Moderate Complexity Diagnoses Hematemesis K92.0 S/P partial gastrectomy Z90.3 Hypotension I95.9 Paroxysmal atrial fibrillation I48.0 S/P CABG x 3 Z95.1 Elevated transaminase level R74.01
[2023-07-04] MEDS: PANTOprazole 40 MG in SYRINGE 0 ML IV SCH (21:50)
[2023-07-05] MEDS ORDERED: HYDROmorphone INJ 1 MG/ML SYRINGE IV PRN (00:20)
[2023-07-05] MEDS: METOCLOPRAMIDE HCL INJ 5 MG/ML 2 ML VIAL IV SCH (00:52)
[2023-07-05 00:58] LABS: Hematocrit (blood only) 26.6 % (42.0-52.0); Hemoglobin 8.3 g/dl (14.0-18.0)
--- OUTSIDE RECORDS SUMMARY | 2023-07-05 03:08 | External Medical Summary | Summary of Care ---
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 0 Active Iron-Vitamin C 65-125 MG Oral Tablet Take 1 Tablet by mouth at bedtime. 0 Active Rosuvastatin Calcium 40 MG Oral Tablet (Crestor)Indications :Dyslipidemia, goal LDL below 70 Take 1 Tablet by mouth in the morning. 90 Tablet 4 09/06/2022 Active Clopidogrel Bisulfate 75 MG Oral Tablet (pLAVix)Indications: NSTEMI (non-ST elevation myocardial infarction) (HCC) Take 1 Tablet by mouth in the morning. 90 Tablet 4 09/06/2022 Active Metoprolol Succinate ER 50 MG Oral Tablet Extended Release 24 Hour (Toprol XL)Indications:Parox ysmal atrial fibrillation (HCC),ASCVD (arteriosclerotic cardiovascular disease) Take 1 Tablet by mouth in the morning. 90 Tablet 4 09/06/2022 Active Ezetimibe 10 MG Oral Tablet (Zetia) Take 1 Tablet by mouth in the morning. 0 Active Ondansetron HCl 8 MG Oral TabletIndications:Ma lignant 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) Take 1 Tablet by mouth every 8 hours as needed for Nausea. 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 90 Tablet 0 06/08/2023 Active Acetaminophen 325 MG Oral Tablet (Tylenol) Take 3 Tablets by mouth every 6 hours as needed for mild or moderate pain (incisional pain). 60 Tablet 0 07/01/2023 Active oxyCODONE HCl 10 MG Oral Tablet (Roxicodone) Take 1 Tablet by mouth every 6 hours as needed for severe incisional pain 20 Tablet 0 07/01/2023 Active Docusate Sodium 100 MG Oral Capsule (Colace) Take 1 Capsule by mouth 2 times a day (morning and before bedtime). 60 Capsule 0 07/01/2023 Active Sennosides 8.6 MG Oral Tablet (Senokot) Take 2 Tablets by mouth daily as needed for Constipation for up to 28 days. 56 Tablet 0 07/01/2023 Active Enoxaparin Sodium 40 MG/0.4ML Injection Solution Prefilled Syringe (Lovenox) Inject 40 mg (one full syringe) under the skin in the morning for 24 days. 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 Dehydration 02/11/2023 Diarrhea 02/11/2023 Encounter for antineoplastic chemotherapy 2022 Malignant neoplasm of overlapping sites of stoma ch 11/22/2022 Paroxysmal atrial fibrillation 06/26/2019 S/P CABG x 3 06/22/2019 NSTEMI (non-ST elevated myocardial infarction) 0 06/19/2019 Cardiac arrest 06/19/2019 Other hyperlipidemia 06/19/2019 Bradycardia 06/19/2019 History of malignant melanoma of skin 12/11/2013 Overview: Hx MM date Jun 2013, Depth 0.85mm 8 mitoses/mm2, Location left distal forearm SLN negative 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 Neoplasm of uncertain behavior of skin 4 Inflamed seborrheic keratosis 06/11/2013 Other seborrheic keratosis 06/11/2013 Benign neoplasm of colon 07/19/2007 Overview: adenomatous repeat colonoscopy in 5 yrs Chronic pharyngitis 01/10/2006 Overview: Hypertrophy of nasal turbinates 01/10/2006 Overview: Deviated nasal septum 01/10/2006 Overview: Dyspnea and respiratory abnormality 01/10/2006 Overview: ICD-10 update of inactive term Other diseases of respirator y system, not elsewhere classified 01/10/2006 Overview: documented as of this encounter (statuses as of 07/04/2023) Resolved Problems Problem Noted Date Diagnosed Date Resolved Date Impacted cerumen 01/10/2006 06/19/2019 Overview: documented as of this encounter (statuses as of 07/04/2023) Immunizations Name Administration Dates Next Due Season Influenza, Quad, PF, Adjuvanted, 65+ Yrs, IM (FLUAD) 04/20/2020 Seasonal Influenza Virus Vac cine, Unspecified Formulation 06/27/2018 Seasonal Influenza, Quadrivalent Hd (Fluzone Hd) 02/09/2023,04/20/2022 documented as of this encounter Social History Tobacco Use Types Packs/Day Years Used Date Smoking Tobacco: Light Smoker Cigars Smokeless Tobacco: Never Comments:Cigar on occasion Alcohol Use Standard Drinks/Week Comments Not Currently 0 (1 standard drink = 0.6 oz pur e alcohol) Sex and Gender Information Value Date Recorded Sex Assigned at Male 06/21/2023 7:36 PM EST Gender Identity Not on file Sexual Orientation Not on file Job Start Date Occupation Industry Not on file Not on file Not on file documented as of this encounter Functional Status Functional Status Response Date of Assess ment Are you deaf or do you have serious difficulty h earing? No 06/27/2023 Are you blind or do you have serious difficulty seeing, even when wearing glasses? No 06/27/2023 Do you have serious difficul ty walking or climbing stairs? (5 years old or older) No 06/27/2023 Do you have difficulty dress ing or bathing? (5 years old or older) No 06/27/2023 Because of a physical, menta l, or emotional condition, do you have difficulty doing errands alone such as visiting a doctor s office or shopping? (15 years old or older) No 06/27/19 24 Cognitive Status Response Date of Assessm ent Because of a physical, menta l, or emotional condition, do you have serious difficulty concentrating, remembering, or making decisions? (5 years old or older) No 06/27/2023 documented as of this encounter Miscellaneous Notes * Addendum Note - Josi Sanabria RN - 07/04/2023 11:47 AM ESTAddended by: JOSI SANABRIA on: 07/04/2023 11:47 AM Modules accepted: Orders * Addendum Note - Josi Sanabria RN - 07/04/2023 10:25 AM ESTAddended by: JOSI SANABRIA on: 07/04/2023 10:25 AM Modules accepted: Orders documented in this encounter Plan of Treatment Upcoming Encounters Date Type Department Care Team (Late st Contact Info) Description 07/15/2023 1:20 PM EST Office Visit General Surgery, [place] [address] [place] [address] Hector Jean MD [address] [place] [address] 07/25/2023 10:15 AM EST Office Visit Hematology/Oncology [facility] [address] [place] [address] Venessa Marie MD [address] [place] [address] 11/28/2023 10:00 AM EDT Cardiac Studies Cardiology, [facility] [address] [place] [address] [facility] [address] [place] [address] 04/16/2024 9:45 AM EST Office Visit Dermatology [facility] [address] [place] [address] Magnus Nettles MD 200 [facility] [place] [address] Scheduled Procedures Name Priority Associated Diagnoses Date/Ti me COLONOSCOPY FLEXIBLE PROXIMA L DIAGNOSTIC Recall History of colonic polyps Health Maintenance Due Date Last Done Comments DISCUSS TOBACCO CESSATION (REFER TO SMARTSET #7256) 1950 Pneumococcal Vaccine: 65+ Years (1 - PCV) 1958 Depression Screening 1964 Hepatitis C Screening 1970 DTaP,Tdap,and Td Vaccines (1 - Tdap) 1971 Zoster Vaccines (1 of 2) 2002 AAA Screening 2017 COVID-19 Vaccine (4 - season) 2023 05/06/2021, 08/25/2020, 08/04/2020 Lipid Panel 09/07/2027 09/06/2022, 02/06, 08/17/2021, Additional history exists COLONOSCOPY-EVERY 5 YRS AGES 18-100 11/04/2027 11/03/2022, 09/02/2017, 09/02/2017, Additional history exists Influenza Vaccine (FLU shot) Completed 11/2022, 04/20/2022, 05/06/2021, Additional history exists GARDASIL-HPV IMMUNIZATION SERIES Aged Out No longer eligible based on patient's age to complete this topic Hepatitis B Aged Out No longer eligi ble based on patient's age to complete this topic MENINGOCOCCAL (MENACTRA/MENVEO) Aged Out No longer eligible based on patient's age to complete this topic documented as of this encounter Medical Devices Implanted Type Area Deck Worker Device Identifier Shelf Expiration Date Model / Serial / Lot Kit Distal Bicep Repair Ar-22 - [id number] Implanted:Qty : 1 on 09/22/2015 by Daniel Melgar DO at OR [facility] Right: Shoulder [employer] 08/03/2020 AR-2260 / / [id number] Suture Steel 6 B&S19 M654g - Sm654 - [id number] Implanted:Qty : 4 on 06/22/2019 by Corbin Mock MD at [place] [facility] [place] N/A: Sternum JNJ : [employer] 02/04/2024 M654G / [id number] / [id number] Port Implant W/8f Poly Cath - [id number] Implanted:Qty : 1 on 12/23/2022 by Mariano Hong DO at OR 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 Question Answer Comments Discussion of Advance Directives occurred with: Patient Full Code 11/09/2022 1:18 PM 11/09/2022 6:37 PM This or heidi reflects the patients wishes and were consensually agreed upon. Question Answer Comments Discussion of Advance Directives occurred with: Not Discussed due to patient's condition Full Code 11/09/2022 11:44 AM 11/09/2022 1:18 PM This o rder reflects the patients wishes and were consensually agreed upon. Question Answer Comments Discussion of Advance Directives occurred with: Not Discussed due to patient's condition Full Code 06/22/2019 1:01 PM 06/27/2019 3:23 PM This order reflects the patients wishes and were consensually agreed upon. Care Teams Irish Moss Gatherer Relationship Specialty Start Date End Date Sebastian Do DO [address] [facility] [place] [address] PCP - General Family Medicine 05/24/23 documented as of this encounter
--- OUTSIDE RECORDS SUMMARY | 2023-07-05 03:08 | External Medical Summary | Summary of Care ---
Author Name Unknown Organization [facility] Address [address] [place] [address] Phone [phone] Care Team Providers Care Treater Name Role Phone ErnestinaSebastian Primary Care Provider [phone] Encounter Details Date Type Department Care Team (Late st Contact Info) Description 07/04/2023 Orders Only Hematology/Oncology Treatment, [place] [address] [place] [address] Venessa Marie MD [address] [place] [address] Encounter for antineoplastic chemotherapy*; Malignant neoplasm of [...] (15 years old or older) No 06/27/19 Cognitive Status Response Date of Assessm ent [...] 1:20 PM EST Office Visit General Surgery, [place] [address] [place] [address] Hector Jean MD [address] [place] [address] 07/25/2023 10:15 AM EST Office Visit Hematology/Oncology [facility] [address] [place], [place] [address] Venessa Marie MD 200 [facility] [place] [address] 11/28/2023 10:00 AM EDT Cardiac Studies Cardiology, [facility] [address] [place] [address] [place], Pacer [facility] 132 [place] [address] 04/16/2024 9:45 AM EST Office Visit Dermatology [facility] [address] [place] [address] Magnus Nettles MD [address] [facility] [place] [address] Scheduled Procedures Name Priority Associated Diagnoses Date/Ti me COLONOSCOPY FLEXIBLE PROXIMA L DIAGNOSTIC Recall History of colonic polyps Health Maintenance Due Date Last Done Comments DISCUSS TOBACCO CESSATION (REFER TO SMARTSET #3682) 1950 Pneumococcal Vaccine: 65+ Years (1 - PCV) 1958 Depression Screening 1964 Hepatitis C Screening 1970 DTaP,Tdap,and Td Vaccines (1 - Tdap) 1971 Zoster Vaccines (1 of 2) 2002 AAA Screening 2017 COVID-19 Vaccine (4 - 2022- season) 2023 05/06/2021, 08/25/2020, 08/04/2020 Lipid Panel [...] this encounter Medical Devices Implanted Type Area Children'S Book Author Device Identifier Shelf Expiration Date Model / Serial / Lot Kit Distal Bicep Repair Ar-22 - [id number] Implanted:Qty : 1 on 09/22/2015 by Daniel Melgar DO at OR [facility] Right: Shoulder [employer] 08/03/2020 AR-2260 / / [id number] Suture Steel 6 B&S19 M654g - Sm654 - [id number] Implanted:Qty : 4 on 06/22/2019 by Corbin Mock MD at [place] [facility] N/A: Sternum JNJ : [employer] 02/04/2024 M654G / [id number] / [id number] Port Implant W/8f Poly Cath - [id number] Implanted:Qty : 1 on 12/23/2022 by Mariano Hong DO at OR [facility] Right: Chest CR BARD : PERIPHERAL VASCULAR [id number] 02/04/2024 [id number] / / [id number] documented as of this encounter Visit Diagnoses [...] and were consensually agreed upon. Care Teams Treater Relationship Specialty Start Date End Date Sebastian Do DO [address] [facility] [place] [address] PCP - General Family Medicine 05/24/23 documented as of this encounter
--- OUTSIDE RECORDS SUMMARY | 2023-07-05 03:08 | External Medical Summary | Summary of Care ---
Author Name Unknown Organization [facility] Address [address] [place] [address] Phone [phone] Care Team Providers Care Proposal Consultant Name Role Phone Sebastian Do DO Primary Care Provider [phone] Reason for Visit * Reason Onset Date Comments Advice 07/04/2023 Encounter Details Date Type Department Care Team (Late st Contact Info) Description 07/04/2023 Telephone General Surgery, [place] [address] [place], [place] [phone] Mis Orozco RN [address] [place], [place] [phone] Advice Allergies No known active allergiesdocumented as of [...] and before bedtime). 60 Capsule 0 07/01/2023 4 Active Sennosides 8.6 MG Oral Tablet (Senokot) Take 2 Tablets by mouth daily as needed for Constipation for up to 28 days. 56 Tablet 0 07/01/2023 4 Active Enoxaparin Sodium 40 MG/0.4ML Injection Solution [...] as of this encounter Miscellaneous Notes * Telephone Encounter - Mis Orozco RN - 07/04/2023 3:08 PM EST Rosette phoned. iLnk has developed vomiting coffee ground material. Started approximately 30 minutes ago. He is also lightheaded. Advised to go to nearest ED for evaluation. They will call the ambulance. Aware I will contact Dr. Jean with findings. documented in this encounter Plan of Treatment Upcoming Encounters Date Type Department Care Team (Late st Contact Info) Description 07/15/2023 1:20 PM EST [facility] [address] [place] [address] Hector Jean MD [address] [place] [address] 07/25/2023 10:15 AM EST Office Visit Hematology/Oncology [facility] [address] [facility] [place] [address] Venessa Marie MD [address] [facility] [place] [address] 11/28/2023 10:00 AM EDT Cardiac Studies Cardiology, [facility] [address] [place] [address] [place], Pacer Clinic [facility] [address] [place] [address] 04/16/2024 9:45 AM EST Office Visit Dermatology [facility] [address] [facility] [place] [address] Magnus Nettles MD [address] [facility] [place] [address] Scheduled Procedures Name Priority Associated Diagnoses Date/Ti me COLONOSCOPY FLEXIBLE PROXIMA L DIAGNOSTIC Recall History of colonic polyps Health Maintenance Due Date Last Done Comments DISCUSS TOBACCO CESSATION (REFER TO SMARTSET #4560) 1950 Pneumococcal Vaccine: 65+ Years (1 - PCV) 1958 Depression Screening 1964 Hepatitis C Screening 1970 DTaP,Tdap,and Td Vaccines (1 - Tdap) 1971 Zoster Vaccines (1 of 2) 2002 AAA Screening 2017 COVID-19 Vaccine ( - 2022-24 season) 2023 05/06/2021, 08/25/2020, 08/04/2020 Lipid Panel [...] this encounter Medical Devices Implanted Type Area Animal Keeper Device Identifier Shelf Expiration Date Model / Serial / Lot Kit Distal Bicep Repair Ar-22 - [id number] Implanted:Qty : 1 on 09/22/2015 by Daniel Melgar DO at OR [facility] Right: Shoulder [employer] 08/03/2020 AR-2260 / / [id number] Suture Steel 6 B&S19 M654g - Sm654 - [id number] Implanted:Qty : 4 on 06/22/2019 by Corbin Mock MD at [place] [facility] [place] N/A: Sternum JNJ : [employer] 02/04/2024 M654G / M654 / [id number] Port Implant W/8f Poly Cath - [id number] Implanted:Qty : 1 on 12/23/2022 by Mariano Hong DO at OR [facility] Right: Chest CR BARD : PERIPHERAL VASCULAR [id number] 02/04/2024 [id number] / / [id number] documented as of this encounter Advance Directives Latest Code Status [...] and were consensually agreed upon. Care Teams Proposal Consultant Relationship Specialty Start Date End Date Sebastian Do DO [address] [place] [address] PCP - General Family Medicine 05/24/23 documented as of this encounter
--- OUTSIDE RECORDS SUMMARY | 2023-07-05 03:08 | External Medical Summary | Summary of Care ---
Author Name Unknown Organization [facility] Address [address] [place] [address] Phone [phone] Care Team Providers Care Mortgage Protection Sales Name Role Phone Sebastian Do DO Primary Care Provider [phone] Reason for Visit * Reason Onset Date Comments Advice 07/04/2023 Encounter Details Date Type Department Care Team (Late st Contact Info) Description 07/04/2023 Telephone General Surgery, [place] [address] [place], [place] [phone] Mis Orozco RN [address] [place], [place] [phone] Advice Allergies No known active allergiesdocumented as [...] - 07/04/2023 3:08 PM EST Rosette phoned. Link has developed vomiting coffee ground material. Started approximately 30 minutes ago, and has had 2 episodes. He is also lightheaded. Advised to go to nearest ED for evaluation. They will call the ambulance. Aware I will contact Dr. Jean with findings. documented in this encounter Plan of Treatment Upcoming Encounters Date Type Department Care Team (Late st Contact Info) Description 07/15/2023 1:20 PM EST Office Visit General Surgery, [place] [address] [place] [address] Hector Jean MD [address] [place] [address] 07/25/2023 10:15 AM EST Office Visit Hematology/Oncology [facility] [address] [place] [address] Venessa Marie MD [address] [facility] [place] [address] 11/28/2023 10:00 AM EDT Cardiac Studies Cardiology, [facility] 132 [place] [address] [place] 132 [place] [address] 04/16/2024 9:45 AM EST Office Visit Dermatology [facility] [address] [place] [address] Magnus Nettles MD [address] [facility] [place] [address] Scheduled Procedures Name Priority Associated Diagnoses Date/Ti me COLONOSCOPY FLEXIBLE PROXIMA L DIAGNOSTIC Recall History of colonic polyps Health Maintenance Due Date Last Done Comments DISCUSS TOBACCO CESSATION (REFER TO SMARTSET #8359) 1950 Pneumococcal Vaccine: 65+ Years (1 - PCV) 1958 Depression Screening 1964 Hepatitis C Screening 1970 DTaP,Tdap,and Td Vaccines (1 - Tdap) 1971 Zoster Vaccines (1 of 2) 2002 AAA Screening 2017 COVID-19 Vaccine ( - season) 2023 05/06/2021, 08/25/2020, 08/04/2020 Lipid [...] this encounter Medical Devices Implanted Type Area Tai Chi Instructor Device Identifier Shelf Expiration Date Model / Serial / Lot Kit Distal Bicep Repair Ar-22 - [id number] Implanted:Qty : 1 on 09/22/2015 by Daniel Melgar DO at OR [facility] Right: Shoulder [employer] 08/03/2020 AR-2260 / / [id number] Suture Steel 6 B&S19 M654g - Sm654 - [id number] Implanted:Qty : 4 on 06/22/2019 by Corbin Mock MD at OR [facility] [place] N/A: Sternum JNJ : [employer] 02/04/2024 M654G / M654 / [id number] Port Implant W/8f Poly Cath - [id number] Implanted:Qty : 1 on 12/23/2022 by Mariano Hong DO at OR [facility] Right: Chest CR BARD : PERIPHERAL VASCULAR [id number] 02/04/2024 [id number] / / [id number] documented as of this encounter Advance Directives [...] and were consensually agreed upon. Care Teams Mortgage Protection Sales Relationship Specialty Start Date End Date Sebastian Do DO [address] [facility] [place] [address] PCP - General Family Medicine 05/24/23 documented as of this encounter
--- OUTSIDE RECORDS SUMMARY | 2023-07-05 03:08 | External Medical Summary | Summary of Care ---
Author Name Unknown Organization [facility] Address [address] [place] [address] Phone [phone] Care Team Providers Care News Reporter Name Role Phone Sebastian Do Primary Care Provider [phone] Reason for Visit * Reason Comments Procedure Port flush Encounter Details Date Type Department Care Team (Late st Contact Info) Description 07/04/2023 10:00 AM EST Nurse Only Hematology/Oncology Treatment, [place] [address] [facility] [place] [address] Nurse, Med [address] [place] [address] Procedure (Port flush) Allergies No known active allergiesdocumented as of [...] No 06/27/2023 documented as of this encounter Nursing Notes * Gela Lacy RN - 07/04/2023 11:18 AM EST Chair 7. Pt presents to clinic for port flush s/p gastrectomy; discharged 07/01/23. Pt is experiencing pain from surgery, but states he has been hesitant to use prescribed Oxycodone. Pt is currently only using Tylenol prn to address pain. Reviewed use of prn pain medications and encouraged pt to useOxy IR as ordered for moderate to severe pain. Pt verbalized understanding. VAD (Venous Access Device) accessed with #20G 3/4" without difficulty. VAD flushed with 10 ml NSS and Heparin 5 ml (100 units/ml). Chatterjee needle removed intact. Pt discharged in stable condition. documented in this encounter Plan of Treatment Upcoming Encounters Date Type Department Care Team (Late st Contact Info) Description 07/15/2023 1:20 PM EST Office Visit General Surgery, [place] [address] [place] [address] Hector Jean MD [address] [place] [address] 07/25/2023 10:15 AM EST Office Visit Hematology/Oncology [facility] [place] [address] [facility] [place] [address] Venessa Marie MD [address] [facility] [place] [address] 11/28/2023 10:00 AM EDT Cardiac Studies Cardiology, [facility] [address] [place] [address] [facility] [address] [place] [address] 04/16/2024 9:45 AM EST Office Visit Dermatology [facility] [address] [place] [address] Magnus Nettles MD [address] [facility] [place] [address] Scheduled Procedures Name Priority Associated Diagnoses Date/Ti me COLONOSCOPY FLEXIBLE PROXIMA L DIAGNOSTIC Recall History of colonic polyps Health Maintenance Due Date Last Done Comments DISCUSS TOBACCO CESSATION (REFER TO SMARTSET #6985) 1950 Pneumococcal Vaccine: 65+ Years (1 - PCV) 1958 Depression Screening 1964 Hepatitis C Screening 1970 DTaP,Tdap,and Td Vaccines (1 - Tdap) 1971 Zoster Vaccines (1 of 2) 2002 AAA Screening 2017 COVID-19 Vaccine ( season) 2023 05/06/2021, 08/25/2020, 08/04/2020 Lipid Panel 09/07/2027 09/06/2022, 09, 08/17/2021, Additional history exists COLONOSCOPY-EVERY 5 YRS [...] this encounter Medical Devices Implanted Type Area Insurance Marketing Rep Device Identifier Shelf Expiration Date Model / Serial / Lot Kit Distal Bicep Repair Ar-22 - [id number] Implanted:Qty : 1 on 09/22/2015 by Daniel Melgar DO at OR [facility] Right: Shoulder [employer] 08/03/2020 AR-2260 / / [id number] Suture Steel 6 B&S19 M654g - Sm654 - [id number] Implanted:Qty : 4 on 06/22/2019 by Corbin Mock MD at OR [facility] N/A: Sternum JNJ : [employer] 02/04/2024 M654G / [id number] / [id number] Port Implant W/8f Poly Cath - [id number] Implanted:Qty : 1 on 12/23/2022 by Mariano Hong DO at OR [facility] Right: Chest CR BARD : PERIPHERAL VASCULAR [id number] 02/04/2024 [id number] / / [id number] documented as of this encounter Visit Diagnoses Diagnosis Encounter for adjustment and management of vascular access device- Primary 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 Given 07/04/2023 10:13 AM EST 500 Units sodium chloride 0.9 % flush central line 10 mL 10 mL, IV Push, PRN Other, IV Flush, Starting on Tue07/04/23 at 1405, Until Tue07/05/23 at 1404, For 24 hours, Do not flush if lock, PICC, or central line not in place; IV infusing or unable to flush. Given 07/04/2023 10:13 AM EST 10 mL documented in this encounter Advance Directives Latest [...] and were consensually agreed upon. Care Teams News Reporter Relationship Specialty Start Date End Date Sebastian Do DO [address] [facility], [place] [address] PCP - General Family Medicine 05/24/23 documented as of this encounter
--- OUTSIDE RECORDS SUMMARY | 2023-07-05 03:08 | External Medical Summary | Summary of Care ---
Author Name Unknown Organization [facility] Address [address] [place] [address] Phone [phone] Care Team Providers Care Football Pad Repairer Name Role Phone ErnestinaSebastian Primary Care Provider [phone] Encounter Details Date Type Department Care Team (Late st Contact Info) Description 07/04/2023 Orders Only Hematology/Oncology Treatment, [place] [address] [place] [address] Venessa Marie MD [address] [place] [address] Encounter for antineoplastic chemotherapy*; Malignant neoplasm of [...] 1:20 PM EST Office Visit General Surgery, [place] [address] [place] [address] Hector Jean MD [address] [place] [address] 07/25/2023 10:15 AM EST Office Visit Hematology/Oncology [facility] [address] [place], [place] [address] Venessa Marie MD [address] [facility] [place] [address] 11/28/2023 10:00 AM EDT Cardiac Studies Cardiology, [facility] [address] [place] [address] [place], Pacer [facility] [address] [place] [address] 04/16/2024 9:45 AM EST Office Visit Dermatology [facility] [address] [place] [address] Magnus Nettles MD [address] [facility] [place] [address] Scheduled Procedures Name Priority Associated Diagnoses Date/Ti me COLONOSCOPY FLEXIBLE PROXIMA L DIAGNOSTIC Recall History of colonic polyps Health Maintenance Due Date Last Done Comments DISCUSS TOBACCO CESSATION (REFER TO SMARTSET #1665) 1950 Pneumococcal Vaccine: 65+ Years (1 - [...] this encounter Medical Devices Implanted Type Area Court Bailiff Or Sheriff Device Identifier Shelf Expiration Date Model / Serial / Lot Kit Distal Bicep Repair Ar-22 - [id number] Implanted:Qty : 1 on 09/22/2015 by Daniel Melgar DO at OR [facility] Right: Shoulder [employer] 08/03/2020 AR-2260 / / [id number] Suture Steel 6 B&S19 M654g - Sm654 - [id number] Implanted:Qty : 4 on 06/22/2019 by Corbin Mock MD at [place] [facility] N/A: Sternum JNJ : [employer] 02/04/2024 M654G / M654 / [id number] Port Implant W/8f Poly Cath - [id number] Implanted:Qty : 1 on 12/23/2022 by Mariano Hong DO at OR [facility] Right: Chest CR BARD : PERIPHERAL VASCULAR [id number] 02/04/2024 [id number] / / [id number] documented as of this encounter Visit Diagnoses [...] and were consensually agreed upon. Care Teams Football Pad Repairer Relationship Specialty Start Date End Date Sebastian Do DO [address] [facility] [place] [address] PCP - General Family Medicine 05/24/23 documented as of this encounter
--- OUTSIDE RECORDS SUMMARY | 2023-07-05 03:09 | External Medical Summary ---
Author Name Unknown Address Unknown Organization [id number]:LABORATORY [facility] [place] - [address] [place] [address] Laboratory Report Ordering Provider Test Date Status HOLLIE KUMAR 06/28/2023 07:48:00 Final Observation Date Value Abnormality Reference (Units ) Status BUN 06/28/2023 07:48:00 13 6-20 (mg/dL) Final Creatinine 06/28/2023 07:48:00 0.8 0.6-1.2 (mg/dL) Final Glomerular filtration rate/1.73 sq M.predicted [Volume Rate/Area] in Serum, Plasma or Blood by Creatinine-based formula (CKD-EPI) 06/28/2023 07:48:00 >90 >=60 (mL/min) Final eGFR is calculated based on the CKD-EPI 2020 equation SODIUM 06/28/2023 07:48:00 138 135-146 (m mol/L) Final Potassium 06/28/2023 07:48:00 4.5 3.5-5.1 (m mol/L) Final Cl 06/28/2023 07:48:00 106 98-107 (mm ol/L) Final CO2 06/28/2023 07:48:00 23 22-32 (mmo l/L) Final Anion gap 06/28/2023 07:48:00 9 7-15 (mmol /L) Final Glucose 06/28/2023 07:48:00 97 70-120 (mg /dL) Final Calcium 06/28/2023 07:48:00 8.8 8.4-10.2 ( mg/dL) Final Performing Location LABORATORY [facility] [place] - [address] [place] [address]
--- OUTSIDE RECORDS SUMMARY | 2023-07-05 03:09 | External Medical Summary ---
Author Name Unknown Address Unknown Organization [id number]:[facility]ATORY [facility] [place] - [address] [facility] [address] [facility] [address] Laboratory Report Ordering Provider Test Date Status SUHAS DOMINGUEZ 06/27/2023 13:20:15 Final SCREENING Observation Date Value Abnormality Reference (Units ) Status SARS Coronavirus 2 06/27/2023 13:20:15 Negative N egative Final 2019 Novel Coronavirus not d etected.

This express test was developed and its performance characteristics determined by [employer] It has not been cleared or approved by the U.S. Food and Drug Administration (FDA). FDA does not require this test to go thru premarket FDA review. This test is used for clinical purposes. It should not be regarded as investigational or for research. This laboratory is certified under the Clinical Laboratory Improvement Amendments (CLIA) as qualified to perform high complexity clinical laboratory testing.

This test is a nucleic acid amplification test (NAAT), a reverse transcriptase polymerase chain reaction (RT-PCR) test, or a Centers for Disease Control-acceptable equivalent. The test is performed in a high complexity Clinical Laboratory Improvement Amendments-(CLIA) certified laboratory. The test is acceptable for SARS-CoV-2 diagnosis, surveillance, and travel within the [place] and to most countries. Please check with local testing authorities about requirements before travel.

The validation of bronchial specimens, tracheal aspirates, and sputum for this assay was developed and performance characteristics determined by [employer] The validation of alternate specimen types has not been cleared or approved by the U.S. Food and Drug Administration (FDA). It has been determined that such clearance is not necessary. Performing Location [facility]ORY [facility] [place] - [facility] [address] [facility] [address]
--- OUTSIDE RECORDS SUMMARY | 2023-07-05 03:09 | External Medical Summary | Summary of Care ---
Author Name Unknown Organization [facility] Address [address] [place] [address] Phone [phone] Care Team Providers Care [employer] Director Name Role Phone Sebastian Do DO Primary Care Provider [phone] Reason for Visit * Auth/Cert Specialty Diagnoses / Procedures Referred By Harmeet t Referred To Contact Diagnoses Gastric adenocarcinoma (HCC) Gastric adenocarcinoma (HCC) [C16.9] Procedures REMOVE STOMACH, TOTAL EGD, FLEXIBLE, DIAGNOSTIC GASTRECTOMY TOTAL WITH ESOPHAGOENTEROSTOMY ESOPHAGOGASTRODUODENOSCOPY (EGD), FLEXIBLE, TRANSORAL, DIAGNOSTIC Referral ID Status Reason Start Date Expiration Date Visits Re quested Visits Authorized [id number] Encounter Details Date Type Department Care Team (Latest Contact Info) Description 06/27/2023 7:49 AM EST - 07/01/2023 11:45 AM EST [id number] [address] [place] [address] Hector Jean MD [address] [place] [address] Various: EKG,KRAVS Discharge Disposition: Home - Self Care Allergies No known active allergiesdocumented as of this encounter (statuses as of 07/01/2023) Medications Medication Sig Dispensed Refills Start Date End Date Status Sildenafil Citrate 20 MG Oral Tablet (Revatio) Take 2 Tablets by mouth daily as needed for Erectile Dysfunction. 0 Active Iron-Vitamin C 65-125 MG Oral Tablet Take 1 Tablet by mouth at bedtime. 0 Active Rosuvastatin Calcium 40 MG Oral Tablet (Crestor)Indicatio ns:Dyslipidemia, goal LDL below 70 Take 1 Tablet by mouth in the morning. 90 Tablet 4 3 Active Clopidogrel Bisulfate 75 MG Oral Tablet (pLAVix)Indication s:NSTEMI (non-ST elevation myocardial infarction) (HCC) Take 1 Tablet by mouth in the morning. 90 Tablet 4 3 Active Metoprolol Succinate ER 50 MG Oral Tablet Extended Release 24 Hour (Toprol XL)Indications:Par oxysmal atrial fibrillation (HCC),ASCVD (arteriosclerotic cardiovascular disease) Take 1 Tablet by mouth in the morning. 90 Tablet 4 3 Active Ezetimibe 10 MG Oral Tablet (Zetia) Take 1 Tablet by mouth in the morning. 0 Active Ondansetron HCl 8 MG Oral TabletIndications: 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) Take 1 Tablet by mouth every 8 hours as needed for Nausea. 30 Tablet 0 3 Active Prochlorperazine Maleate 10 MG Oral Tablet (Compazine)Indicat ions: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) Take 1 Tablet by mouth every 6 hours as needed for Nausea. 30 Tablet 0 3 Active Pantoprazole Sodium 40 MG Oral Tablet Delayed Release (Protonix)Indicati ons: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) Take 1 Tablet by mouth in the morning. 90 Tablet 0 4 Active Acetaminophen 325 MG Oral Tablet (Tylenol) Take 3 Tablets by mouth every 6 hours as needed for mild or moderate pain (incisional pain). 60 Tablet 0 4 Active oxyCODONE HCl 10 MG Oral Tablet (Roxicodone) Take 1 Tablet by mouth every 6 hours as needed for severe incisional pain 20 Tablet 0 4 Active Docusate Sodium 100 MG Oral Capsule (Colace) Take 1 Capsule by mouth 2 times a day (morning and before bedtime). 60 Capsule 0 4 07/31/19 24 Active Sennosides 8.6 MG Oral Tablet (Senokot) Take 2 Tablets by mouth daily as needed for Constipation for up to 28 days. 56 Tablet 0 4 07/29/19 24 Active Enoxaparin Sodium 40 MG/0.4ML Injection Solution Prefilled Syringe (Lovenox) Inject 40 mg (one full syringe) under the skin in the morning for 24 days. 9.6 mL 0 4 07/26/19 24 Active oxyCODONE-Acetamin ophen 5-325 MG Oral Tablet (Percocet)Indicati ons: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) Take 1 Tablet by mouth every 6 hours as needed for Pain, Moderate for up to 14 days. 60 Tablet 0 3 07/01/19 24 Discontinued Clotrimazole 10 MG Mouth/Throat Israel (Mycelex Israel)Indications :Thrush Take 1 Lozenge by mouth 5 times a day. 70 Lozenge 0 3 07/01/19 24 Discontinued documented as of this encounter (statuses as of 07/01/2023) Active Problems Problem Noted Date Diagnosed Date [...] as of this encounter (statuses as of 07/01/2023) Resolved Problems Problem Noted Date Diagnosed Date Resolved Date Impacted cerumen 01/10/2006 06/19/2019 Overview: documented as of this encounter (statuses as of 07/01/2023) Immunizations Name Administration Dates Next Due Season [...] on file documented as of this encounter Last Filed Vital Signs Vital Sign Reading Time Taken Comments Blood Pressure 108/62 07/01/2023 8:47 AM EST Pulse 63 07/01/2023 8:47 AM EST Temperature 36.7 C (98 F) 07/01/2023 7:00 AM EST Respiratory Rate 18 07/01/2023 7:00 AM EST Oxygen Saturation 94% 07/01/2023 7:00 AM EST Inhaled Oxygen Concentration - - Weight 88.9 kg (195 lb 14.4 oz) 07/01/2023 4:29 AM EST Height 181.6 cm (5' 11.5") 06/27/2023 7:57 AM ES T Body Mass Index 26.94 06/27/2023 7:57 AM EST documented in this encounter Functional Status Functional Status Response [...] No 06/27/2023 documented as of this encounter Discharge Instructions * Discharge Instr - AVS* Radhika Moeller CRNP - 06/27/2023 7:53 AM EST Discharge Date: 07/01/2023 Check your Patient Education Brochure for further information. You may call Dr. Jean of the department of Surgical Oncology at [phone] during business hours for any questions or test results. For after- hours emergencies, call [phone] and have theprovider carbon paper interleafer paged. The information below provides you with the instructions and the list of medications you need to betaking following discharge from the hospital. If you have any questions, please ask before leaving.Please carry this letter with you when you see your doctor in the clinic. If you have questions, you can reach us at the numbers above. Brief summary of your inpatient care: You were admitted to [facility] on 06/27/2023 for surgery. You tolerated the operation well, had adequate pain control, and tolerated a diet before discharge. Your primary diagnosis at discharge was gastric cancer. PleasePlease follow these instructions carefully: Activity: As tolerated. No lifting greater than 10 pounds for 6 weeks. Getting up and walking after surgery aids recovery in many ways. Much of the pain after major surgery is from muscle spasm. Getting out of bed, sitting and walking help you loosen up and actually reduce your pain. This also helps your breathing and quickens the recovery of your bowel function. Walking and using the stairs is permitted. You should try to get lots of rest. No deep bending and stretching. You should avoid full activity and vigorous exercise for about six to eight weeks after surgery. You may climb stairs. No driving until seen for follow-up appointment or while taking prescription pain medication. Diet: Continue a normal diet as tolerated Pain Control: Take medication as prescribed. Incisions: Wound care: if there is drainage, cover wound with dry gauze, change daily and as needed if saturated. If there is no drainage, you may leave wound open to air. Wash incisions with soap and water and keep dry. You may shower but avoid tub bathing/swimming until cleared by your surgeon Constipation: It is normal not to have a bowel movement for up to 3 days after surgery due to anesthesia. Continue taking a stool softener daily while taking any opioids such as Oxycodone. To prevent constipation, drink plenty of liquids and eat plenty of fiber which includes fruits & vegetables. After surgery, Continue Senna tablets or start taking Milk of Magnesia (over the counter) 2 tablespoons at bedtime followed by a full glass of liquid. Once you have a bowel movement, stop taking the Senna or Milk of Magnesia. Follow Up Appointment: Follow up with Dr Jean on 07/15/2023 Call the surgeon with any of the following symptoms: Fever higher than 101 degrees Fahrenheit. Severe pain not relieved by pain medication. Inability to void. Excessive bleeding, swelling, redness, or drainage from any of the incisions. Additional instruction: - You are being discharged with Lovenox for deep vein thrombosis prophylaxis. 1) Tell dentists, surgeons, and other healthcare providers that you use this drug. 2) You may bleed more easily. Avoid injury. Use soft toothbrush, electric razor. 3) Call General Surgery or your primary care physician right away if you have unusual bruising or bleeding 4) The pharmacist at [facility] will follow up with you 5) Start Lovenox tomorrow. Last dose of Lovenox is on 07/25/2023. Date you may return to work or school: Based on further instruction reviewed by surgeon after follow up visit. Inpatient test results pending: None Operations & Procedures: partial gastrectomy Complications: none Advance Directive Documented: Advance Directive Does the Patient have an Advance Directive? No documented in this encounter H&P Notes * Evelyn Orona MD - 06/27/2023 8:45 AM EST HISTORY & PHYSICAL INTERVAL NOTE - General Surgery [facility]-[address] [address] History and Physical Update: Name: Makayla King Location: OR [facility]/PR Date: 06/27/2023 Time: 8:45 AM DATE OF HISTORY AND PHYSICAL: 06/14/2022 BP: 93 mmHg/63 mmHg (06/27/23829) Pulse: 64 (06/27/23829) Temp: 36.11 C (06/27/23829) Resp: 21 (06/27/23829) SpO2: 97 % (06/27/23829) Does patient take a beta elizabeth? Yes - medication: metoprolol; date and time of last dose: 06/27/23at 5:30 AM Did patient stop anticoagulants: Aspirin, Plavix Heart Exam: regular rate and rhythm Lung Exam: clear to auscultation bilaterally Other Pertinent Physical Exam: none I have reviewed the H&P previously performed and examined the patient today. There are no new findings noted. * Josie Barber DO - 06/14/2023 11:20 AM EST SURGICAL ONCOLOGY FOLLOW UP VISIT CLINIC VISIT 06/14/2023 1120 Reason for visit: Evaluation for gastrectomy status post neoadjuvant chemotherapy HPI: Makayla King is a 72 year old male who presents for evaluation of gastrectomy status post neoadjuvant chemotherapy for gastric adenocarcinoma. He has a history significant for coronary artery disease, sudden cardiac arrest, ICD placement, COPD, melanoma resected from the left arm. 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 Follow up EUS (6/6/23) and CT, demonstrated a [id number] lesion, and subsequently started on FOLFOX chemotherapy. 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 He last had a dose of chemo 3 weeks ago, and states that he has had 9/12 cycles. He has been seeing his gluer who is aware of the upcoming potential surgery, and have evaluated him preoperatively. Past Medical History Past Medical History: Diagnosis Date Benign neoplasm of colon 07/19/07 adenomatous repeat colonoscopy in 5 yrs Benign neoplasm of colon 07/07/12 adenomatous polyp Chronic pharyngitis 01/10/06 Deviated nasal septum 01/10/06 Hypertrophy of nasal turbinates 01/10/06 Impacted cerumen 01/10/06 Melanoma (HCC) NON ALLERGIC RHINITIS 01/10/06 Other diseases of respiratory system, not elsewhere classified 01/10/06 Other dyspnea and respiratory abnormality 01/10/06 Past Surgical History Past Surgical History: Procedure Laterality Date ARTHO,SHOUL,W/ROTATOR CUFF 09/22/2015 ARTHROSCOPY SHOULDER ROTATOR CUFF performed by Daniel Melgar DO at OR [facility] CABG, ARTERIAL, SINGLE N/A 06/22/2019 CORONARY ARTERY BYPASS GRAFT USING ARTERY 1 GRAFT performed by Corbin Mock MD at [facility] CABG, ARTERY-VEIN, TWO 06/22/2019 CORONARY ARTERY BYPASS GRAFT ARTERIAL AND VENOUS 2 GRAFTS performed by Corbin Mock MD at OR [facility] COLONOSCOPY W/ LESION REMOVAL, SNARE 07/19/2007 polyp x 3 adenomatous repeat in 5 yrs COLONOSCOPY, DIAGNOSTIC (RECTUM) 07/07/2012 COLONOSCOPY FLEXIBLE PROXIMAL DIAGNOSTIC performed by Alan Ramsey MD at [facility]-adenomatous repeat in 5 years COLONOSCOPY, DIAGNOSTIC (RECTUM) 09/02/2017 diverticulosis, repeat 5 yrs/COLONOSCOPY FLEXIBLE PROXIMAL DIAGNOSTIC performed by Alan Ramsey MD at ENDOSCOPY [facility] COLONOSCOPY, DIAGNOSTIC (RECTUM) N/A 11/03/2022 moderate diverticulosis/hemorrhoids/biopsies show adenomatous polyps/recall 5 years/Colonoscopy/IA EGD, FLEXIBLE, DIAGNOSTIC 09/12/2020 Oozing small gastric ulcer, duodenitis, repeat 3 mo / INPT [facility] EGD, FLEXIBLE, DIAGNOSTIC 01/01/2021 normal / [facility] EGD, FLEXIBLE, DIAGNOSTIC N/A 11/03/2022 diffuse gastritis/non-obstructing non-bleeding gastric ulcer/repeat 3 months/EGD/IA EGD, W/ENDOSCOPIC US N/A 11/09/2022 mass incisura of stomach, adenocarcinoma/ESOPHAGOGASTRODUODENOSCOPY (EGD), FLEXIBLE, TRANSORAL, ENDOSCOPIC ULTRASOUND performed by Karthik Burks DO at OR [facility] ENDO,VIDEO ASSIST HARVEST ZEHRA N/A 06/22/2019 ENDOSCOPY VIDEO ASSISTED HARVEST VEIN performed by Corbin Mock MD at OR [facility] INFORMATION 06/11/2013 06/11/2013 - shave bx of left distal forarm - invasive malignat melanoma, extending to a dept of approximately 0.85mm - [facility] - Dr. Chris Correia MD. INSER TUNN ACC DEV;5 YRS/OLDER N/A 12/23/2022 INSERT TUNNELED CENTRAL VENOUS ACCESS WITH SUBQ PORT performed by Mariano Hong DO at OR [facility] INSERT/REPLACE DEFIBRILLATOR W/TRANSVERSE LEAD(S) Left 06/26/2019 NON-THORACIC INTERNAL CARDIAC DEFIBRILLATOR LEADS AND GENERATOR IMPLANT performed by Nithin Verdin MD at [facility] PLEURODESIS FOR PNEUMOTHORAX 1974 for left pneumothorax RMV MALG LSN TRK/ARM/LG 2.1-3C 06/21/2013 Wide local excision left forearm melanoma with rotational flap closure of circular defect left forearm, [place] lymph node biopsy of left axilla 06/21/13 Dr. Martínez at [facility] SHOULDER ARTHROSCOPY/DEBRIDEMENT 09/22/2015 ARTHROSCOPY SHOULDER DEBRIDEMENT LIMITED performed by Daniel Melgar DO at OR [facility] Family History Problem Relation Age of Onset Cancer Father Lung Diabetes Father Eye Problems None Thyroid Disorder None Stroke None Hypertension None Diabetes Mother Heart Disorder Mother Heart attack Social History Socioeconomic History Marital status: Significant Other Spouse name: Not on file Number of children: Not on file Years of education: Not on file Highest education level: Not on file Occupational History Not on file Tobacco Use Smoking status: Light Smoker Types: Cigars Smokeless tobacco: Never Tobacco comments: Cigar on occasion Vaping Use Vaping Use: Never used Substance and Sexual Activity Alcohol use: Not Currently Drug use: No Sexual activity: Not on file Other Topics Concern Not on file Social History Narrative Not on file Social Determinants of Health Financial Resource Strain: Not on file Food Insecurity: Not on file Transportation Needs: Not on file Physical Activity: Not on file Stress: Not on file Social Connections: Not on file Intimate Partner Violence: Not on file Housing Stability: Not on file Current Medications Current Outpatient Medications Medication Sig Dispense Refill Sildenafil Citrate 20 MG Oral Tablet (Revatio) Take 2 Tablets by mouth daily as needed for ErectileDysfunction. Iron-Vitamin C 65-125 MG Oral Tablet Take 1 Tablet by mouth at bedtime. Rosuvastatin Calcium 40 MG Oral Tablet (Crestor) Take 1 Tablet by mouth in the morning. 90 Tablet 4 Clopidogrel Bisulfate 75 MG Oral Tablet (pLAVix) Take 1 Tablet by mouth in the morning. 90 Tablet 4 Metoprolol Succinate ER 50 MG Oral Tablet Extended Release 24 Hour (Toprol XL) Take 1 Tablet by mouth in the morning. 90 Tablet 4 Ezetimibe 10 MG Oral Tablet (Zetia) Take 1 Tablet by mouth in the morning. Ondansetron HCl 8 MG Oral Tablet Take 1 Tablet by mouth every 8 hours as needed for Nausea. 30 Tablet 0 Prochlorperazine Maleate 10 MG Oral Tablet (Compazine) Take 1 Tablet by mouth every 6 hours as needed for Nausea. 30 Tablet 0 Clotrimazole 10 MG Mouth/Throat Israel (Mycelex [place]) Take 1 Lozenge by mouth 5 times a day. 70 Lozenge 0 Pantoprazole Sodium 40 MG Oral Tablet Delayed Release (Protonix) Take 1 Tablet by mouth in the morning. 90 Tablet 0 No current facility-administered medications for this visit. Allergies Review of patient's allergies indicates: No Known Allergies Review of Systems: All systems negative except as outlined in HPI. Physical Exam: There were no vitals filed for this visit. General: no acute distress, answering questions appropriately, well nourished HEENT: Normocephalic, atraumatic, EOMI, sclera and conjunctiva normal Neck: supple, normal range of motion Cardiac: regular rate, and rhythm, sternotomy incision well healed Respiratory: normal respiratory effort with equal and symmetric rise of the chest Abdominal: soft, nontender, nondistended Musculoskeletal: moves all, no deformities or lower extremity edema Neurologic: alert and oriented Integumentary: warm, dry and intact without jaundice Psychiatric: normal mood and affect Labs: Results for orders placed or performed in visit on 06/07/23 COMPREHENSIVE METABOLIC PANEL Result Value Ref Range BUN 10 6 - 20 mg/dL Creatinine 0.9 0.6 - 1.2 mg/dL Estimated Glomerular Filtration Rate >90 >=60 mL/min Sodium 140 135 - 146 mmol/L Potassium 4.5 3.5 - 5.1 mmol/L Chloride 108 (H) 98 - 107 mmol/L CO2 23 22 - 32 mmol/L Anion Gap 9 7 - 15 mmol/L Glucose 103 70 - 120 mg/dL Albumin 4.0 3.8 - 5.0 g/dL AST 33 10 - 50 U/L Alkaline Phosphatase 140 (H) 35 - 130 U/L Bilirubin, Total 0.5 <=1.2 mg/dL Calcium 9.7 8.4 - 10.2 mg/dL Protein 7.1 6.0 - 8.3 g/dL ALT 36 10 - 50 U/L Results for orders placed or performed in visit on 06/07/23 CBC Result Value Ref Range WBC 4.02 4.00 - 10.80 K/uL RBC 3.94 4.50 - 5.25 M/uL HGB 12.3 (L) 14.0 - 16.8 g/dL HCT 38.1 (L) 40.0 - 48.4 % MCV 96.7 82.0 - 99.5 fL MCH 31.2 27.0 - 34.0 pg MCHC 32.3 32.0 - 36.0 g/dL RDW 17.0 11.5 - 15.5 % PLT 91 (L) 140 - 400 K/uL MPV 9.3 6.6 - 11.1 fL Results for orders placed or performed in visit on 06/07/23 DIFFERENTIAL, AUTOMATED Result Value Ref Range WBC 4.02 4.00 - 10.80 K/uL Neutrophils % 51.4 40.0 - 75.0 % Lymphocytes % 37.1 18.0 - 42.0 % Monocytes % 9.5 1.0 - 11.0 % Eosinophils % 1.5 0.0 - 6.0 % Basophils % 0.5 0.0 - 2.0 % Absolute Neutrophils 2.07 1.80 - 7.70 K/uL Absolute Lymphocytes 1.49 1.00 - 4.80 K/ul Absolute Monocytes 0.38 0.00 - 1.10 K/uL Absolute Eosinophils 0.06 0.00 - 0.70 K/uL Absolute Basophils 0.02 0.00 - 0.20 K/uL CBC Result Value Ref Range WBC 4.02 4.00 - 10.80 K/uL RBC 3.94 4.50 - 5.25 M/uL HGB 12.3 (L) 14.0 - 16.8 g/dL HCT 38.1 (L) 40.0 - 48.4 % MCV 96.7 82.0 - 99.5 fL MCH 31.2 27.0 - 34.0 pg MCHC 32.3 32.0 - 36.0 g/dL RDW 17.0 11.5 - 15.5 % PLT 91 (L) 140 - 400 K/uL MPV 9.3 6.6 - 11.1 fL DIFFERENTIAL, TECHNOLOGIST REVIEW Result Value Ref Range nRBCs Acanthocytes Moderate (A) None Seen Results for orders placed or performed during the hospital encounter of 06/19/19 CBC/DIFF Result Value Ref Range WBC 6.19 4.00 - 10.80 K/uL RBC 3.25 (L) 4.50 - 5.25 M/uL HGB 10.0 (L) 14.0 - 16.8 g/dL HCT 31.0 (L) 40.0 - 48.4 % MCV 95.4 82.0 - 99.5 fL MCH 30.8 27.0 - 34.0 pg MCHC 32.3 32.0 - 36.0 g/dL RDW 13.5 11.5 - 15.5 % PLT 199 140 - 400 K/uL MPV 9.7 6.6 - 11.1 fL NRBC'S 0 0 /100 WBCs Neutrophils % 63.4 40 - 75 % Lymphocytes % 23.7 18 - 42 % Monocytes % 10.0 1 - 11 % Eosinophils % 1.9 0 - 6 % Basophils % 0.5 0 - 2 % IMMATURE GRANULOCYTE 0.5 0 - 2 % Absolute Neutrophils 3.92 1.8 - 7.7 K/uL Absolute Lymphocytes 1.47 1.0 - 4.8 K/uL Absolute Monocytes 0.62 0.0 - 1.1 K/uL Absolute Eosinophils 0.12 0.0 - 0.7 K/uL Absolute Basophils 0.03 0.0 - 0.2 K/uL Absolute Immature Granulocytes 0.03 0.0 - 0.2 K/uL Imaging: Reviewed Impression: 73-year-old male with pP5N5T3 gastric adenocarcinoma status post neoadjuvant FOLFOX chemotherapy w/good response Plan: Schedule for gastrectomy and lymphadenectomy with Dr Jean. Hold Plavix 8 days prior to scheduled date. I have discussed the patient's management with the medical trainee and agree with the note. Please refer to the documented findings and plan of care. This patient's visit today consisted of an evaluation. I was present and confirmed the findings of the history and exam. Plan for gastrectomy- possible distal gastrectomy with the tumor site Hector Jean MD mechanical inspector Section Head, Surgical Oncology and Endocrine Surgery [facility] [address] [place] [address] Office: [phone] [email or web address] documented in this encounter Procedure Notes * Martina Young RN - 06/27/2023 1:36 PM EST Parameter Changes: All defibrillation pathways reprogrammed to B>AX and are set at 35J. Medtronic ICD pacemaker interrogation s/p surgery demonstrates appropriate function. Martina THOMPSON RN 06/27/2023 1:36 PM * Kenneth Meade DO - 06/27/2023 8:28 AM ESTAssociated Order(s): EKG REASON FOR STUDY: PRE OP CONCLUSIONS: Normal sinus rhythm Normal ECG When compared with ECG of 30-JUL-2019 11:38, Nonspecific T wave abnormality no longer evident in Lateral leads Ventricular Rate: 63 Atrial Rate: 63 FL Interval: 152 QRS Duration: 72 QT/QTc: 412/421 ms P-R-T [place]: 14 : 46 : 39 degrees documented in this encounter Consult Notes * Paola Rudolph [facility] - 06/29/2023 2:55 PM ESTAssociated Order(s): ANTI- COAGULATION CONSULT IP PHARMACY MEDICATION TEACHING CONSULT ENOXAPARIN [address] [address] Name: Makayla King Location: [facility] B839/[id number] Date: 06/29/2023 Time: 2:55 PM Requesting Service: Surgery Blue Reason for Enoxaparin Consult: Venous Thromboembolism Prophylaxis (VTE) Patient Active Problem List Diagnosis Code Benign neoplasm of colon D12.6 Chronic pharyngitis J31.2 Hypertrophy of nasal turbinates J34.3 Deviated nasal septum J34.2 Dyspnea and respiratory abnormality R06.00, R06.89 Other diseases of respiratory system, not elsewhere classified J98.8 Neoplasm of uncertain behavior of skin D48.5 Inflamed seborrheic keratosis L82.0 Other seborrheic keratosis L82.1 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 Teaching points covered with patient and/or family: Route, Dosage Form and Schedule (Including importance of taking medication as instructed),, Medication Intended Use/Action, Injection technique,, Precautions to be Observed while using this Medication,, Commonly Encountered Adverse Effects (Including risk of bleeding and potential signs and symptoms),, Methods for Self-monitoring,, Potential Drug Interactions (Including medications that potentially affect bleeding, alcohol and olpq-wln-ygocqdtabldksxgxmc such as NSAIDs),, Therapeutic Contraindications,, Designated Handout(s) Provided,, Follow-up Monitoring (Including review of plans for post-discharge monitoring and follow-up),, Prescription Refill Information,, and Action for a Missed Dose, Written documentation regarding all of the teaching points was provided to the patient and/or family members present. Patient accepted patient education handout. Assessment of teaching effectiveness: Patient expressed understanding of above teaching points and had no questions. Patient has expressed potential cost/home health concerns and Care Management has been made aware: No Plan if patient encounters questions later: Contact Physician/Provider. Length of teaching: Brief (less than 15 minutes) Teaching completed according to pharmacy teaching standard 508 documented in this encounter Nursing Notes * Shaneka Jones RN - 06/27/2023 4:14 PM EST Dual Licensed Skin Assessment completed by CARLYN Paulino and CARLYN Cook. The patient is/has a N/A Skin Breakdown (includes non blanchable erythema): No * Rekha Dunn NA - 06/27/2023 3:55 PM EST Post Anesthesia Care Unit Transport Note [facility] [address] [facility] [address] Dept. Makayla King Transported from [facility] to : [facility] Time: 1544 Care of patient transferred to: [facility] Transported via: Bed Belongings with Patient: YES Pulse : 62 Temp : 96.9 BP : 114/63 Respirations : 16 Pulse Ox : 99 O2 : 5L SCDS: On but not activated/no machine * Nadiya Larkin RN - 06/27/2023 3:29 PM EST Post Anesthesia Care Unit Discharge Note [facility] [address] [facility] [address] Dept. Makayla King Vital Signs Stable Discharged from PACU as per discharge criteria (see discharge criteria sheet). Time: 1530 Reported to: Abiola Jones RN Taken to Inpatient Room B839A, accompanied by NA. Transported via: [place] Belongings with Patient: YES Prescriptions on Chart: N/A Patient meets criteria to be transferred or discharged * Nadiya Larkin RN - 06/27/2023 3:15 PM EST Dual Licensed Skin Assessment completed by Nadiya ALCOCER and Nita ALCOCER. The patient is/has a N/A Skin Breakdown (includes non blanchable erythema): no * Migue Mcintosh RN - 06/27/2023 8:22 AM EST Dual Licensed Skin Assessment completed by Donal Mcintosh RN and Josie Chacko. The patient is/has a N/A Skin Breakdown (includes non blanchable erythema): No * Kaleb Mercedes RN - 06/24/2023 9:04 AM EST NO ANESTHESIA EVAL REQUESTED PER CASE DOCUMENTATION. PREOP PATIENT INFORMATION AND EDUCATION: MEDICATION INSTRUCTIONS: The day of surgery/procedure, you may TAKE the following medications with a sip of water up to 2 hours prior to your arrival time: Pantoprazole Ondansetron if needed Prochlorperazine If needed Ezetimibe Metoprolol Rosuvastatin Percocet if needed AVOID/ DO NOT TAKE any medications the morning of surgery/procedure that are not listed above. STOP taking the following medications the noted number of days prior to surgery/procedure unless otherwise specified by your surgeon: Per surgeon note from 06/14/23 Please Hold Plavix 8 days prior to scheduled date Please follow surgeon's instructions regarding use of Aspirin, Coumadin, Plavix, Eliquis, and any other blood thinner including NSAIDs (non-steroidal anti- inflammatory drugs, eg, Advil, Ibuprofen, Motrin, Aleve, Naproxen); if you have any questions regarding your anticoagulation therapy please contact your surgeon's clinic. Please verify any proposed stoppage of your anticoagulation therapy with the agent's prescribing provider. 10 days prior to surgery/procedure Stop all Herbal supplements, Green Tea, Turmeric, Melatonin, CBD, THC, etc. Stop all Vitamins (including Vitamin E) 24 hours prior to surgery/procedure DO NOT consume any alcohol. DO NOT use medical marijuana. DO NOT smoke or use tobacco products of any kind after midnight prior to surgery. *Using any of these products may increase your risks of procedural complications. IF IT IS LESS THAN RECOMMENDED STOPPAGE TIME PLEASE STOP AT TIME OF NOTIFICATION. FASTING RECOMMENDATIONS: To reduce risk, it is important for all elective surgery patients to follow the specific fasting guidelines listed below. If you have received more stringent guidelines, please follow the MOST RESTRICTIVE guidelines that you have been provided. Please follow any prep instructions given by your surgeon. DO NOT EAT after midnight on the night prior to your surgery date. You are allowed to drink clear liquids up to two hours prior to arrival time to the hospital or surgery center. Examples of clear liquids include water, clear fruit juice without pulp, clear carbonated beverages, clear tea, and black coffee. Any drinks given by your surgical service take as directed. /pediatric patients who currently drink breast milk, infant formula, and non-human milk must not eat after midnight. These patients are allowed to drink only the liquids listed below up to two hours prior to arrival time to the hospital or surgery center: Ingested Material Minimum Fasting Time Clear liquid After midnight up to 2 hours prior to arrival time Breast milk Up to 4 hours prior to arrival time Infant formula Up to 6 hours prior to arrival time Non-human milk Up to 6 hours prior to arrival time THE DAY BEFORE YOUR SURGERY: -Drink plenty of fluid the day before your surgery. Contact your surgeon's office if you develop any of the following within 2 weeks of surgery: A cold Infection Fever Shingles Chicken pox or exposure to chicken pox Open areas such as scrapes, cuts, lees or other skin conditions Rashes GENERAL INSTRUCTIONS FOR PREPARING FOR SURGERY: BATHING INSTRUCTIONS: Bathe the evening prior to and the morning of surgery/procedure. Cleanse your body using ONLY anti-bacterial soap (eg, Dial, Safeguard) or any specific soap/cleansers and instructions provided by your surgeon (eg, Chlorhexidine). -You should brush your teeth the morning of surgery. Do NOT apply any lotions, powders, sprays, creams, oils, make-up, or deodorants after bathing. No hairspray, or nail albanian on fingers or toes. Day of surgery/procedure do not use tampons. If you wear contacts wear your eyeglasses if available otherwise bring your contact supplies with you to remove them prior to your surgery/procedure. If you wear glasses or dentures, please bring cases in which you can store them during your surgery. Please remove all piercings and jewelry and leave them at home. Wear comfortable and loose clothing. -Please leave all valuables at home. -If you use a CPAP and are staying overnight, please bring your mask and tubing with you to the hospital. -If you use an assistive mobility device (walker, cane, etc), please label it with your name and bring to hospital. -An escort flatbed driver is required if you are being discharged the same day of the surgery. You should have a responsible adult over the age of 18 [address] drive you home. This person should be present with youin the hospital at the time of discharge and for the first 24 hours after the surgery to support your needs. If you are taking a taxi home, you must have your responsible libertarian accompany you in the taxi ride home at the time of discharge. OR times subject to change. Please check voicemail messages the day/evening before your surgery forany updates. PRE-OP: You will be taken to the pre-op area where your vital signs (blood pressure, pulse and temperature)will be taken. Any preparations that need to be done will be done there. When it is time for your surgery, you will be taken to the operating room. PARENTS OF PEDIATRIC PATIENTS WILL BE ALLOWED TO STAY WITH THEIR CHILDREN UNTIL THEY ARE ESCORTED TO THE OPERATING ROOM OUTPATIENT SURGERY PATIENTS: After your surgery you will be taken to the Same Day Surgery Unit when you are awake and will go home from there. You will get instructions about your home care before you leave. Arrange to have someone drive you home from the hospital. You may not drive for 24 hours after anesthesia. You must havean adult stay with you at home for 24 hours after your operation. This is very important. If you are not able to comply with these guidelines, your Short Stay surgery cannot be done. ADMISSION PATIENTS: After your stay in the recovery area, you will be taken to your room. Your family may visit you in your room based on current visitation policy. If a next day discharge is expected, it is important to make arrangements for a flatbed driver to take you home. Please be aware our visitation policies are subject to change Professionals, attendants, caregivers or family members are allowable visitors for patients with intellectual, developmental or cognitive disabilities, communication barriers or behavioral concerns. Because patients' and families' needs vary, they will be taken into account when applying visitation restrictions. [facility]: Contact # [phone] Directions to Surgical Suite in from the [place] Entrance The Surgical Waiting Room can be found in the Lobby of [facility]. Enter through Main Lobby Entrance and the Waiting Room is directly in front of you. Proceed to check in and give them your name. Directions to Surgical Suite from the East Entrance Enter the East entrance and follow the hallway to the J elevator. Take the J elevator up to Level 1. Continue down the long hallway to the main [facility] Lobby. The Surgical Waiting Room will be on your Right. Proceed to check in and give them your Name. Directions to Surgical Suite from the Parking Garage Enter the [facility] lobby and proceed down the wolf to the left. At the end of the wolf, turn right. Continue down the long hallway to the main [facility] Lobby. The Surgical Waiting Room will be on your Right. Proceed to check in and give them your Name. THANK YOU FOR CHOOSING [employer]! Pre-operative chart review completed-instructions provided based on current medication list in EPIC Presurgery instructions sent to patient via Rattle message. documented in this encounter OR Notes * OR Surgeon - Hector Jean MD - 06/27/2023 12:14 PM EST OPERATIVE REPORT [facility] [address] [facility] [address] Name: Makayla King Date: 06/27/2023 Time: 12:14 PM Location: [facility] Service: Surgical Oncology Date of Operation: 06/27/2023 Pre-op Diagnosis: gastric cancer Post-op Diagnosis: same Surgeon: Hector Jean MD Assistants: Evelyn Orona MD Anesthesia: General endotracheal anesthesia Operation: Partial gastrectomy Findings: mass along the greater curvature of the stomach Specimens/Disposition: Tissue to Pathology Estimated Blood Loss: 50 ml IV fluids: 850 ml of crystalloid 0 ml of colloid 0 units of blood 0 units of plasma Urine Output: 0 ml. Drains: none Apparent Intraoperative Complications: NONE Disposition: PACU - hemodynamically stable. Indications and History: MAKAYLA KING [id number] is a 73 year old male with gastric cancer. The proposed procedure was discussedin detail with the patient and family. All feasible options were reviewed with the appropriate indications and expected outcomes. While the usual outcome of elective surgery is an uncomplicated procedure, surgery is not without risk to the patient. Emergent surgical procedures, or surgery in the face of co-morbidities elevates the level of perioperative risk. No surgical procedure is without somebaseline risk, and I ensured that the patient understood that surgical practice necessitates the acceptance of risk to the patient in return for clinical benefit. The option to not operate was discussed, but often this a not a realistic management plan. This was explained to the patient and/or family to their satisfaction. The general risks to any surgical procedure were discussed. The risk of surgical procedures includes, but is not limited to: bleeding, perioperative infection, cardiopulmonary problems, wound healingproblems, venous thromboembolism, inadvertent but unavoidable damage to nearby structures, persistent or recurrent disease processes, necessity for secondary procedures, reaction to medications, prolonged hospitalization, or even a slight risk of . I have explained the serious nature gastric surgery and the well-described morbidity rate in excess of 25% and mortality rate of up to 8% in [facility]. Non-operative options were offered to the patient and family. They understand that gastrectomy is associated with potentially prolonged hospitalization and after-hospital care. The inability to maintain regular diet for extended periods of time, requiring feeding tube placement wasoutlined. Well-described risks of gastrectomy, regardless of technique include, but are not limitedto: anastomotic leak or conduit necrosis and the need for secondary procedures; stricture and inability to tolerate po intake; respiratory failure requiring prolonged ventilatory support; cardiovascular complications including arrhythmia and/or ischemia; wound complications; feeding tube complications; intra-abdominal organ damage including spleen or colon; recurrence or persistence of the process (non-therapeutic procedure); chronic pain syndromes; and a small but definite risk of . Afterthorough consideration of the above, the patient and/or the appropriate legal field support representative gave written and verbal informed consent to the procedure. Description of Operation: The patient was seen in the Holding Room and the site of surgery properly noted/marked. The patientwas taken to the operating room, identified as MAKAYLA KING, [id number] and the procedure verified. A Time Out was held and the above information confirmed. Prior to the induction of anesthesia and skin incision, antibiotic prophylaxis and thromboprophylaxis was utilized. The positioning was supine. All pressure points were comfortably padded and inspected by myself and the anesthesia team. After the induction of anesthesia, the abdomen and chest wall were prepped widely as a sterile field. The patient seemed to tolerate general anesthesia and was hemodynamically stable throughout the case. A midline incision was made and the peritoneal cavity inspected for evidence of tumor. There was none. The stomach was intubated with an NG tube and decompressed. The duodenum was kocherized and the right gastric artery was ligated. The stomach was completely mobilized by dissection of the lesser and greater curvatures. The omentum was taken off of the colon and kept with the gastric specimen. All vessels were double-ligated in continuity to devascularize the stomach. The duodenum was divided just distal to the pylorus. Proximally, the stomach was divided and the left gastric vessels were left intact since the tumor was distal in the stomach. A lymph node dissection encompassing the 1-6 alexandra stations (francis-gastric), left gastric, hepatic, peripancreatic and splenic artery alexandra stations was performed (D2 dissection). Intestinal continuity was restored with a Tere-en-Y gastro-jejunostomy by dividing the proximal jejunum just distal to the ligament of Treitz and dividing the mesentery of the small bowel down to theSMA. The mesenteric defect was closed and the blood supply to the tere was seen to be excellent. The limb passed up to the esophageal hiatus in a retrocolic manner without difficulty and was seen to lay in a tension free manner. A gastro-jejunostomy was created with 2 layer hand sewn fashion. The mesocolic defect was closed with interrupted silk. Biliary continuity was re-established by anastomosing the proximal jejunum to the tere limb about 50 cm downstream from the intestinal anastomosis. This was a side to side anastomosis. The sponge, needle and instrument count was then reported to me as being correct by the perioperative staff. The wound was thoroughly irrigated and the incision was then closed with absorbable suture, taking meticulous 2 cm bites of healthy fascia throughout the length of the wound; the skin was then closed with leia and a sterile dressing was applied. The patient was then awakened from anesthesia, extubated and taken to the recovery room in a stable condition, having suffered no apparent untoward event. Attestation: I was present and scrubbed for the entire procedure Hector Jean MD Attending Surgeon Surgical Oncology and Endocrine Surgery [address] [address] Office: [phone] [email or web address] documented in this encounter Miscellaneous Notes * Ancillary Progress Note - Lazaro Starr RN - 07/01/2023 11:45 AM EST CARE MANAGEMENT - ADULT DISCHARGE NOTE [facility] [address] Name: Makayla King Location: [facility] B839/A Date: 07/01/2023 Time: 12:20 PM The following coordination of care and discharge plan has been coordinated with the care team, patient, family and/or caregiver according to the patients needs and preferences. Discharge Discharge Second Notice Important Message from Medicare delivered: Yes (07/01/231218) Date Delivered: 06/30/23 (07/01/231218) Was Caregiver/Family/Facility contacted regarding discharge: Yes (07/01/231218) Discharge Transportation: Family/Friends drive (07/01/231218) Final Discharge Plan (Complete only at time of Discharge): Home - Self Care (07/01/231218) Destination - Discharged on 07/01/2023 Admission date: 06/27/2023 - Discharge disposition: Home - Self Care No services have been selected for the patient. Narrative: Pt to be discharged home with no further needs. Pt's family transporting pt home at discharge. Pt declined need for HH services at this time. I have conducted the discharge appointment with the patient (ph: provider-Dr. Trevor Jean/Carl Moeller), Care Management, nursing, and provider on 07/01/2023 at 0900 . This discussion occurred phone and other IDTs . Meds to beds offered: yes. The following post care is planned: PCP follow up. I encouraged the patient and/or family to call the hospital with any questions or concerns about the hospital admission. * Progress Notes - Non-Billable - Radhika Moeller CRNP - 07/01/2023 6:48 AM EST PROGRESS NOTE - General Surgery Discharge Transition [facility] [address] Name: Makayla King Location: [facility] B839/A Date: 07/01/2023 Time: 6:48 AM Admitting Diagnosis: Gastric cancer PROCEDURE: Partial gastrectomy Estimated Discharge Date: 07/01/2023 Subjective: Makayla was resting in bed comfortably. Tolerating diet, has tolerated a regular diet- denied nausea/vomiting. Incisional pain controlled with current therapy. Ambulating without any difficulty. Voiding without difficulty. (+) flatus. No BM. Had Lovenox instruction by the pharmacist. He will be transported home by his family. Wants new scripts sent to [facility]. Review of Systems: Constitutional: (+) fatigue and (-) fever, chills, sweats Abdominal/GI: (-) dysphagia, (-) heartburn, (-) nausea, and (-) vomiting Male : unremarkable Most Recent Vital Signs: BP: 108 mmHg/67 mmHg (07/01/23428) Pulse: 69 (07/01/23428) Temp: 36.56 C (07/01/23428) Resp: 18 (07/01/23428) SpO2: 93 % (07/01/23428) Constitutional: no acute distress Abdomen: soft, minimal palpable tenderness along his incision Extremities: no edema, normal ROM Surgical site: Surgical incisions c/d/I without significant erythema or ecchymosis or drainage Leia intact Lab and Radiology: Pending results: No results pending Discharge Preparation: Consultation: No pending consultations to be completed Discharge Medication Plans: Pain Management: Acetaminophen and Oxycodone DVT Needs: Lovenox, Lovenox Bridge to Warfarin No GI: Zofran Antibiotics: None Stool Softener: Colace and Senna Anticipated Diet at Discharge: Regular Disposition / Needs Post Discharge: Home Return Appointments Planned: Dr. Jean on 07/15/2023. Reviewed d/c instructions with patient and answered all patient questions. Patient verbalized understanding and agreed to call if there is any concern. * Progress Notes - Post-Op Global - Evelyn Orona MD - 06/30/2023 8:53 AM EST PROGRESS NOTE - Surgical Oncology [facility] [address] Name: Makayla King Location: [facility] B839/A Date: 06/30/2023 Time: 8:53 AM DIAGNOSIS: gastric cancer PROCEDURE: Partial gastrectomy DATE OF SURGERY: 06/27/2023 POST OP DAY: 3 SUBJECTIVE: No acute issues overnight. Continues to have pain but controlled when taking pain medication. Tolerating CLD without N/V. No bowel function yet. Ambulating the halls. OBJECTIVE: Most Recent Vital Signs: BP: 101 mmHg/57 mmHg (06/30/23615) Pulse: 70 (06/30/23615) Temp: 36.67 C (06/30/23615) Resp: 18 (06/30/23615) SpO2: 92 % (06/30/23615) Vital Signs Last 24 Hours: Systolic BP: Most Recent Systolic BP Av.6 mmHg Min: 96 mmHg Max: 111 mmHg Temperature: Most Recent Temperature Av.8 C Min: 36.61 C Max: 37 C Pulse: Pulse Av.1 Min: 56 Max: 72 Respirations: Resp Av.3 Min: 16 Max: 18 SpO2: SpO2 Av % Min: 90 % Max: 94 % Intake/Output Summary (Last 24 hours) at 06/30/2023 0853 Last data filed at 06/30/2023 0800 Gross per 24 hour Intake 1280 ml Output 750 ml Net 530 ml Physical Exam: Constitutional: no acute distress HEENT: normocephalic, atraumatic Eyes: sclera and conjunctiva normal CV: normal rate Chest: normal respiratory effort Abdomen: soft, nondistended, aTTP Extremities: no clubbing, cyanosis, or edema, otherwise grossly normal, warm, and dry Surgical site: midline incision c/d/I with leia Skin: warm, dry Neuro: alert, oriented LABS: Labs reviewed as indicated below: AM labs pending IMAGING: No new imaging post-op IMPRESSION: Principal Problem: Gastric adenocarcinoma (HCC) Active Problems: Cardiac arrest (HCC) Other hyperlipidemia Paroxysmal atrial fibrillation (HCC) Resolved Problems: * No resolved hospital problems. * Makayla King is a 73 y/o male s/p partial gastrectomy for gastric adenocarcinoma. Doing well post-op. AROBF PLAN: -Pain: Tylenol, oxycodone prn, dilaudid prn, tramadol ATC -Fluids: none -Electrolytes: Replete as needed -Nutrition: advance to regular diet -GI: Zofran, protonix -Abx: none -Drains/Devices: none -DVT ppx: SCDs, Lovenox -Resp: I/Os, IS -Ambulation: OOB -PT/OT: consulted, eval pending -Home meds: ezetimide, metoprolol, rosuvastatin, plavix - holding: sildenafil -Dispo: med surg, possible d/c 07/01 The patient will be discussed with Dr. Jean. Evelyn Orona MD 06/30/2023 8:59 AM Associated attestation - Hector Jean MD - 06/30/2023 1:24 PM EST I did not see the patient, but I have reviewed the trainee documentation and was readily available on date of service. * Ancillary Progress Note - Deihl, Lazaro L, RN - 06/29/2023 11:31 AM EST CARE MANAGEMENT - ADULT TRANSITION NOTE [facility] [address] Name: Makayla King Location: [facility] B9 Date: 06/29/2023 Time: 11:32 AM Risk Stratification Risk Stratification Psycho Social / Medical Concerns Identified: Applying for disability;New serious diagnosis;MultipleComorbidities (06/28/23918) Accessed CHARMS [facility] to connect patients to social care resources: No (06/28/23918) OBRA or OPTIONS needed for placement: No (06/28/23918) Readmission Risk Score: 11.55 (06/29/23 0800) AM-PAC Score With Stairs : 24 (06/29/23 1025) Caregiver Information Patient Contacts Name Relation Home Work Mobile BABAK KING Adult Child [phone] Rosette King Significant Other [phone] Transition of Care Checklist Transition of Care Checklist (aka Readmission Risk Score) Discharge Disposition: Home (06/28/23920) Home or Home w/Home Health: (readmission score-11%) (06/28/23920) Narrative: Patient discussed in IDT's today. Tentative discharge home tomorrow with no needs. CM will continue to follow pt to assess discharge needs. Encouraged pt to contact CM with any questions/concerns. Anticipated Transportation at Discharge: family Patient/Family Expectations: Pt to be discharged when medically stable. Transition Planning Transition Planning Transition Plan/Considerations: Needs uncertain at this time - Continue monitoring for needs (06/28/23920) CMS Quality Rating provided to patient: No (06/28/23920) Repisodic Choice provided to patient: No (06/28/23920) Transition plan discussed with - Enter name and phone #: spoke to patient at bedside (06/28/23920) Insurance Considerations: Other - Comment (06/28/23920) Additional Considerations: Care Management will continue to monitor and assist with discharge planning needs * Pt Handout (on AVS) - Paola Rudolph, [facility] - 06/29/2023 10:28 AM EST Images from the original note were not included. [id number] Enoxaparin Prefilled Syringe Brands: Lovenox Uses This medicine is used for the following purposes: heart attack prevent blood clots treatment of blood clots Instructions This medicine is injected into the skin. Ask your doctor, nurse, or pharmacist where on your body this medicine can be injected and how to inject it. Do not mix this medicine with other solutions. Always inspect the medicine before using. The liquid should be clear or light yellow. Check the medicine before each use. If the liquid medicine has any particles in it, appears discolored, or if the vial appears damaged, do not use it. Keep medicine at room temperature. Protect from light. Never use any medicine that has . Change the location of the injection each time. Choose a location at least 1 inch from the last injection. Drug interactions can change how medicines work or increase risk for side effects. Tell your healthcare providers about all medicines taken. Include prescription and ozqv-mwy-twvqrth medicines, vitamins, and herbal medicines. Speak with your doctor or pharmacist before starting or stopping any medicine. Talk to your doctor before taking other medicines, including aspirins and ibuprofen containing products. Speak to your doctor about which medicines are safe to use while you are on this medicine. It is very important that you follow your doctor's instructions for all blood tests. Cautions This medicine may cause serious bleeding from the stomach or bowels. Stop this medicine and call your doctor immediately if you see any signs of bleeding. Bleeding can cause pain in the stomach, vomiting up liquid that looks like coffee grounds, and red or dark tarry stools. There is an increased risk of bleeding while on this medicine, please tell your doctor or nurse if you notice any excessive bleeding or bruising. Do not use the medication any more than instructed. Tell the doctor or pharmacist if you are , planning to be , or . Ask your pharmacist how to properly throw away used needles or syringes. Do not share this medicine with anyone who has not been prescribed this medicine. Side Effects The following is a list of some common side effects from this medicine. Please speak with your doctor about what you should do if you experience these or other side effects. unusual bruising or discoloration on skin swelling of the legs, feet, and hands fever pain, redness, swelling near injection nausea red, burning, or itchy skin Call your doctor or get medical help right away if you notice any of these more serious side effects: confusion nosebleeds bloody or dark, tarry stools A few people may have an allergic reaction to this medicine. Symptoms can include difficulty breathing, skin rash, itching, swelling, or severe dizziness. If you notice any of these symptoms, seek medical help quickly. Extra Please speak with your doctor, nurse, or pharmacist if you have any questions about this medicine. [email or web address] IMPORTANT NOTE: This document tells you briefly how to take your medicine, but it does not tell youall there is to know about it. Your doctor or pharmacist may give you other documents about your medicine. Please talk to them if you have any questions. Always follow their advice. There is a more complete description of this medicine available in Bahamian. Scan this code on your smartphone or tablet or use the web address below. You can also ask your pharmacist for a printout. If you have any questions, please ask your pharmacist. The display and use of this drug information is subject to Terms of Use. Copyright(c) 2022 [employer]. 6044-5704 [employer]. All rights reserved. This information is not intended as a substitute for professional medical care. Always follow your healthcare professional's instructions. * Pt Handout (on AVS) - Paola Rudolph RPh - 06/29/2023 9:49 AM EST Images from the original note were not included. Enoxaparin: How to Inject a Dose Subcutaneously with the Prefilled Syringe - Video Let's take a minute to talk about how to inject a dose of enoxaparin. This medicine comes in a prefilled syringe with a very small needle. You will inject the dose into the natural layer of fat just under the skin. To view the video go to this web address: [email or web address] Or, scan this QR code with your smart phone 2022 [employer]. All Rights Reserved. * Pt Handout (on AVS) - Paola Rudolph RPh - 06/29/2023 9:49 AM EST Images from the original note were not included. [id number] Enoxaparin Injectable Solution Brands: Lovenox Uses This medicine is used for the following purposes: heart attack prevent blood clots treatment of blood clots Instructions This medicine is injected into the skin. Ask your doctor, nurse, or pharmacist where on your body this medicine can be injected and how to inject it. Do not mix this medicine with other solutions. Always inspect the medicine before using. The liquid should be clear or light yellow. Check the medicine before each use. If the liquid medicine has any particles in it, appears discolored, or if the vial appears damaged, do not use it. Keep medicine at room temperature. Protect from light. After first use, discard vial with any unused medicine after 28 days. Never use any medicine that has . Change the location of the injection each time. Choose a location at least 1 inch from the last injection. Drug interactions can change how medicines work or increase risk for side effects. Tell your healthcare providers about all medicines taken. Include prescription and odde-lnl-dxtflmi medicines, vitamins, and herbal medicines. Speak with your doctor or pharmacist before starting or stopping any medicine. Talk to your doctor before taking other medicines, including aspirins and ibuprofen containing products. Speak to your doctor about which medicines are safe to use while you are on this medicine. It is very important that you follow your doctor's instructions for all blood tests. Cautions This medicine may cause serious bleeding from the stomach or bowels. Stop this medicine and call your doctor immediately if you see any signs of bleeding. Bleeding can cause pain in the stomach, vomiting up liquid that looks like coffee grounds, and red or dark tarry stools. There is an increased risk of bleeding while on this medicine, please tell your doctor or nurse if you notice any excessive bleeding or bruising. Do not use the medication any more than instructed. Tell the doctor or pharmacist if you are , planning to be , or . Ask your pharmacist how to properly throw away used needles or syringes. Do not share this medicine with anyone who has not been prescribed this medicine. Side Effects The following is a list of some common side effects from this medicine. Please speak with your doctor about what you should do if you experience these or other side effects. unusual bruising or discoloration on skin swelling of the legs, feet, and hands fever pain, redness, swelling near injection nausea red, burning, or itchy skin Call your doctor or get medical help right away if you notice any of these more serious side effects: confusion nosebleeds bloody or dark, tarry stools A few people may have an allergic reaction to this medicine. Symptoms can include difficulty breathing, skin rash, itching, swelling, or severe dizziness. If you notice any of these symptoms, seek medical help quickly. Extra Please speak with your doctor, nurse, or pharmacist if you have any questions about this medicine. [email or web address] IMPORTANT NOTE: This document tells you briefly how to take your medicine, but it does not tell youall there is to know about it. Your doctor or pharmacist may give you other documents about your medicine. Please talk to them if you have any questions. Always follow their advice. There is a more complete description of this medicine available in Bahamian. Scan this code on your smartphone or tablet or use the web address below. You can also ask your pharmacist for a printout. If you have any questions, please ask your pharmacist. The display and use of this drug information is subject to Terms of Use. Copyright(c) 2022 [employer] 2983-8151 [employer]. All rights reserved. This information is not intended as a substitute for professional medical care. Always follow your healthcare professional's instructions. * Pt Handout (on AVS) - Paola Rudolph RPh - 06/29/2023 9:49 AM EST Images from the original note were not included. [id number] Enoxaparin Prefilled Syringe Brands: Lovenox Uses This medicine is used for the following purposes: heart attack prevent blood clots treatment of blood clots Instructions This medicine is injected into the skin. Ask your doctor, nurse, or pharmacist where on your body this medicine can be injected and how to inject it. Do not mix this medicine with other solutions. Always inspect the medicine before using. The liquid should be clear or light yellow. Check the medicine before each use. If the liquid medicine has any particles in it, appears discolored, or if the vial appears damaged, do not use it. Keep medicine at room temperature. Protect from light. Never use any medicine that has . Change the location of the injection each time. Choose a location at least 1 inch from the last injection. Drug interactions can change how medicines work or increase risk for side effects. Tell your healthcare providers about all medicines taken. Include prescription and begc-dti-hpmkmla medicines, vitamins, and herbal medicines. Speak with your doctor or pharmacist before starting or stopping any medicine. Talk to your doctor before taking other medicines, including aspirins and ibuprofen containing products. Speak to your doctor about which medicines are safe to use while you are on this medicine. It is very important that you follow your doctor's instructions for all blood tests. Cautions This medicine may cause serious bleeding from the stomach or bowels. Stop this medicine and call your doctor immediately if you see any signs of bleeding. Bleeding can cause pain in the stomach, vomiting up liquid that looks like coffee grounds, and red or dark tarry stools. There is an increased risk of bleeding while on this medicine, please tell your doctor or nurse if you notice any excessive bleeding or bruising. Do not use the medication any more than instructed. Tell the doctor or pharmacist if you are , planning to be , or . Ask your pharmacist how to properly throw away used needles or syringes. Do not share this medicine with anyone who has not been prescribed this medicine. Side Effects The following is a list of some common side effects from this medicine. Please speak with your doctor about what you should do if you experience these or other side effects. unusual bruising or discoloration on skin swelling of the legs, feet, and hands fever pain, redness, swelling near injection nausea red, burning, or itchy skin Call your doctor or get medical help right away if you notice any of these more serious side effects: confusion nosebleeds bloody or dark, tarry stools A few people may have an allergic reaction to this medicine. Symptoms can include difficulty breathing, skin rash, itching, swelling, or severe dizziness. If you notice any of these symptoms, seek medical help quickly. Extra Please speak with your doctor, nurse, or pharmacist if you have any questions about this medicine. [email or web address] IMPORTANT NOTE: This document tells you briefly how to take your medicine, but it does not tell youall there is to know about it. Your doctor or pharmacist may give you other documents about your medicine. Please talk to them if you have any questions. Always follow their advice. There is a more complete description of this medicine available in Bahamian. Scan this code on your smartphone or tablet or use the web address below. You can also ask your pharmacist for a printout. If you have any questions, please ask your pharmacist. The display and use of this drug information is subject to Terms of Use. Copyright(c) 2022 [employer]. 3085-8682 [employer]. All rights reserved. This information is not intended as a substitute for professional medical care. Always follow your healthcare professional's instructions. * Pt Handout (on AVS) - Paola Rudolph RPh - 06/29/2023 9:49 AM EST Images from the original note were not included. Enoxaparin - Video Let's take a minute to talk about your medication. This is enoxaparin. It's given as an injection. To view the video go to this web address: https://bit.ly/389bwGq Or, scan this QR code with your smart phone 2022 [employer]. All Rights Reserved. * Progress Notes - Non-Billable - Radhika Moeller CRNP - 06/29/2023 9:43 AM EST PROGRESS NOTE - General Surgery Discharge Transition [facility] [address] Name: Makayla King Location: [facility] B839/A Date: 06/29/2023 Time: 9:43 AM Admitting Diagnosis: Gastric Cancer PROCEDURE: Partial gastrectomy Estimated Discharge Date: 06/30 Subjective: Makayla was resting in bed comfortably. Tolerating diet, has tolerated clear liquids- denied nausea/vomiting. Incisional pain controlled with current therapy. Ambulating without any difficulty- just ambulated in the hallway with nursing resident.. Voiding without difficulty. No flatus. No BM. He will have Lovenox instruction by pharmacy He will be transported home by his or son Wants new scripts sent to [facility]. Review of Systems: Constitutional: (-) fever, chills, sweats Abdominal/GI: (-) dysphagia, (-) heartburn, (-) nausea, and (-) vomiting Male : unremarkable Most Recent Vital Signs: BP: 102 mmHg/53 mmHg (06/29/23 0856) Pulse: 56 (06/29/23 0856) Temp: 36.44 C (06/29/23 0355) Resp: 18 (06/29/23 0355) SpO2: 91 % (06/29/23 0355) Constitutional: no acute distress Abdomen: soft, slight palpable tenderness noted- tells me his pain is significantly improved today Extremities: no edema, normal ROM Surgical site: Surgical incisions c/d/I without significant erythema or ecchymosis or drainage Leia intact Lab and Radiology: Pending results: Pending Lab: daily labs Discharge Preparation: Consultation: Pending consult: Lovenox instruction Discharge Medication Plans: Pain Management: Acetaminophen and Oxycodone DVT Needs: Lovenox, Lovenox Bridge to Warfarin No GI: Zofran Antibiotics: None Stool Softener: None Anticipated Diet at Discharge: Regular Disposition / Needs Post Discharge: Home Return Appointments Planned: Surgeon in 2 weeks Reviewed d/c instructions with patient and answered all patient questions. Patient verbalized understanding and agreed to call if there is any concern. * Progress Notes - Post-Op Global - Evelyn Orona MD - 06/29/2023 6:25 AM EST PROGRESS NOTE - Surgical Oncology [facility] [address] Name: Makayla King Location: [place] [id number] Date: 06/29/2023 Time: 6:25 AM DIAGNOSIS: gastric cancer PROCEDURE: Partial gastrectomy DATE OF SURGERY: 06/27/2023 POST OP DAY: 2 SUBJECTIVE: No acute issues overnight. Had a lot of pain overnight but much better this morning. Mostly occurs when OOB. Reamins NPO. Denies any nausea or emesis. Some burping but not a lot. Ambulating the hallways. Afebrile OBJECTIVE: Most Recent Vital Signs: BP: 101 mmHg/59 mmHg (06/29/23354) Pulse: 68 (06/29/23354) Temp: 36.44 C (06/29/23354) Resp: 18 (06/29/23354) SpO2: 91 % (06/29/23354) Vital Signs Last 24 Hours: Systolic BP: Most Recent Systolic BP Av.8 mmHg Min: 101 mmHg Max: 126 mmHg Temperature: Most Recent Temperature Av.8 C Min: 36.44 C Max: 37.11 C Pulse: Pulse Av Min: 56 Max: 68 Respirations: Resp Av.8 Min: 16 Max: 18 SpO2: SpO2 Av.5 % Min: 91 % Max: 96 % Intake/Output Summary (Last 24 hours) at 06/29/2023 0625 Last data filed at 06/29/2023 0300 Gross per 24 hour Intake 2100 ml Output 980 ml Net 1120 ml Physical Exam: Constitutional: no acute distress HEENT: normocephalic, atraumatic Eyes: sclera and conjunctiva normal CV: normal rate Chest: normal respiratory effort Abdomen: soft, nondistended, aTTP Extremities: no clubbing, cyanosis, or edema, otherwise grossly normal, warm, and dry Surgical site: midline incision c/d/I with leia Skin: warm, dry Neuro: alert, oriented LABS: Labs reviewed as indicated below: AM labs pending IMAGING: No new imaging post-op IMPRESSION: Principal Problem: Gastric adenocarcinoma (HCC) Active Problems: Cardiac arrest (HCC) Other hyperlipidemia Paroxysmal atrial fibrillation (HCC) Resolved Problems: * No resolved hospital problems. * Makayla King is a 73 y/o male s/p partial gastrectomy for gastric adenocarcinoma. Doing well post-op. AROBF PLAN: -Pain: Tylenol, oxycodone prn, dilaudid prn -Fluids: isolyte @ 100ml/hr, set to -Electrolytes: Replete as needed -Nutrition: advance to [facility]D -GI: Zofran, protonix -Abx: none -Drains/Devices: none -DVT ppx: SCDs, Lovenox -Resp: I/Os, IS -Ambulation: OOB night of surgery -PT/OT: consulted, eval pending -Home meds: ezetimide, metoprolol, rosuvastatin, resume plavix pending CBC - holding: clopidgrel, sildenafil -Dispo: med surg Associated attestation - Hector Jean MD - 06/29/2023 11:26 AM EST I saw and evaluated the patient today. I have reviewed the trainee note and agree. Clears * Care Plan - Jessica Christine RN - 06/28/2023 7:29 PM EST Clinical Goal(s): pt will walk in wolf tid (06/28/23 0900) Possible barriers to meeting goal(s)/advancing plan of care: none Stability of the patient: Moderately stable - low risk of patient condition declining or worsening Summary regarding today's goal(s): Met: Patient ambulated in wolf TID today during shift. Recommendations: Continue plan of care. * Ancillary Progress Note - Lazaro Starr RN - 06/28/2023 9:21 AM EST CARE MANAGEMENT - ADULT INITIAL SCREENING [address] [address] Name: Makayla King Location: [facility] B839/A Date: 06/28/2023 Time: 9:22 AM Discussed patient with the interdisciplinary care team. This [employer] Charcoal Burner performed a chart review and met with patient at bedside to complete admission screen and assessed needs for transition planning. The gericare aide role and services were explained and emotional support was provided. Chief Complaint: No chief complaint on file. Prior Living Arrangements What was your living situation prior to admission/observation?: Independently;With Spouse ([phone]) Living Quarters: House (06/28/23918) Number of steps to enter living quarters:: CAROLINE-1, steps to go upstairs-13 (06/28/23918) Do you have serious difficulty walking or climbing stairs? (5 years old or older): No (06/27/231551) History of falling: No (06/27/231999) Prior Level of Functioning Describe the patient's ability prior to admission/observation to perform ADLs: Performs independently (06/28/23918) Describe the patient's mobility status prior to admission: Patient ambulates independently (06/28/23918) Patient uses assistive device: No (06/28/23918) Caregiver Information Patient Contacts Name Relation Home Work BABAK Torres Adult Child [phone] Rosette King Significant Other [phone] Risk Stratification/Psychosocial/Care Gaps Risk Stratification Psycho Social / Medical Concerns Identified: Applying for disability;New serious diagnosis;MultipleComorbidities (06/28/23918) Accessed [place] [facility] to connect patients to social care resources: No (06/28/23918) OBRA or OPTIONS needed for placement: No (06/28/23918) Readmission Risk Score: 10.56 (06/28/23800) AM-PAC Score With Stairs : 19 (06/27/232010) Prior to Admission Services Services Prior to Admission [place] Dept[employer] of Aging (PDA) Waiver Program: N/A (06/28/23918) WOOD [employer]ER Transportation (Services received within the last 30 days): Family/Friends Personal Vehicle;Patient drives self (06/28/23918) Outpatient [employer]er: No care sub assembly team worker to display Patient/Family Expectations: CM met with pt. CM role/services explained. Pt admitted with gastric adenocarcinoma, s/p Partial gastrectomy 06/27/23. Pt lives with /Rosette-supportive/assists pt at home. No pt home needs assessed at this time. CM will continue to follow pt to assess discharge needs. Encouraged pt to contact CM with any concerns/questions. Pt denies inpatient rehab stays for ETOH,drugs related within the last 2 years. For further screening information, please refer to the Care Management flow document. * Progress Notes - Post-Op Global - Evelyn Orona MD - 06/28/2023 6:08 AM EST PROGRESS NOTE - Surgical Oncology [facility] [address] Name: Makayla King Location: [facility] B839/A Date: 06/28/2023 Time: 6:08 AM DIAGNOSIS: gastric cancer PROCEDURE: Partial gastrectomy DATE OF SURGERY: 06/27/2023 POST OP DAY: 1 SUBJECTIVE: No acute issues overnight. Pain well controlled. Remains NPO. Denies N/V. Passing some flatus. Ambulating in the hallways overnight. Afebrile, OBJECTIVE: Most Recent Vital Signs: BP: 109 mmHg/57 mmHg (06/28/23256) Pulse: 58 (06/28/23256) Temp: 36.28 C (06/28/23256) Resp: 16 (06/28/23256) SpO2: 93 % (06/28/23256) Vital Signs Last 24 Hours: Systolic BP: Most Recent Systolic BP Av.2 mmHg Min: 78 mmHg Max: 114 mmHg Temperature: Most Recent Temperature Av.3 C Min: 36.06 C Max: 36.78 C Pulse: Pulse Av.1 Min: 56 Max: 64 Respirations: Resp Av.5 Min: 11 Max: 24 SpO2: SpO2 Av.5 % Min: 92 % Max: 100 % Intake/Output Summary (Last 24 hours) at 06/28/2023 0608 Last data filed at 06/28/2023 0500 Gross per 24 hour Intake 2169 ml Output 1600 ml Net 569 ml Physical Exam: Constitutional: no acute distress HEENT: normocephalic, atraumatic Eyes: sclera and conjunctiva normal CV: normal rate Chest: normal respiratory effort Abdomen: soft, nondistended, aTTP Extremities: no clubbing, cyanosis, or edema, otherwise grossly normal, warm, and dry Surgical site: midline incision c/d/I with dressing overlying Skin: warm, dry Neuro: alert, oriented LABS: Labs reviewed as indicated below: AM labs pending IMAGING: No new imaging post-op IMPRESSION: Principal Problem: Gastric adenocarcinoma (HCC) Active Problems: Cardiac arrest (HCC) Other hyperlipidemia Paroxysmal atrial fibrillation (HCC) Resolved Problems: * No resolved hospital problems. * Makayla King is a 73 y/o male s/p partial gastrectomy for gastric adenocarcinoma. Doing well post-op. AROBF PLAN: -Pain: Tylenol, oxycodone prn, dilaudid prn -Fluids: isolyte @ 100ml/hr -Electrolytes: Replete as needed -Nutrition: NPO except meds -GI: Zofran, protonix -Abx: none -Drains/Devices: none -DVT ppx: SCDs, Lovenox -Resp: I/Os, IS -Ambulation: OOB night of surgery -PT/OT: consulted, eval pending -Home meds: ezetimide, metoprolol, rosuvastatin - holding: clopidgrel, sildenafil -Dispo: med surg Associated attestation - Hector Jean MD - 06/28/2023 9:46 AM EST I did not see the patient, but I have reviewed the trainee documentation and was readily available on date of service. * Care Plan - Jessica Christine RN - 06/27/2023 7:41 PM EST Clinical Goal(s): pt will report pain above comfort level (06/27/23 1600) Possible barriers to meeting goal(s)/advancing plan of care: none Stability of the patient: Moderately stable - low risk of patient condition declining or worsening Summary regarding today's goal(s): Met: Patient communicated appropriately with nursing staff and reported changes in pain. Recommendations: Continue plan of care. Administer pain medications as needed. * Ancillary Progress Note - Hannah Solis CATALOGUE COMPILER - 06/27/2023 7:22 PM EST PATIENT DRIVEN PROTOCOL - Respiratory Care Services [facility] [address] Name: Makyala King Location: [facility] B839/A Date: 06/27/2023 Time: 7:22 PM Patient Driven Protocol Summary: Initial evaluation performed. This Treatment Plan and medications will be reviewed by the Primary Care Team for any contraindications. Respiratory Care Treatment Plan Pulmonary Volume Expansion Therapy: Incentive Spirometry PRN to prevent or treat alveolar consolidation and atelectasis. . The patient will be re-evaluated: No re-evaluation needed. Indications for treatment met. The Triage Level is: (Assessment Score = 0 - 5) Level 5. Triage Level Definitions: Level 1 Severe Respiratory/Airway Compromise Level 2 Moderate Respiratory/Airway Compromise or high risk for pulmonary complications Level 3 Mild Respiratory/Airway Compromise or moderate risk for pulmonary complications Level 4 Episodic Respiratory/Airway Compromise or low risk for pulmonary complications Level 5 No Respiratory/Airway Compromise Triage 1 Triage 2 Triage 3 Triage 4 Triage 5 greater than 20 16 - 20 11 - 15 6 - 10 0 - 5 Medical Record Assessment Clinical Findings Pulmonary Status: 0 - No History Surgical Status: 1 - General Surgery Chest X-Ray: 1 - Chronic Changes or CHF Assessment Score: 2 Patient Assessment Clinical Findings Respiratory Pattern: 0 - RR 12 - 20; Patient only gets breathless with strenuous exercise. Breath Sounds: 0 - Clear to auscultation Cough Effectiveness: 0 - Strong non-productive Sputum Production: 0 - No sputum production Level of Activity: 0 - Ambulatory O2 needed to keep SpO2 greater than or equal to 92%: 0 - Room Air Assessment Score: 0 Total Assessment Score: 2 Breath Sounds: Inspiratory and expiratory clear bilaterally.. Cough and Sputum: An effective cough produced no sputum... CXR: FINDINGS Median sternotomy wires. Cardiomegaly. Pacemaker. COPD. Trace bilateral pleural effusions. IMPRESSION IMPRESSION No pneumothorax. Trace bilateral pleural effusions. Vital Signs: Resp: 16 (06/27/231538) Pulse: 62 (06/27/231538) Temp: 36.1 C (96.9 F) (06/27/231538) BP: 114/63 (06/27/231538) SpO2: 95 % (06/27/23 1753) PFT: Inspiratory capacity: 3.0L. Primary Service: Surgery Blue. Admitting Diagnosis: Gastric adenocarcinoma (HCC) [C16.9] Pulmonary Diagnosis: None . Prescriptions/Home Medications/Durable Medical Equipment: none. * Progress Notes - Non-Billable - Evelyn Orona MD - 06/27/2023 5:39 PM EST PROGRESS NOTE - Surgical Oncology [facility]-[address] [id number] Name: Makayla King Location: [facility] [id number]/A Date: 06/27/2023 Time: 5:55 PM DIAGNOSIS: gastric cancer PROCEDURE: Partial gastrectomy DATE OF SURGERY: 06/27/2023 POST OP DAY: 0 SUBJECTIVE: Seen and examined post-op. Complainig of incsional pain. Remians NPO. Denies N/V. Has not ambulated or voided. Afebrile. OBJECTIVE: Most Recent Vital Signs: BP: 114 mmHg/63 mmHg (06/27/231538) Pulse: 62 (06/27/231538) Temp: 36.06 C (06/27/231538) Resp: 16 (06/27/231538) SpO2: 95 % (06/27/23 1753) Vital Signs Last 24 Hours: Systolic BP: Most Recent Systolic BP Av.3 mmHg Min: 78 mmHg Max: 114 mmHg Temperature: Most Recent Temperature Av.1 C Min: 36.06 C Max: 36.11 C Pulse: Pulse Av.9 Min: 56 Max: 64 Respirations: Resp Av.5 Min: 11 Max: 24 SpO2: SpO2 Av.5 % Min: 94 % Max: 100 % Intake/Output Summary (Last 24 hours) at 06/27/2023 1756 Last data filed at 06/27/2023 1600 Gross per 24 hour Intake 850 ml Output 50 ml Net 800 ml Physical Exam: Constitutional: no acute distress HEENT: normocephalic, atraumatic Eyes: sclera and conjunctiva normal CV: normal rate Chest: normal respiratory effort Abdomen: soft, nondistended, aTTP Extremities: no clubbing, cyanosis, or edema, otherwise grossly normal, warm, and dry Surgical site: midline incision c/d/I with dressing overlying Skin: warm, dry Neuro: alert, oriented LABS: Labs reviewed as indicated below: AM labs pending IMAGING: No new imaging post-op IMPRESSION: Principal Problem: Gastric adenocarcinoma (HCC) Active Problems: Cardiac arrest (HCC) Other hyperlipidemia Paroxysmal atrial fibrillation (HCC) Resolved Problems: * No resolved hospital problems. * Makayla King is a 73 y/o male s/p partial gastrectomy for gastric adenocarcinoma. Doing well post-op. PLAN: -Pain: Tylenol, oxycodone prn, dilaudid prn -Fluids: isolyte @ 100ml/hr -Electrolytes: Replete as needed -Nutrition: NPO except meds -GI: Zofran, protonix -Abx: none -Drains/Devices: none -DVT ppx: SCDs, Lovenox -Resp: I/Os, IS -Ambulation: OOB night of surgery -PT/OT: consulted, eval pending -Home meds: ezetimide, metoprolol, rosuvastatin - holding: clopidgrel, sildenafil -Dispo: med surg documented in this encounter Plan of Treatment Upcoming Encounters Date Type Department Care Team (Late st Contact Info) Description 07/04/2023 10:00 AM EST Nurse Only Hematology/Oncology Treatment, [place] [address] [place] [address] [facility] [address] 07/15/2023 1:20 PM EST Office Visit General Surgery, [place] [address] [place] [address] Hector Jean MD [address] [place] [address] 07/25/2023 10:15 AM EST Office Visit Hematology/Oncology [facility] [address] [place] [address] Venessa Marie MD [address] [place] [address] 11/28/2023 10:00 AM EDT Cardiac Studies Cardiology, [facility] [address] [place] [address] [facility] [address] [place] [address] 04/16/2024 9:45 AM EST Office Visit Dermatology [facility] [address] [place] [address] Magnus Nettles MD [address] [place] [address] Scheduled Procedures Name Priority Associated Diagnoses Date/Ti me COLONOSCOPY FLEXIBLE PROXIMA L DIAGNOSTIC Recall History of colonic polyps Health Maintenance Due Date Last Done Comments DISCUSS TOBACCO CESSATION (REFER TO SMARTSET #5075) 1950 Pneumococcal Vaccine: 65+ Years (1 - [...] this encounter Medical Devices Implanted Type Area Head Of Operation And Logistics Device Identifier Shelf Expiration Date Model / Serial / Lot Kit Distal Bicep Repair Ar-22 - [id number] Implanted:Qty : 1 on 09/22/2015 by Daniel Melgar DO at OR [facility] Right: Shoulder [employer] 08/03/2020 [id number]-2260 / / [id number] Suture Steel 6 B&S19 M654g - [id number] - [id number] Implanted:Qty : 4 on 06/22/2019 by Corbin Mock MD at OR [facility] N/A: Sternum JNJ : [employer] 02/04/2024 M654G / [id number] / [id number] Port Implant W/8f Poly Cath - [id number] Implanted:Qty : 1 on 12/23/2022 by Mariano Hong DO at OR [facility] Right: Chest CR BARD : PERIPHERAL VASCULAR [id number] 02/04/2024 [id number] / / [id number] documented as of this encounter Procedures Procedure Name Priority Date/Time Associated Diagnosis Comments BASIC METABOLIC PANEL Routine 07/01/2023 7:56 AM EST CBC Routine 07/01/2023 7:56 AM EST BASIC METABOLIC PANEL Routine 06/30/2023 7:16 AM EST CBC Routine 06/30/2023 7:16 AM EST BASIC METABOLIC PANEL Routine 06/29/2023 7:16 AM EST CBC Routine 06/29/2023 7:16 AM EST BASIC METABOLIC PANEL Routine 06/28/2023 7:48 AM EST CBC Routine 06/28/2023 7:48 AM EST SARS-COV-2 (COVID-19), NAAT STAT 06/27/2023 1:20 PM EST SURGICAL PATHOLOGY Routine 06/27/2023 10:23 AM EST Gastric adenocarcinoma (HCC) REMOVE STOMACH, TOTAL 06/27/2023 9:20 AM EST Gastric adenocarcinoma (HCC) GLUCOSE METER, POINT OF CARE GAMA 06/27/2023 8:55 AM EST TYPE AND SCREEN Pre-operative 06/27/2023 8:53 AM EST HC ECG TRACING ONLY STAT 06/27/2023 8:28 AM EST Preop testing documented in this encounter Results * (ABNORMAL) CBC (07/01/2023 7:56 AM EST) WBC 5.04 4.00 - 10.80 K/uL 07/01/2023 8:14 AM EST [facility] RBC 3.70 4.50 - 5.25 M/uL 07/01/2023 8:14 AM EST [facility] HGB 11.7(L) 14.0 - 16.8 g/dL 07/01/2023 8:14 AM EST [facility] HCT 35.8(L) 40.0 - 48.4 % 07/01/2023 8:14 AM EST [facility] MCV 96.8 82.0 - 99.5 fL 07/01/2023 8:14 AM EST [facility] MCH 31.6 27.0 - 34.0 pg 07/01/2023 8:14 AM EST [facility] MCHC 32.7 32.0 - 36.0 g/dL 07/01/2023 8:14 AM EST [facility] RDW 15.8 11.5 - 15.5 % 07/01/2023 8:14 AM EST [facility] PLT 143 140 - 400 K/uL 07/01/2023 8:14 AM EST [facility] MPV 9.2 6.6 - 11.1 fL 07/01/2023 8:14 AM EST [facility] nRBCs 0 <=0 /100 WBCs 07/01/2023 8:14 AM EST [facility] Blood Venous blood specimen / Unknown Venipuncture / Unknown 07/01/2023 7:56 AM EST 07/01/2023 8:02 AM EST Evelyn Orona MD LAB BLOOD OR DERABLES [facility] [address] [place] [address] * BASIC METABOLIC PANEL (07/01/2023 7:56 AM EST) BUN 11 6 - 20 mg/dL 07/01/2023 8:29 AM EST [facility] Creatinine 0.8 0.6 - 1.2 mg/dL 07/01/2023 8:29 AM EST [facility] Estimated Glomerular Filtration Rate >90 >=60 mL/min 07/01/2023 8:29 AM EST [facility] Comment:eGFR is calculated b ased on the CKD-EPI 2020 equation Sodium 138 135 - 146 mmol/L 07/01/2023 8:29 AM EST [facility] Potassium 3.8 3.5 - 5.1 mmol/L 07/01/2023 8:29 AM EST [facility] Chloride 105 98 - 107 mmol/L 07/01/2023 8:29 AM EST [facility] CO2 24 22 - 32 mmol/L 07/01/2023 8:29 AM EST [facility] Anion Gap 9 7 - 15 mmol/L 07/01/2023 8:29 AM EST [facility] Glucose 106 70 - 120 mg/dL 07/01/2023 8:29 AM EST [facility] Calcium 9.0 8.4 - 10.2 mg/dL 07/01/2023 8:29 AM EST [facility] Blood Venous blood specimen / Unknown Venipuncture / Unknown 07/01/2023 7:56 AM EST 07/01/2023 8:02 AM EST Evelyn Orona MD LAB BLOOD OR DERABLES [facility] [address] [place] [address] * (ABNORMAL) CBC (06/30/2023 7:16 AM EST) WBC 6.15 4.00 - 10.80 K/uL 06/30/2023 7:53 AM EST [facility] RBC 3.66 4.50 - 5.25 M/uL 06/30/2023 7:53 AM EST [facility] HGB 11.2(L) 14.0 - 16.8 g/dL 06/30/2023 7:53 AM EST [facility] HCT 35.6(L) 40.0 - 48.4 % 06/30/2023 7:53 AM EST [facility] MCV 97.3 82.0 - 99.5 fL 06/30/2023 7:53 AM EST [facility] MCH 30.6 27.0 - 34.0 pg 06/30/2023 7:53 AM EST [facility] MCHC 31.5 32.0 - 36.0 g/dL 06/30/2023 7:53 AM EST [facility] RDW 16.0 11.5 - 15.5 % 06/30/2023 7:53 AM EST [facility] PLT 139(L) 140 - 400 K/uL 06/30/2023 7:53 AM EST [facility] MPV 9.6 6.6 - 11.1 fL 06/30/2023 7:53 AM EST [facility] nRBCs 0 <=0 /100 WBCs 06/30/2023 7:53 AM EST [facility] Blood Venous blood specimen / Unknown Venipuncture / Unknown 06/30/2023 7:16 AM EST 06/30/2023 7:33 AM EST Evelyn Orona MD LAB BLOOD OR DERABLES LABORATORY [facility] [address] [place] [address] * BASIC METABOLIC PANEL (06/30/2023 7:16 AM EST) BUN 10 6 - 20 mg/dL 06/30/2023 8:13 AM EST [facility] Creatinine 0.8 0.6 - 1.2 mg/dL 06/30/2023 8:13 AM EST [facility] Estimated Glomerular Filtration Rate >90 >=60 mL/min 06/30/2023 8:13 AM EST [facility] Comment:eGFR is calculated b ased on the CKD-EPI 2020 equation Sodium 137 135 - 146 mmol/L 06/30/2023 8:13 AM EST [facility] Potassium 3.6 3.5 - 5.1 mmol/L 06/30/2023 8:13 AM EST [facility] Chloride 104 98 - 107 mmol/L 06/30/2023 8:13 AM EST [facility] CO2 23 22 - 32 mmol/L 06/30/2023 8:13 AM EST [facility] Anion Gap 10 7 - 15 mmol/L 06/30/2023 8:13 AM EST [facility] Glucose 105 70 - 120 mg/dL 06/30/2023 8:13 AM EST [facility] Calcium 8.8 8.4 - 10.2 mg/dL 06/30/2023 8:13 AM EST LABORATORY C Blood Venous blood specimen / Unknown Venipuncture / Unknown 06/30/2023 7:16 AM EST 06/30/2023 7:33 AM EST Evelyn Orona MD LAB BLOOD OR DERABLES LABORATORY [facility] [address] [place], [place] [id number] * (ABNORMAL) CBC (06/29/2023 7:16 AM EST) WBC 6.05 4.00 - 10.80 K/uL 06/29/2023 7:58 AM EST [facility] RBC 3.40 4.50 - 5.25 M/uL 06/29/2023 7:58 AM EST [facility] HGB 10.6(L) 14.0 - 16.8 g/dL 06/29/2023 7:58 AM EST [facility] HCT 33.0(L) 40.0 - 48.4 % 06/29/2023 7:58 AM EST [facility] MCV 97.1 82.0 - 99.5 fL 06/29/2023 7:58 AM EST [facility] MCH 31.2 27.0 - 34.0 pg 06/29/2023 7:58 AM EST [facility] MCHC 32.1 32.0 - 36.0 g/dL 06/29/2023 7:58 AM EST [facility] RDW 16.2 11.5 - 15.5 % 06/29/2023 7:58 AM EST [facility] PLT 131(L) 140 - 400 K/uL 06/29/2023 7:58 AM EST [facility] MPV 9.7 6.6 - 11.1 fL 06/29/2023 7:58 AM EST [facility] nRBCs 0 <=0 /100 WBCs 06/29/2023 7:58 AM EST [facility] Blood Venous blood specimen / Unknown Venipuncture / Unknown 06/29/2023 7:16 AM EST 06/29/2023 7:47 AM EST Evelyn Orona MD LAB BLOOD OR DERABLES Performing Organization Address City/State/[facility] Co de Phone Number [facility] [address] [place] [address] * BASIC METABOLIC PANEL (06/29/2023 7:16 AM EST) BUN 12 6 - 20 mg/dL 06/29/2023 8:15 AM EST [facility] Creatinine 0.8 0.6 - 1.2 mg/dL 06/29/2023 8:15 AM EST [facility] Estimated Glomerular Filtration Rate >90 >=60 mL/min 06/29/2023 8:15 AM EST [facility] Comment:eGFR is calculated b ased on the CKD-EPI 2020 equation Sodium 140 135 - 146 mmol/L 06/29/2023 8:15 AM EST [facility] Potassium 4.0 3.5 - 5.1 mmol/L 06/29/2023 8:15 AM EST [facility] Chloride 107 98 - 107 mmol/L 06/29/2023 8:15 AM EST [facility] CO2 24 22 - 32 mmol/L 06/29/2023 8:15 AM EST [facility] Anion Gap 9 7 - 15 mmol/L 06/29/2023 8:15 AM EST [facility] Glucose 82 70 - 120 mg/dL 06/29/2023 8:15 AM EST [facility] Calcium 8.4 8.4 - 10.2 mg/dL 06/29/2023 8:15 AM EST [facility] Blood Venous blood specimen / Unknown Venipuncture / Unknown 06/29/2023 7:16 AM EST 06/29/2023 7:47 AM EST Evelyn Orona MD LAB BLOOD OR DERABLES [facility] [address] [place] [address] * (ABNORMAL) CBC (06/28/2023 7:48 AM EST) WBC 7.63 4.00 - 10.80 K/uL 06/28/2023 8:16 AM EST [facility] RBC 3.57 4.50 - 5.25 M/uL 06/28/2023 8:16 AM EST [facility] HGB 11.2(L) 14.0 - 16.8 g/dL 06/28/2023 8:16 AM EST [facility] HCT 34.8(L) 40.0 - 48.4 % 06/28/2023 8:16 AM EST [facility] MCV 97.5 82.0 - 99.5 fL 06/28/2023 8:16 AM EST [facility] MCH 31.4 27.0 - 34.0 pg 06/28/2023 8:16 AM EST [facility] MCHC 32.2 32.0 - 36.0 g/dL 06/28/2023 8:16 AM EST [facility] RDW 15.9 11.5 - 15.5 % 06/28/2023 8:16 AM EST [facility] PLT 127(L) 140 - 400 K/uL 06/28/2023 8:16 AM EST [facility] MPV 9.2 6.6 - 11.1 fL 06/28/2023 8:16 AM EST [facility] nRBCs 0 <=0 /100 WBCs 06/28/2023 8:16 AM EST [facility] Blood Venous blood specimen / Unknown Venipuncture / Unknown 06/28/2023 7:48 AM EST 06/28/2023 8:05 AM EST Evelyn Orona MD LAB BLOOD OR DERABLES [facility] [address] [place] [address] * BASIC METABOLIC PANEL (06/28/2023 7:48 AM EST) BUN 13 6 - 20 mg/dL 06/28/2023 8:35 AM EST [facility] Creatinine 0.8 0.6 - 1.2 mg/dL 06/28/2023 8:35 AM EST [facility] Estimated Glomerular Filtration Rate >90 >=60 mL/min 06/28/2023 8:35 AM EST [facility] Comment:eGFR is calculated b ased on the CKD-EPI 2020 equation Sodium 138 135 - 146 mmol/L 06/28/2023 8:35 AM EST [facility] Potassium 4.5 3.5 - 5.1 mmol/L 06/28/2023 8:35 AM EST [facility] Chloride 106 98 - 107 mmol/L 06/28/2023 8:35 AM EST [facility] CO2 23 22 - 32 mmol/L 06/28/2023 8:35 AM EST [facility] Anion Gap 9 7 - 15 mmol/L 06/28/2023 8:35 AM EST [facility] Glucose 97 70 - 120 mg/dL 06/28/2023 8:35 AM EST [facility] Calcium 8.8 8.4 - 10.2 mg/dL 06/28/2023 8:35 AM EST [facility] Blood Venous blood specimen / Unknown Venipuncture / Unknown 06/28/2023 7:48 AM EST 06/28/2023 8:05 AM EST Evelyn Orona MD LAB BLOOD OR DERABLES LABORATORY [facility] [address] [place] [address] * SARS-COV-2 (COVID-19), NAAT (06/27/2023 1:20 PM EST) SARS-CoV-2 (COVID-19) Result Negative Negative 06/27/2023 2:23 PM EST [facility]ORY [facility] Comment: 2019 Novel Coronavirus not detected. This express test was developed and its performance characteristics determined by [employer]. It has not been cleared or approved [...] (RT-PCR) test, or a Centers for Disease Control- acceptable equivalent. The test is performed in a high complexity Clinical Laboratory Improvement Amendments-(CLIA) certified laboratory. The test is acceptable for SARS-CoV-2 diagnosis, surveillance, and travel within the [place] and to most countries. Please check with local testing authorities about requirements before travel. The validation of bronchial specimens, tracheal aspirates, and sputum for this assay was developed and performance characteristics determined by [employer]. The validation of alternate specimen types has not been cleared or approved by the U.S. Food and Drug Administration (FDA). It has been determined that such clearance is not necessary. Upper Respiratory Mid-turbinate nasal swab / Unknown Non-blood Collection / Unknown 06/27/2023 1:20 PM EST 06/27/2023 1:32 PM EST Josie Maranda Unrue DO LAB MICRO - GENERAL ORDERABLES LABORAT[facility] [address] [place] [address] * SURGICAL PATHOLOGY (06/27/2023 10:23 AM EST) Final Diagnosis A. Stomach, distal gastrectomy: Residual poorly-differentia beth adenocarcinoma,1.2 cm in greatest dimension, invading into submucosa, S/P neoadjuvant chemotherapy. Two of total thirteen lymph nodes positive for metastatic carcinoma (2/13). All resection margins, negative for carcinoma. See Diagnostic comment and synoptic data for more information. B. Abdomen, hepatic arterial lymph nodes, biopsy: One lymph node, negative for metastatic carcinoma (0/1). 07/01/2023 2:03 PM EST LAB[facility] Final Diagnosis Comment A. The adenocarcinoma is poorly-differentia beth composed of mostly poorly cohesive tumor cells with occasional signet ring cell features and focal a few small glands. Immunostains for AE1/AE3 and Cam5.2 support the above diagnosis. B. Immunostains for AE1/AE3 and Cam5.2 are negative, supporting the above diagnosis. 07/01/2023 2:03 PM EST [facility] Synoptic Report STOMACH STOMACH - A, B 8th Edition - Protocol posted: 08/25/2022 SPECIMEN Procedure: Partial gastrectomy, distal TUMOR Tumor Site: Body : Greater curvature Histologic Type: Adenocarcinoma Adenocarcinoma Classification (based on WHO): Poorly cohesive carcinoma (includes signet-ring cell carcinoma and other variants) Histologic Grade: G3, poorly differentiated, undifferentiated Tumor Size: Greatest Dimension (Centimeters): 1.2 cm Tumor Extent: Invades submucosa Treatment Effect: Absent, with extensive residual cancer and no evident tumor regression (poor or no response, score 3) Lymphatic and / or Vascular Invasion: Present Perineural Invasion: Present MARGINS Margin Status for Invasive Carcinoma: All margins negative for invasive carcinoma Closest Margin(s) to Invasive Carcinoma: Distal Distance from Invasive Carcinoma to Closest Margin: 3.8 cm Margin Status for Dysplasia: All margins negative for dysplasia REGIONAL LYMPH NODES Regional Lymph Node Status: : Tumor present in regional lymph node(s) Number of Lymph Nodes with Tumor: 2 Number of Lymph Nodes Examined: 14 pTNM CLASSIFICATION (AJCC 8th Edition) Reporting of pT, pN, and (when applicable) pM categories is based on information available to the pathologist at the time the report is issued. As per the AJCC (Chapter 1, 8th Ed.) it is the managing physician s responsibility to establish the final pathologic stage based upon all pertinent information, including but potentially not limited to this pathology report. Modified Classification: y pT Category: pT1b pN Category: pN1 07/01/2023 2:03 PM EST LAB[facility] Order Comments distal gastrectomy 2:03 PM EST [facility] Gross Description A. Abdomen. Received fresh with a container labeled with "Makayla Long", "[id number]", "1950" and " distal gastrectomy". Received is an unopened portion stomach that is stapled at both margins and measures 12.9 cm in length and up to 7.3 cm in diameter. The serosal surface of the specimen is mckinney-pink, smooth and dusky with a moderate amount of attached mckinney-yellow lobulated adipose tissue. The specimen is opened to reveal a mckinney-pink to white roughened, ulcerated and focally hemorrhagic mass along the greater curvature that measures 2.5 x 2.0 cm and is 3.8 cm to the distal margin and 5.3 cm to the proximal margin. The serosal surface overlying the mass is inked blue and the mass is serially sectioned to reveal mckinney-pink to white, smooth glistening, and indurated cut surfaces. An area of mckinney-white and thickened possible residual tumor is identified that measures 1.2 x 1.1 x 0.5 cm with no gross invasion into the gastric wall. Also identified is a mckinney-pink mucosal polyps that measure 0.4 x 0 3 cm and is 0.5 cm to the proximal margin and 3.9 cm to the ulcerated mass. The remaining mucosal surfaces throughout the entire specimen are mckinney-pink, smooth glistening. No additional lesions or masses are grossly identified.Eleven possible lymph nodes are grossly identified that range from 0.2 up to 0.7 cm in greatest dimension. The largest possible lymph nodes are bisected to reveal mckinney-pink smooth and uniform surfaces. Gross photographs are taken. Pantographer sections are submitted in A1- A22. Summary of sections: A1-A3 proximal margin, A4-A5 distal margin, A6-A11 entire mass A12 entire intact mucosal polyps, A13 field support representative sections of uninvolved mucosa, A14-A15 one possible lymph node bisected in each cassette, A16 five intact possible lymph nodes, A17 four intact possible lymph nodes, A18-A22 additional field support representative sections of adipose tissue Gross By: RICHY Ledezma. Abdomen. Received fresh with a container labeled with "Makayla King", "[id number]", "1950" and " hepatic arterial lymph nodes". Received is a portion of mckinney-yellow lobulated adipose tissue with possible lymphoid tissue that measures 2.7 x 1.4 x 1.0 cm. One possible lymph node is identified that measures 1.5 x 1.2 x 0.5 cm. The possible lymph node is serially sectioned to reveal mckinney-white to pink, smooth and uniform cut surfaces. The possible lymph node is submitted entirely in B1-B3. Gross By: RICHY 07/01/2023 2:03 PM EST LAB[facility] Sign Out Location Pathologist [place] [address]. 07/01/2023 2:03 PM EST [facility] Photographic images and diagrams represent [employer] findings in this case; they are not intended to replace a complete review of the final diagnostic report. The following statement applies to Flow Cytometry, Histology, In situ Hybridization Assays and Molecular Genetics. This test was developed and performed at [facility] and its performance characteristics determined by [facility]. It has not been cleared or approved by the U.S. Food and Drug Administration. The FDA has determined that such clearance or approval is not necessary. This test is used for clinical purposes. It should not be regarded as investigational or for research. Special stains, including histochemical stains, and studies using immunologic and EL methodology (where applicable) are performed with appropriate positive and negative control reactions. 07/01/2023 2:03 PM EST [facility] Tissue Entire abdomen / Unknown 06/27/2023 10:23 AM EST 06/27/2023 1:28 PM EST Comment:distal gastrectomy Specimen from wound (specimen) Entire abdomen / Unknown 06/27/2023 10:43 AM EST 06/27/2023 1:28 PM EST Comment:hepatic arterial lym ph nodes Hcetor Jean MD LAB PATHOLOGY ORD ERABLES LABORATORY [facility] [address] [place] [address] * GLUCOSE METER, POINT OF CARE (06/27/2023 8:55 AM EST) Glucose Meter 86 70 - 120 mg/dL 06/27/2023 8:59 AM EST [facility] Blood Whole blood specimen / Unknown 06/27/2023 8:55 AM EST 06/27/2023 8:59 AM EST Hector Jean MD LAB POINT OF CARE TEST DOCKED DEVICE UNSOLICITED RESULTS Performing Organization Address City/[facility] Co de Phone Number [facility] [address] [place] [address] * TYPE AND SCREEN (06/27/2023 8:53 AM EST) ABO A 06/27/2023 9:56 AM EST [facility] BLOOD BANK Rh Negative 06/27/2023 9:56 AM EST [facility] BLOOD BANK Red Blood Cell Antibody Screen Negative 06/27/2023 9:56 AM EST [facility] BLOOD BANK Specimen Expiration Date 06/30/2023 23:59 06/27/2023 9:56 AM EST [facility] BLOOD BANK Blood Venous blood specimen / Unknown Venipuncture / Unknown 06/27/2023 8:53 AM EST 06/27/2023 9:02 AM EST Bay Joshi MD LAB BLOOD BANK TEST ORDERABLES [facility] [address] [place] [address] * EKG (06/27/2023 8:28 AM EST) 06/27/2023 8:28 AM EST Narrative Procedure Note Kenneth Meade DO - 06/27/2023 8:28 AM EST REASON FOR STUDY: PRE OP CONCLUSIONS: Normal sinus rhythm Normal ECG When compared with ECG of 30-JUL-2019 11:38, Nonspecific T wave abnormality no longer evident in Lateral leads Ventricular Rate: 63 Atrial Rate: 63 FL Interval: 152 QRS Duration: 72 QT/QTc: 412/421 ms P-R-T [place]: 14 : 46 : 39 degrees Hector Jean MD EKG [facility] documented in this encounter Visit Diagnoses Diagnosis Gastric adenocarcinoma (HCC)- Primary Malignant neoplasm of stomach, unspecified site Gastric adenocarcinoma (HCC) Malignant neoplasm of stomach, unspecified site Preop testing Preoperative examination, unspecified Other hyperlipidemia Paroxysmal atrial fibrillation (HCC) Atrial fibrillation Cardiac arrest (HCC) Cardiac arrest documented in this encounter Administered Medications Inactive Administered Medications - up to 3 most recent administrations Medication Order MAR Action Action Date Dose Rate Site Acetaminophen (Tylenol) tab 975 mg 975 mg, Oral, PREOP, First dose on Tue06/27/23 at 0900, Last dose on Tue06/27/23 at 0900, For 1 dose, Maximum 4 g acetaminophen/day. Avoid in patients with severe hepatic impairment or severe active liver disease. Administer 60 minutes prior to OR., Pre-Op Given 06/27/2023 8:45 AM EST 975 mg Acetaminophen (Tylenol) tab 975 mg 975 mg, Oral, Q6H, First dose on Tue06/27/23 at 1800, Last dose on Tue07/02/23 at 1200, For 5 days, Maximum 4 g acetaminophen/day. Avoid in patients with severe hepatic impairment or severe active liver disease. Use for 5 days., Post-op Given 07/01/2023 5:38 AM EST 975 mg Given 07/01/2023 12:00 AM EST 975 mg Given 06/30/2023 5:36 PM EST 975 mg Carisoprodol (Soma) tab 175 mg 175 mg, Oral, Q6H PRN Muscle spasms, Starting on Tue06/29/23 at 0625, Until Pamela 06/30/23 at 0811 Given 06/29/2023 8:58 AM EST 175 mg Carisoprodol (Soma) tab 350 mg 350 mg, Oral, Q6H PRN Muscle spasms, Starting on Tue06/30/23 at 0811, Until Tue07/01/23 at 1545 clopidogrel (pLAVix) tab 75 mg 75 mg, Oral, Daily(AM), First dose on Tue06/29/23 at 1130, Until Discontinued Given 07/01/2023 8:47 AM EST 75 mg Given 06/30/2023 7:51 AM EST 75 mg Given 06/29/2023 11:50 AM EST 75 mg Docusate Sodium (Colace) cap 100 mg 100 mg, Oral, BID (.AM/PM), First dose on Tue06/30/23 at 0900, Until Discontinued, For oral administration ONLY, if route of administration is other than oral and alternative product must be ordered. Given 07/01/2023 8:47 AM EST 100 mg Given 06/30/2023 9:48 PM EST 100 mg Given 06/30/2023 7:50 AM EST 100 mg Enoxaparin (Lovenox) inj 40 mg 40 mg, Subcutaneous, Daily(AM), First dose on Tue06/28/23 at 0900, Until Discontinued, If patient is on warfarin, inform provider if daily INR value is 2 or greater!, Post-op Given 07/01/2023 8:45 AM EST 40 mg Abdomen Left Lower Given 06/30/2023 7:53 AM EST 40 mg Ab domen Right Lower Given 06/29/2023 8:57 AM EST 40 mg Ab domen Left Lower Ezetimibe (Zetia) tab 10 mg 10 mg, Oral, Daily(AM), First dose on Tue06/28/23 at 0900, Until Discontinued Given 07/01/2023 8:47 AM EST 10 mg Given 06/29/2023 8:57 AM EST 10 mg hEParin inj 5,000 Units 5,000 Units, Subcutaneous, PREOP, First dose on Tue06/27/23 at 0900, Last dose on Tue06/27/23 at 0900, For 1 dose, Pre-Op Given 06/27/2023 8:45 AM EST 5,000 Units Abdomen Left Upper HYDROmorphone (Dilaudid) inj 0.2 mg 0.2 mg, IV Push, Q15 MIN PRN Pain, Severe, Starting on Tue06/27/23 at 1032, Until Tue06/27/23 at 1539, Administer only postop in PACU. Hold for respiratory rate less than 12. Administer up to a total of 1 mg., PACU Given 06/27/2023 1:23 PM EST 0.2 mg Given 06/27/2023 1:02 PM EST 0.2 mg Given 06/27/2023 12:32 PM EST 0.2 mg HYDROmorphone (Dilaudid) inj 0.5 mg 0.5 mg, IV Push, Q4H PRN Pain, Breakthrough, Starting on Tue06/27/23 at 1728, Until Tue07/01/23 at 1545 Given 06/30/2023 2:02 AM EST 0.5 mg Given 06/29/2023 5:44 PM EST 0.5 mg Given 06/29/2023 12:04 AM EST 0.5 mg isolyte-S pH 7.4 infusion Intravenous, at 100 mL/hr, Plasma-LYTE 148, isolyte-S, and isolyte-S pH 7.4 are considered equivalent - including for MAR barcode scanning., CONTINUOUS, Starting on Tue06/27/23 at 1245, Until Tue06/29/23 at 0625, Post-op New Bag 06/28/2023 10:07 PM EST 1 00 mL/hr New Bag 06/28/2023 12:09 PM EST 100 mL/hr New Bag 06/28/2023 1:44 AM EST 100 mL/hr isolyte-S pH 7.4 infusion Intravenous, at 100 mL/hr, Plasma-LYTE 148, isolyte-S, and isolyte-S pH 7.4 are considered equivalent - including for MAR barcode scanning., CONTINUOUS, Starting on Tue06/29/23 at 0700, Until Tue06/29/23 at 1259, Post-op New Bag 06/29/2023 7:00 AM EST 100 mL/hr melatonin tab 3 mg 3 mg, Oral, HS PRN Sleep, Starting on Tue06/27/23 at 1209, Until Tue07/01/23 at 1545, Post-op metoprolol succinate XL (toPROL XL) tab 50 mg 50 mg, Oral, Daily(AM), First dose on Tue06/28/23 at 0900, Until Discontinued, Hold for HR less than 60 or SBP below 100 and notify service if dose is held This med should NOT be Crushed or Chewed. Given 07/01/2023 8:47 AM EST 50 mg Given 06/30/2023 7:50 AM EST 50 mg Given 06/28/2023 9:22 AM EST 50 mg milk of magnesia (Mom) oral susp 30 mL 30 mL, Oral, ONCE, On Pamela 06/30/23 at 0845, For 1 dose Given 06/30/2023 9:29 AM EST 30 mL ondansetron (Zofran) inj 4 mg 4 mg, IV Push, Q6H PRN Other, May use for nausea or vomiting if patient unable to take oral ondansetron, Starting on Tue06/27/23 at 1209, Until Tue07/01/23 at 1545, Post-op ondansetron ODT (Zofran) tab 4 mg 4 mg, On Tongue, Q6H PRN Nausea, Vomiting, Starting on Tue06/27/23 at 1209, Until Tue07/01/23 at 1545, Post-op Given 06/28/2023 10:56 AM EST 4 mg oxyCODONE (Oxy IR) tab 10 mg 10 mg, Oral, Q4H PRN Pain, Severe, Starting on Tue06/27/23 at 1210, Until Pamela 06/30/23 at 0855, Hold for somnolence or respiratory rate less than 10, Post-op Given 06/29/2023 5:25 AM EST 10 mg Given 06/28/2023 11:16 PM EST 10 mg Given 06/28/2023 6:15 PM EST 10 mg oxyCODONE (Oxy IR) tab 10 mg 10 mg, Oral, Q6H PRN Pain, Severe, Starting on Tue06/30/23 at 0900, Until Tue07/01/23 at 1545, Hold for somnolence or respiratory rate less than 10, Post-op Given 06/30/2023 3:55 PM EST 10 mg oxyCODONE (Oxy IR) tab 5 mg 5 mg, Oral, Q4H PRN Pain, Moderate, Starting on Tue06/27/23 at 1209, Until Pamela 06/30/23 at 0855, Hold for somnolence or respiratory rate less than 10, Post-op Given 06/30/2023 8:01 AM EST 5 mg Given 06/29/2023 4:28 PM EST 5 mg oxyCODONE (Oxy IR) tab 5 mg 5 mg, Oral, Q6H PRN Pain, Moderate, Starting on Tue06/30/23 at 0900, Until Tue07/01/23 at 1545, Hold for somnolence or respiratory rate less than 10, Post-op oxygen GAS Inhalation, OXYGEN, First dose on Tue06/27/23 at 1115, Until Discontinued, Device/Managed by: Low Flow Device, Goal SPO2 (%): 91-95, Starting Device: Nasal Cannula, Initial Flow Rate (LPM): 2, Lowest Support: Nasal Cannula: Flow 0-6 LPM. Titrate up/down by 1 LPM., Higher Support: Non-Rebreather (NRB) Mask: Minimum of 10 LPM. Titrate to maintain bag inflation., Titration Interval: Q2 minutes and as needed., Notify Provider: Other, Notify Provider [other]: If SpO2 less than 88% or NOT maintaining SpO2 greater than 92% notify physician immediately., Until awake OR SpO2 greater than 95% for 15 minutes, then Titrate O2 flow rate down to maintain SpO2 greater than 92% If SpO2 is less than 88% place patient on NRB mask at 10 LPM Oxygen On 06/27/2023 3:50 PM EST 3 L/min(Oxygen) pantoprazole (Protonix) tab 40 mg 40 mg, Oral, Daily(AM), First dose on Tue06/28/23 at 0900, Until Discontinued, This med should NOT be Crushed or Chewed Given 07/01/2023 8:47 AM EST 40 mg Given 06/30/2023 7:51 AM EST 40 mg Given 06/29/2023 8:57 AM EST 40 mg rosuvastatin (Crestor) tab 40 mg 40 mg, Oral, Daily(AM), First dose on Tue06/28/23 at 0900, Until Discontinued Given 07/01/2023 8:47 AM EST 40 mg Given 06/30/2023 7:51 AM EST 40 mg Given 06/29/2023 8:55 AM EST 40 mg senna (Senokot) 2 Tablet 2 Tablet, Oral, BID (.AM/PM), First dose on Tue06/30/23 at 0900, Until Discontinued Given 07/01/2023 8:46 A M EST 2 Tablets Given 06/30/2023 9:48 PM EST 2 Tablets Given 06/30/2023 7:50 AM EST 2 Tablets traMADol (Ultram) tab 50 mg 50 mg, Oral, Q6H, First dose on Tue06/30/23 at 1200, Last dose on Tue07/02/23 at 0600, For 2 days Given 07/01/2023 11:33 AM EST 50 mg Given 07/01/2023 5:38 AM EST 50 mg Given 07/01/2023 12:00 AM EST 50 mg documented in this encounter Active and Recently Administered Medications Times are shown in EST. Scheduled Medication Order 06/29/2023 06/30/2023 07/01/2023 Acetaminophen (Tylenol) tab 975 mg 975 mg, Oral, Q6H, First dose on Tue06/27/23 at 1800, Last dose on Tue07/02/23 at 1200, For 5 days, Maximum 4 g acetaminophen/day. Avoid in patients with severe hepatic impairment or severe active liver disease. Use for 5 days., Post-op 0526 (Given - Provider: Jessica Christine RN)1150 (Given - Provider: SN Christine)1738 (Given - Provider: Diana Greenberg RN) 0152 (Given - Provider: Roxana Miller RN)0606 (Given - Provider: Roxana Miller RN)1232 (Given - Provider: Diana Greenberg RN)1736 (Given - Provider: Diana Greenberg RN) 0000 (Given - Provider: Magnus Francois LPN)0538 (Given - Provider: Magnus Francois LPN) clopidogrel (pLAVix) tab 75 mg 75 mg, Oral, Daily(AM), First dose on Tue06/29/23 at 1130, Until Discontinued 1150 (Given - Provider: SN Christine) 0751 (Given - Provider: Diana Greenberg RN) 0847 (Given - Provider: SN Jose D) Docusate Sodium (Colace) cap 100 mg 100 mg, Oral, BID (.AM/PM), First dose on Tue06/30/23 at 0900, Until Discontinued, For oral administration ONLY, if route of administration is other than oral and alternative product must be ordered. 0750 (Given - Provider: Diana Greenberg RN)214 (Given - Provider: Magnus Francois LPN) 0847 (Given - Provider: SN Jose D) Enoxaparin (Lovenox) inj 40 mg 40 mg, Subcutaneous, Daily(AM), First dose on Tue06/28/23 at 0900, Until Discontinued, If patient is on warfarin, inform provider if daily INR value is 2 or greater!, Post-op 0857 (Given - Provider: SN Christine) 0753 (Given - Provider: Diana Greenberg RN) 0845 (Given - Provider: SN Jose D) Ezetimibe (Zetia) tab 10 mg 10 mg, Oral, Daily(AM), First dose on Tue06/28/23 at 0900, Until Discontinued 0857 (Given - Provider: SN Christine) 0751 (Not Given - Provider: Diana Greenberg RN - Reason: Refused-Notify Provider - Comment: refused causes nausea per pt) 0847 (Given - Provider: SN Jose D) metoprolol succinate XL (toPROL XL) tab 50 mg 50 mg, Oral, Daily(AM), First dose on Tue06/28/23 at 0900, Until Discontinued, Hold for HR less than 60 or SBP below 100 and notify service if dose is held This med should NOT be Crushed or Chewed. 0856 (Dose Held (per order) - Provider: Nandini Ortega RN - Comment: HR 56, primary nurse made aware. Dr. Joshi made aware) 0750 (Given - Provider: Diana Greenberg RN) 0847 (Given - Provider: SN Jose D) milk of magnesia (Mom) oral susp 30 mL (COMPLETED) 30 mL, Oral, ONCE, On Tue06/30/23 at 0845, For 1 dose 0929 (Given - Provider: Diana Greenberg RN) pantoprazole (Protonix) tab 40 mg 40 mg, Oral, Daily(AM), First dose on Tue06/28/23 at 0900, Until Discontinued, This med should NOT be Crushed or Chewed 0857 (Given - Provider: SN Christine) 0751 (Given - Provider: Diana Greenberg RN) 0847 (Given - Provider: SN Jose D) rosuvastatin (Crestor) tab 40 mg 40 mg, Oral, Daily(AM), First dose on Tue06/28/23 at 0900, Until Discontinued 0855 (Given - Provider: SN Christine) 0751 (Given - Provider: Diana Greenberg RN) 0847 (Given - Provider: SN Jose D) senna (Senokot) 2 Tablet 2 Tablet, Oral, BID (.AM/PM), First dose on Tue06/30/23 at 0900, Until Discontinued 0750 (Given - Provider: Diana Greenberg RN)2148 (Given - Provider: Magnus Francois LPN) 0846 (Given - Provider: SN Jose D) traMADol (Ultram) tab 50 mg 50 mg, Oral, Q6H, First dose on Tue06/30/23 at 1200, Last dose on Tue07/02/23 at 0600, For 2 days 1232 (Given - Provider: Diana Greenberg RN)1736 (Given - Provider: Diana Greenberg RN) 0000 (Given - Provider: Magnus Francois LPN)0538 (Given - Provider: Magnus Francois LPN)1133 (Given - Provider: SN Jose D) Continuous Medication Order 06/29/2023 06/30/2023 07/01/2023 isolyte-S pH 7.4 infusion () Intravenous, at 100 mL/hr, Plasma-LYTE 148, isolyte-S, and isolyte-S pH 7.4 are considered equivalent - including for MAR barcode scanning., CONTINUOUS, Starting on Tue06/29/23 at 0700, Until Tue06/29/23 at 1259, Post-op 0700 (New Bag - Provider: Jessica Christine, CARLYN)1300 (Stopped - Provider: Nandini Ortega RN) PRN Medication Order 06/29/2023 06/30/2023 07/01/2023 Carisoprodol (Soma) tab 175 mg (CANCELED) 175 mg, Oral, Q6H PRN Muscle spasms, Starting on Tue06/29/23 at 0625, Until Tue06/30/23 at 0811 0858 (Given - Provider: SN Christine) Carisoprodol (Soma) tab 350 mg 350 mg, Oral, Q6H PRN Muscle spasms, Starting on Tue06/30/23 at 0811, Until Tue07/01/23 at 1545 HYDROmorphone (Dilaudid) inj 0.5 mg 0.5 mg, IV Push, Q4H PRN Pain, Breakthrough, Starting on Tue06/27/23 at 1728, Until Tue07/01/23 at 1545 0004 (Given - Provider: Jessica Christine, CARLYN)1744 (Given - Provider: Diana Greenberg RN) 0202 (Given - Provider: Roxana Miller, CARLYN) melatonin tab 3 mg 3 mg, Oral, HS PRN Sleep, Starting on Tue06/27/23 at 1209, Until Tue07/01/23 at 1545, Post-op ondansetron (Zofran) inj 4 mg(Linked Group 1) 4 mg, IV Push, Q6H PRN Other, May use for nausea or vomiting if patient unable to take oral ondansetron, Starting on Tue06/27/23 at 1209, Until Tue07/01/23 at 1545, Post-op ondansetron ODT (Zofran) tab 4 mg(Linked Group 1) 4 mg, On Tongue, Q6H PRN Nausea, Vomiting, Starting on Tue06/27/23 at 1209, Until Tue07/01/23 at 1545, Post-op oxyCODONE (Oxy IR) tab 10 mg (CANCELED) 10 mg, Oral, Q4H PRN Pain, Severe, Starting on Tue06/27/23 at 1210, Until Tue06/30/23 at 0855, Hold for somnolence or respiratory rate less than 10, Post-op 0525 (Given - Provider: Jessica Christine, CARLYN) oxyCODONE (Oxy IR) tab 10 mg 10 mg, Oral, Q6H PRN Pain, Severe, Starting on Pamela 06/30/23 at 0900, Until Tue07/01/23 at 1545, Hold for somnolence or respiratory rate less than 10, Post-op 1555 (Given - Provider: Diana Greenberg, CARLYN) oxyCODONE (Oxy IR) tab 5 mg (CANCELED) 5 mg, Oral, Q4H PRN Pain, Moderate, Starting on 06/27/23 at 1209, Until Pamela 06/30/23 at 0855, Hold for somnolence or respiratory rate less than 10, Post-op 1628 (Given - Provider: Diana Greenberg, RN) 0801 (Given - Provider: Diana Greenberg RN) oxyCODONE (Oxy IR) tab 5 mg 5 mg, Oral, Q6H PRN Pain, Moderate, Starting on Pamela 06/30/23 at 0900, Until Tue07/01/23 at 1545, Hold for somnolence or respiratory rate less than 10, Post-op Linked Groups Order Group 1: ondansetron ODT (Zofran) tab 4 mgJump to med 4 mg, On Tongue, Q6H PRN Nausea, Vomiting, Starting on 06/27/23 at 1209, Until Tue07/01/23 at 1545, Post-op Or ondansetron (Zofran) inj 4 mgJump to med 4 mg, IV Push, Q6H PRN Other, May use for nausea or vomiting if patient unable to take oral ondansetron, Starting on Tue06/27/23 at 1209, Until Tue07/01/23 at 1545, Post-op documented in this encounter Advance Directives Latest [...] and were consensually agreed upon. Care Teams High School Director Relationship Specialty Start Date End Date Sebastian Do DO [address] [facility] [place] [address] PCP - General Family Medicine 05/24/23 documented as of this encounter
--- OUTSIDE RECORDS SUMMARY | 2023-07-05 03:09 | External Medical Summary | Summary of Care ---
Author Name Unknown Organization [facility] Address [address] [place] [address] Phone [phone] Care Team Providers Care Maintenance And Utilities Supervisor Name Role Phone Sebastian Do DO Primary Care Provider [phone] Reason for Visit * Reason Onset Date Comments Surgery 06/15/2023 Encounter Details Date Type Department Care Team (Late st Contact Info) Description 06/15/2023 Telephone General Surgery, [facility] [address], [place] [id number] Hector Jean MD [address], [place] [id number] Surgery Allergies No known active allergiesdocumented as of this encounter (statuses as of 06/29/2023) Medications Medication Sig Dispensed Refills Start Date End Date Status Sildenafil Citrate 20 MG Oral Tablet (Revatio) Take 2 Tablets by mouth daily as needed for Erectile Dysfunction. 0 Suspended Iron-Vitamin C 65-125 MG Oral Tablet Take 1 Tablet by mouth at bedtime. 0 Suspended Rosuvastatin Calcium 40 MG Oral Tablet (Crestor)Indication s:Dyslipidemia, goal LDL below 70 Take 1 Tablet by mouth in the morning. 90 Tablet 4 09/06/2022 Suspended Additional Information Clopidogrel Bisulfate 75 MG Oral Tablet (pLAVix)Indications :NSTEMI (non-ST elevation myocardial infarction) (HCC) Take 1 Tablet by mouth in the morning. 90 Tablet 4 09/06/2022 Suspended Additional Information Metoprolol Succinate ER 50 MG Oral Tablet Extended Release 24 Hour (Toprol XL)Indications:Paro xysmal atrial fibrillation (HCC),ASCVD (arteriosclerotic cardiovascular disease) Take 1 Tablet by mouth in the morning. 90 Tablet 4 09/06/2022 Suspended Additional Information Ezetimibe 10 MG Oral Tablet (Zetia) Take 1 Tablet by mouth in the morning. 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 30 Tablet 0 12/13/2022 Suspended Additional Information Clotrimazole 10 MG Mouth/Throat [place] (Mycelex [place])Indications: Thrush Take 1 Lozenge by mouth 5 times a day. 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 90 Tablet 0 06/08/2023 Suspended Additional Information documented as of this encounter (statuses as of 06/29/2023) Active Problems Problem Noted Date Diagnosed Date [...] as of this encounter (statuses as of 06/29/2023) Resolved Problems Problem Noted Date Diagnosed Date Resolved Date Impacted cerumen 01/10/2006 06/19/2019 Overview: documented as of this encounter (statuses as of 06/29/2023) Immunizations Name Administration Dates Next Due Season [...] Functional Status Response Date of Assess ment Do you have serious difficul ty walking or climbing stairs? (5 years old or older) No 06/25/2019 documented as of this encounter Miscellaneous Notes * Telephone Encounter - Gita Mueller RN - 06/16/2023 12:[address] Jean would like to have him off the plavix for 8 days but we can put him on ASA 81mg. Call to patient. Updated to stop Plavix as initially instructed and to begin taking aspirin 81 mg daily. Verbalized understanding. * Telephone Encounter - Mariano Brennan PA-C - 06/16/2023 10:08 AM EST See 03/23/2023 Office Visit by the undersigned. From a cardiac standpoint, it would be best to continue some form of anti- platelet therapy perioperatively. If unable to continue clopidogrel, can the patient be switched to Aspirin 81 mg/day perioperatively? If the risk of bleeding is thought to be very high (greater than the benefit of preventing a myocardial infarction) and antiplatelet therapy must be held, recommend holding clopidogrel 5-7 days (or aspirin 3-5 days). Resume antiplatelet therapy as soon as determined to be safe. Continue metoprolol perioperatively. If unable to take PO, utilize IV metoprolol Standard pacemaker defibrillator precautions. I hope this helps. Thanks, Mariano Brennan PA-C Department of Cardiology * Telephone Encounter - Mariano Brennan PA-C - 06/16/2023 10:08 AM EST ----- Message from Gita Mueller RN sent at 06/15/2023 1:52 PM EST ----- Regarding: Surgery planned for 06/27/23 Marcos Quintana, Patient is being scheduled for gastrectomy surgery with Dr Jean on 06/27/23. Dr Jean asked patient to stop his Clopidogrel 8 days prior to surgery. Patient was worried about this time so I said I would message you to make sure you were aware. Thanks, Lindsey * Telephone Encounter - Gita Mueller RN - 06/15/2023 1:50 PM EST Call to patient. Confirmed surgery date of 06/27/23. Instructions reviewed yesterday at clinic appointment. No questions. Patient has my contact information. documented in this encounter Plan of Treatment Upcoming Encounters Date Type Department Care Team (Late st Contact Info) Description 07/25/2023 10:15 AM EST Office Visit Hematology/Oncology [facility] [address] [place] [address] Venessa Marie MD [address] [place] [address] 11/28/2023 10:00 AM EDT Cardiac Studies Cardiology, [facility] [address] [place] [address] [facility] [address] [place] [address] 04/16/2024 9:45 AM EST Office Visit Dermatology [facility] [address] [place] [address] Magnus Nettles MD [address] [place] [address] Scheduled Orders Name Type Priority Associated Diagnoses Orde r Schedule TYPE AND SCREEN Lab Routine Preoperative testing Expected: 06/27/2023 (Approximate), Expires: 07/16/2024 Scheduled Procedures Name Priority Associated Diagnoses Date/Ti me COLONOSCOPY FLEXIBLE PROXIMA L DIAGNOSTIC Recall History of colonic polyps Health Maintenance Due Date Last Done Comments DISCUSS TOBACCO CESSATION (REFER TO SMARTSET #[id number]) 1950 Pneumococcal Vaccine: 65+ Years (1 - [...] this encounter Medical Devices Implanted Type Area Machine Cementer And Folder Device Identifier Shelf Expiration Date Model / Serial / Lot Kit Distal Bicep Repair Ar-22 - [id number] Implanted:Qty : 1 on 09/22/2015 by Daniel Melgar DO at OR [facility] Right: Shoulder [employer] 08/03/2020 AR-2260 / / [id number] Suture Steel 6 B&S19 M654g - Sm654 - [id number] Implanted:Qty : 4 on 06/22/2019 by Corbin Mock MD [place] [facility] [place]: Sternum JNJ : [employer] 02/04/2024 M654G / [id number] / [id number] Port Implant W/8f Poly Cath - [id number] Implanted:Qty : 1 on 12/23/2022 by Mariano Hong DO at OR [facility] Right: Chest CR BARD : PERIPHERAL VASCULAR [id number] 02/04/2024 [id number] / / [id number] documented as of this encounter Visit Diagnoses Diagnosis Preoperative testing- Primary Preoperative examination, unspecified documented in this encounter Advance Directives Latest Code Status on File Code Status Date Activated Date Inactivated Comments Full Code 06/27/2023 12:10 PM Question Answer Comments Discussion of Advance [...] and were consensually agreed upon. Care Teams Maintenance And Utilities Supervisor Relationship Specialty Start Date End Date Sebastian Do DO [address] [place] [address] PCP - General Family Medicine 05/24/23 documented as of this encounter
--- OUTSIDE RECORDS SUMMARY | 2023-07-05 03:09 | External Medical Summary ---
Author Name Unknown Address Unknown Organization K01:[facility] - [address] [place] [address] Laboratory Report Ordering Provider Test Date Status HOLLIE KUMAR 06/28/2023 07:48:00 Final Observation Date Value Abnormality Reference (Units ) Status WBC, Total 06/28/2023 07:48:00 7.63 4.00-10.80 (K/uL) Final RBC 06/28/2023 07:48:00 3.57 4.50-5.25 (M/uL) Final Hemoglobin 06/28/2023 07:48:00 11.2 Below low normal 14.0-16.8 (g/dL) Final HCT 06/28/2023 07:48:00 34.8 Below low normal 40.0-48.4 (%) Final MCV 06/28/2023 07:48:00 97.5 82.0-99.5 (fL) Final MCH 06/28/2023 07:48:00 31.4 27.0-34.0 (pg) Final MCHC 06/28/2023 07:48:00 32.2 32.0-36.0 (g/dL) Final RDW 06/28/2023 07:48:00 15.9 11.5-15.5 (%) Final Platelets 06/28/2023 07:48:00 127 Below low normal 140-400 (K/uL) Final MPV 06/28/2023 07:48:00 9.2 6.6-11.1 (fL) Final Nucleated erythrocytes/100 leukocytes [Ratio] in Blood by Automated count 06/28/2023 07:48:00 0 <=0 (/100 WBCs) Final Performing Location [facility] - [address] [place] [address]
--- OUTSIDE RECORDS SUMMARY | 2023-07-05 03:09 | External Medical Summary ---
Author Name Unknown Address Unknown Organization [id number]:[facility] [place] - [address] [place] [address] Laboratory Report Ordering Provider Test Date Status HOLLIE KUMAR 07/01/2023 07:56:00 Final Observation Date Value Abnormality Reference (Units ) Status BUN 07/01/2023 07:56:00 11 6-20 (mg/dL) Final Creatinine 07/01/2023 07:56:00 0.8 0.6-1.2 (mg/dL) Final Glomerular filtration rate/1.73 sq M.predicted [Volume Rate/Area] in Serum, Plasma or Blood by Creatinine-based formula (CKD-EPI) 07/01/2023 07:56:00 >90 >=60 (mL/min) Final eGFR is calculated based on the CKD-EPI 2020 equation SODIUM 07/01/2023 07:56:00 138 135-146 (m mol/L) Final Potassium 07/01/2023 07:56:00 3.8 3.5-5.1 (m mol/L) Final Cl 07/01/2023 07:56:00 105 98-107 (mm ol/L) Final CO2 07/01/2023 07:56:00 24 22-32 (mmo l/L) Final Anion gap 07/01/2023 07:56:00 9 7-15 (mmol /L) Final Glucose 07/01/2023 07:56:00 106 70-120 (mg /dL) Final Calcium 07/01/2023 07:56:00 9.0 8.4-10.2 ( mg/dL) Final Performing Location [facility] [place] - [address] [place] [address]
--- OUTSIDE RECORDS SUMMARY | 2023-07-05 03:09 | External Medical Summary ---
Author Name Unknown Address Unknown Organization [id number]:LABORATORY [facility] [place] - [address] [place] [address] Laboratory Report Ordering Provider Test Date Status HOLLIE KUMAR 06/30/2023 07:16:00 Final Observation Date Value Abnormality Reference (Units ) Status BUN 06/30/2023 07:16:00 10 6-20 (mg/dL) Final Creatinine 06/30/2023 07:16:00 0.8 0.6-1.2 (mg/dL) Final Glomerular filtration rate/1.73 sq M.predicted [Volume Rate/Area] in Serum, Plasma or Blood by Creatinine-based formula (CKD-EPI) 06/30/2023 07:16:00 >90 >=60 (mL/min) Final eGFR is calculated based on the CKD-EPI 2020 equation SODIUM 06/30/2023 07:16:00 137 135-146 (m mol/L) Final Potassium 06/30/2023 07:16:00 3.6 3.5-5.1 (m mol/L) Final Cl 06/30/2023 07:16:00 104 98-107 (mm ol/L) Final CO2 06/30/2023 07:16:00 23 22-32 (mmo l/L) Final Anion gap 06/30/2023 07:16:00 10 7-15 (mmol /L) Final Glucose 06/30/2023 07:16:00 105 70-120 (mg /dL) Final Calcium 06/30/2023 07:16:00 8.8 8.4-10.2 ( mg/dL) Final Performing Location LAB[facility]ATORY [facility] [place] - [address] [place] [address]
--- OUTSIDE RECORDS SUMMARY | 2023-07-05 03:09 | External Medical Summary | Summary of Care ---
Author Name Unknown Organization [facility] Address [address] [place] [address] Phone [phone] Care Team Providers Care Casino Accountant Name Role Phone Sebastian Do DO Primary Care Provider [phone] Encounter Details Date Type Department Care Team (Late st Contact Info) Description 06/28/2023 Result Scan Unspecified Department Bari Landeros DO [address] [place] [address] <No scans attached> Allergies No known active allergiesdocumented as of this encounter (statuses as of 06/28/2023) Medications Medication Sig Dispensed Refills Start Date [...] as of this encounter (statuses as of 06/28/2023) Active Problems Problem Noted Date Diagnosed Date [...] as of this encounter (statuses as of 06/28/2023) Resolved Problems Problem Noted Date Diagnosed Date Resolved Date Impacted cerumen 01/10/2006 06/19/2019 Overview: documented as of this encounter (statuses as of 06/28/2023) Immunizations Name Administration Dates Next Due Season [...] No 06/27/2023 documented as of this encounter Plan of Treatment Upcoming Encounters Date Type Department Care Team (Late st Contact Info) Description 07/25/2023 10:15 AM EST Office Visit Hematology/Oncology [facility] [address] [place] [address] Venessa Marie MD [address] [facility] [place] [address] 11/28/2023 10:00 AM EDT Cardiac Studies Cardiology, [facility] [address] [place] [address] [place], [facility] [address] [place] [address] 04/16/2024 9:45 AM EST Office Visit Dermatology [facility] [address] [place] [address] Magnus Nettles MD [address] [facility] [place] [address] Scheduled Procedures Name Priority Associated Diagnoses Date/Ti me COLONOSCOPY FLEXIBLE PROXIMA L DIAGNOSTIC Recall History of colonic polyps Health Maintenance Due Date Last Done Comments DISCUSS TOBACCO CESSATION (REFER TO SMARTSET #3076) 1950 Pneumococcal Vaccine: 65+ Years (1 - [...] this encounter Medical Devices Implanted Type Area Stud Driver Device Identifier Shelf Expiration Date Model / Serial / Lot Kit Distal Bicep Repair Ar-22 - [id number] Implanted:Qty : 1 on 09/22/2015 by Daniel Melgar DO at OR [facility] Right: Shoulder [employer] 08/03/2020 AR-2260 / / [id number] Suture Steel 6 B&S19 M654g - Sm654 - [id number] Implanted:Qty : 4 on 06/22/2019 by Corbin Mock MD at [place] [facility] [place] N/A: Sternum JNJ : [employer] 02/04/2024 M654G / [id number] / [id number] Port Implant W/8f Poly Cath - [id number] Implanted:Qty : 1 on 12/23/2022 by Mariano Hong DO at OR [facility] Right: Chest CR BARD : PERIPHERAL VASCULAR [id number] 02/04/2024 [id number] / / [id number] documented as of this encounter Procedures Procedure Name Priority Date/Time Associated Diagnosis Comments CARDIOLOGY SCANNED RESULT 06/28/2023 documented in this encounter Results * CARDIOLOGY SCANNED RESULT (06/28/2023) 06/28/2023 Bari Landeros DO OTHER documented in this encounter Advance Directives Latest [...] and were consensually agreed upon. Care Teams Casino Accountant Relationship Specialty Start Date End Date Sebastian Do DO [address] [place] [address] PCP - General Family Medicine 05/24/23 documented as of this encounter
--- OUTSIDE RECORDS SUMMARY | 2023-07-05 03:09 | External Medical Summary ---
Author Name Unknown Address Unknown Organization K01:[facility] [place] [address] [address] Laboratory Report Ordering Provider Test Date Status HOLLIE KUMAR 06/30/2023 07:16:00 Final Observation Date Value Abnormality Reference (Units ) Status WBC, Total 06/30/2023 07:16:00 6.15 4.00-10.80 (K/uL) Final RBC 06/30/2023 07:16:00 3.66 4.50-5.25 (M/uL) Final Hemoglobin 06/30/2023 07:16:00 11.2 Below low normal 14.0-16.8 (g/dL) Final HCT 06/30/2023 07:16:00 35.6 Below low normal 40.0-48.4 (%) Final MCV 06/30/2023 07:16:00 97.3 82.0-99.5 (fL) Final MCH 06/30/2023 07:16:00 30.6 27.0-34.0 (pg) Final MCHC 06/30/2023 07:16:00 31.5 32.0-36.0 (g/dL) Final RDW 06/30/2023 07:16:00 16.0 11.5-15.5 (%) Final Platelets 06/30/2023 07:16:00 139 Below low normal 140-400 (K/uL) Final MPV 06/30/2023 07:16:00 9.6 6.6-11.1 (fL) Final Nucleated erythrocytes/100 leukocytes [Ratio] in Blood by Automated count 06/30/2023 07:16:00 0 <=0 (/100 WBCs) Final Performing Location [facility] [place] [address] [place] [address]
--- OUTSIDE RECORDS SUMMARY | 2023-07-05 03:09 | External Medical Summary ---
Author Name Unknown Address Unknown Organization K01:[facility] [place] [facility] [address] [place] [address] Laboratory Report Ordering Provider Test Date Status HOLLIE KUMAR 07/01/2023 07:56:00 Final Observation Date Value Abnormality Reference (Units ) Status WBC, Total 07/01/2023 07:56:00 5.04 4.00-10.80 (K/uL) Final RBC 07/01/2023 07:56:00 3.70 4.50-5.25 (M/uL) Final Hemoglobin 07/01/2023 07:56:00 11.7 Below low normal 14.0-16.8 (g/dL) Final HCT 07/01/2023 07:56:00 35.8 Below low normal 40.0-48.4 (%) Final MCV 07/01/2023 07:56:00 96.8 82.0-99.5 (fL) Final MCH 07/01/2023 07:56:00 31.6 27.0-34.0 (pg) Final MCHC 07/01/2023 07:56:00 32.7 32.0-36.0 (g/dL) Final RDW 07/01/2023 07:56:00 15.8 11.5-15.5 (%) Final Platelets 07/01/2023 07:56:00 143 140-400 (K/uL) Final MPV 07/01/2023 07:56:00 9.2 6.6-11.1 (fL) Final Nucleated erythrocytes/100 leukocytes [Ratio] in Blood by Automated count 07/01/2023 07:56:00 0 <=0 (/100 WBCs) Final Performing Location [facility] [place] [address] [place] [address]
--- OUTSIDE RECORDS SUMMARY | 2023-07-05 03:09 | External Medical Summary ---
Author Name Unknown Address Unknown Organization K01:[facility] [place] [address] [place] [address] Laboratory Report Ordering Provider Test Date Status HOLLIE KUMAR 06/29/2023 07:16:00 Final Observation Date Value Abnormality Reference (Units ) Status BUN 06/29/2023 07:16:00 12 6-20 (mg/dL) Final Creatinine 06/29/2023 07:16:00 0.8 0.6-1.2 (mg/dL) Final Glomerular filtration rate/1.73 sq M.predicted [Volume Rate/Area] in Serum, Plasma or Blood by Creatinine-based formula (CKD-EPI) 06/29/2023 07:16:00 >90 >=60 (mL/min) Final eGFR is calculated based on the CKD-EPI 2020 equation SODIUM 06/29/2023 07:16:00 140 135-146 (m mol/L) Final Potassium 06/29/2023 07:16:00 4.0 3.5-5.1 (m mol/L) Final Cl 06/29/2023 07:16:00 107 98-107 (mm ol/L) Final CO2 06/29/2023 07:16:00 24 22-32 (mmo l/L) Final Anion gap 06/29/2023 07:16:00 9 7-15 (mmol /L) Final Glucose 06/29/2023 07:16:00 82 70-120 (mg /dL) Final Calcium 06/29/2023 07:16:00 8.4 8.4-10.2 ( mg/dL) Final Performing Location [facility] [place] [address] [place] [address]
--- OUTSIDE RECORDS SUMMARY | 2023-07-05 03:09 | External Medical Summary ---
Author Name Unknown Address Unknown Organization K01:[facility] [place] - [address] [place] [address] Laboratory Report Ordering Provider Test Date Status HOLLIE KUMAR 06/29/2023 07:16:00 Final Observation Date Value Abnormality Reference (Units ) Status WBC, Total 06/29/2023 07:16:00 6.05 4.00-10.80 (K/uL) Final RBC 06/29/2023 07:16:00 3.40 4.50-5.25 (M/uL) Final Hemoglobin 06/29/2023 07:16:00 10.6 Below low normal 14.0-16.8 (g/dL) Final HCT 06/29/2023 07:16:00 33.0 Below low normal 40.0-48.4 (%) Final MCV 06/29/2023 07:16:00 97.1 82.0-99.5 (fL) Final MCH 06/29/2023 07:16:00 31.2 27.0-34.0 (pg) Final MCHC 06/29/2023 07:16:00 32.1 32.0-36.0 (g/dL) Final RDW 06/29/2023 07:16:00 16.2 11.5-15.5 (%) Final Platelets 06/29/2023 07:16:00 131 Below low normal 140-400 (K/uL) Final MPV 06/29/2023 07:16:00 9.7 6.6-11.1 (fL) Final Nucleated erythrocytes/100 leukocytes [Ratio] in Blood by Automated count 06/29/2023 07:16:00 0 <=0 (/100 WBCs) Final Performing Location [facility]ORY [facility] [place] - [address] [place] [address]
--- OUTSIDE RECORDS SUMMARY | 2023-07-05 03:10 | External Medical Summary | Summary of Care ---
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 0 Active Pantoprazole Sodium 40 MG Oral Tablet Delayed Release (Protonix) Take 1 Tablet by mouth in the morning. 0 Active Iron-Vitamin C 65-125 MG Oral Tablet Take 1 Tablet by mouth at bedtime. 0 Active Rosuvastatin Calcium 40 MG Oral Tablet (Crestor)Indications:D yslipidemia, goal LDL below 70 Take 1 Tablet by mouth in the morning. 90 Tablet 4 09/06/2022 Active Clopidogrel Bisulfate 75 MG Oral Tablet (pLAVix)Indications:NS URIEL (non-ST elevation myocardial infarction) (HCC) Take 1 Tablet by mouth in the morning. 90 Tablet 4 09/06/2022 Active Metoprolol Succinate ER 50 MG Oral Tablet Extended Release 24 Hour (Toprol XL)Indications:Paroxys mal atrial fibrillation (HCC),ASCVD (arteriosclerotic cardiovascular disease) Take 1 Tablet by mouth in the morning. 90 Tablet 4 09/06/2022 Active Ezetimibe 10 MG Oral Tablet (Zetia) Take 1 Tablet by mouth in the morning. 0 Active Ondansetron HCl 8 MG Oral TabletIndications:Roshni gnant 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) Take 1 Tablet by mouth every 8 hours as needed for Nausea. 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 30 Tablet 0 12/13/2022 Active Clotrimazole 10 MG Mouth/Throat Israel (Mycelex Israel)Indications:Thr ush Take 1 Lozenge by mouth 5 times a day. 70 Lozenge 0 04/01/2023 Active documented as of this encounter (statuses as of 06/07/2023) Active Problems Problem Noted Date Diagnosed Date Dehydration 02/11/2023 Diarrhea 02/11/2023 Encounter for antineoplastic [...] as of this encounter (statuses as of 06/07/2023) Resolved Problems Problem Noted Date Diagnosed Date Resolved Date Impacted cerumen 01/10/2006 06/19/2019 Overview: documented as of this encounter (statuses as of 06/07/2023) Immunizations Name Administration Dates Next Due Season [...] Information Value Date Recorded Sex Assigned at Not on file Gender Identity Not on file Sexual Orientation Not on file Job Start Date Occupation Industry Not on file Not on file Not on file documented as of this encounter Functional Status Functional Status Response Date of Assess ment Do you have serious difficul ty walking or climbing stairs? (5 years old or older) No 06/25/2019 documented as of this encounter Plan of Treatment Upcoming Encounters Date Type Department Care Team (Late st Contact Info) Description 06/08/2023 10:15 AM EST Office Visit Hematology/Oncology [facility] [address] [place] [address] Venessa Marie MD [address] [place] [address] 06/08/2023 10:45 AM EST Hem/Onc Treatment Hematology/Oncology Treatment, [place] [address] [place] [address] [place], Chair 7 Hem Onc [facility] [address] [facility] [place], [place] [address] 06/13/2023 11:00 AM EST Office Visit General Surgery, [place] [address] [place] [address] Hector Jean MD [address] [place], [place] [id number] 11/28/2023 10:00 AM EDT Cardiac Studies Cardiology, [facility] [address] [place] [address] [facility] [address] [place] [address] 04/16/2024 9:45 AM EST Office Visit Dermatology [facility] [address] [facility] [place], [place] [address] Magnus Nettles MD [address] [facility] [place], [place] [address] Pending Results Name Type Priority Associated Diagnoses Date /Time CBC WITH WBC DIFFERENTIAL Lab STAT 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) 06/07/2023 9:59 AM EST COMPREHENSIVE METABOLIC PANEL Lab STAT 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) 06/07/2023 9:59 AM EST CBC Lab STAT 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) 06/07/2023 9:59 AM EST DIFFERENTIAL, AUTOMATED Lab STAT 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) 06/07/2023 9:59 AM EST Scheduled Procedures Name Priority Associated Diagnoses Date/Ti me COLONOSCOPY FLEXIBLE PROXIMA L DIAGNOSTIC Recall History of colonic polyps Health Maintenance Due Date Last Done Comments DISCUSS TOBACCO CESSATION (REFER TO SMARTSET #8194) 1950 Pneumococcal Vaccine: 65+ Years (1 - PCV) 1958 Depression Screening 1964 Hepatitis C Screening 1970 DTaP,Tdap,and Td Vaccines (1 - Tdap) 1971 Zoster Vaccines (1 of 2) 2002 AAA Screening 2017 COVID-19 Vaccine (4 - 2022-24 season) 2023 05/06/2021, 08/25/2020, 08/04/2020 [...] this encounter Medical Devices Implanted Type Area Publishing Agent Device Identifier Shelf Expiration Date Model / Serial / Lot Kit Distal Bicep Repair Ar-22 - [id number] Implanted:Qty : 1 on 09/22/2015 by Daniel Melgar DO at OR [facility] Right: Shoulder [employer] 08/03/2020 AR-2260 / / [id number] Suture Steel 6 B&S19 M654g - Sm654 - [id number] Implanted:Qty : 4 on 06/22/2019 by Corbin Mock MD [place] [facility] [place] N/A: Sternum JNJ : [employer] 02/04/2024 M654G / M654 / [id number] Port Implant W/8f Poly Cath - [id number] Implanted:Qty : 1 on 12/23/2022 by Mariano Hong DO at OR [facility] Right: Chest CR BARD : PERIPHERAL VASCULAR [id number] 02/04/2024 [id number] / / [id number] documented as of this encounter Visit Diagnoses Diagnosis 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 Question Answer Comments Discussion of Advance Directives occurred with: Not Discussed due to patient's condition Code Status History Code Status Date Activated Date Inactivated Comments Full Code 11/09/2022 11:44 AM 11/09/2022 1:18 PM This o rder reflects the patients wishes and were consensually agreed upon. Question Answer Comments Discussion of Advance Directives occurred with: Not Discussed due to patient's condition Full Code 06/22/2019 1:01 PM 06/27/2019 3:23 PM This order reflects the patients wishes and were consensually agreed upon. Full Code 06/19/2019 11:46 PM 06/22/2019 6:33 AM This order reflects the patients wishes and were consensually agreed upon. Care Teams Package Clerk Relationship Specialty Start Date End Date Sebastian Do DO [address] [place] [address] PCP - General Family Medicine 05/24/23 documented as of this encounter
--- OUTSIDE RECORDS SUMMARY | 2023-07-05 03:10 | External Medical Summary ---
Author Name Unknown Address Unknown Organization K09:LAB[facility]ATORY [place] [facility] [address] [place] [address] Laboratory Report Ordering Provider Test Date Status VERONICA FARRIS 06/22/2023 10:58:09 Final Observation Date Value Abnormality Reference (Units ) Status BUN 06/22/2023 10:58:09 12 6-20 (mg/dL) Final Creatinine 06/22/2023 10:58:09 0.8 0.6-1.2 (mg/dL) Final Glomerular filtration rate/1.73 sq M.predicted [Volume Rate/Area] in Serum, Plasma or Blood by Creatinine-based formula (CKD-EPI) 06/22/2023 10:58:09 >90 >=60 (mL/min) Final eGFR is calculated based on the CKD-EPI 2020 equation SODIUM 06/22/2023 10:58:09 139 135-146 (m mol/L) Final Potassium 06/22/2023 10:58:09 4.6 3.5-5.1 (m mol/L) Final Cl 06/22/2023 10:58:09 109 Above high normal 98 -107 (mmol/L) Final CO2 06/22/2023 10:58:09 23 22-32 (mmo l/L) Final Anion gap 06/22/2023 10:58:09 7 7-15 (mmol /L) Final Glucose 06/22/2023 10:58:09 118 70-120 (mg /dL) Final Albumin 06/22/2023 10:58:09 3.9 3.8-5.0 (g /dL) Final AST (Aspartate aminotransferase) 06/22/2023 10:58:09 27 10-50 (U/L) Fin al Alk Phos 06/22/2023 10:58:09 128 35-130 (U/ L) Final Bilirubin, Total 06/22/2023 10:58:09 0.3 <=1 .2 (mg/dL) Final Calcium 06/22/2023 10:58:09 9.6 8.4-10.2 ( mg/dL) Final Protein 06/22/2023 10:58:09 7.3 6.0-8.3 (g /dL) Final ALT (Alanine aminotransferase) 06/22/2023 10:58:09 24 10-50 (U/L) Arian dodge Performing Location [facility] [place] [facility] [address] [place] [address]
--- OUTSIDE RECORDS SUMMARY | 2023-07-05 03:10 | External Medical Summary ---
Author Name Unknown Address Unknown Organization K09:[facility]ATORY [place] [address] Laboratory Report Ordering Provider Test Date Status VERONICA FARRIS 06/07/2023 09:59:02 Final Observation Date Value Abnormality Reference (Units ) Status Nucleated erythrocytes/100 leukocytes [Ratio] in Blood by Automated count 06/07/2023 09:59:02 Final Acanthocytes [Presence] in Blood by Light microscopy 06/07/2023 09:59:02 Moderate Abnormal None Seen Final Performing Location [facility]ORY [place] [address]
--- OUTSIDE RECORDS SUMMARY | 2023-07-05 03:10 | External Medical Summary | Summary of Care ---
Author Name Unknown Organization [facility] Address [address] [place] [address] Phone [phone] Care Team Providers Care Signs And Displays Sales Representative Name Role Phone Sebastian Do DO Primary Care Provider [phone] Reason for Visit * Reason Comments Chemotherapy Chemo/recheck Encounter Details Date Type Department Care Team (Late st Contact Info) Description 06/08/2023 10:15 AM EST Office Visit Hematology/Oncology [facility] [place] [address] [facility] [place] [address] Venessa Marie MD [address] [facility] [place] [address] 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)* Allergies No known active allergiesdocumented as of this encounter (statuses as of 06/08/2023) Medications Medication Sig Dispensed Refills Start Date [...] Active Clotrimazole 10 MG Mouth/Throat Israel (Mycelex Israel)Indications:T hrush Take 1 Lozenge by mouth 5 times a day. 70 Lozenge 0 04/01/2023 Active Pantoprazole Sodium 40 MG Oral Tablet Delayed Release (Protonix)Indication s: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) Take 1 Tablet by mouth in the morning. 90 Tablet 0 06/08/2023 Active Pantoprazole Sodium 40 MG Oral Tablet Delayed Release (Protonix) Take 1 Tablet by mouth in the morning. 0 4 Discontinue d(Refill) documented as of this encounter (statuses as of 06/08/2023) Active Problems Problem Noted Date Diagnosed Date [...] as of this encounter (statuses as of 06/08/2023) Resolved Problems Problem Noted Date Diagnosed Date Resolved Date Impacted cerumen 01/10/2006 06/19/2019 Overview: documented as of this encounter (statuses as of 06/08/2023) Immunizations Name Administration Dates Next Due Season Influenza, Quad, PF, Adjuvanted, 65+ Yrs, IM (FLUAD) 04/20/2020 Seasonal Influenza Virus Vac cine, Unspecified Formulation 06/27/2018 Seasonal Influenza, Quadrivalent Hd (Fluzone Hd) 02/09/2023,04/20/2022 documented as of this encounter Social History Tobacco Use Types Packs/Day Years Used Date Smoking Tobacco: Light Smoker Cigars Smokeless Tobacco: Never Tobacco Cessation:Ready to Q uit: Not Asked; Counseling Given: Not Answered Comments:Cigar on occasion Alcohol Use Standard Drinks/Week [...] Sign Reading Time Taken Comments Blood Pressure 105/70 06/08/2023 10:13 AM EST Pulse 76 06/08/2023 10:13 AM EST Temperature 36.7 C (98.1 F) 06/08/2023 10:[address] Respiratory Rate 16 06/08/2023 10:13 AM EST Oxygen Saturation 97% 06/08/2023 10:13 AM EST Inhaled Oxygen Concentration - - Weight 89.6 kg (197 lb 8 oz) 06/08/2023 10:13 AM EST Height 180.3 cm (5' 10.98") 06/08/2023 10:13 AM EST Body Mass Index 27.56 06/08/2023 10:13 AM EST documented in this encounter Functional Status Functional Status Response Date of Assess ment Do you have serious difficul ty walking or climbing stairs? (5 years old or older) No 06/25/2019 documented as of this encounter Progress Notes * Venessa Marie MD - 06/08/2023 10:38 AM EST Outpatient Consult Note Data Source: Patient, [facility] record. Data Source: Patient, [facility] record. 06/08/2023 10:38 AM [facility] [place] [id number] 73 year old Patient Encounter: HEMATOLOGY/ONCOLOGY [facility] Cancer Diagnosis: Gastric adenocarcinoma Current Treatment: On FOLFOX Previous Treatment: None Oncologic History : 73-year-old male with past medical history significant for coronary artery disease, sudden cardiac arrest, ICD placement. History of nonsustained VT, history of hyperlipidemia, COPD, melanoma resected from the left arm, history of GI bleeding gastric ulcer was referred with the above diagnosis. Patient had upper endoscopy done on 11/03/2022 which showed non-obstructing non- bleeding superficial gastric ulcer with no stigmata of bleeding was found on the greater curvature of the gastric antrum. The lesion was 15 mm in largest dimension. Biopsies from the ulcer is positive for poorly differentiated adenocarcinoma, HER2 negative and PDL1 expression less than 1%. EBV negative and MSI intact. FINAL DIAGNOSIS A. Duodenum, biopsy: - No diagnostic abnormality. B. Stomach, antrum, ulcer, biopsy: - Poorly differentiated adenocarcinoma. - Helicobacter pylori immunohistochemistry stain: Negative. - See microscopic description and comment. C. Stomach, body, biopsy: - Chronic gastritis with moderate activity. - Helicobacter pylori immunohistochemistry stain: Negative. D. Colon, descending, polypectomy: - Tubular adenoma. Comment: The adenocarcinoma has a mixed morphology with signet ring cell and more solid appearing components. [employer] PD-L1 LDT: Not detected Total PD-L1 Expression: < 1 Summary of HER2 FISH: Results: Negative Immunohistochemistry: MLH1 Protein: Intact. PMS2 Protein: Intact. MSH2 Protein: Intact. MSH6 Protein: Intact. Interpretation: Intact expression of all four proteins (MLH1, MSH2, MSH6 and PMS2) is present. The immunohistochemistry findings are not consistent with microsatellite instability. Patient had endoscopic ultrasound done on 11/09/2022 which revealed mass in the incisura of the stomach, stage is T2 based on invasion and N0 M0. Patient is scheduled for CT scan of chest abdomen pelvis tomorrow and appointment with Dr. Jean on 12/06/2022. Clinically he is doing well without any new symptoms of complain. Denies any headache, dizziness, blurred vision, chest pain, shortness breath palpitation, difficulty swallowing, abdominal pain or distention, change in the bowel habits, nausea, vomiting, fever, night sweats, weight loss. He smokes cigar and drinks at least 3 beers on every other day basis. He is working in the home. Family history significant for father was diagnosed of lung cancer and he was smoker. Sister was diagnosed of breast cancer Patient has CT scan of chest abdomen pelvis done which revealed enlarged right hilar lymph node measuring 1.8 x 1.1 cm and multiple additional smaller mediastinal and bilateral hilar lymph nodes, nonspecific. In the abdomen there was a gastrohepatic lymph node measuring 1.5 x 1.4 cm again this is nonspecific and several additional smaller gastrohepatic lymph nodes, bilateral adrenal nodules. Patient was seen by Dr. Jean. He recommend chemotherapy and depend on response will evaluate him for surgery. He had a PET scan done on 12/22/2022 which shows focal thickening and increased metabolic activity along the greater curvature of the gastric antrum, compatible with biopsy proven adenocarcinoma. Otherwise, no additional evidence of FDG avid disease Interval History: He is complaining of generalized weakness and fatigue. He has appointment with Dr. Jean on 06/13/2023. LABS/IMAGING: Results for orders placed or performed in [...] g/dL ALT 36 10 - 50 U/L CBC Result Value Ref Range WBC 4.02 [...] MPV 9.3 6.6 - 11.1 fL DIFFERENTIAL, AUTOMATED Result Value Ref Range WBC [...] Absolute Basophils 0.02 0.00 - 0.20 K/uL DIFFERENTIAL, TECHNOLOGIST REVIEW Result Value Ref Range nRBCs Acanthocytes Moderate (A) None Seen REVIEW OF SYSTEMS: General: No Fever, chills, night sweats, or weight loss. HEENT: No change in visual acuity, blurred or double vision. No epistaxis, facial pain, nasal discharge or change in hearing. Denies dysphagia, no muscosal ulceration, or sores noted. Cardiovascular: No chest pain, MORAN, or palpitations Respiratory: No shortness of breath, cough, hemoptysis, or pleuritic chest pain Gastrointestinal: No abdominal pain, nausea, vomiting, diarrhea, rectal pain or bleeding Genitourinary: Denies Hematuria or dysuria Musculoskeletal: No bone pain Skin: No skin rash or lesions noted Neurologic: c/o numbness, Noweakness, No neuropathic pain or change in cognitive function Psychiatric: No vegetative signs of depression Endocrine: No symptoms of hypothyroidism or hyperglycemia Hematologic: No bleeding or lymph nodes noted As mentioned above, all of the systems were reviewed in full and are unremarkable. Past Medical History: Diagnosis Date Benign neoplasm of colon 07/19/07 adenomatous repeat colonoscopy in 5 yrs Benign neoplasm of colon 07/07/12 adenomatous polyp Chronic pharyngitis 01/10/06 Deviated nasal septum 01/10/06 Hypertrophy of nasal turbinates 01/10/06 Impacted cerumen 01/10/06 Melanoma (HCC) NON ALLERGIC RHINITIS 01/10/06 Other diseases of respiratory system, not elsewhere classified 01/10/06 Other dyspnea and respiratory abnormality 01/10/06 Current Outpatient Medications Medication Sig Dispense Refill Pantoprazole Sodium 40 MG Oral Tablet Delayed Release (Protonix) Take 1 Tablet by mouth in the morning. 90 Tablet 0 Sildenafil Citrate 20 MG Oral Tablet (Revatio) [...] 5 times a day. 70 Lozenge 0 No current facility-administered medications for this visit. Facility-Administered Medications Ordered in Other Visits Medication Dose Route Frequency Provider Last Rate Last Admin Fluorouracil (5-Fu) 5,250 mg for Home Infusion 2,400 mg/m2 (Treatment Plan Recorded) Intravenous Once Venessa Marie MD Social History Tobacco Use Smoking status: Light Smoker Types: Cigars Smokeless tobacco: Never Tobacco comments: Cigar on occasion Vaping Use Vaping Use: Never used Substance Use Topics Alcohol use: Not Currently Drug use: No Review of patient's allergies indicates: No Known Allergies PHYSICAL EXAMINATION: General Appearance: Healthy appearing patient in no acute distress BP 105/70 (BP Site: Left Arm, BP Position: Sitting, BP Cuff Size: Regular) | Pulse 76 | Temp 36.7 C (98.1 F) (Tympanic) | Resp 16 | Ht 1.803 m (5' 10.98") | Wt 89.6 kg (197 lb 8 oz) | SpO2 97% | BMI 27.56 kg/m | BSA 2.12 m Vitals reviewed. HEENT: No oral or pharyngeal masses, ulceration or thrush noted, no sinus tenderness. Neck is supple with no thyromegaly or JVD noted. Lymph Nodes: No lymphadenopathy noted in the occipital, pre and post auricular, cervical, supra andinfraclavicular, axillary, epitrochlear, inguinal, and popliteal region. Lungs/Thorax: Clear to auscultation, no accessory muscles of respiration being used. Heart: Regular rate and rhythm, normal S1, S2 Abdomen: Soft, nontender, bowel sounds present, no appreciable hepatosplenomegaly, no palpable masses Extremeties: Good pulses bilaterally, no peripheral edema. ASSESSMENT: 73-year-old male with history of multiple medical problems including coronary artery disease statuspost CABG, hyperlipidemia, iron deficiency anemia, peptic ulcer disease had upper endoscopy done which shows mass lesion in the stomach. Biopsies consistent with poorly differentiated adenocarcinoma,HER2/bharti and EBV and PDL1 negative and MSI intact. Patient has stage T2 N0 M0 based on the endoscopic ultrasound findings. He had CT scan of chest abdomen pelvis done which shows enlarged hilar lymph node and gastrohepaticlymph node. Patient was seen by Dr. Jean who recommend upfront chemotherapy. He also had PET scan done which shows a focal thickening and activity in the greater curvature of the gastric antrumwith no evidence of metastatic disease. Currently patient is receiving FOLFOX chemotherapy with overall good tolerance. Only toxicity is generalized weakness and fatigue and neuropathy. Oxaliplatin dose was reduced. Follow-up PET scan showed complete remission. He is scheduled to see Dr. Jean on 06/13/2023. He will be seen by Dr. Jean next week. I will hold his chemotherapy in case if there is any plan for surgical intervention. Discussed with the patient about the diagnosis reviewed all the available blood tests and PET scan finding with them. PLAN: Hold the chemotherapy. He will return to clinic for follow-up in 3 weeks with CBC and CMP. Further management will depend on the recommendation of Dr. Jean. The patient voiced understanding of all of the above. All questions and concerns were addressed in an apparently satisfactory manner. Venessa Marie MD (This note was completed using the dictation program Fluency Direct. As such, there may be misspellings, word substitutions, or other variations that should not change the essence of the clinical content of this encounter note. If there is need for further clarification, please direct questions to me.) documented in this encounter Nursing Notes * lAyson Box, [facility] - 06/08/2023 10:14 AM EST Patient identifed by name and birthdate Do you have any concerns about pain management for today's visit? No Living Will or Advance Directive for Health Care as noted on the problem list. [facility] is a way you can talk to your provider on line through e-mail. Would you like to sign up? I can activate it for you? ALREADY ACTIVE Filed Vitals: 06/08/23 1013 BP: 105/70 Pulse: 76 Resp: 16 Temp: 36.7 C (98.1 F) TempSrc: Tympanic SpO2: 97% Weight: 89.6 kg (197 lb 8 oz) Height: 1.803 m (5' 10.98") Patient was instructed to not get up on the exam table/exam chair until directed and assisted by their provider; patient is to remain seated in the chair/ wheelchair/ exam table/ exam chair for fall prevention and safety reasons. Patient is aware to have assistance to step down off exam table/exam chair with personnel. Patient voiced full comprehension of instructions. documented in this encounter Plan of Treatment Upcoming Encounters Date Type Department Care Team (Late st Contact Info) Description 06/13/2023 11:00 AM EST Office Visit General Surgery, [place] [address] [place] [address] Hector Jean MD [address], [place] [id number] 06/27/2023 10:15 AM EST Office Visit Hematology/Oncology [facility] [address] [facility] [place] [address] Venessa Marie MD [address] [facility] [place] [address] 11/28/2023 10:00 AM EDT Cardiac Studies Cardiology, [facility] [address] [place] [address] [place], Pacer Clinic [facility] [address] [place] [address] 04/16/2024 9:45 AM EST Office Visit Dermatology [facility] [address] [facility] [place] [address] Magnus Nettles MD [address] [facility] [place] [address] Scheduled Orders Name Type Priority Associated Diagnoses Orde r Schedule CBC WITH WBC DIFFERENTIAL Lab Routine 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) Expected: 06/28/2023, Expires: 08/23/2023 COMPREHENSIVE METABOLIC PANEL Lab Routine 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) Expected: 06/28/2023, Expires: 08/23/2023 Scheduled Procedures Name Priority Associated Diagnoses Date/Ti me COLONOSCOPY FLEXIBLE PROXIMA L DIAGNOSTIC Recall History of colonic polyps Health Maintenance Due Date Last Done Comments DISCUSS TOBACCO CESSATION (REFER TO SMARTSET #7135) 1952 Pneumococcal Vaccine: 65+ Years (1 - PCV) 1958 Depression Screening 1964 Hepatitis C Screening 1970 DTaP,Tdap,and Td Vaccines (1 - Tdap) 1971 Zoster Vaccines (1 of 2) 1971 AAA Screening 2017 COVID-19 Vaccine (4 - [...] this encounter Medical Devices Implanted Type Area Distribution Center Administrator Device Identifier Shelf Expiration Date Model / Serial / Lot Kit Distal Bicep Repair Ar-22 - [id number] Implanted:Qty : 1 on 09/22/2015 by Daniel Melgar DO at OR [facility] Right: Shoulder [employer] 08/03/2020 AR-2260 / / [id number] Suture Steel 6 B&S19 M654g - [id number] - [id number] Implanted:Qty : 4 on 06/22/2019 by Corbin Mock MD [place] [facility]: Sternum JNJ : [employer] 02/04/2024 M654G / [id number] / [id number] Port Implant W/8f Poly Cath - [id number] Implanted:Qty : 1 on 12/23/2022 by Mariano Hong DO at OR [facility] Right: Chest CR BARD : PERIPHERAL VASCULAR [id number] 02/04/2024 [id number] / / [id number] documented as of this encounter Visit Diagnoses Diagnosis 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)- Primary Malignant neoplasm of other specified sites of [...] and were consensually agreed upon. Care Teams Signs And Displays Sales Representative Relationship Specialty Start Date End Date Sebastian Do DO [address] [place] [address] PCP - General Family Medicine 05/24/23 documented as of this encounter
--- OUTSIDE RECORDS SUMMARY | 2023-07-05 03:10 | External Medical Summary ---
Author Name Unknown Address Unknown Organization K09[facility] [place] [address] Laboratory Report Ordering Provider Test Date Status VERONICA FARRIS 06/07/2023 09:59:02 Final Observation Date Value Abnormality Reference (Units ) Status SYNC LEUKOCYTES IN BLOOD BY AUTOMATED COUNT 06/07/2023 09:59:02 4.02 4.00-10.80 (K/uL) Final Segs 06/07/2023 09:59:02 51.4 40.0-75.0 (%) Final Lymphs % 06/07/2023 09:59:02 37.1 18.0-42.0 (%) Final Monos 06/07/2023 09:59:02 9.5 1.0-11.0 (%) Final Eosinophils 06/07/2023 09:59:02 1.5 0.0-6.0 (%) Final Basos 06/07/2023 09:59:02 0.5 0.0-2.0 (%) Final Absolute Segs 06/07/2023 09:59:02 2.07 1.80-7.70 (K/uL) Final Lymphs, absolute 06/07/2023 09:59:02 1.49 1.00-4.80 (K/ul) Final Monos, Abs 06/07/2023 09:59:02 0.38 0.00-1.10 (K/uL) Final Eos, Abs 06/07/2023 09:59:02 0.06 0.00-0.70 (K/uL) Final Basos, Abs 06/07/2023 09:59:02 0.02 0.00-0.20 (K/uL) Final Performing Location [facility] [place] [address]
--- OUTSIDE RECORDS SUMMARY | 2023-07-05 03:10 | External Medical Summary ---
Author Name Unknown Address Unknown Organization K09:[facility] [address] Laboratory Report Ordering Provider Test Date Status VERONICA FARRIS 06/22/2023 10:58:09 Final Observation Date Value Abnormality Reference (Units ) Status SYNC LEUKOCYTES IN BLOOD BY AUTOMATED COUNT 06/22/2023 10:58:09 5.58 4.00-10.80 (K/uL) Final Segs 06/22/2023 10:58:09 58.7 40.0-75.0 (%) Final Lymphs % 06/22/2023 10:58:09 32.4 18.0-42.0 (%) Final Monos 06/22/2023 10:58:09 8.1 1.0-11.0 (%) Final Eosinophils 06/22/2023 10:58:09 0.4 0.0-6.0 (%) Final Basos 06/22/2023 10:58:09 0.4 0.0-2.0 (%) Final Absolute Segs 06/22/2023 10:58:09 3.28 1.80-7.70 (K/uL) Final Lymphs, absolute 06/22/2023 10:58:09 1.81 1.00-4.80 (K/ul) Final Monos, Abs 06/22/2023 10:58:09 0.45 0.00-1.10 (K/uL) Final Eos, Abs 06/22/2023 10:58:09 0.02 0.00-0.70 (K/uL) Final Basos, Abs 06/22/2023 10:58:09 0.02 0.00-0.20 (K/uL) Final Performing Location [facility] [place] [address]
--- OUTSIDE RECORDS SUMMARY | 2023-07-05 03:10 | External Medical Summary | Summary of Care ---
Author Name Unknown Organization [facility] Address [address] [place] [address] Phone [phone] Care Team Providers Care White Sugar Pan Tank Operator Name Role Phone ErnestinaSebastian mccarthy DO Primary Care Provider [phone] Encounter Details Date Type Department Care Team (Late st Contact Info) Description 06/21/2023 Orders Only PATIENT PORTAL DO NOT DELETE THIS DEPT USED BY [place] [id number] Allergies No known active allergiesdocumented as of this encounter (statuses as of 06/21/2023) Medications Medication Sig Dispensed Refills Start Date [...] a day. 70 Lozenge 0 04/01/2023 Active Additional Information Patient not taking.Reported on 06/14/2023 Pantoprazole Sodium 40 MG Oral Tablet Delayed Release (Protonix)Indication s: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) Take 1 Tablet by mouth in the morning. 90 Tablet 0 06/08/2023 Active documented as of this encounter (statuses as of 06/21/2023) Active Problems Problem Noted Date Diagnosed Date [...] as of this encounter (statuses as of 06/21/2023) Resolved Problems Problem Noted Date Diagnosed Date Resolved Date Impacted cerumen 01/10/2006 06/19/2019 Overview: documented as of this encounter (statuses as of 06/21/2023) Immunizations Name Administration Dates Next Due Season [...] Upcoming Encounters Date Type Department Care Team (Latest Contact Info) Description 06/27/2023 3:36 PM EST Hospital Encounter [facility] [place] [address] [place] [address] Hector Jean MD [address] [place] [address] 06/27/2023 3:36 PM EST - 06/27/2023 5:57 PM EST Surgery [facility], OPERATING ROOM [facility] [place] [place] [address] [place] [address] Hector Jean MD [address] [place] [address] GASTRECTOMY TOTAL WITH ESOPHAGOENTEROSTOMY 07/25/2023 10:15 AM EST Office Visit Hematology/Oncolo gy [facility] [address] [place] [address] Venessa Marie MD [address] [place] [address] 11/28/2023 10:00 AM EDT Cardiac Studies Cardiology, [facility] [address] [place] [address] [place], Pacer Clinic [facility] [address] [place] [address] 04/16/2024 9:45 AM EST Office Visit Dermatology [facility] [place] [address] [place] [address] Magnus Nettles MD [address] [place] [address] Scheduled Procedures Name Priority Associated Diagnoses Date/Ti me GASTRECTOMY TOTAL WITH ESOPHAGOENTEROSTOMY Gastric adenocarcinoma (HCC) 06/27/2023 3:36 PM EST COLONOSCOPY FLEXIBLE PROXIMA L DIAGNOSTIC Recall History of colonic polyps Health Maintenance Due Date Last Done Comments DISCUSS TOBACCO CESSATION (REFER TO SMARTSET #4952) 1950 Pneumococcal Vaccine: 65+ Years (1 - [...] this encounter Medical Devices Implanted Type Area Engineering Systems Analyst Device Identifier Shelf Expiration Date Model / Serial / Lot Kit Distal Bicep Repair Ar-22 - [id number] Implanted:Qty : 1 on 09/22/2015 by Daniel Melgar DO at OR [facility] Right: Shoulder [employer] 08/03/2020 AR-2260 / / [id number] Suture Steel 6 B&S19 M654g - [id number] - [id number] Implanted:Qty : 4 on 06/22/2019 by Corbin Mock MD at OR [facility] [place] N/A: Sternum JNJ : [employer] 02/04/2024 M654G / [id number] / [id number] Port Implant W/8f Poly Cath - [id number] Implanted:Qty : 1 on 12/23/2022 by Mariano Hong DO at OR [facility] Right: Chest CR BARD : PERIPHERAL VASCULAR [id number] 02/04/2024 [id number] / / [id number] documented as of this encounter Advance Directives [...] and were consensually agreed upon. Care Teams White Sugar Pan Tank Operator Relationship Specialty Start Date End Date Sebastian Do DO [address] [place] [address] PCP - General Family Medicine 05/24/23 documented as of this encounter
--- OUTSIDE RECORDS SUMMARY | 2023-07-05 03:10 | External Medical Summary | Summary of Care ---
Author Name Unknown Organization [facility] Address [address] [place] [address] Phone [phone] Care Team Providers Care Traffic Workforce Representative Name Role Phone Sebastian Do DO Primary Care Provider [phone] Encounter Details Date Type Department Care Team (Late st Contact Info) Description 06/06/2023 Orders Only Hematology/Oncology, [address] [address] Venessa Marie MD [address] [place] [address] Allergies No known active allergiesdocumented as of [...] 11:00 AM EST Office Visit General Surgery, [place] [address] [facility] [place] [address] Hector Jean MD [address] [place] [address] 06/27/2023 10:15 AM EST Office Visit Hematology/Oncology [facility] [address] [place] [address] Venessa Marie MD 200 [facility] [place] [address] 11/28/2023 10:00 AM EDT Cardiac Studies Cardiology, [facility] [address] [place] [address] [facility] 132 [place] [address] 04/16/2024 9:45 AM EST Office Visit Dermatology [facility] 200 [facility] [place] [address] Magnus Nettles MD 200 [facility] [place] [address] Scheduled Procedures Name Priority Associated Diagnoses Date/Ti me COLONOSCOPY FLEXIBLE PROXIMA L DIAGNOSTIC Recall History of colonic polyps Health Maintenance Due Date Last Done Comments DISCUSS TOBACCO CESSATION (REFER TO SMARTSET #7057) 1950 Pneumococcal Vaccine: 65+ Years (1 - PCV) 1958 Depression Screening 1964 Hepatitis C Screening 1970 DTaP,Tdap,and Td Vaccines (1 - Tdap) 1971 Zoster Vaccines (1 of 2) 1971 AAA Screening 2017 COVID-19 Vaccine ( - [...] this encounter Medical Devices Implanted Type Area Diplomatic Courier Device Identifier Shelf Expiration Date Model / Serial / Lot Kit Distal Bicep Repair Ar-22 - [id number] Implanted:Qty : 1 on 09/22/2015 by Daniel Melgar DO at OR [facility] Right: Shoulder [employer] 08/03/2020 AR-2260 / / [id number] Suture Steel 6 B&S19 M654g - [id number] - [id number] Implanted:Qty : 4 on 06/22/2019 by Corbin Mock MD at OR [facility] N/A: Sternum JNJ : [employer] 02/04/2024 M654G / [id number] / [id number] Port Implant W/8f Poly Cath - [id number] Implanted:Qty : 1 on 12/23/2022 by Mariano Hong DO at OR [facility] Right: Chest CR BARD : PERIPHERAL VASCULAR [id number] 02/04/2024 [id number] / / [id number] documented as of this encounter Advance Directives [...] and were consensually agreed upon. Care Teams Traffic Workforce Representative Relationship Specialty Start Date End Date Sebastian Do DO [address] [place] [address] PCP - General Family Medicine 05/24/23 documented as of this encounter
--- OUTSIDE RECORDS SUMMARY | 2023-07-05 03:10 | External Medical Summary | Summary of Care ---
Author Name Unknown Organization [facility] Address [address] [place] [address] Phone [phone] Care Team Providers Care Wash Barrel Leader Name Role Phone ErnestinaSebastian mccarthy Primary Care Provider [phone] Reason for Visit * Reason Comments Chemotherapy HOLD C10D1 Folfox Encounter Details Date Type Department Care Team (Latest Contact Info) Description 06/08/2023 10:45 AM EST Hem/Onc Treatment Hematology/Oncolog y Treatment, [place] [address] [place] [address] [place], Chair 7 Hem Onc Scenery [address] [place] [address] Hypertrophy of nasal turbinates*; Encounter for antineoplastic chemotherapy; 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 [...] No 06/25/2019 documented as of this encounter Nursing Notes * Precious Manrique RN - 06/08/2023 10:59 AM EST Pt was seen by Dr Marie today, see office notes. Plan is to hold chemo today, pt will see surgeon next week and then f/u with Cynthia in 3 weeks to determine further treatment plan. Pharmacy made aware. * Paola Sequeira RN - 06/07/2023 10:47 AM EST [address]. Per Dr Marie, ok to proceed with treatment. documented in this encounter Plan of Treatment Upcoming Encounters Date Type Department Care Team (Late st Contact Info) Description 06/13/2023 11:00 AM EST Office Visit General Surgery, [place] [address] [place] [address] Hector Jean MD [address] [place] [address] 06/27/2023 10:15 AM EST Office Visit Hematology/Oncology [facility] 200 [facility] [place] [address] Venessa Marie MD 200 [facility] [place] [address] 11/28/2023 10:00 AM EDT Cardiac Studies Cardiology, [facility] 132 [place] [address] [place], Pacer Clinic [facility] 132 [place] [address] 04/16/2024 9:45 AM EST Office Visit Dermatology [facility] 200 [facility] [place] [address] Magnus Nettles MD 200 [facility] [place] [address] Scheduled Procedures Name Priority Associated Diagnoses Date/Ti me COLONOSCOPY FLEXIBLE PROXIMA L DIAGNOSTIC Recall History of colonic polyps Health Maintenance Due Date Last Done Comments DISCUSS TOBACCO CESSATION (REFER TO SMARTSET #7883) 1950 Pneumococcal Vaccine: 65+ Years (1 - [...] this encounter Medical Devices Implanted Type Area Cellar Packer Device Identifier Shelf Expiration Date Model / Serial / Lot Kit Distal Bicep Repair Ar-22 - [id number] Implanted:Qty : 1 on 09/22/2015 by Daniel Melgar DO at OR [facility] Right: Shoulder [employer] 08/03/2020 AR-2260 / / [id number] Suture Steel 6 B&S19 M654g - Sm654 - [id number] Implanted:Qty : 4 on 06/22/2019 by Corbin Mock MD [place] [facility] N/A: Sternum JNJ : [employer] 02/04/2024 M654G / [id number] / [id number] Port Implant W/8f Poly Cath - [id number] Implanted:Qty : 1 on 12/23/2022 by Mariano Hong DO at OR [facility] Right: Chest CR BARD : PERIPHERAL VASCULAR [id number] 02/04/2024 [id number] / / [id number] documented as of this encounter Visit Diagnoses Diagnosis Hypertrophy of nasal turbinates- Primary Encounter for antineoplastic chemotherapy 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) Malignant neoplasm of other specified sites of stomach documented in this encounter Administered Medications Active Administered Medications - up to 3 most recent administrations Medication Order MAR Action Action Date Dose Rate Site Fluorouracil (5-Fu) 5,250 mg for Home Infusion 5,250 mg (rounded from 5,256 mg = 2,400 mg/m2 2.19 m2 Treatment Plan BSA from Recorded weight), Intravenous, Administer over 46 Hours, Home Infusion Pharmacy to specify base solution and volume., ONCE, 1 dose, On Tue06/08/23 at 1315 documented in this encounter Advance Directives Latest [...] and were consensually agreed upon. Care Teams Wash Barrel Leader Relationship Specialty Start Date End Date Sebastian Do DO [address] [facility] [place] [address] PCP - General Family Medicine 05/24/23 documented as of this encounter
--- OUTSIDE RECORDS SUMMARY | 2023-07-05 03:10 | External Medical Summary ---
Author Name Unknown Address Unknown Organization [facility] [address] [place] [address] Laboratory Report Ordering Provider Test Date Status VERONICA FARRIS 06/07/2023 09:59:02 Final Observation Date Value Abnormality Reference (Units ) Status BUN 06/07/2023 09:59:02 10 6-20 (mg/dL) Final Creatinine 06/07/2023 09:59:02 0.9 0.6-1.2 (mg/dL) Final Glomerular filtration rate/1.73 sq M.predicted [Volume Rate/Area] in Serum, Plasma or Blood by Creatinine-based formula (CKD-EPI) 06/07/2023 09:59:02 >90 >=60 (mL/min) Final eGFR is calculated based on the CKD-EPI 2020 equation SODIUM 06/07/2023 09:59:02 140 135-146 (m mol/L) Final Potassium 06/07/2023 09:59:02 4.5 3.5-5.1 (m mol/L) Final Cl 06/07/2023 09:59:02 108 Above high normal 98 -107 (mmol/L) Final CO2 06/07/2023 09:59:02 23 22-32 (mmo l/L) Final Anion gap 06/07/2023 09:59:02 9 7-15 (mmol /L) Final Glucose 06/07/2023 09:59:02 103 70-120 (mg /dL) Final Albumin 06/07/2023 09:59:02 4.0 3.8-5.0 (g /dL) Final AST (Aspartate aminotransferase) 06/07/2023 09:59:02 33 10-50 (U/L) Fin al Alk Phos 06/07/2023 09:59:02 140 Above high normal 35 -130 (U/L) Final Bilirubin, Total 06/07/2023 09:59:02 0.5 <=1 .2 (mg/dL) Final Calcium 06/07/2023 09:59:02 9.7 8.4-10.2 ( mg/dL) Final Protein 06/07/2023 09:59:02 7.1 6.0-8.3 (g /dL) Final ALT (Alanine aminotransferase) 06/07/2023 09:59:02 36 10-50 (U/L) Arian dodge Performing Location [facility] [address] [place] [address]
--- OUTSIDE RECORDS SUMMARY | 2023-07-05 03:10 | External Medical Summary ---
Author Name Unknown Address Unknown Organization : Laboratory Report Ordering Provider Test Date Status JASMEET LUO 06/27/2023 08:55:57 Final Observation Date Value Abnormality Reference (Units ) Status Glucose Point of Care 06/27/2023 08:55:57 86 70-120 (mg/dL) Final Performing Location
--- OUTSIDE RECORDS SUMMARY | 2023-07-05 03:10 | External Medical Summary ---
Author Name Unknown Address Unknown Organization [facility] [address] [address] Laboratory Report Ordering Provider Test Date Status VERONICA FARRIS 06/22/2023 10:58:09 Final Observation Date Value Abnormality Reference (Units ) Status WBC, Total 06/22/2023 10:58:09 5.58 4.00-10.8 0 (K/uL) Final RBC 06/22/2023 10:58:09 4.18 4.50-5.25 (M/uL) Final Hemoglobin 06/22/2023 10:58:09 13.0 Below low normal 14 .0-16.8 (g/dL) Final HCT 06/22/2023 10:58:09 40.9 40.0-48.4 (%) Final MCV 06/22/2023 10:58:09 97.8 82.0-99.5 (fL) Final MCH 06/22/2023 10:58:09 31.1 27.0-34.0 (pg) Final MCHC 06/22/2023 10:58:09 31.8 32.0-36.0 (g/dL) Final RDW 06/22/2023 10:58:09 16.9 11.5-15.5 (%) Final Platelets 06/22/2023 10:58:09 174 140-400 (K /uL) Final MPV 06/22/2023 10:58:09 9.0 6.6-11.1 ( fL) Final Performing Location [facility] [place] [address]
--- OUTSIDE RECORDS SUMMARY | 2023-07-05 03:10 | External Medical Summary | Summary of Care ---
Author Name Unknown Organization [facility] Address [address] [place] [address] Phone [phone] Care Team Providers Care Operations Planner Name Role Phone Sebastian Do DO Primary Care Provider [phone] Reason for Visit * Reason Comments Follow Up Encounter Details Date Type Department Care Team (Late st Contact Info) Description 06/14/2023 11:20 AM EST Office Visit General Surgery, [place] [address] [place], [place] [id number] Hector Jean MD [address] [place], [place] [address] Pre-operative examination* Allergies No known active allergiesdocumented as of this encounter (statuses as of 06/16/2023) Medications Medication Sig Dispensed Refills Start Date [...] as of this encounter (statuses as of 06/16/2023) Active Problems Problem Noted Date Diagnosed Date [...] as of this encounter (statuses as of 06/16/2023) Resolved Problems Problem Noted Date Diagnosed Date Resolved Date Impacted cerumen 01/10/2006 06/19/2019 Overview: documented as of this encounter (statuses as of 06/16/2023) Immunizations Name Administration Dates Next Due Season [...] Sign Reading Time Taken Comments Blood Pressure 123/80 06/14/2023 11:03 AM EST Pulse 86 06/14/2023 11:03 AM EST Temperature - - Respiratory Rate - - Oxygen Saturation 99% 06/14/2023 11: 03 AM EST Inhaled Oxygen Concentration - - Weight 90.1 kg (198 lb 11.2 oz) 024 11:03 AM EST Height 180.1 cm (5' 10.9") 06/14/2023 1 1:03 AM EST Body Mass Index 27.79 06/14/2023 11:03 AM EST documented in this encounter Functional Status Functional Status Response Date of Assess ment Do you have serious difficul ty walking or climbing stairs? (5 years old or older) No 06/25/2019 documented as of this encounter Patient Instructions * Patient Instructions* Gita Mueller RN - 06/14/2023 12:11 PM EST Link Sanford You are scheduled for stomach removal surgery on TBD with Dr. Hector Jean at [place] [address] Please feel free to call me with any questions. Lindsey [phone] I will call with a definitive surgery date. Testing needed prior to surgery Type and screen Type and screen to be done day of surgery MEDICATIONS 10 days prior to surgery/procedure Stop all Herbal supplements, Green Tea, Turmeric, Melatonin, CBD, THC, etc. Stop all Vitamins (including Vitamin E) 7 days prior to surgery hold NSAIDs (like ibuprofen, naproxen, naprosyn, aspirin) 24 hours prior to surgery/procedure DO NOT consume any alcohol. DO NOT use medical marijuana. DO NOT smoke or use tobacco products of any kind after midnight prior to surgery. *Using any of these products may increase your risks of procedural complications Patient is taking a blood thinning medication Plavix and was instructed to stop taking this medication 8 days prior to surgery - will message cardiology for recommendations if not agreeable to that time frame. IF IT IS LESS THAN RECOMMENDED STOPPAGE TIME PLEASE STOP AT TIME OF NOTIFICATION. When the pre-surgery nurse contacts you, he/she will review what medications to take the morning ofthe surgery. BATHING INSTRUCTIONS: Bathe the evening prior to and the morning of surgery/procedure. Cleanse your body using ONLY anti-bacterial soap (eg, Dial, Safeguard) or any specific soap/cleansers and instructions provided by your surgeon (eg, Chlorhexidine). You should brush your teeth the morning of surgery. Do NOT apply any lotions, powders, sprays, creams, oils, make-up, or deodorants after bathing. No hairspray, or nail khmer on fingers or toes. Day of surgery/procedure do not use tampons. GENERAL INSTRUCTIONS OUTPATIENT SURGERY PATIENTS: After your surgery you [...] your Short Stay surgery cannot be done. An escort straddle truck driver is required if you are being discharged the same day of the surgery. You should have a responsible adult over the age of 18 [address] you home. This person should be present with you in the hospital at the time of discharge and for the first 24 hours after the surgery to support your needs. If you are taking a taxi home, you must have your responsible republican accompany you in the taxi ride home at the time of discharge. ADMISSION PATIENTS: After your stay in the recovery area, you will be taken to your room. Your family may visit you in your room based on current visitation policy. If a next day discharge is expected, it is important to make arrangements for a straddle truck driver to take you home. Please be aware our visitation policies are subject to change Professionals, attendants, caregivers or family members are allowable visitors for patients with intellectual, developmental or cognitive disabilities, communication barriers or behavioral concerns. Because patients' and families' needs vary, they will be taken into account when applying visitation restrictions. OR times subject to change. Please check voicemail messages the day/evening before your surgery forany updates. If you wear contacts wear your eyeglasses if available otherwise bring your contact supplies with you to remove them prior to your surgery/procedure. If you wear glasses or dentures, please bring cases in which you can store them during your surgery. Please remove all piercings and jewelry and leave them at home. Wear comfortable and loose clothing If you use a CPAP and are staying overnight, please bring your mask and tubing with you to the hospital. If you use an assistive mobility device (walker, cane, etc), please label it with your name and bring to hospital. Contact your surgeon's office [phone] if you develop any of the following within 2 weeks of surgery: A cold Infection Fever Shingles Chicken pox or exposure to chicken pox Open areas such as scrapes, cuts, lees or other skin conditions Rashes After hours, weekends, and holidays, call the main hospital coat operator at [phone] and ask for the wet char conveyor tender resident. The surgery clinic will call you with the time to be here the day of surgery. This call will occur the business day prior to your surgery between 1 pm and 7 pm. FASTING RECOMMENDATIONS: To reduce risk, it is important for all elective surgery patients to follow the specific fasting guidelines listed below. DO NOT EAT after midnight on the night prior to your surgery date. You are allowed to drink clear liquids up to two hours prior to arrival time to the hospital or surgery center. Examples of clear liquids include water, clear fruit juice without pulp, clear carbonated beverages, clear tea, and black coffee. THE DAY BEFORE YOUR SURGERY: Drink plenty of fluid the day before your surgery. documented in this encounter Progress Notes * Burton Costello DO - 06/14/2023 11:20 AM EST SURGICAL ONCOLOGY FOLLOW UP VISIT Reason for visit: Evaluation for gastrectomy status post neoadjuvant chemotherapy HPI: Link Sanford is a 72 year old male who [...] a poorly differentiated adenocardinoma. Follow up EUS (11/09/22) and CT, demonstrated a [id number] lesion, and subsequently started on FOLFOX chemotherapy. 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 He last had a dose of chemo 3 weeks ago, and states that he has had 9/12 cycles. He has been seeing his ceo who is aware of the upcoming potential surgery, and have evaluated him preoperatively. Past Medical History: Diagnosis Date Benign neoplasm of colon 07/19/07 adenomatous repeat colonoscopy in 5 yrs Benign neoplasm of colon 07/07/12 adenomatous polyp Chronic pharyngitis 01/10/06 Deviated nasal septum 01/10/06 Hypertrophy of nasal turbinates 01/10/06 Impacted cerumen 01/10/06 Melanoma (HCC) NON ALLERGIC RHINITIS 01/10/06 Other diseases of respiratory system, not elsewhere classified 01/10/06 Other dyspnea and respiratory abnormality 01/10/06 Past Surgical History: Procedure Laterality Date ARTHO,SHOUL,W/ROTATOR CUFF 09/22/2015 ARTHROSCOPY SHOULDER ROTATOR CUFF performed by Daniel Melgar DO at OR [facility] CABG, ARTERIAL, SINGLE N/A 06/22/2019 CORONARY ARTERY BYPASS GRAFT USING ARTERY 1 GRAFT performed by Corbin Mock MD at OR [facility] CABG, ARTERY-VEIN, TWO 06/22/2019 CORONARY ARTERY BYPASS GRAFT ARTERIAL AND VENOUS 2 GRAFTS performed by Corbin Mock MD at OR [facility] COLONOSCOPY W/ LESION REMOVAL, SNARE 07/19/2007 polyp x 3 adenomatous repeat in 5 yrs COLONOSCOPY, DIAGNOSTIC (RECTUM) 07/07/2012 COLONOSCOPY FLEXIBLE PROXIMAL DIAGNOSTIC performed by Alan Ramsey MD at ENDOSCOPY [facility]-adenomatous repeat in 5 years COLONOSCOPY, DIAGNOSTIC (RECTUM) 09/02/2017 diverticulosis, repeat 5 yrs/COLONOSCOPY FLEXIBLE PROXIMAL DIAGNOSTIC performed by Alan Ramsey MD at ENDOSCOPY [facility] COLONOSCOPY, DIAGNOSTIC (RECTUM) N/A 11/03/2022 moderate diverticulosis/hemorrhoids/biopsies show adenomatous polyps/recall 5 years/Colonoscopy/[facility] EGD, FLEXIBLE, DIAGNOSTIC 09/12/2020 Oozing small gastric ulcer, duodenitis, repeat 3 mo / INPT [facility] EGD, FLEXIBLE, DIAGNOSTIC 01/01/2021 normal / [facility] EGD, FLEXIBLE, DIAGNOSTIC N/A 11/03/2022 diffuse gastritis/non-obstructing non-bleeding gastric ulcer/repeat 3 months/EGD/[facility] EGD, W/ENDOSCOPIC US N/A 11/09/2022 mass incisura of stomach, adenocarcinoma/ESOPHAGOGASTRODUODENOSCOPY (EGD), FLEXIBLE, TRANSORAL, ENDOSCOPIC ULTRASOUND performed by Karthik Burks DO at OR [facility] ENDO,VIDEO ASSIST HARVEST ZEHRA N/A 06/22/2019 ENDOSCOPY VIDEO ASSISTED HARVEST VEIN performed by Corbin Mock MD at OR [facility] INFORMATION 06/11/2013 06/11/2013 - shave bx of left distal forarm - invasive malignat melanoma, extending to a dept of approximately 0.85mm - [facility] - Dr. Chris Correia MD. INSER TUNN ACC DEV;5 YRS/OLDER N/A 12/23/2022 INSERT TUNNELED CENTRAL VENOUS ACCESS WITH SUBQ PORT performed by Mariano Hong DO at OR [facility] INSERT/REPLACE DEFIBRILLATOR W/TRANSVERSE LEAD(S) Left 06/26/2019 NON-THORACIC INTERNAL CARDIAC DEFIBRILLATOR LEADS AND GENERATOR IMPLANT performed by Nithin Verdin MD at CARDIAC LABS [facility] PLEURODESIS FOR PNEUMOTHORAX 1974 for left pneumothorax RMV MALG LSN TRK/ARM/LG 2.1-3C 06/21/2013 Wide local excision left forearm melanoma with rotational flap closure of circular defect left forearm, [place] lymph node biopsy of left axilla 06/21/13 Dr. Martínez at [facility] SHOULDER ARTHROSCOPY/DEBRIDEMENT 09/22/2015 ARTHROSCOPY SHOULDER DEBRIDEMENT LIMITED performed by Daniel Melgar DO at OR [facility] Family History Problem Relation Age of [...] file Housing Stability: Not on file Current Outpatient Medications Medication Sig Dispense Refill [...] No current facility-administered medications for this visit. Review of patient's allergies indicates: No Known [...] K/uL Imaging: Reviewed Impression: 73-year-old male with [id number] gastric adenocarcinoma status post neoadjuvant FOLFOX chemotherapy [...] with the tumor site Hector Jean MD electrician second Section Head, Surgical Oncology and Endocrine Surgery [facility] [address] [place] [address] Office: [phone] [email or web address] documented in this encounter Plan of Treatment Upcoming Encounters Date Type Department Care Team (Latest Contact Info) Description 06/27/2023 5:11 PM EST Hospital Encounter OR [facility], OPERATING ROOM [facility] [address] [place] [address] Hector Jean MD [address] [place] [address] 06/27/2023 5:11 PM EST - 06/27/2023 7:32 PM EST Surgery OR [facility], OPERATING ROOM [facility] [address] [place] [address] Hector Jean MD [address] [place] [address] GASTRECTOMY TOTAL WITH ESOPHAGOENTEROSTOMY 11/28/2023 10:00 AM EDT Cardiac Studies Cardiology, [facility] [address] [place] [address] [facility] [address] [place] [address] 04/16/2024 9:45 AM EST Office Visit Dermatology [facility] [place] [address] [place] [address] Magnus Nettles MD [address] [facility] [place] [address] Scheduled Procedures Name Priority Associated Diagnoses Date/Ti me GASTRECTOMY TOTAL WITH ESOPHAGOENTEROSTOMY Gastric adenocarcinoma (HCC) 06/27/2023 5:11 PM EST COLONOSCOPY FLEXIBLE PROXIMA L DIAGNOSTIC Recall History of colonic polyps Health Maintenance Due Date Last Done Comments DISCUSS TOBACCO CESSATION (REFER TO SMARTSET #3291) 1950 Pneumococcal Vaccine: 65+ Years (1 - [...] this encounter Medical Devices Implanted Type Area Relationship Advisor Device Identifier Shelf Expiration Date Model / Serial / Lot Kit Distal Bicep Repair Ar-22 - [id number] Implanted:Qty : 1 on 09/22/2015 by Daniel Melgar DO at OR [facility] Right: Shoulder [employer] 08/03/2020 AR-2260 / / [id number] Suture Steel 6 B&S19 M654g - Sm654 - [id number] Implanted:Qty : 4 on 06/22/2019 by Corbin Mock MD at OR [facility] N/A: Sternum JNJ : [employer] 02/04/2024 M654G / [id number] / [id number] Port Implant W/8f Poly Cath - [id number] Implanted:Qty : 1 on 12/23/2022 by Mariano Hong DO at OR [facility] Right: Chest CR BARD : PERIPHERAL VASCULAR [id number] 02/04/2024 [id number] / / [id number] documented as of this encounter Visit Diagnoses Diagnosis Pre-operative examination- Primary Preoperative examination, unspecified Gastric adenocarcinoma (HCC) Malignant neoplasm of stomach, unspecified site documented in this encounter Advance Directives Latest [...] and were consensually agreed upon. Care Teams Operations Planner Relationship Specialty Start Date End Date Sebastian Do DO [address] [facility], [place] [address] PCP - General Family Medicine 05/24/23 documented as of this encounter
--- OUTSIDE RECORDS SUMMARY | 2023-07-05 03:10 | External Medical Summary | Summary of Care ---
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) Allergies No known active allergiesdocumented as of this encounter (statuses as of 06/22/2023) Medications Medication Sig Dispensed Refills Start Date [...] as of this encounter (statuses as of 06/22/2023) Active Problems Problem Noted Date Diagnosed Date [...] as of this encounter (statuses as of 06/22/2023) Resolved Problems Problem Noted Date Diagnosed Date Resolved Date Impacted cerumen 01/10/2006 06/19/2019 Overview: documented as of this encounter (statuses as of 06/22/2023) Immunizations Name Administration Dates Next Due Season [...] 06/27/2023 3:36 PM EST Hospital Encounter OR [facility], OPERATING ROOM [facility] [address] [place] [address] Hector Jean MD [address] [place] [address] 06/27/2023 3:36 PM EST - 06/27/2023 5:57 PM EST Surgery OR [facility], OPERATING ROOM [facility] [address] [place] [address] Hectro Jean MD [address] [place] [address] GASTRECTOMY TOTAL WITH ESOPHAGOENTEROSTOMY 07/25/2023 10:15 AM EST Office Visit Hematology/Oncolo gy [facility] [address] [place] [address] Venessa Marie MD [address] [place] [address] 11/28/2023 10:00 AM EDT Cardiac Studies Cardiology, [facility] [address] [place] [address] [facility] [address] [place] [address] 04/16/2024 9:45 AM EST Office Visit Dermatology [facility] [place] [address] [place] [address] Magnus Nettles MD [address] [place] [address] Pending Results Name Type Priority Associated Diagnoses Date /Time COMPREHENSIVE METABOLIC PANEL Lab STAT 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) 06/22/2023 10:58 AM EST Scheduled Procedures Name Priority Associated Diagnoses Date/Ti me GASTRECTOMY TOTAL WITH ESOPHAGOENTEROSTOMY Gastric adenocarcinoma (HCC) 06/27/2023 3:36 PM EST COLONOSCOPY FLEXIBLE PROXIMA L DIAGNOSTIC Recall History of colonic polyps Health Maintenance Due Date Last Done Comments DISCUSS TOBACCO CESSATION (REFER TO SMARTSET #5262) 1950 Pneumococcal Vaccine: 65+ Years (1 - [...] this encounter Medical Devices Implanted Type Area Heavy Threader Device Identifier Shelf Expiration Date Model / Serial / Lot Kit Distal Bicep Repair Ar-22 - [id number] Implanted:Qty : 1 on 09/22/2015 by Daniel Melgar DO at OR [facility] Right: Shoulder [employer] 08/03/2020 AR-2260 / / [id number] Suture Steel 6 B&S19 M654g - Sm654 - [id number] Implanted:Qty : 4 on 06/22/2019 by Corbin Mokc MD at OR [facility] N/A: Sternum JNJ : [employer] 02/04/2024 M654G / [id number] / [id number] Port Implant W/8f Poly Cath - [id number] Implanted:Qty : 1 on 12/23/2022 by Mariano Hong DO at OR [facility] Right: Chest CR BARD : PERIPHERAL VASCULAR [id number] 02/04/2024 [id number] / / [id number] documented as of this encounter Procedures Procedure Name Priority Date/Time Associated Diagnosis Comments DIFFERENTIAL, AUTOMATED STAT 06/22/2023 10:58 AM EST 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) CBC STAT 06/22/2023 10:58 AM EST 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) CBC STAT 06/22/2023 10:58 AM EST 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) documented in this encounter Results * DIFFERENTIAL, AUTOMATED (06/22/2023 10:58 AM EST) WBC 5.58 4.00 - 10.80 K/uL 06/22/2023 11:05 AM EST [facility] 56-02 Neutrophils % 58.7 40.0 - 75.0 % 06/22/2023 11:05 AM EST [facility] 56-02 Lymphocytes % 32.4 18.0 - 42.0 % 06/22/2023 11:05 AM EST [facility] 56-02 Monocytes % 8.1 1.0 - 11.0 % 06/22/2023 11:05 AM EST [facility] 56-02 Eosinophils % 0.4 0.0 - 6.0 % 06/22/2023 11:05 AM EST [facility] 56-02 Basophils % 0.4 0.0 - 2.0 % 06/22/2023 11:05 AM EST [facility] 56-02 Absolute Neutrophils 3.28 1.80 - 7.70 K/uL 06/22/2023 11:05 AM EST [facility] 56-02 Absolute Lymphocytes 1.81 1.00 - 4.80 K/ul 06/22/2023 11:05 AM EST [facility] 56-02 Absolute Monocytes 0.45 0.00 - 1.10 K/uL 06/22/2023 11:05 AM EST [facility] 56-02 Absolute Eosinophils 0.02 0.00 - 0.70 K/uL 06/22/2023 11:05 AM EST [facility] 56-02 Absolute Basophils 0.02 0.00 - 0.20 K/uL 06/22/2023 11:05 AM [facility] 5602 Blood Venous blood specimen / Unknown Venipuncture / Unknown 06/22/2023 10:58 AM EST 06/22/2023 10:58 AM EST Venessa Marie MD LAB BLOOD [facility] [address] [place], [place] [id number] * (ABNORMAL) CBC (06/22/2023 10:58 AM EST) WBC 5.58 4.00 - 10.80 K/uL 06/22/2023 11:[address] RBC 4.18 4.50 - 5.25 M/uL 06/22/2023 11:05 AM [place] [address] HGB 13.0(L) 14.0 - 16.8 g/dL 06/22/2023 11:05 AM [place] [address] HCT 40.9 40.0 - 48.4 % 06/22/2023 11:[address] MCV 97.8 82.0 - 99.5 fL 06/22/2023 11:[address] MCH 31.1 27.0 - 34.0 pg 06/22/2023 11:05 [address] MCHC 31.8 32.0 - 36.0 g/dL 06/22/2023 11:[address] RDW 16.9 11.5 - 15.5 % 06/22/2023 11:05 AM [facility] 5602 PLT 174 140 - 400 K/uL 06/22/2023 11:05 AM [facility] 5602 MPV 9.0 6.6 - 11.1 fL 06/22/2023 11:05 AM [facility] 5602 Blood Venous blood specimen / Unknown Venipuncture / Unknown 06/22/2023 10:58 AM EST 06/22/2023 10:58 AM EST Cliffordharsh Marie MD LAB BLOOD ORDER[facility] [address] [place] [address] documented in this encounter Visit Diagnoses Diagnosis 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 Care Teams Pain Management Nurse Practitioner Relationship Specialty Start Date End Date Sebastian Do [facility] [address] [facility] [address] PCP - General Family Medicine 05/24/23 documented as of this encounter
--- OUTSIDE RECORDS SUMMARY | 2023-07-05 03:10 | External Medical Summary | Summary of Care ---
Author Name Unknown Organization [facility] Address [address] [place] [address] Phone [phone] Care Team Providers Care Pattern Chart Writer Name Role Phone Sebastian Do Primary Care Provider Reason for Visit * Reason Onset Date Comments Appointment 06/20/2023 Encounter Details Date Type Department Care Team (Late st Contact Info) Description 06/20/2023 Telephone Hematology/Oncology [facility] [place] [address] [facility] [place] [address] Venessa Marie MD [address] [facility] [place] [address] Appointment Allergies No known active allergiesdocumented as of this encounter (statuses as of 06/20/2023) Medications Medication Sig Dispensed Refills Start Date [...] as of this encounter (statuses as of 06/20/2023) Active Problems Problem Noted Date Diagnosed Date [...] as of this encounter (statuses as of 06/20/2023) Resolved Problems Problem Noted Date Diagnosed Date Resolved Date Impacted cerumen 01/10/2006 06/19/2019 Overview: documented as of this encounter (statuses as of 06/20/2023) Immunizations Name Administration Dates Next Due Season [...] encounter Miscellaneous Notes * Telephone Encounter - Martina Green OSA - 06/20/2023 9:31 AM EST Per states 2-3 weeks after surgery Called and spoke to patient and he is scheduled to see on 07/25/23. documented in this encounter Plan of Treatment Upcoming Encounters Date Type Department Care Team (Latest Contact Info) Description 06/27/2023 3:36 PM EST Hospital Encounter OR [facility], OPERATING ROOM [facility] [address] [place] [address] Hector Jean MD [address] [place], [place] [address] 06/27/2023 3:36 PM EST - 06/27/2023 5:57 PM EST Surgery OR [facility], OPERATING ROOM [facility] [address] [place] [address] Hector Jean MD [address] [place] [address] GASTRECTOMY TOTAL WITH ESOPHAGOENTEROSTOMY 07/25/2023 10:15 AM EST Office Visit Hematology/Oncolo gy [facility] [address] [place] [address] Venessa Marie MD [address] [place] [address] 11/28/2023 10:00 AM EDT Cardiac Studies Cardiology, [facility] [address] [place] [facility] [address] [facility] 132 [facility] [place] [address] 04/16/2024 9:45 AM EST Office Visit Dermatology [facility] [place] [address] [place] [address] Magnus Nettles MD [address] [place] [address] Scheduled Procedures Name Priority Associated Diagnoses Date/Ti me GASTRECTOMY TOTAL WITH ESOPHAGOENTEROSTOMY Gastric adenocarcinoma (HCC) 06/27/2023 3:36 PM EST COLONOSCOPY FLEXIBLE PROXIMA L DIAGNOSTIC Recall History of colonic polyps Health Maintenance Due Date Last Done Comments DISCUSS TOBACCO CESSATION (REFER TO SMARTSET #4047) 1950 Pneumococcal Vaccine: 65+ Years (1 - [...] this encounter Medical Devices Implanted Type Area Bonding Equipment Operator Device Identifier Shelf Expiration Date Model / Serial / Lot Kit Distal Bicep Repair Ar-22 - [id number] Implanted:Qty : 1 on 09/22/2015 by Daniel Melgar DO at OR [facility] Right: Shoulder [employer] 08/03/2020 AR-2260 / / [id number] Suture Steel 6 B&S19 M654g - Sm654 - [id number] Implanted:Qty : 4 on 06/22/2019 by Corbin Mock MD at OR [facility] N/A: Sternum JNJ : [employer] 02/04/2024 M654G / M654 / [id number] Port Implant W/8f Poly Cath - [id number] Implanted:Qty : 1 on 12/23/2022 by Mariano Hong DO at OR [facility] Right: Chest CR BARD : PERIPHERAL VASCULAR [id number] 02/04/2024 [id number] / / [id number] documented as of this encounter Advance Directives [...] and were consensually agreed upon. Care Teams Pattern Chart Writer Relationship Specialty Start Date End Date Sebastian Do DO [address] [place] [address] PCP - General Family Medicine 05/24/23 documented as of this encounter
--- OUTSIDE RECORDS SUMMARY | 2023-07-05 03:10 | External Medical Summary ---
Author Name Unknown Address Unknown Organization K01:[facility] - [address] [place] [address] Laboratory Report Ordering Provider Test Date Status GLADYS JIMENES 06/27/2023 08:53:05 Final Observation Date Value Abnormality Reference (Units ) Status ABO 06/27/2023 08:53:05 A Final RH 06/27/2023 08:53:05 Negative Final RED BLOOD CELL ANTIBODY SCREEN 06/27/2023 08:53:05 Negative Final SPECIMEN EXPIRATION DATE 06/27/2023 08:53:05 06/30/2023 23:59 Final Performing Location [facility] - [address] [place] [address]
--- OUTSIDE RECORDS SUMMARY | 2023-07-05 03:10 | External Medical Summary | Summary of Care ---
Author Name Unknown Organization [facility] Address [address] [place] [address] Phone [phone] Care Team Providers Care Nutritional Health Coach Name Role Phone ErnestinaSebastian mccarthy Primary Care Provider [phone] Encounter Details Date Type Department Care Team (Late st Contact Info) Description 06/07/2023 Orders Only [facility] [address] [place] [address] Venessa Marie MD [address] [place] [address] Allergies No known active allergiesdocumented as of [...] a day. 70 Lozenge 0 04/01/2023 Active Hospital, Clinic, or Other Facility Administered Medication Ordered Dose Route Frequency Start Date End Date Status Fluorouracil (5-Fu) 5,250 mg in NSS 138 mL infusion 5250 mg IV ONCE 06/07/2023 06/07/2023 Active documented as of this encounter (statuses [...] Care Team (Latest Contact Info) Description 06/08/2023 10:15 AM EST Office Visit Hematology[place]olog [place] [address] [place] [address] Venessa Marie MD [address] [place] [address] 06/08/2023 10:45 AM EST Hem/Onc Treatment Hematology/Oncolog y Treatment, [place] [address] [facility] 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 [place] [address] Scheduled Procedures Name Priority Associated Diagnoses Date/Ti me COLONOSCOPY FLEXIBLE PROXIMA L DIAGNOSTIC Recall History of colonic polyps Health Maintenance Due Date Last Done Comments DISCUSS TOBACCO CESSATION (REFER TO SMARTSET #3925) 1950 Pneumococcal Vaccine: 65+ Years (1 - [...] this encounter Medical Devices Implanted Type Area Tabulating Clerk Device Identifier Shelf Expiration Date Model / Serial / Lot Kit Distal Bicep Repair Ar-22 - [id number] Implanted:Qty : 1 on 09/22/2015 by Daniel Melgar DO at OR [facility] Right: Shoulder [employer] 08/03/2020 AR-2260 / / [id number] Suture Steel 6 B&S19 M654g - Sm654 - [id number] Implanted:Qty : 4 on 06/22/2019 by Corbin Mock MD at OR [facility] N/A: Sternum JNJ : [employer] 02/04/2024 M654G / M654 / [id number] Port Implant W/8f Poly Cath - [id number] Implanted:Qty : 1 on 12/23/2022 by Mariano Hong DO at OR [facility] Right: Chest CR BARD : PERIPHERAL VASCULAR [id number] 02/04/2024 [id number] / / [id number] documented as of this encounter Advance Directives [...] and were consensually agreed upon. Care Teams Nutritional Health Coach Relationship Specialty Start Date End Date Sebastian Do DO [address] [facility] [place] [address] PCP - General Family Medicine 05/24/23 documented as of this encounter
--- OUTSIDE RECORDS SUMMARY | 2023-07-05 03:11 | External Medical Summary ---
Author Name Unknown Address Unknown Organization K09:[facility] [place] [address] Laboratory Report Ordering Provider Test Date Status VERONICA FARRIS 05/23/2023 09:23:33 Final Observation Date Value Abnormality Reference (Units ) Status WBC, Total 05/23/2023 09:23:33 5.58 4.00-10.8 0 (K/uL) Final RBC 05/23/2023 09:23:33 3.93 4.50-5.25 (M/uL) Final Hemoglobin 05/23/2023 09:23:33 12.4 Below low normal 14 .0-16.8 (g/dL) Final HCT 05/23/2023 09:23:33 38.2 Below low normal 40. 0-48.4 (%) Final MCV 05/23/2023 09:23:33 97.2 82.0-99.5 (fL) Final MCH 05/23/2023 09:23:33 31.6 27.0-34.0 (pg) Final MCHC 05/23/2023 09:23:33 32.5 32.0-36.0 (g/dL) Final RDW 05/23/2023 09:23:33 16.7 11.5-15.5 (%) Final Platelets 05/23/2023 09:23:33 225 140-400 (K /uL) Final MPV 05/23/2023 09:23:33 8.9 6.6-11.1 ( fL) Final Performing Location [facility] [place] [address]
--- OUTSIDE RECORDS SUMMARY | 2023-07-05 03:11 | External Medical Summary | Summary of Care ---
Author Name Unknown Organization [facility] Address [address] [place] [address] Phone [phone] Care Team Providers Care Hog Scalder Name Role Phone Justin Bob MD Primary Care Provider Reason for Visit * Reason Onset Date Comments Test Results Lab 05/16/2023 Encounter Details Date Type Department Care Team (Late st Contact Info) Description 05/16/2023 Telephone Hematology/Oncology Treatment, [place] [address] [place] [address] Venessa Marie MD [address] [place] [address] Test Results Lab Allergies No known active allergiesdocumented as of this encounter (statuses as of 05/16/2023) Medications Medication Sig Dispensed Refills Start Date [...] as of this encounter (statuses as of 05/16/2023) Active Problems Problem Noted Date Diagnosed Date [...] as of this encounter (statuses as of 05/16/2023) Resolved Problems Problem Noted Date Diagnosed Date Resolved Date Impacted cerumen 01/10/2006 06/19/2019 Overview: documented as of this encounter (statuses as of 05/16/2023) Immunizations Name Administration Dates Next Due Season [...] Telephone Encounter - Martina Green OSA - 05/16/2023 11:41 AM EST Called and spoke to patient and he is aware of lab work and treatment appts on 05/23 and 05/24. * Telephone Encounter - Paola Sequeira RN - 05/16/2023 11:30 AM EST Patient is scheduled for C9D1 FOLFOX tomorrow, ANC 0.[address] Marie, delay chemo x1 week. Called patient who verbalized understanding. Scheduling: please move treatment appt from tomorrow to next week (either Tuesday or Tuesday). Patient will need repeat labs "CBCd, CMP" the day prior at [facility]. Thanks! documented in this encounter Plan of Treatment Upcoming Encounters Date Type Department Care Team (Late st Contact Info) Description 05/23/2023 9:20 AM EST Laboratory Laboratory [facility] [place] 200 [facility] [place] [id number] [place], Lab [address] [place] [address] 05/24/2023 10:45 AM EST Hem/Onc Treatment Hematology/Oncology Treatment, [place] 200 [facility] [place] [address] [place], Chair 2 Hem Onc [address] [place] [address] 05/26/2023 8:15 AM EST Cardiac Studies Cardiac Studies, [facility] 132 [facility] [place] [address] 06/08/2023 10:15 AM EST Office Visit Hematology/Oncology [facility] [place] 200 [facility] [place] [address] Venessa Marie MD 200 [facility] [place] [address] 06/13/2023 11:00 AM EST [facility] [address] [place], [place] [address] Hector Jean MD [address] [place] [address] 11/28/2023 10:00 AM EDT Cardiac Studies Cardiology, [facility] [address] [place] [address] [place], Pacer Clinic [facility] [address] [place] [address] 04/16/2024 9:45 AM EST Office Visit Dermatology [facility] 200 [facility] [place] [address] Magnus Nettles MD 200 [facility] [place] [address] Scheduled Procedures Name Priority Associated Diagnoses Date/Ti me COLONOSCOPY FLEXIBLE PROXIMA L DIAGNOSTIC Recall History of colonic polyps Health Maintenance Due Date Last Done Comments DISCUSS TOBACCO CESSATION (REFER TO SMARTSET #1204) 1950 Pneumococcal Vaccine: 65+ Years (1 - [...] this encounter Medical Devices Implanted Type Area Aeronautical Products Sales Engineer Device Identifier Shelf Expiration Date Model / Serial / Lot Kit Distal Bicep Repair Ar-22 - [id number] Implanted:Qty : 1 on 09/22/2015 by Daniel Melgar DO at OR [facility] Right: Shoulder [employer] 08/03/2020 AR-2260 / / [id number] Suture Steel 6 B&S19 M654g - Sm654 - [id number] Implanted:Qty : 4 on 06/22/2019 by Corbin Mock MD at OR [facility] N/A: Sternum JNJ : [employer] 02/04/2024 M654G / M654 / [id number] Port Implant W/8f Poly Cath - [id number] Implanted:Qty : 1 on 12/23/2022 by Mariano Hong DO at OR [facility] Right: Chest CR BARD : PERIPHERAL VASCULAR [id number] 02/04/2024 [id number] / / [id number] documented as of this encounter Advance Directives [...] and were consensually agreed upon. Care Teams Hog Scalder Relationship Specialty Start Date End Date Justin Bob MD [address] [place] [address] PCP - General Internal Medicine 06/17/14 documented as of this encounter
--- OUTSIDE RECORDS SUMMARY | 2023-07-05 03:11 | External Medical Summary | Summary of Care ---
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) Allergies No known active allergiesdocumented as of this encounter (statuses as of 05/23/2023) Medications Medication Sig Dispensed Refills Start Date [...] as of this encounter (statuses as of 05/23/2023) Active Problems Problem Noted Date Diagnosed Date [...] as of this encounter (statuses as of 05/23/2023) Resolved Problems Problem Noted Date Diagnosed Date Resolved Date Impacted cerumen 01/10/2006 06/19/2019 Overview: documented as of this encounter (statuses as of 05/23/2023) Immunizations Name Administration Dates Next Due Season [...] Care Team (Late st Contact Info) Description 05/24/2023 10:45 AM EST Hem/Onc Treatment Hematology/Oncology Treatment, [place] [address] [place] [address] [place], Chair 2 Hem Onc Scenery [address] [place] [address] 05/26/2023 8:15 AM EST Cardiac Studies Cardiac Studies, [facility] [address] [place] [address] 06/08/2023 10:15 AM EST Office Visit Hematology/Oncology [facility] [address] [facility] [place] [address] [address] Venessa Marie MD 200 [facility] [place] [address] 06/13/2023 11:00 AM EST Office Visit General Surgery, [place] [address] [place], [place] [id number] Hector Jean MD [address] [place] [address] 11/28/2023 10:00 AM EDT Cardiac Studies Cardiology, 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) 05/23/2023 9:23 AM EST Scheduled Procedures Name Priority Associated Diagnoses Date/Ti me COLONOSCOPY FLEXIBLE PROXIMA L DIAGNOSTIC Recall History of colonic polyps Health Maintenance Due Date Last Done Comments DISCUSS TOBACCO CESSATION (REFER TO SMARTSET #8568) 1950 Pneumococcal Vaccine: 65+ Years (1 - [...] this encounter Medical Devices Implanted Type Area Tin Stacker Device Identifier Shelf Expiration Date Model / Serial / Lot Kit Distal Bicep Repair Ar-22 - [id number] Implanted:Qty : 1 on 09/22/2015 by Daniel Melgar DO at OR [facility] Right: Shoulder [employer] 08/03/2020 AR-2260 / / [id number] Suture Steel 6 B&S19 M654g - [id number] - [id number] Implanted:Qty : 4 on 06/22/2019 by Corbin Mock MD at OR [facility] N/A: Sternum JNJ : [employer] 02/04/2024 M654G / [id number] / [id number] Port Implant W/8f Poly Cath - [id number] Implanted:Qty : 1 on 12/23/2022 by Mariano Hong DO at OR [facility] Right: Chest CR BARD : PERIPHERAL VASCULAR [id number] 02/04/2024 [id number] / / [id number] documented as of this encounter Procedures Procedure Name Priority Date/Time Associated Diagnosis Comments DIFFERENTIAL, AUTOMATED STAT 05/23/2023 9:23 AM EST 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) CBC STAT 05/23/2023 9:23 AM EST 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) CBC STAT 05/23/2023 9:23 AM EST 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) documented in this encounter Results * (ABNORMAL) DIFFERENTIAL, AUTOMATED (05/23/2023 9:23 AM EST) WBC 5.58 4.00 - 10.80 K/uL 05/23/2023 9:29 AM EST [facility] 56-02 Neutrophils % 55.2 40.0 - 75.0 % 05/23/2023 9:29 AM EST [facility] 56-02 Lymphocytes % 29.6 18.0 - 42.0 % 05/23/2023 9:29 AM EST [facility] [place] 56-02 Monocytes % 14.0(H) 1.0 - 11.0 % 05/23/2023 9:29 AM EST [facility] 56-02 Eosinophils % 0.5 0.0 - 6.0 % 05/23/2023 9:29 AM EST [facility] 56-02 Basophils % 0.7 0.0 - 2.0 % 05/23/2023 9:29 AM EST [facility] 56-02 Absolute Neutrophils 3.08 1.80 - 7.70 K/uL 05/23/2023 9:29 AM EST [facility] [place] 56-02 Absolute Lymphocytes 1.65 1.00 - 4.80 K/ul 05/23/2023 9:29 AM EST [facility] 56-02 Absolute Monocytes 0.78 0.00 - 1.10 K/uL 05/23/2023 9:29 AM EST [facility] 56-02 Absolute Eosinophils 0.03 0.00 - 0.70 K/uL 05/23/2023 9:29 AM EST [facility] 56-02 Absolute Basophils 0.04 0.00 - 0.20 K/uL 05/23/2023 9:29 AM EST [facility] 56-02 Blood Venous blood specimen / Unknown Venipuncture / Unknown 05/23/2023 9:23 AM EST 05/23/2023 9:23 AM EST Venessa Marie MD LAB BLOOD [facility] 56 [address] [place] [address] * (ABNORMAL) CBC (05/23/2023 9:23 AM EST) WBC 5.58 4.00 - 10.80 K/uL 05/23/2023 9:29 AM [facility] 56 RBC 3.93 4.50 - 5.25 M/uL 05/23/2023 9:29 AM [facility] 56 HGB 12.4(L) 14.0 - 16.8 g/dL 05/23/2023 9:29 AM [facility] 56 HCT 38.2(L) 40.0 - 48.4 % 05/23/2023 9:29 AM [facility] 56 MCV 97.2 82.0 - 99.5 fL 05/23/2023 9:29 AM [facility] 56 MCH 31.6 27.0 - 34.0 pg 05/23/2023 9:29 AM [facility] 56 MCHC 32.5 32.0 - 36.0 g/dL 05/23/2023 9:29 AM [facility] 56 RDW 16.7 11.5 - 15.5 % 05/23/2023 9:29 AM [facility] 56 PLT 225 140 - 400 K/uL 05/23/2023 9:29 AM [facility] 56 MPV 8.9 6.6 - 11.1 fL 05/23/2023 9:29 AM [facility] 56 Blood Venous blood specimen / Unknown Venipuncture / Unknown 05/23/2023 9:23 AM EST 05/23/2023 9:23 AM EST Venessa Marie MD LAB BLOOD [facility] [address] [place] [address] [place] [address] documented in this encounter Visit Diagnoses Diagnosis [...] and were consensually agreed upon. Care Teams Dealmaker Relationship Specialty Start Date End Date Justin Bob MD [address]sch [address] [place] [address] PCP - General Internal Medicine 06/17/14 documented as of this encounter
--- OUTSIDE RECORDS SUMMARY | 2023-07-05 03:11 | External Medical Summary | Summary of Care ---
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) Encounter for antineoplastic chemotherapy Procedures IN LEUCOVORIN CALCIUM INJECTION IN PALONOSETRON HCL IN FLUOROURACIL INJECTION IN OXALIPLATIN Venessa Marie MD [address] [place] [address] Anc Hem/Onc Olinda Saul DEPT CLOSED - 04/19/[address] [address] Referral ID Status Reason Start Date Expiration Date V isits Requested Visits Authorized [id number] Authorized 12/12/2022 06/05/2099 999 999 Encounter Details Date Type Department Care Team (Latest Contact Info) Description 05/24/2023 10:45 AM EST Hem/Onc Treatment Hematology/Oncolog y Treatment, [place] [address] [place] [address] [place], Chair 2 Hem Onc Scenery [address] [place] [address] [address] 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)*; Encounter for antineoplastic chemotherapy Allergies No known active allergiesdocumented as of this encounter (statuses as of 05/24/2023) Medications Medication Sig Dispensed Refills Start Date [...] as of this encounter (statuses as of 05/24/2023) Active Problems Problem Noted Date Diagnosed Date [...] as of this encounter (statuses as of 05/24/2023) Resolved Problems Problem Noted Date Diagnosed Date Resolved Date Impacted cerumen 01/10/2006 06/19/2019 Overview: documented as of this encounter (statuses as of 05/24/2023) Immunizations Name Administration Dates Next Due Season [...] Sign Reading Time Taken Comments Blood Pressure 100/66 05/24/2023 11:14 AM EST Pulse 82 05/24/2023 11:14 AM EST Temperature 36.3 C (97.4 F) 05/24/2023 11:[address] Respiratory Rate 18 05/24/2023 11:14 AM EST Oxygen Saturation 96% 05/24/2023 11:14 AM EST Inhaled Oxygen Concentration - - Weight 88.2 kg (194 lb 6.4 oz) 05/24/2023 11:14 AM EST Height - - Body Mass Index 27.13 04/27/2023 8:58 AM EST documented in this encounter Functional Status Functional Status Response Date of Assess ment Do you have serious difficul ty walking or climbing stairs? (5 years old or older) No 06/25/2019 documented as of this encounter Nursing Notes * Gela Lacy, RN - 05/24/2023 4:11 PM EST Functional status at today's visit: Restricted in physically strenuous activity but ambulatory and able to carry out work on a light orsedentary nature, e.g. light house work, office work The drug name, dose, infusion volume, rate and route of administration, expiration date and time, appearance and physical integrity of the drug and rate set on the pump and sequencing of drug administration (as applicable) were verified by me and second sign-in RN. Patient was assessed for symptoms or adverse side effects during treatment. Pt completed treatment without issues. VAD flushed easily with positive blood return. 5FU CADD pumpconnected and unclamped to initiate infusion. Goals: Pt will remain free from injury. Possible barriers to meeting goals: risk of reaction, ambulation with IV pole Stability of the patient: Moderately stable - low risk of patient condition declining or worsening Summary regarding today's goals: Met: Pt remained free from injury during treatment today. Discharged in stable condition. CT assisted. * Gela Lacy RN - 05/24/2023 11:15 AM EST Chair 3 Chemo agents FOLFOX D1C9 Appetite Diminished; pt not eating as much, dysguesia noted Nausea/Vomiting nausea yes, no vomiting. Advised pt to take zofran more routinely following treatment to prevent nausea Diarrhea some Constipation some Mucositis per pt, thrush has improved but pt cannot tolerate lozenges (cause nausea). Fatigue Pt stated he was extremely fatigued following this cycle- the most he's experienced since starting treatment Bleeding no Infection no Rash pt reported small red bumps on bilateral hands, lower palms. Pt stated the bumps are very sensitive and somewhat painful, but intact. This rash is minimally visible today. Numbness tingling cold sensitivity lasted longer with this cycle Pain no Radiation n/a ABN Labs okay for treatment Alt in Tx: no Return in 2 days for pump disconnect VAD accessed; D5W infusing. Safety and Risk for Injury Patient will remain free from injury. Ensure appropriate safety devices are available. Provide and maintain safe environment. documented in this encounter Plan of Treatment Upcoming Encounters Date Type Department Care Team (Late st Contact Info) Description 05/26/2023 8:15 AM EST Cardiac Studies Cardiac Studies, [facility] [address] [facility] [place] [address] 05/26/2023 12:00 PM EST Immunization/Injecti on Hematology/Oncology Treatment, [place] [address] [place] [address] Nurse, Med 4 200 [facility] [place] [address] 06/07/2023 10:00 AM EST Laboratory Laboratory [facility] [place] [address] [place] [id number] [place], Lab [facility] 200 [facility] [place] [address] 06/08/2023 10:15 AM EST Office Visit Hematology/Oncology [facility] [place] [address] [place] [address] Venessa Marie MD 200 [facility] [place] [address] 06/08/2023 10:45 AM EST Hem/Onc Treatment Hematology/Oncology Treatment, [place] [address] [facility] [address] [place], [place] [address] [place], Chair 7 Hem Onc [facility] 200 [facility] [place] [address] 06/13/2023 11:00 AM EST Office Visit General Surgery, [place] [address] [place] [address] Hector Jean MD [address] [place] [address] 11/28/2023 10:00 AM EDT Cardiac Studies Cardiology, [facility] [address] [place] [address] Neel Villar [facility] [address] [place] [address] 04/16/2024 9:45 AM EST Office Visit Dermatology [facility] [place] [address] [facility] [place] [address] Magnus Nettles MD [address] [place] [address] Scheduled Procedures Name Priority Associated Diagnoses Date/Ti me COLONOSCOPY FLEXIBLE PROXIMA L DIAGNOSTIC Recall History of colonic polyps Health Maintenance Due Date Last Done Comments DISCUSS TOBACCO CESSATION (REFER TO SMARTSET #8293) 1950 Pneumococcal Vaccine: 65+ Years (1 - PCV) 1958 Depression Screening 1964 Hepatitis C Screening 1970 DTaP,Tdap,and Td Vaccines (1 - Tdap) 1971 Zoster Vaccines (1 of 2) 1971 AAA Screening 2017 COVID-19 Vaccine ( season) [...] this encounter Medical Devices Implanted Type Area Cylinder Sander Operator Device Identifier Shelf Expiration Date Model / Serial / Lot Kit Distal Bicep Repair Ar-22 - [id number] Implanted:Qty : 1 on 09/22/2015 by Daniel Melgar DO at OR [facility] Right: Shoulder [employer] 08/03/2020 AR-2260 / / [id number] Suture Steel 6 B&S19 M654g - Sm654 - [id number] Implanted:Qty : 4 on 06/22/2019 by Corbin Mock MD [place] [facility] [place] N/A: Sternum JNJ : [employer] 02/04/2024 M654G / [id number] / [id number] Port Implant W/8f Poly Cath - [id number] Implanted:Qty : 1 on 12/23/2022 by Mariano Hong DO at OR [facility] Right: Chest CR BARD : PERIPHERAL VASCULAR [id number] 02/04/2024 [id number] / / [id number] documented as of this encounter Visit Diagnoses Diagnosis 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)- Primary Malignant neoplasm of other specified sites of stomach Encounter for antineoplastic chemotherapy documented in this encounter Administered Medications Active Administered Medications - up to 3 most recent administrations Medication Order MAR Action Action Date Dose Rate Site D5W IV solution Intravenous, at 50 mL/hr, CONTINUOUS, Starting on Tue05/24/23 at 1145, Until Tue05/24/23 at 2144 Start Infusion 05/24/2023 11:20 AM EST 500 mL 50 mL/hr diphenhydrAMINE (Benadryl) inj 50 mg 50 mg, IV Push, ONCE PRN Other, Hypersensitivity Reaction, Starting on Tue05/24/23 at 1113, Until Tue05/25/23 at 1112, For 24 hours EPINEPHrine 1 MG/ML inj 0.3 mg 0.3 mg, Intramuscular, ONCE PRN Other, Hypersensitivity Reaction or Anaphylaxis, Starting on Tue05/24/23 at 1113, Until Tue05/25/23 at 1112, For 24 hours hEParin 100 UNIT/ML Lock Flush inj 500 Units 500 Units (5 mL), IV Lock, PRN Other, IV Flush, Starting on Tue05/24/23 at 1113, Until Tue05/25/23 at 1112, For 24 hours, Do not flush if lock, PICC, or central line not in place; IV infusing or unable to flush. Hydrocortisone Sod Suc (PF) (Solu-Cortef) inj 100 mg 100 mg, IV Push, ONCE PRN Other, Hypersensitivity Reaction, Starting on Tue05/24/23 at 1113, Until Tue05/25/23 at 1112, For 24 hours oxygen GAS Inhalation, OXYGEN, First dose on Tue05/24/23 at 1145, Until Discontinued, Device/Managed by: Low Flow Device, Goal SPO2 (%): 91-95, Starting Device: Nasal Cannula, Initial Flow Rate (LPM): 2, Lowest Support: Nasal Cannula: Flow 0-6 LPM. Titrate up/down by 1 LPM., Higher Support: Non-Rebreather (NRB) Mask: Minimum of 10 LPM. Titrate to maintain bag inflation., Titration Interval: Q2 minutes and as needed., Notify Provider: For sudden DECREASE in resting SPO2 to less than 85% and when escalating delivery device. sodium chloride 0.9 % flush central line 10 mL 10 mL, IV Push, PRN Other, IV Flush, Starting on Tue05/24/23 at 1113, Until Tue05/25/23 at 1112, For 24 hours, Do not flush if lock, PICC, or central line not in place; IV infusing or unable to flush. Inactive Administered Medications - up to 3 most recent administrations Medication Order MAR Action Action Date Dose Rate Site dexAMETHasone (Decadron) tab 12 mg 12 mg, Oral, ONCE, On Tue05/24/23 at 1145, For 1 dose Given 05/24/2023 11:25 AM EST 12 mg Fluorouracil (5-Fu) 5,250 mg for Home Infusion 5,250 mg (rounded from 5,256 mg = 2,400 mg/m2 2.19 m2 Treatment Plan BSA from Recorded weight), Intravenous, Administer over 46 Hours, Home Infusion Pharmacy to specify base solution and volume., ONCE, 1 dose, On Tue05/24/23 at 1315 Start Infusion 05/24/2023 2:08 PM EST 5,250 mg 3 mL/hr Fluorouracil (5-Fu) inj 875 mg 875 mg (rounded from 876 mg = 400 mg/m2 2.19 m2 Treatment Plan BSA from Recorded weight), IV Push, ONCE, 1 dose, On Tue05/24/23 at 1300 Given 05/24/2023 2:07 PM EST 875 mg leucovorin calcium 900 mg in D5W 250 mL INFUSION 900 mg (rounded from 876 mg = 400 mg/m2 2.19 m2 Treatment Plan BSA from Recorded weight), IV Piggyback, ONCE, 1 dose, On Tue05/24/23 at 1145, Administer over 120 Minutes, Before 5-FU Start Infusion 05/24/2023 11:59 AM EST 900 mg 125 mL/hr Oxaliplatin (Eloxatin) 150 mg in D5W 500 mL infusion 150 mg (rounded from 164.25 mg = 75 mg/m2 2.19 m2 Treatment Plan BSA from Recorded weight), IV Piggyback, ONCE, 1 dose, On Tue05/24/23 at 1145, Administer over 120 Minutes, Flush with D5W only! Start Infusion 05/24/2023 11:59 AM EST 150 mg 250 mL/hr Palonosetron (Aloxi) inj SOLN 0.25 mg 0.25 mg, IV Push, ONCE, On Tue05/24/23 at 1145, For 1 dose, Restricted per S antiemetic guidelines Given 05/24/2023 11:25 AM EST 0.25 mg documented in this encounter Advance Directives Latest [...] and were consensually agreed upon. Care Teams Oncology Pharmacist Relationship Specialty Start Date End Date Sebastian Do DO [address] [facility] [place] [address] PCP - General Family Medicine 05/24/23 documented as of this encounter
--- OUTSIDE RECORDS SUMMARY | 2023-07-05 03:11 | External Medical Summary | Summary of Care ---
Author Name Unknown Organization [facility] Address [address] [place] [address] Phone [phone] Care Team Providers Care Wax Machine Operator Name Role Phone Sebastian Do Primary Care Provider Reason for Visit * Reason Comments Procedure 5FU pump d/c and por t flush * Episode Based Medications (Routine) - Authorized Specialty Diagnoses / Procedures Referred By Harmeet gregory Referred To Contact Diagnoses 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) Encounter for antineoplastic chemotherapy Procedures [place] LEUCOVORIN CALCIUM INJECTION [place] PALONOSETRON HCL [place] FLUOROURACIL INJECTION [place] OXALIPLATIN Venessa Marie MD [address] [place] [address] [address] Anc Hem/Onc Olinda Saul DEPT CLOSED - 04/19/[address] [place] [address] [address] Referral ID Status Reason Start Date Expiration Date V isits Requested Visits Authorized [id number] Authorized 12/12/2022 06/05/2099 [id number] Encounter Details Date Type Department Care Team (Latest Contact Info) Description 05/26/2023 12:00 PM EST Immunization/ Injection Hematology/Oncology Treatment, [place] [address] [place] [address] Nurse, Med [address] [place] [address] [address] 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)*; Encounter for antineoplastic chemotherapy Allergies No known active allergiesdocumented as of this encounter (statuses as of 05/26/2023) Medications Medication Sig Dispensed Refills Start Date [...] as of this encounter (statuses as of 05/26/2023) Active Problems Problem Noted Date Diagnosed Date [...] as of this encounter (statuses as of 05/26/2023) Resolved Problems Problem Noted Date Diagnosed Date Resolved Date Impacted cerumen 01/10/2006 06/19/2019 Overview: documented as of this encounter (statuses as of 05/26/2023) Immunizations Name Administration Dates Next Due Season [...] Nursing Notes * Precious Manrique RN - 05/26/2023 12:28 PM EST Chair 7 Pt arrives with home 5FU infusion p ump completed. He states he's doing well with this cycle so far. Pump removed, VAD flushed per protocol and falk needle removed. Patient tolerated treatment well and was discharged in stable condition. documented in this encounter Plan of Treatment Upcoming Encounters Date Type Department Care Team (Late st Contact Info) Description 06/07/2023 10:00 AM EST Laboratory Laboratory [facility] [place] [address] [place] [phone] [place], Lab [facility] [address] [facility] [place] [address] 06/08/2023 10:15 AM EST Office Visit Hematology/Oncology [facility] [place] [address] [place] [address] [address] Venessa Marie MD [address] [place] [address] 06/08/2023 10:45 AM EST Hem/Onc Treatment Hematology/Oncology Treatment, [place] [address] [place] [address] Chair [place] 7 Hem Onc [facility] [address] [place] [address] 06/13/2023 11:00 AM EST Office Visit General Surgery, [place] [address] [place] [address] Hector Jean MD [address] [place] [address] 11/28/2023 10:00 AM EDT Cardiac Studies Cardiology, [facility] [address] [place] [address] [facility] [address] [place] [address] 04/16/2024 9:45 AM EST Office Visit Dermatology [facility] [address] [facility] [place] [address] Magnus Nettles MD [address] [facility] [address] Scheduled Procedures Name Priority Associated Diagnoses Date/Ti me COLONOSCOPY FLEXIBLE PROXIMA L DIAGNOSTIC Recall History of colonic polyps Health Maintenance Due Date Last Done Comments DISCUSS TOBACCO CESSATION (REFER TO SMARTSET #9689) 1950 Pneumococcal Vaccine: 65+ Years (1 - [...] this encounter Medical Devices Implanted Type Area Supervisor Vendor Quality Device Identifier Shelf Expiration Date Model / Serial / Lot Kit Distal Bicep Repair Ar-22 - [id number] Implanted:Qty : 1 on 09/22/2015 by Daniel Melgar DO at OR [facility] Right: Shoulder [employer] 08/03/2020 AR-2260 / / [id number] Suture Steel 6 B&S19 M654g - Sm654 - [id number] Implanted:Qty : 4 on 06/22/2019 by Corbin oMck MD at OR [facility] [place] N/A: Sternum JNJ : [employer] 02/04/2024 M654G / M654 / [id number] Port Implant W/8f Poly Cath - [id number] Implanted:Qty : 1 on 12/23/2022 by Mariano Hong DO at OR [facility] Right: Chest CR BARD : PERIPHERAL VASCULAR [id number] 02/04/2024 [id number] / / [id number] documented as of this encounter Visit Diagnoses [...] Lock, PRN Other, IV Flush, Starting on Pamela 05/26/23 at 1204, Until Tue05/27/23 at 1203, For 24 hours, Do not flush if lock, PICC, or central line not in place; IV infusing or unable to flush. Given 05/26/2023 12:17 PM EST 500 Units sodium chloride 0.9 % flush central line 10 mL 10 mL, IV Push, PRN Other, IV Flush, Starting on Pamela 05/26/23 at 1204, Until Tue05/27/23 at 1203, For 24 hours, Do not flush if lock, PICC, or central line not in place; IV infusing or unable to flush. Given 05/26/2023 12:17 PM EST 10 mL documented in this encounter [...] and were consensually agreed upon. Care Teams Wax Machine Operator Relationship Specialty Start Date End Date Sebastian Do DO [address] [place] [address] PCP - General Family Medicine 05/24/23 documented as of this encounter
--- OUTSIDE RECORDS SUMMARY | 2023-07-05 03:11 | External Medical Summary ---
Author Name Unknown Address Unknown Organization K09:[facility] [address] [place] [address] Laboratory Report Ordering Provider Test Date Status VERONICA FARRIS 05/23/2023 09:23:33 Final Observation Date Value Abnormality Reference (Units ) Status BUN 05/23/2023 09:23:33 13 6-20 (mg/dL) Final Creatinine 05/23/2023 09:23:33 1.0 0.6-1.2 (mg/dL) Final Glomerular filtration rate/1.73 sq M.predicted [Volume Rate/Area] in Serum, Plasma or Blood by Creatinine-based formula (CKD-EPI) 05/23/2023 09:23:33 83 >=60 (mL/min) Final eGFR is calculated based on the CKD-EPI 2020 equation SODIUM 05/23/2023 09:23:33 138 135-146 (m mol/L) Final Potassium 05/23/2023 09:23:33 4.6 3.5-5.1 (m mol/L) Final Cl 05/23/2023 09:23:33 103 98-107 (mm ol/L) Final CO2 05/23/2023 09:23:33 22 22-32 (mmo l/L) Final Anion gap 05/23/2023 09:23:33 13 7-15 (mmol /L) Final Glucose 05/23/2023 09:23:33 116 70-120 (mg /dL) Final Albumin 05/23/2023 09:23:33 3.7 Below low normal 3.8 -5.0 (g/dL) Final AST (Aspartate aminotransferase) 05/23/2023 09:23:33 26 10-50 (U/L) Fin al Alk Phos 05/23/2023 09:23:33 159 Above high normal 35 -130 (U/L) Final Bilirubin, Total 05/23/2023 09:23:33 0.4 <=1 .2 (mg/dL) Final Calcium 05/23/2023 09:23:33 9.6 8.4-10.2 ( mg/dL) Final Protein 05/23/2023 09:23:33 7.4 6.0-8.3 (g /dL) Final ALT (Alanine aminotransferase) 05/23/2023 09:23:33 25 10-50 (U/L) Arian dodge Performing Location [facility] [address] [place] [address]
--- OUTSIDE RECORDS SUMMARY | 2023-07-05 03:11 | External Medical Summary ---
Author Name Unknown Address Unknown Organization K09:[facility] [place] [address] Laboratory Report Ordering Provider Test Date Status VERONICA FARRIS 05/23/2023 09:23:33 Final Observation Date Value Abnormality Reference (Units ) Status SYNC LEUKOCYTES IN BLOOD BY AUTOMATED COUNT 05/23/2023 09:23:33 5.58 4.00-10.80 (K/uL) Final Segs 05/23/2023 09:23:33 55.2 40.0-75.0 (%) Final Lymphs % 05/23/2023 09:23:33 29.6 18.0-42.0 (%) Final Monos 05/23/2023 09:23:33 14.0 Above high normal 1.0-11.0 (%) Final Eosinophils 05/23/2023 09:23:33 0.5 0.0-6.0 (%) Final Basos 05/23/2023 09:23:33 0.7 0.0-2.0 (%) Final Absolute Segs 05/23/2023 09:23:33 3.08 1.80-7.70 (K/uL) Final Lymphs, absolute 05/23/2023 09:23:33 1.65 1.00-4.80 (K/ul) Final Monos, Abs 05/23/2023 09:23:33 0.78 0.00-1.10 (K/uL) Final Eos, Abs 05/23/2023 09:23:33 0.03 0.00-0.70 (K/uL) Final Basos, Abs 05/23/2023 09:23:33 0.04 0.00-0.20 (K/uL) Final Performing Location [facility] [place] [address]
--- OUTSIDE RECORDS SUMMARY | 2023-07-05 03:11 | External Medical Summary ---
Author Name Unknown Address Unknown Organization K09:[facility] [place] [address] Laboratory Report Ordering Provider Test Date Status VERONICA FARRIS 06/07/2023 09:59:02 Final Observation Date Value Abnormality Reference (Units ) Status WBC, Total 06/07/2023 09:59:02 4.02 4.00-10.8 0 (K/uL) Final RBC 06/07/2023 09:59:02 3.94 4.50-5.25 (M/uL) Final Hemoglobin 06/07/2023 09:59:02 12.3 Below low normal 14 .0-16.8 (g/dL) Final HCT 06/07/2023 09:59:02 38.1 Below low normal 40. 0-48.4 (%) Final MCV 06/07/2023 09:59:02 96.7 82.0-99.5 (fL) Final MCH 06/07/2023 09:59:02 31.2 27.0-34.0 (pg) Final MCHC 06/07/2023 09:59:02 32.3 32.0-36.0 (g/dL) Final RDW 06/07/2023 09:59:02 17.0 11.5-15.5 (%) Final Platelets 06/07/2023 09:59:02 91 Below low normal 140 -400 (K/uL) Final MPV 06/07/2023 09:59:02 9.3 6.6-11.1 ( fL) Final Performing Location [facility] [place] [address]
--- OUTSIDE RECORDS SUMMARY | 2023-07-05 03:11 | External Medical Summary | Summary of Care ---
Author Name Unknown Organization [facility] Address [address] [place] [address] Phone [phone] Care Team Providers Care Mill Tender Warm Up Name Role Phone ErnestinaSebastian mccarthy Primary Care Provider [phone] Encounter Details Date Type Department Care Team (Late st Contact Info) Description 05/26/2023 Result Scan Unspecified Department Liza Hood DO [address] [place] [address] <No scans attached> Allergies No known active [...] 8:15 AM EST Cardiac Studies Cardiac Studies, [facility] [address] [facility] [place] [address] 05/26/2023 12:00 PM EST Immunization/Injecti on Hematology/Oncology Treatment, [place] [address] [place] [address] Nurse, Med 4 [address] [place] [address] 06/07/2023 10:00 AM EST Laboratory Laboratory [facility] [address] [place] [phone] [place], Lab [facility] [address] [facility] [place] [address] 06/08/2023 10:15 AM EST Office Visit Hematology/Oncology [facility] [address] [place] [address] Venessa Marie MD [address] [place] [address] 06/08/2023 10:45 AM EST [facility] [address] [place], [place] [address] D[place], Chair 7 Hem Onc [facility] 200 [facility] [place] [address] 06/13/2023 11:00 AM EST Office Visit General Surgery, [place] [address] [place] [address] Hector Jean MD [address] [place] [address] 11/28/2023 10:00 AM EDT Cardiac Studies Cardiology, [facility] 132 [employer] [address] [place], Pacer Clinic [facility] 132 [place] [address] 04/16/2024 9:45 AM EST Office Visit Dermatology [facility] [address] [place] [address] Magnus Nettles MD [address] [place] [address] Scheduled Procedures Name Priority Associated Diagnoses Date/Ti me COLONOSCOPY FLEXIBLE PROXIMA L DIAGNOSTIC Recall History of colonic polyps Health Maintenance Due Date Last Done Comments DISCUSS TOBACCO CESSATION (REFER TO SMARTSET #6990) 1950 Pneumococcal Vaccine: 65+ Years (1 - [...] this encounter Medical Devices Implanted Type Area In Service Education Teacher Device Identifier Shelf Expiration Date Model / Serial / Lot Kit Distal Bicep Repair Ar-22 - [id number] Implanted:Qty : 1 on 09/22/2015 by Daniel Melgar DO at OR [facility] Right: Shoulder [employer] 08/03/2020 AR-2260 / / [id number] Suture Steel 6 B&S19 M654g - Sm654 - [id number] Implanted:Qty : 4 on 06/22/2019 by Corbin Mock MD at OR [facility] N/A: Sternum JNJ : [employer] 02/04/2024 M654G / [id number] / [id number] Port Implant W/8f Poly Cath - [id number] Implanted:Qty : 1 on 12/23/2022 by Mariano Hong DO at OR [facility] Right: Chest CR BARD : PERIPHERAL VASCULAR [id number] 02/04/2024 [id number] / / [id number] documented as of this encounter Procedures Procedure Name Priority Date/Time Associated Diagnosis Comments CARDIOLOGY SCANNED RESULT 05/26/2023 documented in this encounter Results * CARDIOLOGY SCANNED RESULT (05/26/2023) 05/26/2023 Liza Hood DO OTHER documented in this encounter Advance [...] and were consensually agreed upon. Care Teams Mill Tender Warm Up Relationship Specialty Start Date End Date Sebastian Do DO [address] [facility] [address] PCP - General Family Medicine 05/24/23 documented as of this encounter
--- OUTSIDE RECORDS SUMMARY | 2023-07-05 03:11 | External Medical Summary | Summary of Care ---
Author Name Unknown Organization [facility] Address [address] [place] [address] Phone [phone] Care Team Providers Care Radio Talk Show Host Name Role Phone Sebastian Do DO Primary Care Provider [phone] Encounter Details Date Type Department Care Team (Late st Contact Info) Description 06/06/2023 Orders Only Hematology/Oncology, [address] [address] Venessa Marie MD [address] [place] [address] Allergies No known active allergiesdocumented as of this encounter (statuses as of 06/06/2023) Medications Medication Sig Dispensed Refills Start Date [...] as of this encounter (statuses as of 06/06/2023) Active Problems Problem Noted Date Diagnosed Date [...] as of this encounter (statuses as of 06/06/2023) Resolved Problems Problem Noted Date Diagnosed Date Resolved Date Impacted cerumen 01/10/2006 06/19/2019 Overview: documented as of this encounter (statuses as of 06/06/2023) Immunizations Name Administration Dates Next Due Season [...] Description 06/07/2023 10:00 AM EST Laboratory [facility] [address] [place] [phone] Karla Saul [facility] [address] [place] [address] 06/08/2023 10:15 AM EST Office Visit Hematology/Oncology [facility] [place] [address] [place] [address] Venessa Marie MD [address] [place] [address] 06/08/2023 10:45 AM EST Hem/Onc Treatment Hematology/Oncology Treatment, [place] [address] [place], [place] [address] D[place], Chair 7 Hem Onc [facility] 200 [facility] [place] [address] 06/13/2023 11:00 AM EST Office Visit General Surgery, [place] [address] [place], [place] [phone] Hector Jean MD [address] [place], [place] [address] 11/28/2023 10:00 AM EDT Cardiac Studies Cardiology, [facility] [address] [place] [address] Neel Villar [facility] [address] [place] [address] 04/16/2024 9:45 AM EST Office Visit Dermatology [facility] [place] 200 [facility] [place] [address] Magnus Nettles MD 200 [facility] [place] [address] Scheduled Procedures Name Priority Associated Diagnoses Date/Ti me COLONOSCOPY FLEXIBLE PROXIMA L DIAGNOSTIC Recall History of colonic polyps Health Maintenance Due Date Last Done Comments DISCUSS TOBACCO CESSATION (REFER TO SMARTSET #3837) 1950 Pneumococcal Vaccine: 65+ Years (1 - [...] this encounter Medical Devices Implanted Type Area Beverage Host Device Identifier Shelf Expiration Date Model / Serial / Lot Kit Distal Bicep Repair Ar-22 - [id number] Implanted:Qty : 1 on 09/22/2015 by Daniel Melgar DO at OR [facility] Right: Shoulder [employer] 08/03/2020 AR-2260 / / [id number] Suture Steel 6 B&S19 M654g - Sm654 - [id number] Implanted:Qty : 4 on 06/22/2019 by Corbin Mock MD at OR [facility] N/A: Sternum JNJ : [employer] 02/04/2024 M654G / [id number] / [id number] Port Implant W/8f Poly Cath - [id number] Implanted:Qty : 1 on 12/23/2022 by Mariano Hong DO at OR [facility] Right: Chest CR BARD : PERIPHERAL VASCULAR [id number] 02/04/2024 [id number] / / [id number] documented as of this encounter Advance Directives [...] and were consensually agreed upon. Care Teams Radio Talk Show Host Relationship Specialty Start Date End Date Sebastian Do DO [address] [place] [address] PCP - General Family Medicine 05/24/23 documented as of this encounter
--- OUTSIDE RECORDS SUMMARY | 2023-07-05 03:11 | External Medical Summary | Summary of Care ---
Author Name Unknown Organization [facility] Address [address] [place] [address] Phone [phone] Care Team Providers Care Oven Tender Name Role Phone Justin Bob MD Primary Care Provider Encounter Details Date Type Department Care Team (Late st Contact Info) Description 05/23/2023 Orders Only [facility] [address] [place] [address] Venessa Marie MD [address] [place] [address] Allergies No known active allergiesdocumented as of [...] 138 mL infusion 5250 mg IV ONCE 05/23/2023 05/24/2023 Active documented as of this encounter (statuses [...] AM EST Hem/Onc Treatment Hematology/Oncolog y Treatment, [place] [address] [place], [place] [address] D[place], Chair 2 Hem Onc [facility] 200 [facility] [place] [address] 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 [address] [place] [address] Venessa Marie MD 200 [place] [address] 06/13/2023 11:00 AM EST Office Visit General Surgery, [place] [address] [place] [address] Hector Jean MD [address] [place] [address] 11/28/2023 10:00 AM EDT Cardiac Studies Cardiology, [facility] 132 [place] [address] [place], Pacer Clinic [address] [place] [address] 04/16/2024 9:45 AM EST Office Visit Dermatology [facility] 200 [facility] [place] [address] Magnus Nettles MD [address] [place] [address] Scheduled Procedures Name Priority Associated Diagnoses Date/Ti me COLONOSCOPY FLEXIBLE PROXIMA L DIAGNOSTIC Recall History of colonic polyps Health Maintenance Due Date Last Done Comments DISCUSS TOBACCO CESSATION (REFER TO SMARTSET #6682) 1950 Pneumococcal Vaccine: 65+ Years (1 - [...] this encounter Medical Devices Implanted Type Area Paint Brush Maker Device Identifier Shelf Expiration Date Model / Serial / Lot Kit Distal Bicep Repair Ar-22 - [id number] Implanted:Qty : 1 on 09/22/2015 by Daniel Melgar DO at OR [facility] Right: Shoulder [employer] 08/03/2020 AR-2260 / / [id number] Suture Steel 6 B&S19 M654g - Sm654 - [id number] Implanted:Qty : 4 on 06/22/2019 by Corbin Mock MD [place] [facility] N/A: Sternum JNJ : [employer] 02/04/2024 M654G / M654 / [id number] Port Implant W/8f Poly Cath - [id number] Implanted:Qty : 1 on 12/23/2022 by Mariano Hong DO at OR [facility] Right: Chest CR BARD : PERIPHERAL VASCULAR [id number] 02/04/2024 [id number] / / [id number] documented as of this encounter Advance Directives [...] and were consensually agreed upon. Care Teams Oven Tender Relationship Specialty Start Date End Date Justin Bob MD [address] [place] [address] PCP - General Internal Medicine 06/17/14 documented as of this encounter
--- OUTSIDE RECORDS SUMMARY | 2023-07-05 03:12 | External Medical Summary ---
Author Name Unknown Address Unknown Organization K09:[facility] [address] [place] [address] Laboratory Report Ordering Provider Test Date Status VERONICA FARRIS 05/10/2023 10:38:54 Final Observation Date Value Abnormality Reference (Units ) Status BUN 05/10/2023 10:38:54 11 6-20 (mg/dL) Final Creatinine 05/10/2023 10:38:54 0.9 0.6-1.2 (mg/dL) Final Glomerular filtration rate/1.73 sq M.predicted [Volume Rate/Area] in Serum, Plasma or Blood by Creatinine-based formula (CKD-EPI) 05/10/2023 10:38:54 >90 >=60 (mL/min) Final eGFR is calculated based on the CKD-EPI 2020 equation SODIUM 05/10/2023 10:38:54 140 135-146 (m mol/L) Final Potassium 05/10/2023 10:38:54 4.8 3.5-5.1 (m mol/L) Final Cl 05/10/2023 10:38:54 107 98-107 (mm ol/L) Final CO2 05/10/2023 10:38:54 20 Below low normal 22- 32 (mmol/L) Final Anion gap 05/10/2023 10:38:54 13 7-15 (mmol /L) Final Glucose 05/10/2023 10:38:54 105 70-120 (mg /dL) Final Albumin 05/10/2023 10:38:54 3.8 3.8-5.0 (g /dL) Final AST (Aspartate aminotransferase) 05/10/2023 10:38:54 45 10-50 (U/L) Fin al Alk Phos 05/10/2023 10:38:54 135 Above high normal 35 -130 (U/L) Final Bilirubin, Total 05/10/2023 10:38:54 0.4 <=1 .2 (mg/dL) Final Calcium 05/10/2023 10:38:54 9.5 8.4-10.2 ( mg/dL) Final Protein 05/10/2023 10:38:54 7.1 6.0-8.3 (g /dL) Final ALT (Alanine aminotransferase) 05/10/2023 10:38:54 44 10-50 (U/L) Arian dodge Performing Location [facility] [address] [place] [address]
--- OUTSIDE RECORDS SUMMARY | 2023-07-05 03:12 | External Medical Summary ---
Author Name Unknown Address Unknown Organization [facility]09:[facility] [place] [address] Laboratory Report Ordering Provider Test Date Status VERONICA FARRIS 05/16/2023 10:36:42 Final Observation Date Value Abnormality Reference (Units ) Status WBC, Total 05/16/2023 10:36:42 3.08 Below low normal 4. 00-10.80 (K/uL) Final RBC 05/16/2023 10:36:42 3.68 4.50-5.25 (M/uL) Final Hemoglobin 05/16/2023 10:36:42 11.7 Below low normal 14 .0-16.8 (g/dL) Final HCT 05/16/2023 10:36:42 36.5 Below low normal 40. 0-48.4 (%) Final MCV 05/16/2023 10:36:42 99.2 82.0-99.5 (fL) Final MCH 05/16/2023 10:36:42 31.8 27.0-34.0 (pg) Final MCHC 05/16/2023 10:36:42 32.1 32.0-36.0 (g/dL) Final RDW 05/16/2023 10:36:42 17.5 11.5-15.5 (%) Final Platelets 05/16/2023 10:36:42 183 140-400 (K /uL) Final MPV 05/16/2023 10:36:42 8.9 6.6-11.1 ( fL) Final Performing Location [facility] [place] [address]
--- OUTSIDE RECORDS SUMMARY | 2023-07-05 03:12 | External Medical Summary ---
Author Name Unknown Address Unknown Organization [facility]09:[facility] [place] [address] Laboratory Report Ordering Provider Test Date Status VERONICA FARRIS 05/10/2023 10:38:54 Final Observation Date Value Abnormality Reference (Units ) Status WBC, Total 05/10/2023 10:38:54 3.00 Below low normal 4. 00-10.80 (K/uL) Final RBC 05/10/2023 10:38:54 3.84 4.50-5.25 (M/uL) Final Hemoglobin 05/10/2023 10:38:54 12.4 Below low normal 14 .0-16.8 (g/dL) Final HCT 05/10/2023 10:38:54 37.3 Below low normal 40. 0-48.4 (%) Final MCV 05/10/2023 10:38:54 97.1 82.0-99.5 (fL) Final MCH 05/10/2023 10:38:54 32.3 27.0-34.0 (pg) Final MCHC 05/10/2023 10:38:54 33.2 32.0-36.0 (g/dL) Final RDW 05/10/2023 10:38:54 17.3 11.5-15.5 (%) Final Platelets 05/10/2023 10:38:54 103 Below low normal 140 -400 (K/uL) Final MPV 05/10/2023 10:38:54 9.4 6.6-11.1 ( fL) Final Performing Location [facility] [place] [address]
--- OUTSIDE RECORDS SUMMARY | 2023-07-05 03:12 | External Medical Summary | Summary of Care ---
Author Name Unknown Organization [facility] Address [address] [place] [address] Phone [phone] Care Team Providers Care Technical Support Assistant Name Role Phone Justin Bob MD Primary Care Provider [phone] Reason for Visit * Reason Onset Date Comments Advice 02/09/2023 Red flag-Cynthia Encounter Details Date Type Department Care Team (Late st Contact Info) Description 02/09/2023 Telephone Hematology/Oncology [facility] [place] DEPT CLOSED - [facility]19/23 [facility] [address] Services, Scheduling [address] [place] [address] Advice (Red flag-Cynthia) Allergies No known active allergiesdocumented as of this encounter (statuses as of 05/11/2023) Medications Medication Sig Dispensed Refills Start Date [...] Active Rosuvastatin Calcium 40 MG Oral Tablet (Crestor)Indications: Dyslipidemia, goal LDL below 70 Take 1 Tablet by mouth in the morning. 90 Tablet 4 09/06/2022 Active Clopidogrel Bisulfate 75 MG Oral Tablet (pLAVix)Indications:N STEMI (non-ST elevation myocardial infarction) (HCC) Take 1 Tablet by mouth in the morning. 90 Tablet 4 09/06/2022 Active Metoprolol Succinate ER 50 MG Oral Tablet Extended Release 24 Hour (Toprol XL)Indications:Paroxy smal atrial fibrillation (HCC),ASCVD (arteriosclerotic cardiovascular disease) Take 1 Tablet by mouth in the morning. 90 Tablet 4 09/06/2022 Active Ezetimibe 10 MG Oral Tablet (Zetia) Take 1 Tablet by mouth in the morning. 0 Active Ondansetron HCl 8 MG Oral TabletIndications:Mal ignant 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) Take 1 Tablet by mouth every 8 hours as needed for Nausea. 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 30 Tablet 0 12/13/2022 Active Nystatin 799874 UNIT/ML Mouth/Throat SuspensionIndications :Thrush Take 5 mL by mouth in the morning and 5 mL at noon and 5 mL in the evening and 5 mL before bedtime. Do all this for 14 days. 280 mL 0 01/31/2023 02/14/2023 documented as of this encounter (statuses as of 05/11/2023) Active Problems Problem Noted Date Diagnosed Date [...] as of this encounter (statuses as of 05/11/2023) Resolved Problems Problem Noted Date Diagnosed Date Resolved Date Impacted cerumen 01/10/2006 06/19/2019 Overview: documented as of this encounter (statuses as of 05/11/2023) Immunizations Name Administration Dates Next Due Season Influenza, Quad, PF, Adjuvanted, 65+ Yrs, IM (FLUAD) 04/20/2020 Seasonal Influenza Virus Vac cine, Unspecified Formulation 06/27/2018 Seasonal Influenza, Quadrivalent Hd (Fluzone Hd) 02/09/2023,04/20/2022 documented as of this encounter Social History Tobacco Use Types Packs/Day Years Used Date Smoking Tobacco: Light Smoker Cigars Smokeless Tobacco: Never Comments:Cigar on occasion Alcohol Use Standard Drinks/Week Comments Yes 0 (1 standard drink = 0.6 oz pur e alcohol) a few beers every now and then Sex and Gender Information Value Date Recorded [...] encounter Miscellaneous Notes * Telephone Encounter - Felicita Krishnan OSA - 02/09/2023 8:33 AM EDT What is the reason for call? Abdominal pain, diarrhea and loss of appetite x3 days What Clinic is the patient trying to reach? [facility]- Is the clinic open? Yes- Other: transfer to specialty Caller: other: Rosette Return Phone #: [phone] Call was warm transferred to [facility] documented in this encounter Plan of Treatment Upcoming Encounters Date Type Department Care Team (Late st Contact Info) Description 05/16/2023 10:40 AM EST Laboratory Laboratory [facility] [address] [place] [id number] [place], Lab [facility] 200 [facility] [place] [address] 05/17/2023 1:15 PM EST Hem/Onc Treatment Hematology/Oncology Treatment, [place] [address] [place] [address] D[place], Chair 8 Hem On[address] [place] [address] 05/26/2023 8:15 AM EST [facility] [place] [address] [facility] [place] [address] 06/08/2023 10:15 AM EST Office Visit Hematology/Oncology [facility] [place] 200 [facility] [place] [address] Venessa Marie MD [address] [place] [address] 06/13/2023 11:00 AM EST Office Visit General Surgery, [place] [address] [place] [address] Hector Jean MD [address] [place] [address] 11/28/2023 10:00 AM EDT Cardiac Studies Cardiology, [facility] [place] 132 [facility] [place] [address] Neel Villar [facility] [address] [facility] [place] [address] 04/16/2024 9:45 AM EST Office Visit Dermatology [place] [facility] 200 [facility] [place] [address] Magnus Nettles MD 200 [facility] [place] [address] Scheduled Procedures Name Priority Associated Diagnoses Date/Ti me COLONOSCOPY FLEXIBLE PROXIMA L DIAGNOSTIC Recall History of colonic polyps Health Maintenance Due Date Last Done Comments DISCUSS TOBACCO CESSATION (REFER TO SMARTSET #1551) 1950 Pneumococcal Vaccine: 65+ Years (1 - [...] this encounter Medical Devices Implanted Type Area Administrative Resident Device Identifier Shelf Expiration Date Model / Serial / Lot Kit Distal Bicep Repair Ar-22 - [id number] Implanted:Qty : 1 on 09/22/2015 by Daniel Melgar DO at OR [facility] Right: Shoulder [employer] 08/03/2020 AR-2260 / / [id number] Suture Steel 6 B&S19 M654g - Sm654 - [id number] Implanted:Qty : 4 on 06/22/2019 by Corbin Mock MD [place] [facility] N/A: Sternum JNJ : [employer] 02/04/2024 M654G / M654 / [id number] Port Implant W/8f Poly Cath - [id number] Implanted:Qty : 1 on 12/23/2022 by Mariano Hong, DO at OR [facility] Right: Chest CR BARD : PERIPHERAL VASCULAR [id number] 02/04/2024 [id number] / / [id number] documented as of this encounter Advance Directives [...] and were consensually agreed upon. Care Teams Technical Support Assistant Relationship Specialty Start Date End Date Justin Bob MD [address] [place] [address] PCP - General Internal Medicine 06/17/14 documented as of this encounter
--- OUTSIDE RECORDS SUMMARY | 2023-07-05 03:12 | External Medical Summary | Summary of Care ---
Author Name Unknown Organization [facility] Address [address] [place] [address] Phone [phone] Care Team Providers Care Ticket Puller Name Role Phone Justin Bob MD Primary Care Provider [phone] Reason for Visit * Reason Onset Date Comments Test Results Lab 05/10/2023 Encounter Details Date Type Department Care Team (Late st Contact Info) Description 05/10/2023 Telephone Hematology/Oncology Treatment, [place] [address] [place] [address] Venessa Marie MD 200 [place] [address] Test Results Lab Allergies No known active allergiesdocumented as of this encounter (statuses as of 05/10/2023) Medications Medication Sig Dispensed Refills Start Date [...] as of this encounter (statuses as of 05/10/2023) Active Problems Problem Noted Date Diagnosed Date [...] as of this encounter (statuses as of 05/10/2023) Resolved Problems Problem Noted Date Diagnosed Date Resolved Date Impacted cerumen 01/10/2006 06/19/2019 Overview: documented as of this encounter (statuses as of 05/10/2023) Immunizations Name Administration Dates Next Due Season [...] Telephone Encounter - Martina Green OSA - 05/10/2023 1:19 PM EST Called patient and he is aware of treatment rescheduled to Tuesday05/17/23 and lab work on 05/16/23. * Telephone Encounter - Paola Sequeira RN - 05/10/2023 1:01 PM EST ANC 0.78. Per Dr Marie, delay chemo x1 week. Called patient who verbalized understanding. Scheduling: please call patient to reschedule chemo from tomorrow to next week (Tuesday or Tuesday). Patient will need repeat labs "CBCd, CMP" the day prior in AM at [facility]. Thanks! documented in this encounter Plan of Treatment Upcoming Encounters Date Type Department Care Team (Late st Contact Info) Description 05/16/2023 10:40 AM EST Laboratory Laboratory [facility] [place] 200 [facility] [place] [id number] [place], Lab [address] [place] [address] 05/17/2023 1:15 PM EST Hem/Onc Treatment Hematology/Oncology Treatment, [place] 200 [facility] [address] [place], Chair 1 Hem Onc [address] [place] [address] 05/26/2023 8:15 AM EST Cardiac Studies Cardiac Studies, [facility] 132 [facility] [place] [address] 06/08/2023 10:15 AM EST Office Visit Hematology/Oncology [facility] [place] 200 [facility] [place] [address] Venessa Marie MD 200 [facility] [place] [address] 06/13/2023 11:00 AM EST [facility] [address] [place] [address] Hector Jean MD [address] [place] [address] 11/28/2023 10:00 AM EDT Cardiac Studies Cardiology, [facility] 132 [facility] [place] [address] [place], Pacer Clinic [facility] [address] [place] [address] 04/16/2024 9:45 AM EST Office Visit Dermatology [facility] 200 [facility] [place] [address] Magnus Nettles MD [address] [place] [address] Scheduled Procedures Name Priority Associated Diagnoses Date/Ti me COLONOSCOPY FLEXIBLE PROXIMA L DIAGNOSTIC Recall History of colonic polyps Health Maintenance Due Date Last Done Comments DISCUSS TOBACCO CESSATION (REFER TO SMARTSET #0167) 1950 Pneumococcal Vaccine: 65+ Years (1 - [...] this encounter Medical Devices Implanted Type Area Order Builder Loader Device Identifier Shelf Expiration Date Model / Serial / Lot Kit Distal Bicep Repair Ar-22 - [id number] Implanted:Qty : 1 on 09/22/2015 by Daniel Melgar DO at OR [facility] Right: Shoulder [employer] 08/03/2020 AR-2260 / / [id number] Suture Steel 6 B&S19 M654g - Sm654 - [id number] Implanted:Qty : 4 on 06/22/2019 by Corbin Mock MD at OR [facility] N/A: Sternum JNJ : [employer] 02/04/2024 M654G / [id number] / [id number] Port Implant W/8f Poly Cath - [id number] Implanted:Qty : 1 on 12/23/2022 by Mariano Hong DO at OR [facility] Right: Chest CR BARD : PERIPHERAL VASCULAR [id number] 02/04/2024 [id number] / / [id number] documented as of this encounter Advance Directives [...] and were consensually agreed upon. Care Teams Ticket Puller Relationship Specialty Start Date End Date Justin Bob MD [address] [place] [address] PCP - General Internal Medicine 06/17/14 documented as of this encounter
--- OUTSIDE RECORDS SUMMARY | 2023-07-05 03:12 | External Medical Summary ---
Author Name Unknown Address Unknown Organization K09:[facility] [address] [place] [address] Laboratory Report Ordering Provider Test Date Status VERONICA FARRIS 05/16/2023 10:36:42 Final Observation Date Value Abnormality Reference (Units ) Status BUN 05/16/2023 10:36:42 9 6-20 (mg/dL) Final Creatinine 05/16/2023 10:36:42 1.0 0.6-1.2 (mg/dL) Final Glomerular filtration rate/1.73 sq M.predicted [Volume Rate/Area] in Serum, Plasma or Blood by Creatinine-based formula (CKD-EPI) 05/16/2023 10:36:42 83 >=60 (mL/min) Final eGFR is calculated based on the CKD-EPI 2020 equation SODIUM 05/16/2023 10:36:42 137 135-146 (m mol/L) Final Potassium 05/16/2023 10:36:42 4.6 3.5-5.1 (m mol/L) Final Cl 05/16/2023 10:36:42 105 98-107 (mm ol/L) Final CO2 05/16/2023 10:36:42 23 22-32 (mmo l/L) Final Anion gap 05/16/2023 10:36:42 9 7-15 (mmol /L) Final Glucose 05/16/2023 10:36:42 134 Above high normal 70 -120 (mg/dL) Final Albumin 05/16/2023 10:36:42 3.7 Below low normal 3.8 -5.0 (g/dL) Final AST (Aspartate aminotransferase) 05/16/2023 10:36:42 28 10-50 (U/L) Fin al Alk Phos 05/16/2023 10:36:42 150 Above high normal 35 -130 (U/L) Final Bilirubin, Total 05/16/2023 10:36:42 0.4 <=1 .2 (mg/dL) Final Calcium 05/16/2023 10:36:42 9.4 8.4-10.2 ( mg/dL) Final Protein 05/16/2023 10:36:42 6.8 6.0-8.3 (g /dL) Final ALT (Alanine aminotransferase) 05/16/2023 10:36:42 30 10-50 (U/L) Arian dodge Performing Location [facility] [address] [place] [address]
--- OUTSIDE RECORDS SUMMARY | 2023-07-05 03:12 | External Medical Summary | Summary of Care ---
Author Name Unknown Organization [facility] Address [address] [place] [address] Phone [phone] Care Team Providers Care Tool Turret Lathe Set Up Operator Name Role Phone Justin Bob MD Primary Care Provider Reason for Visit * Reason Comments Outpatient Testing Encounter Details Date Type Department Care Team (Late st Contact Info) Description 05/16/2023 10:40 AM EST Laboratory Laboratory [address] [place] [address] [place] [phone] [place], Lab [place] [address] [place] [address] 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 [...] Care Team (Late st Contact Info) Description 05/17/2023 1:15 PM EST Hem/Onc Treatment Hematology/Oncology Treatment, [place] [address] [place] [phone] [place], Chair 8 Hem Onc [place] [address] [place] [address] 05/26/2023 8:15 AM EST Cardiac Studies Cardiac Studies, [facility] 132 [place] [address] 06/08/2023 10:15 AM EST Office Visit Hematology/Oncology [facility] 200 [facility] [place] [address] Venessa Marie MD 200 [facility] [place] [address] 06/13/2023 11:00 AM EST Office Visit General Surgery, [facility] [address] [place], [place] [phone] Hector Jean MD [address] [place] [address] 11/28/2023 10:00 AM EDT Cardiac Studies Cardiology, [facility] 132 [place] [address] [facility], Pacer [address] [address] 04/16/2024 9:45 AM EST Office Visit Dermatology [facility] [address] [place] [address] Magnus Nettles MD 200 [facility] [place] [address] Pending Results Name Type Priority Associated Diagnoses Date /Time COMPREHENSIVE METABOLIC PANEL Lab STAT 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) 05/16/2023 10:36 AM EST Scheduled Procedures Name Priority Associated Diagnoses Date/Ti me COLONOSCOPY FLEXIBLE PROXIMA L DIAGNOSTIC Recall History of colonic polyps Health Maintenance Due Date Last Done Comments DISCUSS TOBACCO CESSATION (REFER TO SMARTSET #5142) 1950 Pneumococcal Vaccine: 65+ Years (1 - [...] this encounter Medical Devices Implanted Type Area Medical Records Specialist Device Identifier Shelf Expiration Date Model / Serial / Lot Kit Distal Bicep Repair Ar-22 - [id number] Implanted:Qty : 1 on 09/22/2015 by Daniel Melgar DO at OR [facility] Right: Shoulder [employer] 08/03/2020 AR-2260 / / [id number] Suture Steel 6 B&S19 M654g - Sm654 - [id number] Implanted:Qty : 4 on 06/22/2019 by Corbin Mock MD at OR [facility] N/A: Sternum JNJ : [employer] 02/04/2024 M654G / M654 / [id number] Port Implant W/8f Poly Cath - [id number] Implanted:Qty : 1 on 12/23/2022 by Mariano Hong DO at OR [facility] Right: Chest CR BARD : PERIPHERAL VASCULAR [id number] 02/04/2024 [id number] / / [id number] documented as of this encounter Procedures Procedure Name Priority Date/Time Associated Diagnosis Comments DIFFERENTIAL, AUTOMATED STAT 05/16/2023 10:36 AM EST 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) CBC STAT 05/16/2023 10:36 AM EST 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) CBC STAT 05/16/2023 10:36 AM EST 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) documented in this encounter Results * (ABNORMAL) DIFFERENTIAL, AUTOMATED (05/16/2023 10:36 AM EST) WBC 3.08(L) 4.00 - 10.80 K/uL 05/16/2023 10:47 AM EST [facility] 56-02 Neutrophils % 22.8(L) 40.0 - 75.0 % 05/16/2023 10:47 AM EST [facility] [place] 56-02 Lymphocytes % 54.2(H) 18.0 - 42.0 % 05/16/2023 10:47 AM EST [facility] 56-02 Monocytes % 22.1(H) 1.0 - 11.0 % 05/16/2023 10:47 AM EST [facility] 56-02 Eosinophils % 0.6 0.0 - 6.0 % 05/16/2023 10:47 AM EST [facility] 56-02 Basophils % 0.3 0.0 - 2.0 % 05/16/2023 10:47 AM EST [facility] 56-02 Absolute Neutrophils 0.70(L) 1.80 - 7.70 K/uL 05/16/2023 10:47 AM EST [facility] 56-02 Absolute Lymphocytes 1.67 1.00 - 4.80 K/ul 05/16/2023 10:47 AM EST [facility] 56-02 Absolute Monocytes 0.68 0.00 - 1.10 K/uL 05/16/2023 10:47 AM EST [facility] 56-02 Absolute Eosinophils 0.02 0.00 - 0.70 K/uL 05/16/2023 10:47 AM EST [facility] 56-02 Absolute Basophils 0.01 0.00 - 0.20 K/uL 05/16/2023 10:47 AM EST [facility] 56-02 Blood Venous blood specimen / Unknown Venipuncture / Unknown 05/16/2023 10:36 AM EST 05/16/2023 10:36 AM EST Venessa Marie MD LAB BLOOD ORDERA BLES [facility] 56-[address] [place] [address] * (ABNORMAL) CBC (05/16/2023 10:36 AM EST) Pathologist [facility] WBC 3.08(L) 4.00 - 10.80 K/uL 05/16/2023 10:47 AM EST [facility] 56 RBC 3.68 4.50 - 5.25 M/uL 05/16/2023 10:47 AM EST [address] HGB 11.7(L) 14.0 - 16.8 g/dL 05/16/2023 10:47 AM [facility] 56 HCT 36.5(L) 40.0 - 48.4 % 05/16/2023 10:47 AM [facility] 56- MCV 99.2 82.0 - 99.5 fL 05/16/2023 10:47 AM [facility] 56 MCH 31.8 27.0 - 34.0 pg 05/16/2023 10:47 AM [facility] 56-02 MCHC 32.1 32.0 - 36.0 g/dL 05/16/2023 10:47 AM [facility] 56-02 RDW 17.5 11.5 - 15.5 % 05/16/2023 10:47 AM [facility] 56-02 PLT 183 140 - 400 K/uL 05/16/2023 10:47 AM [facility] 56-02 MPV 8.9 6.6 - 11.1 fL 05/16/2023 10:47 AM [facility] 56-02 Blood Venous blood specimen / Unknown Venipuncture / Unknown 05/16/2023 10:36 AM EST 05/16/2023 10:36 AM EST Venessa Marie MD LAB BLOOD ORDERA BLES [facility] 56-[address] [place] [address] documented in this encounter Visit Diagnoses Diagnosis [...] and were consensually agreed upon. Care Teams Tool Turret Lathe Set Up Operator Relationship Specialty Start Date End Date Justin Bob MD [address] [address] PCP - General Internal Medicine 06/17/14 documented as of this encounter
--- OUTSIDE RECORDS SUMMARY | 2023-07-05 03:12 | External Medical Summary | Summary of Care ---
Author Name Unknown Organization [facility] Address [address] [place] [address] Phone [phone] Care Team Providers Care School Nurse Name Role Phone Justin Bob MD Primary Care Provider [phone] Reason for Visit * Reason Onset Date Comments Test Results Lab 05/16/2023 Encounter Details Date Type Department Care Team (Late st Contact Info) Description 05/16/2023 Telephone Hematology/Oncology Treatment, [place] 200 [place] [address] Venessa Mraie MD 200 [place] [address] Test Results Lab Allergies No known active [...] Description 05/23/2023 9:20 AM EST Laboratory Laboratory [facility] [place] 200 [facility] [place] [phone] [place], Lab [address] [place] [address] 05/24/2023 10:45 AM EST Hem/Onc Treatment Hematology/Oncology Treatment, [place] 200 [facility] [place] [address] D[place], Chair 2 Hem Onc [address] [place] [address] 05/26/2023 8:15 AM EST Cardiac Studies Cardiac Studies, [facility] 132 [facility] [place] [address] 06/08/2023 10:15 AM EST Office Visit Hematology/Oncology [facility] [place] 200 [facility] [place] [address] Venessa Marie MD 200 [facility] [place] [address] 06/13/2023 11:00 AM EST [facility] [address] [place], [place] [address] Hector Jean MD [address] [place] [address] 11/28/2023 10:00 AM EDT Cardiac Studies Cardiology, [facility] [address] [place] [address] [place], Pacer Clinic [facility] [address] [place] [address] 04/16/2024 9:45 AM EST Office Visit Dermatology [facility] 200 [facility] [place] [address] Magnus Nettles MD 200 [facility] [place] [address] Scheduled Procedures Name Priority Associated Diagnoses Date/Ti me COLONOSCOPY FLEXIBLE PROXIMA L DIAGNOSTIC Recall History of colonic polyps Health Maintenance Due Date Last Done Comments DISCUSS TOBACCO CESSATION (REFER TO SMARTSET #8522) 1950 Pneumococcal Vaccine: 65+ Years (1 - [...] this encounter Medical Devices Implanted Type Area Coat Presser Device Identifier Shelf Expiration Date Model / Serial / Lot Kit Distal Bicep Repair Ar-22 - [id number] Implanted:Qty : 1 on 09/22/2015 by Daniel Melgar DO at OR [facility] Right: Shoulder [employer] 08/03/2020 AR-2260 / / [id number] Suture Steel 6 B&S19 M654g - Sm654 - [id number] Implanted:Qty : 4 on 06/22/2019 by Corbin Mock MD at OR [facility] N/A: Sternum JNJ : [employer] 02/04/2024 M654G / M654 / [id number] Port Implant W/8f Poly Cath - [id number] Implanted:Qty : 1 on 12/23/2022 by Mariano Hong DO at OR [facility] Right: Chest CR BARD : PERIPHERAL VASCULAR [id number] 02/04/2024 [id number] / / [id number] documented as of this encounter Advance Directives [...] and were consensually agreed upon. Care Teams School Nurse Relationship Specialty Start Date End Date Justin Bob MD [address] [place] [address] PCP - General Internal Medicine 06/17/14 documented as of this encounter
--- OUTSIDE RECORDS SUMMARY | 2023-07-05 03:12 | External Medical Summary ---
Author Name Unknown Address Unknown Organization K09:[facility] [place] [address] Laboratory Report Ordering Provider Test Date Status VERONICA FARRIS 05/10/2023 10:38:54 Final Observation Date Value Abnormality Reference (Units ) Status SYNC LEUKOCYTES IN BLOOD BY AUTOMATED COUNT 05/10/2023 10:38:54 3.00 Below low normal 4.00-10.80 (K/uL) Final Segs 05/10/2023 10:38:54 26.1 Below low normal 40.0-75.0 (%) Final Lymphs % 05/10/2023 10:38:54 56.3 Above high normal 18.0-42.0 (%) Final Monos 05/10/2023 10:38:54 15.3 Above high normal 1.0-11.0 (%) Final Eosinophils 05/10/2023 10:38:54 1.0 0.0-6.0 (%) Final Basos 05/10/2023 10:38:54 1.3 0.0-2.0 (%) Final Absolute Segs 05/10/2023 10:38:54 0.78 Below low normal 1.80-7.70 (K/uL) Final Lymphs, absolute 05/10/2023 10:38:54 1.69 1.00-4.80 (K/ul) Final Monos, Abs 05/10/2023 10:38:54 0.46 0.00-1.10 (K/uL) Final Eos, Abs 05/10/2023 10:38:54 0.03 0.00-0.70 (K/uL) Final Basos, Abs 05/10/2023 10:38:54 0.04 0.00-0.20 (K/uL) Final Performing Location [facility] [place] [address]
--- OUTSIDE RECORDS SUMMARY | 2023-07-05 03:12 | External Medical Summary ---
Author Name Unknown Address Unknown Organization K09:[facility] [place] [address] Laboratory Report Ordering Provider Test Date Status VERONICA FARRIS 05/16/2023 10:36:42 Final Observation Date Value Abnormality Reference (Units ) Status SYNC LEUKOCYTES IN BLOOD BY AUTOMATED COUNT 05/16/2023 10:36:42 3.08 Below low normal 4.00-10.80 (K/uL) Final Segs 05/16/2023 10:36:42 22.8 Below low normal 40.0-75.0 (%) Final Lymphs % 05/16/2023 10:36:42 54.2 Above high normal 18.0-42.0 (%) Final Monos 05/16/2023 10:36:42 22.1 Above high normal 1.0-11.0 (%) Final Eosinophils 05/16/2023 10:36:42 0.6 0.0-6.0 (%) Final Basos 05/16/2023 10:36:42 0.3 0.0-2.0 (%) Final Absolute Segs 05/16/2023 10:36:42 0.70 Below low normal 1.80-7.70 (K/uL) Final Lymphs, absolute 05/16/2023 10:36:42 1.67 1.00-4.80 (K/ul) Final Monos, Abs 05/16/2023 10:36:42 0.68 0.00-1.10 (K/uL) Final Eos, Abs 05/16/2023 10:36:42 0.02 0.00-0.70 (K/uL) Final Basos, Abs 05/16/2023 10:36:42 0.01 0.00-0.20 (K/uL) Final Performing Location [facility] [place] [address]
--- OUTSIDE RECORDS SUMMARY | 2023-07-05 03:12 | External Medical Summary | Summary of Care ---
Author Name Unknown Organization [facility] Address [address] [place] [address] Phone [phone] Care Team Providers Care Clinical Education Manager Name Role Phone Justin Bob MD Primary Care Provider Reason for Visit * Reason Comments Outpatient Testing Encounter Details Date Type Department Care Team (Late st Contact Info) Description 05/10/2023 11:00 AM EST Laboratory Laboratory [facility] [place] [address] [place] [phone] [place], Lab [address] [place] [address] 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 [...] Care Team (Late st Contact Info) Description 05/11/2023 11:00 AM EST Hem/Onc Treatment Hematology/Oncology Treatment, [place] [address] [place] [phone] [place], Chair 2 Hem Onc [place] [address] [place] [address] 05/26/2023 8:15 AM EST Cardiac Studies Cardiac Studies, [place] [facility] 132 [place] [address] 06/08/2023 10:15 AM EST Office Visit Hematology/Oncology [facility] 200 [facility] [place] [address] [address] Venessa Marie MD 200 [facility] [place] [address] 06/13/2023 11:00 AM EST Office Visit General Surgery, [place] [address] [place], [place] [phone] Hector Jean MD [address] [place] [address] 11/28/2023 10:00 AM EDT Cardiac Studies Cardiology, [facility] 132 [place] [address] [facility], Pacer [address] [address] 04/16/2024 9:45 AM EST Office Visit Dermatology [facility] 200 [facility] [place] [address] [address] Magnus Nettles MD 200 [facility] [place] [address] Pending Results Name Type Priority Associated Diagnoses Date /Time COMPREHENSIVE METABOLIC PANEL Lab STAT 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) 05/10/2023 10:38 AM EST Scheduled Procedures Name Priority Associated Diagnoses Date/Ti me COLONOSCOPY FLEXIBLE PROXIMA L DIAGNOSTIC Recall History of colonic polyps Health Maintenance Due Date Last Done Comments DISCUSS TOBACCO CESSATION (REFER TO SMARTSET #3861) 1950 Pneumococcal Vaccine: 65+ Years (1 - [...] this encounter Medical Devices Implanted Type Area Jackscrew Worker Device Identifier Shelf Expiration Date Model / Serial / Lot Kit Distal Bicep Repair Ar-22 - [id number] Implanted:Qty : 1 on 09/22/2015 by Daniel Melgar DO at OR [facility] Right: Shoulder [employer] 08/03/2020 AR-2260 / / [id number] Suture Steel 6 B&S19 M654g - Sm654 - [id number] Implanted:Qty : 4 on 06/22/2019 by Corbin Mock MD at OR [facility] [place] [place] N/A: Sternum JNJ : [employer] 02/04/2024 M654G / M654 / [id number] Port Implant W/8f Poly Cath - [id number] Implanted:Qty : 1 on 12/23/2022 by Mariano Hong DO at OR [facility] Right: Chest CR BARD : PERIPHERAL VASCULAR [id number] 02/04/2024 [id number] / / [id number] documented as of this encounter Procedures Procedure Name Priority Date/Time Associated Diagnosis Comments DIFFERENTIAL, AUTOMATED STAT 05/10/2023 10:38 AM EST 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) CBC STAT 05/10/2023 10:38 AM EST 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) CBC STAT 05/10/2023 10:38 AM EST 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) documented in this encounter Results * (ABNORMAL) DIFFERENTIAL, AUTOMATED (05/10/2023 10:38 AM EST) WBC 3.00(L) 4.00 - 10.80 K/uL 05/10/2023 10:48 AM EST [facility] 56-02 Neutrophils % 26.1(L) 40.0 - 75.0 % 05/10/2023 10:48 AM [facility] 56-02 Lymphocytes % 56.3(H) 18.0 - 42.0 % 05/10/2023 10:48 AM [facility] 56-02 Monocytes % 15.3(H) 1.0 - 11.0 % 05/10/2023 10:48 AM [facility] 56-02 Eosinophils % 1.0 0.0 - 6.0 % 05/10/2023 10:48 AM [facility] [place] 56-02 Basophils % 1.3 0.0 - 2.0 % 05/10/2023 10:48 AM [facility] 56-02 Absolute Neutrophils 0.78(L) 1.80 - 7.70 K/uL 05/10/2023 10:48 AM [facility] 56-02 Absolute Lymphocytes 1.69 1.00 - 4.80 K/ul 05/10/2023 10:48 AM [facility] 56-02 Absolute Monocytes 0.46 0.00 - 1.10 K/uL 05/10/2023 10:48 AM [facility] 56-02 Absolute Eosinophils 0.03 0.00 - 0.70 K/uL 05/10/2023 10:48 AM [facility] 56-02 Absolute Basophils 0.04 0.00 - 0.20 K/uL 05/10/2023 10:48 AM [facility] 56-02 Blood Venous blood specimen / Unknown Venipuncture / Unknown 05/10/2023 10:38 AM EST 05/10/2023 10:38 AM EST Venessa Marie MD LAB BLOOD ORDERA BLES [facility] 56- [address] [place] [address] * (ABNORMAL) CBC (05/10/2023 10:38 AM EST) WBC 3.00(L) 4.00 - 10.80 K/uL 05/10/2023 10:48 AM EST [facility] 56- RBC 3.84 4.50 - 5.25 M/uL 05/10/2023 10:48 AM EST [address] HGB 12.4(L) 14.0 - 16.8 g/dL 05/10/2023 10:48 AM [facility] 56- HCT 37.3(L) 40.0 - 48.4 % 05/10/2023 10:48 AM [facility] 56- MCV 97.1 82.0 - 99.5 fL 05/10/2023 10:48 AM [facility] 56- MCH 32.3 27.0 - 34.0 pg 05/10/2023 10:48 AM [facility] 56- MCHC 33.2 32.0 - 36.0 g/dL 05/10/2023 10:48 AM [facility] 56- RDW 17.3 11.5 - 15.5 % 05/10/2023 10:48 AM [facility] 56- PLT 103(L) 140 - 400 K/uL 05/10/2023 10:48 AM [facility] 56- MPV 9.4 6.6 - 11.1 fL 05/10/2023 10:48 AM [facility] 56-02 Blood Venous blood specimen / Unknown Venipuncture / Unknown 05/10/2023 10:38 AM EST 05/10/2023 10:38 AM EST Venessa Marie MD LAB BLOOD ORDERA BLES [facility] 56-[address] [place] [address] documented in this encounter Visit Diagnoses Diagnosis [...] and were consensually agreed upon. Care Teams Clinical Education Manager Relationship Specialty Start Date End Date Justin Bob MD [address] [address] PCP - General Internal Medicine 06/17/14 documented as of this encounter
--- OUTSIDE RECORDS SUMMARY | 2023-07-05 03:12 | External Medical Summary | Summary of Care ---
Author Name Unknown Organization [facility] Address [address] [place] [address] Phone [phone] Care Team Providers Care Loss Prevention Representative Name Role Phone Justin Bob MD Primary Care Provider Reason for Visit * Reason Onset Date Comments Test Results Lab 05/10/2023 Encounter Details Date Type Department Care Team (Late st Contact Info) Description 05/10/2023 Telephone Hematology/Oncology Treatment, [place] [address] [place] [address] Venessa Marie MD [address] [place] [address] Test Results Lab Allergies No known active [...] Description 05/16/2023 10:40 AM EST Laboratory Laboratory [facility] [place] [address] [facility] [place] [id number] [place], Lab [address] [place] [address] 05/17/2023 1:15 PM EST Hem/Onc Treatment [facility] [place] [facility] [address] [place], Chair 1 Hem Onc [address] [place] [address] 05/26/2023 8:15 AM EST Cardiac Studies Cardiac Studies, [facility] [address] [facility] [place] [address] 06/08/2023 10:15 AM EST Office Visit Hematology/Oncology [facility] [place] [address] [facility] [place] [address] Venessa Marie MD 200 [place] [address] 06/13/2023 11:00 AM EST [facility] [address] [place] [address] Hector Jean MD [address] [place] [address] 11/28/2023 10:00 AM EDT Cardiac Studies Cardiology, [facility] [address] [facility] [place] [address] [place], Pacer Clinic [facility] [address] [place] [address] 04/16/2024 9:45 AM EST Office Visit Dermatology [facility] 200 [place] [address] Magnus Nettles MD [address] [place] [address] Scheduled Procedures Name Priority Associated Diagnoses Date/Ti me COLONOSCOPY FLEXIBLE PROXIMA L DIAGNOSTIC Recall History of colonic polyps Health Maintenance Due Date Last Done Comments DISCUSS TOBACCO CESSATION (REFER TO SMARTSET #8545) 1950 Pneumococcal Vaccine: 65+ Years (1 - [...] this encounter Medical Devices Implanted Type Area Molded Goods Spot Picker Device Identifier Shelf Expiration Date Model / Serial / Lot Kit Distal Bicep Repair Ar-22 - [id number] Implanted:Qty : 1 on 09/22/2015 by Daniel Melgar DO at OR [facility] Right: Shoulder [employer] 08/03/2020 AR-2260 / / [id number] Suture Steel 6 B&S19 M654g - [id number] - [id number] Implanted:Qty : 4 on 06/22/2019 by Corbin Mock MD at OR [facility] N/A: Sternum JNJ : [employer] 02/04/2024 M654G / [id number] / [id number] Port Implant W/8f Poly Cath - [id number] Implanted:Qty : 1 on 12/23/2022 by Mariano Hong DO at OR [facility] Right: Chest CR BARD : PERIPHERAL VASCULAR [id number] 02/04/2024 [id number] / / [id number] documented as of this encounter Advance Directives [...] 11/09/2022 11:44 AM 11/09/2022 1:18 PM This order reflects the patients wishes [...] and were consensually agreed upon. Care Teams Loss Prevention Representative Relationship Specialty Start Date End Date Justin Bob MD [address] [place] [address] PCP - General Internal Medicine 06/17/14 documented as of this encounter
--- OUTSIDE RECORDS SUMMARY | 2023-07-05 03:12 | External Medical Summary | Summary of Care ---
Author Name Unknown Organization [facility] Address [address] [place] [address] Phone [phone] Care Team Providers Care Enchilada Maker Name Role Phone Justin Bob MD Primary Care Provider Reason for Visit * Reason Onset Date Comments Pacemaker Clinic 05/10/2023 Disconnected mo nitor Encounter Details Date Type Department Care Team (Late st Contact Info) Description 05/10/2023 Telephone Cardiology, [facility] [address] [place] [address] [place], Pacer Clinic [facility] [address] [place] [address] Pacemaker Clinic (Disconnected monitor) Allergies No known active allergiesdocumented as of [...] encounter Miscellaneous Notes * Telephone Encounter - Lori Whitt LPN - 05/10/2023 10:52 AM EST MyG messages sent to patient regarding disconnected monitor as of 04/10/23. Last scheduled transmission received 02/07/23. Patient is scheduled for next automatic transmission 05/18/2023. documented in this encounter Plan of Treatment Upcoming Encounters Date Type Department Care Team (Late st Contact Info) Description 05/11/2023 11:00 AM EST Hem/Onc Treatment Hematology/Oncology Treatment, [place] [address] [place] [address] [place], Chair 2 Hem Onc [facility] [address] [facility] [place] [address] 05/26/2023 8:15 AM EST Cardiac Studies Cardiac Studies, [facility] 132 [place] [address] 06/08/2023 10:15 AM EST Office Visit Hematology/Oncology [address] [place] [address] Venessa Marie MD 200 [facility] [place] [address] 06/13/2023 11:00 AM EST Office Visit General Surgery, [place] [address] [place] [address] Hector Jean MD [address] [place] [address] 11/28/2023 10:00 AM EDT Cardiac Studies Cardiology, [facility] [address] [place] [address] [place], [place] 132 [facility] [place] [address] 04/16/2024 9:45 AM EST Office Visit Dermatology [facility] [address] [place] [address] Magnus Nettles MD 200 [facility] [place] [address] Scheduled Procedures Name Priority Associated Diagnoses Date/Ti me COLONOSCOPY FLEXIBLE PROXIMA L DIAGNOSTIC Recall History of colonic polyps Health Maintenance Due Date Last Done Comments DISCUSS TOBACCO CESSATION (REFER TO SMARTSET #7467) 1950 Pneumococcal Vaccine: 65+ Years (1 - [...] this encounter Medical Devices Implanted Type Area Forklift Material Handler Device Identifier Shelf Expiration Date Model / Serial / Lot Kit Distal Bicep Repair Ar-22 - [id number] Implanted:Qty : 1 on 09/22/2015 by Daniel Melgar DO at OR [facility] Right: Shoulder [employer] 08/03/2020 AR-2260 / / [id number] Suture Steel 6 B&S19 M654g - Sm654 - [id number] Implanted:Qty : 4 on 06/22/2019 by Corbin Mock MD at OR [facility] N/A: Sternum JNJ : [employer] 02/04/2024 M654G / M654 / [id number] Port Implant W/8f Poly Cath - [id number] Implanted:Qty : 1 on 12/23/2022 by Mariano oHng, DO at OR [facility] Right: Chest CR BARD : PERIPHERAL VASCULAR [id number] 02/04/2024 [id number] / / [id number] documented as of this encounter Advance Directives [...] and were consensually agreed upon. Care Teams Enchilada Maker Relationship Specialty Start Date End Date Justin Bob MD [address] [address] PCP - General Internal Medicine 06/17/14 documented as of this encounter
[2023-07-05 03:45] LABS: Basophils # (auto) 0.02 K/uL (0.00-0.20); Basophils % (auto) 0.4 %; Eosinophils # (auto) 0.01 K/uL (0.00-0.50); Eosinophils % (auto) 0.2 %; Hematocrit (blood only) 27.4 % (42.0-52.0); Hemoglobin 8.5 g/dl (14.0-18.0); Immature Granulocytes # (auto) 0.02 K/uL (0.01-0.20); Immature Granulocytes % (auto) 0.4 %; Lymphocytes # (auto) 1.39 K/uL (1.20-3.40); Lymphocytes % (auto) 25.3 %; Mean Corpuscular Hemoglobin 29.8 pg (25.0-34.0); Mean Corpuscular Volume 96.1 fL (80.0-100.0); Mean Platelet Volume 9.7 fL (9.4-12.4); Monocytes # (auto) 0.43 K/uL (0.11-0.59); Monocytes % (auto) 7.8 %; Neutrophils # (auto) 3.62 K/uL (1.40-6.50); Neutrophils % (auto) 65.9 %; Platelet Count 167 K/uL (130-400); RDW Coefficient of Variation 15.6 % (11.5-14.5); RDW Standard Deviation 55.2 fL (36.4-46.3); Red Blood Count 2.85 M/uL (4.70-6.10); White Blood Count 5.49 K/ul (4.8-10.8)
[2023-07-05 04:04] LABS: Albumin Level 3.1 gm/dl (3.4-5.0); BUN Creatinine Ratio 29.2 (10-20); Bilirubin Direct 0.1 mg/dl (0-0.2); Bilirubin,Total 0.4 mg/dl (0.2-1.0); Calcium 8.5 mg/dl (8.6-10.3); Creatinine Clr Calc Pharmacy 119.9 ml/min; Est GFR (African American) 113.4 ml/min; Est GFR (Non-African American) 97.9 ml/min; Potassium 4.6 mmol/L (3.5-5.1); Total Protein 5.5 gm/dl (6.0-8.3)
[2023-07-05] MEDS ORDERED: SODIUM CHLORIDE 0.9% 250 ML IV PRN (09:01)
[2023-07-05] MEDS: D5W AND LACTATED RINGERS 1,000 ML IV SCH (09:41)
[2023-07-05 09:44] LABS: Hematocrit (blood only) 28.2 % (42.0-52.0); Hemoglobin 8.9 g/dl (14.0-18.0); Mean Corpuscular Hemoglobin 30.3 pg (25.0-34.0); Mean Corpuscular Hgb Conc 31.6 g/dL (32.0-36.0); Mean Corpuscular Volume 95.9 fL (80.0-100.0); Mean Platelet Volume 9.6 fL (9.4-12.4); Platelet Count 189 K/uL (130-400); RDW Coefficient of Variation 15.7 % (11.5-14.5); RDW Standard Deviation 55.3 fL (36.4-46.3); Red Blood Count 2.94 M/uL (4.70-6.10); White Blood Count 6.02 K/ul (4.8-10.8)
[2023-07-05] MEDS ORDERED: PANTOPRAZOLE BOLUS/DRIP IV STA (10:19)
[2023-07-05] MEDS ORDERED: PANTOprazole 80 MG in DEXTROSE 5% 100 ML IV STA (10:22)
[2023-07-05] MEDS: PANTOprazole 40 MG in SYRINGE DAILY IV STA (11:45)
[2023-07-05] MEDS: PANTOprazole 40 MG in DEXTROSE 5% MINI-B 100 ML IV SCH (11:53)
--- NOTE | 2023-07-05 11:54 | Discharge Summary ---
Discharge Summary Date of Service July 05, 2023 Notes For Next Care Provider Medication Changes From Visit HOLD Plavix and Lovenox Added Protonix continuous gtt Admission HPI Per Admitting Provider Link is a 73-year-old male with PMH of HLD, paroxysmal A-fib, COPD, CAD, s/p ICD, s/p CABG x 3, peptic ulcer disease, and gastric adenocarcinoma. Patient presented for 2 episodes of coffee-ground emesis with acute onset around 1530 on 07/04. Of note, patient had partial gastrectomy on 06/27/2023 at [facility] and was discharged on 07/01. He reports that he has not had anything to eat today. He did not feel good upon waking on 07/04, and was having nausea and pain at his abdominal incision site. Last BM was yesterday on 07/03. Patient took all of his regular morning medications, including Plavix and Lovenox 40 mg SQ, which she has been taking to prevent blood clots following his surgery. He reports no recent changes in medication. No sick contacts. No prior history of appendectomy or cholecystectomy. Patient endorses smoking 1 cigar daily; no other tobacco or alcohol use. No at home supplemental oxygen use. Patient endorses mild incision site pain with movement; he rates this 2/10 at present; no radiation. Patient has been hypotensive in the ED at 90/64 at time of admission. 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 Patient denies fever, chills, sweating, headache, rashes, cough, chest pain, SOB, pleuritic CP, abdominal pain, diarrhea, abdominal cramping, dysuria, blood in urine/stool, or burning with urination. Principal Dx & Hospital Course #1 = Principal Diagnosis (1) Hematemesis: 2 episodes of coffee-ground hematemesis on 07/04 in the setting of recent partial gastrectomy for gastric adenocarcinoma on 06/27 Hgb 10.7 and HCT 32.7 and PT/INR WNL on arrival--> Hemoglobin was noted as 11.2 and HCT 13.4 on discharge from [facility] on 07/01 With hgb drop to 8.5 after admission, no further hematemesis NGT recommended to be placed as per [facility] Surgeon recommendation with distension of stomach prior to suture line on CT abd/pel with concerns for partial obstruction Was kept NPO, given IVFs, and started on PPI gtt Reglan 5 mg IV TID to promote gastric emptying in the setting of partial gastric obstruction LFTs mildly elevated possibly from liver injury from hypotension--> improved by next AM but remain mildly elevated, APAP level undetectable-Hold acetaminophen pending repeat LFTs/acetaminophen level Dilaudid 0.5 mg IV q4h as needed for incision site pain 4-6 Dilaudid 1.0 mg IV q4h as needed for incision site pain 7-10 Continue to hold Plavix and Lovenox Add on D5LR at 80 mL/hr while NPO (2) S/P partial gastrectomy: At [facility] on 06/27 for gastric adenocarcinoma Patient discharged on 07/01 As above (3) Hypotension: Hypotensive in the ED with BPs lowest 88 systolic, now improved with IVF resuscitaiton From acute blood loss anemia Resume metoprolol 5mg IV q6h scheduled while NPO due to CAD and CABG history (4) Paroxysmal atrial fibrillation: EKG on arrival revealed NSR at 75 bpm; QTc 415 (5) S/P CABG x 3: Hold Plavix due to GI bleeding holding statin while NPO Resume IV metoprolol with hold parameters (6) Elevated transaminase level: AST 71, ALT 64, alk phos 205 on arrival On 06/22: AST 27, ALT 24, alk phos 120 LFTs remain mildly elevated now but improved likely from hypotension and acute liver injury-follow LFTs APAP level negative Plan Disposition: Transfer to [facility] with accepting physician Dr. Jean at his request Full code Discharge Exam Constitutional WD/WN, vitals as above Neck trachea midline, no thyromegaly Respiratory normal respiratory effort, lungs clear to auscultation Cardiovascular RRR, no murmur, no edema Chest (Breasts) Chest: normal inspection of chest Gastrointestinal (Abdomen) Inspection/Auscultation: normal bowel sounds; + abdomen abnormal to inspection (gillian in midline suture intact, c/d/i) Percussion/Palpation: abdomen soft; abdomen nontender Musculoskeletal Extremities: extremities normal to inspection; no cyanosis and no clubbing Skin no rashes, warm and dry Neurologic moves all extremities and awake; no focal motor deficits Psychiatric A+Ox3, euthymic affect Lymphatic no lymphedema Updated Medication List Medication Instructions Recorded Confirmed Type sildenafil (pulm.hypertension) 20 20 mg PO DAILY PRN Sexual Activity 10/08/20 07/04/23 History mg tablet clopidogrel 75 mg tablet (Plavix) 75 mg PO QAM #90 tabs 10/12/21 07/04/23 Rx pantoprazole 40 mg tablet,delayed 40 mg PO QAM #90 tabs 06/17/22 07/04/23 Rx release (Protonix) rosuvastatin 40 mg tablet 40 mg PO QAM 10/12/22 07/04/23 History metoprolol succinate 50 mg 50 mg PO QAM 10/25/22 07/04/23 History tablet,extended release 24 hr ondansetron HCl 8 mg tablet 8 mg PO Q8H PRN Nausea 05/10/23 07/04/23 History prochlorperazine maleate 10 mg 10 mg PO Q6 PRN Nausea 05/10/23 07/04/23 History tablet acetaminophen 325 mg tablet 975 mg PO Q6 PRN mild or mod 07/04/23 07/04/23 History incisional pain docusate sodium 100 mg capsule 100 mg PO BID 07/04/23 07/04/23 History enoxaparin 40 mg/0.4 mL 40 mg subcut QAM 07/04/23 07/04/23 History subcutaneous syringe oxycodone 5 mg tablet 5 mg PO Q6H PRN severe incisional 07/04/23 07/04/23 History pain sennosides 8.6 mg tablet (senna) 17.2 mg PO DAILY PRN Constipation 07/04/23 07/04/23 History Hospital Stay Data Consultations 07/04/23 20:37 ED Decision to Admit Stat Diagnostic Imagining Performed 07/04/23 16:52 CT Abd and Pelvis [CT abd pelvis IV con only] Stat Pending Results Patient Have Any Pending Studies at Discharge: No Discharge Instructions Given to Patient (Per Discharging Provider) Transferred to [facility] Total Time Total Time Spent Total Time Spent (In Minutes): 60 min Coding Level of Care Code 49810 INP/OBS DISCH >30 MIN Diagnoses Hematemesis K92.0 S/P partial gastrectomy Z90.3 Hypotension I95.9 Paroxysmal atrial fibrillation I48.0 S/P CABG x 3 Z95.1 Elevated transaminase level R74.01
--- NOTE | 2023-07-05 12:05 | Electrocardiogram Report ---
Test Reason : Blood Pressure : / mmHG Vent. Rate : 075 BPM Atrial Rate : 075 BPM P-R Int : 138 ms QRS Dur : 068 ms QT Int : 372 ms P-R-T Axes : 071 056 057 degrees QTc Int : 415 ms Normal sinus rhythm Nonspecific ST abnormality Abnormal ECG When compared with ECG of 11-SEP-2020 20:14, No significant change was found Confirmed by Kian López ([id number]) on 07/05/2023 12:05:42 PM Referred By: Hector Jean Confirmed By:Kian López
[2023-07-05] MEDS: METOPROLOL TARTRATE 1 MG/ML VIAL IV SCH (12:37)
[2023-07-05 16:59] LABS: Appearance Urine Clear (Clear); Bilirubin Urine Negative (Negative); Blood Urine Negative (Negative); Color Urine Yellow; Glucose Urine UA Negative (Negative); Ketones Urine 2+ (Negative); Leukocyte Esterase Urine Negative (Negative); Nitrite Urine Negative (Negative); Protein Urine Negative (Negative); Specific Gravity Urine 1.029 (1.000-1.030); Urobilinogen Urine Negative (Negative); pH Urine 5.5 (4.5-7.5)
[2023-07-05] MEDS: HYDROmorphone INJ 0.5 MG/0.5 ML SYR IV PRN (17:12)
--- NOTE | 2023-07-05 23:30 | Hospitalist Progress Note ---
Date of Service July 05, 2023 Assessment & Plan (1) Hematemesis: Plan: 2 episodes of coffee-ground hematemesis on 07/04 in the setting of recent partial gastrectomy for gastric adenocarcinoma on 06/27 Hgb 10.7 and HCT 32.7 and PT/INR WNL on arrival--> Hemoglobin was noted as 11.2 and HCT 13.4 on discharge from [facility] on 07/01 With hgb drop to 8.5 after admission, no further hematemesis NGT recommended to be placed as per [facility] Surgeon recommendation with distension of stomach prior to suture line on CT abd/pel with concerns for partial obstruction Was kept NPO, given IVFs, and started on PPI gtt Reglan 5 mg IV TID to promote gastric emptying in the setting of partial gastric obstruction LFTs mildly elevated possibly from liver injury from hypotension--> improved by next AM but remain mildly elevated, APAP level undetectable-Hold acetaminophen pending repeat LFTs/acetaminophen level Dilaudid 0.5 mg IV q4h as needed for incision site pain 4-6 Dilaudid 1.0 mg IV q4h as needed for incision site pain 7-10 Continue to hold Plavix and Lovenox Add on D5LR at 80 mL/hr while NPO (2) S/P partial gastrectomy: Plan: At [facility] on 06/27 for gastric adenocarcinoma Patient discharged on 07/01 As above (3) Hypotension: Plan: Hypotensive in the ED with BPs lowest 88 systolic, now improved with IVF resuscitaiton From acute blood loss anemia Resume metoprolol 5mg IV q6h scheduled while NPO due to CAD and CABG history (4) Paroxysmal atrial fibrillation: Plan: EKG on arrival revealed NSR at 75 bpm; QTc 415 (5) S/P CABG x 3: Plan: Hold Plavix due to GI bleeding holding statin while NPO Resume IV metoprolol with hold parameters (6) Elevated transaminase level: Plan: AST 71, ALT 64, alk phos 205 on arrival On 06/22: AST 27, ALT 24, alk phos 120 LFTs remain mildly elevated now but improved likely from hypotension and acute liver injury-follow LFTs APAP level negative Plan Disposition: Transfer to [facility] with accepting physician Dr. Jean at his request-awaiting bed Full code Admission and Anticipated Discharge Date Admission Date: July 04, 2023 Subjective pt was to be transferred to [facility] today but no bed available yet no further hematemesis, no nausea attempts to place NGT failed x 2 and had epistaxis denies abd pain, SOB, CP Physical Exam Constitutional: WD/WN, vitals as above Neck: trachea midline, no thyromegaly Respiratory: normal respiratory effort, lungs clear to auscultation Cardiovascular: RRR, no murmur, no edema Chest (Breasts): Chest: normal inspection of chest Gastrointestinal (Abdomen): Inspection/Auscultation: normal bowel sounds; + abdomen abnormal to inspection (gillian in midline suture intact, c/d/i) Percussion/Palpation: abdomen soft; abdomen nontender Musculoskeletal: Extremities: extremities normal to inspection; no cyanosis and no clubbing Skin: no rashes, warm and dry Neurologic: moves all extremities and awake; no focal motor deficits Psychiatric: A+Ox3, euthymic affect Lymphatic: no lymphedema Results & Data Results & Data Vital Signs (Past 12 Hours) Vital Signs Pulse Resp BP BP Pulse Ox O2 Del Method 07/05/23 21:01 63 18 99/50 L 95 Room Air 07/05/23 18:30 70 20 98/65 L 97 Room Air 07/05/23 17:21 97/67 L 07/05/23 16:47 73 20 97/67 L 98 Room Air 07/05/23 12:33 92 H 18 101/78 98 Room Air PG Care Time/CCT Total # of Minutes Spent Total Time Spent with Patient: Total time spent is greater than 50% in coordination of care (as documented) at patient's floor/unit and/or counseling patient: Coding Level of Care Code 03693 SUB INP/OBS CARE 3/50MIN Diagnoses Hematemesis K92.0 S/P partial gastrectomy Z90.3 Hypotension I95.9 Paroxysmal atrial fibrillation I48.0 S/P CABG x 3 Z95.1 Elevated transaminase level R74.01
[2023-07-06 04:51] LABS: Basophils # (auto) 0.02 K/uL (0.00-0.20); Basophils % (auto) 0.4 %; Eosinophils # (auto) 0.01 K/uL (0.00-0.50); Eosinophils % (auto) 0.2 %; Hematocrit (blood only) 24.4 % (42.0-52.0); Hemoglobin 7.7 g/dl (14.0-18.0); Immature Granulocytes # (auto) 0.02 K/uL (0.01-0.20); Immature Granulocytes % (auto) 0.4 %; Lymphocytes # (auto) 1.56 K/uL (1.20-3.40); Lymphocytes % (auto) 27.9 %; Mean Corpuscular Hemoglobin 30.2 pg (25.0-34.0); Mean Corpuscular Hgb Conc 31.6 g/dL (32.0-36.0); Mean Corpuscular Volume 95.7 fL (80.0-100.0); Mean Platelet Volume 9.4 fL (9.4-12.4); Monocytes # (auto) 0.47 K/uL (0.11-0.59); Monocytes % (auto) 8.4 %; Neutrophils # (auto) 3.51 K/uL (1.40-6.50); Neutrophils % (auto) 62.7 %; Platelet Count 179 K/uL (130-400); RDW Coefficient of Variation 15.7 % (11.5-14.5); Red Blood Count 2.55 M/uL (4.70-6.10); White Blood Count 5.59 K/ul (4.8-10.8)
[2023-07-06 05:06] LABS: Albumin Level 3.1 gm/dl (3.4-5.0); BUN Creatinine Ratio 26.2 (10-20); Bilirubin Direct 0.1 mg/dl (0-0.2); Bilirubin,Total 0.4 mg/dl (0.2-1.0); Calcium 8.5 mg/dl (8.6-10.3); Creatinine Clr Calc Pharmacy 127.8 ml/min; Est GFR (African American) 116.5 ml/min; Est GFR (Non-African American) 100.5 ml/min; Magnesium 1.8 mg/dl (1.7-2.4); Potassium 3.9 mmol/L (3.5-5.1); Total Protein 5.3 gm/dl (6.0-8.3)
[2023-07-06 05:37] LABS: RBC Morphology Unremarkable
[2023-07-06] MEDS ORDERED: SODIUM CHLORIDE 0.9% 250 ML IV PRN (08:41)
[2023-07-06] MEDS: ONDANSETRON INJ 2 MG/ML 2 ML VIAL IV PRN (11:15)
--- NOTE | 2023-07-06 11:58 | Communication Note ---
Date of Service: July 06, 2023 73 year old male with gastric adenocarcinoma s/p neoadjuvant chemotherapy s/p partial gastrectomy 06/30/[address] Jean at [facility] who presented to [facility] ED w/ reports of coffee ground emesis. He is awaiting transfer to [facility], GI was contacted in the interim in event urgent EGD is needed. Pt was seen, case discussed with hospitalist and attending. Notes that he had two episodes of coffee ground appearing emesis Tuesday but denies hematemesis, melena or BRBPR. He reports midline abd pain but is unable to differentiate if this is at his surgical site or if it is abdominal. On admission, he had a drop in HGB from 10.7 --> 7.7 with a normal BUN. He is getting 1 unit RBC's currently. He does not appear to have acute GI bleeding given stable BP, normal BUN and no further report of coffee ground emesis without any reports of hematemesis, melena or BRBPR. We are happy to arrange a diagnostic endoscopic evaluation today if he is unable to be transferred timely to [facility]. In the meantime, agree with conservative measures which include trending HGB, monitoring/documenting GI output, transfusing PRN, maintaining NPO status and continuing a PPI drip. Please contact our team with any acute acute changes, questions or concerns. Attg add: Pt admit with single episode of coffee ground emesis. Ct on admit shows dilated stomacg full of debris and hyperdense material suggetsing blood. Since admit, no BM and no further recurrence of nausea. His Lovenox and Plavix have been held. His hgb is down trending, and BP has been 90-100. Plan for transfer as above. It seems reasonable to continue PPI gtt and conservative care for now - it is possible that he has stopped bleeding since ac has been held.
[2023-07-06] MEDS: METOPROLOL TARTRATE 1 MG/ML VIAL IV SCH (18:37)
== END 2023-07-06 22:30 | disposition short-term general hospital (02) | DRG 378 ==
LOC: ED 16:21 → SUATTDRO 21:36 → INTOOBSV 21:36 → EDINP 21:36